=== PATIENT | male | born 1965 | race Caucasian/White ===

== ENCOUNTER → 2016-09-04 | Outpatient (REF) | payer OTHER, BC | LOC: M LAB REF 16:31 | PROVIDERS: ATTEND Surgery | DX: L82.1 Other seborrheic keratosis (principal) ==

== ENCOUNTER → 2019-07-03 | Outpatient (CLI) | payer BC, OTHER ==
[~2019-07-03] MED LIST: CARD180C4 PO; ELIQ5TAB PO; LASI40TA9 PO; POTA595T16 PO; PROT1TAB2 PO; [UNRECOGNIZED DRUG - CODE] PO
[2019-07-03 11:26] LABS: BASO % 0.6 % (0.0-1.0); EOS # 0.2 10^3/uL (0.0-0.5); EOS % 2.6 % (0.0-3.0); HEMATOCRIT 42.9 % (42.0-52.0); HEMOGLOBIN 13.9 g/dl (13.5-17.5); LYMPH # 1.4 10^3/uL (1.5-5.0); LYMPH % 21.6 % (24.0-44.0); MEAN CORPUSCULAR HEMOGLOBIN 30.5 pg (27.0-33.0); MEAN CORPUSCULAR HGB CONC 32.4 g/dl (32.0-36.5); MEAN CORPUSCULAR VOLUME 94.3 fl (80.0-96.0); MONO # 0.8 10^3/uL (0.0-0.8); MONO % 11.6 % (0.0-5.0); NEUTROPHILS # 4.1 10^3/uL (1.5-8.5); NEUTROPHILS % 63.3 % (36.0-66.0); PLATELET COUNT, AUTOMATED 170 10^3/uL (150-450); RED BLOOD COUNT 4.55 10^6/uL (4.30-6.10); WHITE BLOOD COUNT 6.5 10^3/uL (4.0-10.0)
[2019-07-03 11:51] LABS: ALT/SGPT 51 U/L (12-78); BILIRUBIN,DIRECT 0.6 MG/DL (0.0-0.2); BILIRUBIN,TOTAL 2.1 MG/DL (0.2-1.0); TOTAL PROTEIN 6.4 GM/DL (6.4-8.2)
[2019-07-04 11:36] LABS: HEPATITIS B SURFACE ANTIBODY NEGATIVE (POSITIVE)
[2019-07-04 11:45] LABS: HEPATITIS B SURFACE ANTIGEN NEGATIVE (NEGATIVE)
[2019-07-04 12:12] LABS: HEPATITIS C VIRUS ABY INDEX < 0.0 INDEX (<0.8)
== END ==
LOC: M LAB 10:40
PROVIDERS: ATTEND Internal Medicine Gastroenterology
DX: K74.60 Unspecified cirrhosis of liver (principal)

== ENCOUNTER 2019-07-10 09:40 | Day surgery (SDC) | payer BC, OTHER ==
[~2019-07-10] VITALS: Ht 167.6 cm; Wt 84.8 kg
[~2019-07-10 09:40] MED LIST changes: +NS 1,000 ML IV ONE
[2019-07-10] MEDS ORDERED: LIDOCAINE 2% INJ 100 MG/5 ML SDV (FOR ANES.) As Ordered ONE (11:15)
[2019-07-10] MEDS ORDERED: propofoL 200 MG/20 ML VIAL As Ordered ONE (11:15)
[2019-07-10] MEDS ORDERED: fentaNYL 100 MCG/2 ML INJECTION (J3010) As Ordered ONE (12:36)
--- NOTE | 2019-07-10 13:16 | ROOR ---
Patient Name: Omero Ghotra Procedure Date: 07/10/2019 12:31 PM Date of : 1965 Age: 54 Room: [facility] Gender: Male Note Status: Finalized Procedure: Upper GI endoscopy Indications: Upper abdominal pain, Cirrhosis rule out esophageal varices, Portal hypertension rule out esophageal varices Providers: Andres Alonso MD Referring MD: ZANDER NEWTON MD Requesting Provider: Medicines: Monitored Anesthesia Care Complications: No immediate complications. Procedure: Pre-Anesthesia Assessment: - Prior to the procedure, a History and Physical was performed, and patient medications and allergies were reviewed. The patient is competent. The risks and benefits of the procedure and the sedation options and risks were discussed with the patient. All questions were answered and informed consent was obtained. Patient identification and proposed procedure were verified by the physician, the nurse and the anesthesiologist in the procedure room. Mental Status Examination: alert and oriented. Airway Examination: normal oropharyngeal airway and neck mobility. Respiratory Examination: clear to auscultation. CV Examination: normal. Prophylactic Antibiotics: The patient does not require prophylactic antibiotics. Prior Anticoagulants: The patient has taken no previous anticoagulant or antiplatelet agents. ASA Grade Assessment: II - A patient with mild systemic disease. After reviewing the risks and benefits, the patient was deemed in satisfactory condition to undergo the procedure. The anesthesia plan was to use monitored anesthesia care (MAC). Immediately prior to administration of medications, the patient was re-assessed for adequacy to receive sedatives. The heart rate, respiratory rate, oxygen saturations, blood pressure, adequacy of pulmonary ventilation, and response to care were monitored throughout the procedure. The physical status of the patient was re-assessed after the procedure. The Endoscope was introduced through the mouth, and advanced to the second part of duodenum. The upper GI endoscopy was accomplished without difficulty. The patient tolerated the procedure well. Findings: LA Grade A (one or more mucosal breaks less than 5 mm, not extending between tops of 2 mucosal folds) esophagitis with no bleeding was found in the distal esophagus. Biopsies were taken with a cold forceps for histology. Verification of patient identification for the specimen was done by the physician and nurse using the patient's name, date and medical record number. Estimated blood loss was minimal. There is no endoscopic evidence of varices in the entire esophagus. Scattered moderate inflammation characterized by erosions, erythema and granularity was found in the gastric body and in the gastric antrum. Biopsies were taken with a cold forceps for Helicobacter pylori testing. Verification of patient identification for the specimen was done by the physician and nurse using the patient's name, date and medical record number. Estimated blood loss was minimal. The duodenal bulb and second portion of the duodenum were normal. Biopsies for histology were taken with a cold forceps for evaluation of celiac disease. Impression: - LA Grade A reflux esophagitis. Rule out Arreaga's esophagus. Biopsied. - Gastritis. Biopsied. - Normal duodenal bulb and second portion of the duodenum. Biopsied. Recommendation: - Patient has a contact number available for emergencies. The signs and symptoms of potential delayed complications were discussed with the patient. Return to normal activities tomorrow. Written discharge instructions were provided to the patient. - High fiber diet. - Continue present medications. - Follow an antireflux regimen. - Await pathology results. - Telephone GI clinic for pathology results in 2 weeks. - Return to primary care physician. Andres Alonso MD Andres Alonso MD 07/10/2019 1:16:21 PM Electronically signed by Andres Alonso MD Number of Addenda: 0 Note Initiated On: 07/10/2019 12:31 PM Estimated Blood Loss: Estimated blood loss was minimal.
--- NOTE | 2019-07-10 13:22 | ROOR ---
Patient Name: Omero Ghotra Procedure Date: 07/10/2019 12:32 PM Date of : 1965 Age: 54 Room: [facility] Gender: Male Note Status: Finalized Procedure: Colonoscopy Indications: Change in bowel habits, Chronic diarrhea Providers: Andres Alonso MD Referring MD: ZANDER NEWTON MD Requesting Provider: Medicines: Monitored Anesthesia Care Complications: No immediate complications. Procedure: Pre-Anesthesia Assessment: - Prior to the procedure, a History and Physical was performed, and patient medications and allergies were reviewed. The patient is competent. The risks and benefits of the procedure and the sedation options and risks were discussed with the patient. All questions were answered and informed consent was obtained. Patient identification and proposed procedure were verified by the physician, the nurse and the anesthesiologist in the procedure room. Mental Status Examination: alert and oriented. Airway Examination: normal oropharyngeal airway and neck mobility. Respiratory Examination: clear to auscultation. CV Examination: normal. Prophylactic Antibiotics: The patient does not require prophylactic antibiotics. Prior Anticoagulants: The patient has taken no previous anticoagulant or antiplatelet agents. ASA Grade Assessment: II - A patient with mild systemic disease. After reviewing the risks and benefits, the patient was deemed in satisfactory condition to undergo the procedure. The anesthesia plan was to use monitored anesthesia care (MAC). Immediately prior to administration of medications, the patient was re-assessed for adequacy to receive sedatives. The heart rate, respiratory rate, oxygen saturations, blood pressure, adequacy of pulmonary ventilation, and response to care were monitored throughout the procedure. The physical status of the patient was re-assessed after the procedure. The Colonoscope was introduced through the anus and advanced to the terminal ileum, with identification of the appendiceal orifice and IC valve. The colonoscopy was performed without difficulty. The patient tolerated the procedure well. The quality of the bowel preparation was good. The terminal ileum, ileocecal valve, appendiceal orifice, and rectum were photographed. Scope insertion time was 3 minutes. Scope withdrawal time was 9 minutes. The total duration of the procedure was 12 minutes. Findings: The perianal and digital rectal examinations were normal. The terminal ileum appeared normal. A 6 mm polyp was found in the transverse colon. The polyp was sessile. The polyp was removed with a cold snare. Resection and retrieval were complete. Verification of patient identification for the specimen was done by the physician and nurse using the patient's name, date and medical record number. Estimated blood loss was minimal. Non-bleeding external and internal hemorrhoids were found during retroflexion. The hemorrhoids were medium-sized. Impression: - The examined portion of the ileum was normal. - One 6 mm polyp in the transverse colon, removed with a cold snare. Resected and retrieved. - Non-bleeding external and internal hemorrhoids. Recommendation: - Patient has a contact number available for emergencies. The signs and symptoms of potential delayed complications were discussed with the patient. Return to normal activities tomorrow. Written discharge instructions were provided to the patient. - High fiber diet. - Continue present medications. - Await pathology results. - Repeat colonoscopy in 5-10 years for surveillance based on pathology results. - Telephone GI clinic for pathology results in 2 weeks. - Return to primary care physician. Andres Alonso MD Andres Alonos MD 07/10/2019 1:21:56 PM Electronically signed by Andres Alonso MD Number of Addenda: 0 Note Initiated On: 07/10/2019 12:32 PM Estimated Blood Loss: Estimated blood loss was minimal.
[2019-07-10 13:30] VITALS: BP 121/77
== END 2019-07-10 13:53 | disposition home or self-care (01) ==
LOC: M OPP 09:40
PROVIDERS: ATTEND Internal Medicine Gastroenterology
DX: R19.4 Change in bowel habit (principal); K52.9 Noninfective gastroenteritis and colitis, unspecified; D12.3 Benign neoplasm of transverse colon; K64.8 Other hemorrhoids; R10.10 Upper abdominal pain, unspecified; D13.0 Benign neoplasm of esophagus; K29.70 Gastritis, unspecified, without bleeding; K21.0 Gastro-esophageal reflux disease with esophagitis; K74.60 Unspecified cirrhosis of liver; K76.6 Portal hypertension; I48.91 Unspecified atrial fibrillation; I11.0 Hypertensive heart disease with heart failure; Z85.72 Personal history of non-Hodgkin lymphomas; Z92.21 Personal history of antineoplastic chemotherapy; Z92.3 Personal history of irradiation; R06.2 Wheezing; Z87.01 Personal history of pneumonia (recurrent); Z79.01 Long term (current) use of anticoagulants; Z79.899 Other long term (current) drug therapy; Z88.1 Allergy status to other antibiotic agents
CPT/HCPCS: 43239; 45385; 88305; J3010

== ENCOUNTER → 2019-12-10 | Outpatient (CLI) | payer BC, OTHER ==
[~2019-12-10] MED LIST changes: +LISI2.5T2; +METO1TAB7; -NS 1,000 ML IV ONE; +SPIR50TA4
[2020-01-18 11:50] LABS: ALBUMIN 4.3 GM/DL (3.2-5.2); ALT/SGPT 42 U/L (12-78); BILIRUBIN,DIRECT 0.9 MG/DL (0.0-0.2); BLOOD UREA NITROGEN 27 MG/DL (7-18); CALCIUM LEVEL 9.3 MG/DL (8.5-10.1); CARBON DIOXIDE LEVEL 30 MEQ/L (21-32); CHLORIDE LEVEL 102 MEQ/L (98-107); CREATININE FOR GFR 1.23 MG/DL (0.70-1.30); GLOMERULAR FILTRATION RATE > 60.0 (>56); GLUCOSE, FASTING 88 MG/DL (70-100); POTASSIUM SERUM 4.2 MEQ/L (3.5-5.1); SODIUM LEVEL 137 MEQ/L (136-145); TOTAL PROTEIN 6.7 GM/DL (6.4-8.2)
== END ==
LOC: M LAB 10:16
PROVIDERS: ATTEND Internal Medicine Gastroenterology
DX: K74.60 Unspecified cirrhosis of liver (principal)

== ENCOUNTER → 2019-12-12 | Outpatient (CLI) | payer BC, OTHER ==
--- NOTE | 2020-01-30 13:09 | REP ---
COMPLETE ABDOMINAL ULTRASOUND WITH DUPLEX DOPPLER EVALUATION OF PORTAL VENOUS SYSTEM: HISTORY: Cirrhosis. TECHNIQUE: Real time ultrasound evaluation of the abdomen is performed. FINDINGS: The gallbladder demonstrates no evidence of intraluminal sludge or calculi, wall thickening or pericholecystic fluid. There is no intrahepatic or extrahepatic biliary dilatation. The common bile duct measures 5 mm. The liver demonstrates diffuse mild increased echotexture with a heterogeneous pattern compatible with diffuse fibrofatty infiltration. The liver is mildly enlarged with a maximum length of 18.2 cm in the mid-clavicular line. No gross liver or pancreatic mass is seen. The pancreas is not optimally seen due to overlying bowel gas. The spleen is upper limits of normal in size to mildly enlarged, measuring 11.7 x 11.8 x 4.8 cm. The splenic index is 663. The kidneys are normal in size and echotexture, the right kidney measuring 10.0 x 5.8 x 3.5 cm and the left kidney measuring 9.8 x 4.7 x 6.0 cm. There is no hydronephrosis or renal mass. The abdominal aorta is normal in caliber with no aneurysm, proximally measuring 2.0 cm and Distally 1.6 cm in maximum AP dimension. There is trace free fluid near the gallbladder. Real time ultrasound evaluation an duplex Doppler interrogation of portal vasculature is performed. There is normal direction of flow in the portal system. The splenic vein has a maximum velocity of 29.3 cm/s. The superior mesenteric vein is 18.5 cm/s with no intraluminal thrombus. Velocity in the main portal vein is 28.5 cm/s. Portal splenic wave forms appear somewhat phasic, suggesting possible portal hypertension. The hepatic veins are patent with no thrombus. Wave forms suggest tricuspid regurgitation. Peak systolic velocity in the pain hepatic artery is 50.2 cm/s with resistive index of 0.72. IMPRESSION: Heterogeneous increased echotexture of the liver suggests fibrofatty infiltration. The spleen is at the upper limits of normal size to mildly enlarged. Trace free fluid in the right upper quadrant. Normal direction of flow in the portal vasculature. Phasic wave forms suggests some degree of portal hypertension. Wave forms in the hepatic veins suggest tricuspid regurgitation. MTDD
== END ==
LOC: M RAD 06:26
PROVIDERS: ATTEND Internal Medicine Gastroenterology
DX: K74.60 Unspecified cirrhosis of liver (principal)

== ENCOUNTER → 2020-02-18 | Outpatient (CLI) | payer BC, OTHER ==
[2020-02-18 09:59] LABS: BASO # 0.1 10^3/uL (0.0-0.2); BASO % 0.5 % (0.0-1.0); EOS # 0.2 10^3/uL (0.0-0.5); EOS % 1.9 % (0.0-3.0); HEMATOCRIT 47.1 % (42.0-52.0); HEMOGLOBIN 15.5 g/dl (13.5-17.5); LYMPH # 2.3 10^3/uL (1.5-5.0); LYMPH % 23.7 % (24.0-44.0); MEAN CORPUSCULAR HEMOGLOBIN 32.5 pg (27.0-33.0); MEAN CORPUSCULAR HGB CONC 32.9 g/dl (32.0-36.5); MEAN CORPUSCULAR VOLUME 98.7 fl (80.0-96.0); MONO % 10.4 % (0.0-5.0); NEUTROPHILS % 63.1 % (36.0-66.0); PLATELET COUNT, AUTOMATED 224 10^3/uL (150-450); RED BLOOD COUNT 4.77 10^6/uL (4.30-6.10); WHITE BLOOD COUNT 9.5 10^3/uL (4.0-10.0)
[2020-02-18 10:48] LABS: BLOOD UREA NITROGEN 33 MG/DL (7-18); CALCIUM LEVEL 9.2 MG/DL (8.5-10.1); CARBON DIOXIDE LEVEL 29 MEQ/L (21-32); CHLORIDE LEVEL 99 MEQ/L (98-107); CREATININE FOR GFR 1.26 MG/DL (0.70-1.30); GLOMERULAR FILTRATION RATE > 60.0 (>56); GLUCOSE, FASTING 86 MG/DL (70-100); MAGNESIUM LEVEL 2.2 MG/DL (1.8-2.4); PHOSPHORUS LEVEL 3.6 MG/DL (2.5-4.9); POTASSIUM SERUM 4.3 MEQ/L (3.5-5.1); SODIUM LEVEL 136 MEQ/L (136-145)
--- NOTE | 2020-02-23 15:10 | REP ---
CHEST X-RAY: TWO-VIEWS HISTORY: Shortness of breath. Chronic amiodarone therapy. Prior chemo for lymphoma. FINDINGS: The lungs are well-inflated and are clear. The pleural angles are sharp. Pulmonary vasculature is not increased. Heart is mildly enlarged. Cardiothoracic ratio 49.8%. There is evidence of left atrial enlargement with a double density over the right heart border. No pleural effusion or pulmonary edema. There are degenerative changes in the thoracic spine. IMPRESSION: Mild cardiomegaly and left atrial enlargement. Otherwise, no acute disease. MTDD
== END ==
LOC: M LAB 07:51
PROVIDERS: ATTEND Internal Medicine Gastroenterology
DX: K76.0 Fatty (change of) liver, not elsewhere classified (principal); K74.60 Unspecified cirrhosis of liver

== ENCOUNTER → 2020-03-25 | Outpatient (CLI) | payer BC, OTHER ==
[~2020-03-25] MED LIST changes: +LIDOCAINE 1% MDV 20ML VIAL As Ordered ONE; +SODIUM BICARBONATE 8.4% INJ 50MEQ 50 ML VIAL As Ordered ONE
[2020-03-25 11:17] LABS: INR 1.22; PROTHROMBIN TIME 15.7 SECONDS (12.5-14.3)
[2020-03-25 13:15] VITALS: BP 98/66
--- NOTE | 2020-03-25 14:09 | REP ---
INDICATION: CIRRHOSIS. COMPARISON: None. TECHNIQUE: The procedure was performed by Marifer Ballard [facility], under the direct supervision of Dr. Argueta. The risks and benefits of the procedure were explained to the patient and an informed consent was obtained both verbally and written. Directly prior to the start of the procedure a formal time-out was completed in the procedure room. FINDINGS: Using ultrasound guidance the left lobe of the liver was localized. The skin was prepped and draped in a sterile fashion. Twenty mL of buffered lidocaine was used as a local anesthetic. Using ultrasound guidance a 17/18 gauge coaxial needle biopsy system was inserted and advanced into the left lobe of the liver. Five core biopsy specimens were obtained. The patient tolerated the procedure well and there were no immediate complications. After the appropriate amount of monitored convalescence the patient was discharged from the department. IMPRESSION: 1. Ultrasound-guided left lobe liver biopsy. <Electronically signed by Marifer Ballard > 03/25/20 [id number] <Electronically signed by Devan Argueta > 03/25/20 [id number]
== END ==
LOC: M IRPRO 09:54
PROVIDERS: ATTEND Internal Medicine Gastroenterology
DX: K76.0 Fatty (change of) liver, not elsewhere classified (principal); Z88.1 Allergy status to other antibiotic agents

== ENCOUNTER 2020-04-05 22:17 | Inpatient (IN) | payer BC, OTHER ==
[~2020-04-05] VITALS: Ht 167.6 cm; Wt 75.6 kg
[~2020-04-05 22:17] MED LIST changes: -LIDOCAINE 1% MDV 20ML VIAL As Ordered ONE; -LISI2.5T2; +LISI2.5T2 PO; -METO1TAB7; +METO1TAB7 PO; -SODIUM BICARBONATE 8.4% INJ 50MEQ 50 ML VIAL As Ordered ONE; -SPIR50TA4; +SPIR50TA4 PO
[2020-04-05] MEDS ORDERED: HumuLIN R (REGULAR) INSULIN (NovoLIN R) **100U/ML** PER UNIT IV STA (23:25)
[2020-04-05] MEDS ORDERED: DEXTROSE 50% 50 ML SYRINGE IV STA (23:25)
[2020-04-05 23:30] LABS: BASO % 0.4 % (0.0-1.0); EOS # 0.1 10^3/uL (0.0-0.5); EOS % 0.6 % (0.0-3.0); HEMOGLOBIN 16.3 g/dl (13.5-17.5); LYMPH # 1.6 10^3/uL (1.5-5.0); LYMPH % 14.9 % (24.0-44.0); MEAN CORPUSCULAR HEMOGLOBIN 31.6 pg (27.0-33.0); MEAN CORPUSCULAR HGB CONC 32.6 g/dl (32.0-36.5); MEAN CORPUSCULAR VOLUME 96.9 fl (80.0-96.0); MONO # 1.1 10^3/uL (0.0-0.8); MONO % 10.2 % (0.0-5.0); NEUTROPHILS # 7.6 10^3/uL (1.5-8.5); NEUTROPHILS % 73.2 % (36.0-66.0); PLATELET COUNT, AUTOMATED 212 10^3/uL (150-450); RED BLOOD COUNT 5.16 10^6/uL (4.30-6.10); WHITE BLOOD COUNT 10.4 10^3/uL (4.0-10.0)
[2020-04-05] MEDS ORDERED: CALCIUM GLUCONATE IV ONE (23:30)
[2020-04-05] MEDS ORDERED: ALBUTEROL SULFATE 2.5 MG/0.5 ML INH NEB SOLN NEB SCH (23:30)
[2020-04-05] MEDS ORDERED: D5W MINI IV ONE (23:30)
[2020-04-06] VITALS (11 sets, daily range): BP systolic 89–120; BP diastolic 51–74
[2020-04-06] MEDS ORDERED: PATIROMER SORBITEX CALCIUM 8.4 GM POWDER PACKET (VELTASSA) PO ONE
[2020-04-06] MEDS ORDERED: UNRESOLVED CLARIFICATION ENTRY XX SCH (00:01)
--- NOTE | 2020-04-06 00:01 | REPVR ---
PROCEDURE INFORMATION: Exam: XR Chest, 1 View Exam date and time: 04/05/2020 11:35 PM Age: 54 years old Clinical indication: Cough and dyspnea; Additional info: Dyspnea/cough TECHNIQUE: Imaging protocol: XR of the chest Views: 1 view. COMPARISON: TN Chest, 2 view PA, Lat 02/18/2020 8:21 AM FINDINGS: Lungs: There are no interval infiltrates. Pleural space: Unremarkable. No pleural effusion. No pneumothorax. Heart/Mediastinum: The heart is within normal limits considering AP and somewhat lordotic projection. Bones/joints: Unremarkable. IMPRESSION: Stable essentially negative chest since 02/18/2020. Electronically signed by: Henri Fleming On 04/06/2020 00:01:47 AM
[2020-04-06 00:10] LABS: ALBUMIN 4.5 GM/DL (3.2-5.2); BILIRUBIN,DIRECT 0.8 MG/DL (0.0-0.2); CALCIUM LEVEL 9.8 MG/DL (8.5-10.1); CK-MB VALUE MASS 6.7 NG/ML (<3.6); CREATININE FOR GFR 1.87 MG/DL (0.70-1.30); MB/CK RELATIVE INDEX 5.45 (< OR =4); TOTAL PROTEIN 7.5 GM/DL (6.4-8.2); TROPONIN I 0.28 NG/ML (< 0.10)
[2020-04-06] MEDS: CALCIUM GLUCONATE 1,000 MG in D5W MINI-BAG PLUS 100 ML IV SCH ×2 (00:23→00:53)
[2020-04-06] MEDS ORDERED: CALCIUM GLUCONATE 1,000MG/10ML VIAL (100MG/ML) (J0610) IV ONE (01:00)
[2020-04-06] MEDS: NS 1,000 ML IV SCH ×2 (03:01→14:57)
[2020-04-06 03:09] LABS: CALCIUM LEVEL 10.1 MG/DL (8.5-10.1); CK-MB VALUE MASS 5.8 NG/ML (<3.6); CREATININE FOR GFR 1.99 MG/DL (0.70-1.30); GLOMERULAR FILTRATION RATE 37.2 (>56); MB/CK RELATIVE INDEX 6.11 (< OR =4); PHOSPHORUS LEVEL 4.9 MG/DL (2.5-4.9); POTASSIUM SERUM 6.7 MEQ/L (3.5-5.1)
[2020-04-06] MEDS ORDERED: CALCIUM GLUCONATE 1,000 MG in D5W MINI-BAG PLUS 100 ML IV ONE ×2 (03:15→06:30)
[2020-04-06 05:04] LABS: BASO % 0.3 % (0.0-1.0); EOS % 0.1 % (0.0-3.0); HEMATOCRIT 46.1 % (42.0-52.0); HEMOGLOBIN 14.9 g/dl (13.5-17.5); LYMPH # 0.8 10^3/uL (1.5-5.0); MEAN CORPUSCULAR HEMOGLOBIN 31.7 pg (27.0-33.0); MEAN CORPUSCULAR HGB CONC 32.3 g/dl (32.0-36.5); MEAN CORPUSCULAR VOLUME 98.1 fl (80.0-96.0); MONO # 1.1 10^3/uL (0.0-0.8); MONO % 10.6 % (0.0-5.0); NEUTROPHILS # 8.1 10^3/uL (1.5-8.5); NEUTROPHILS % 80.3 % (36.0-66.0); PLATELET COUNT, AUTOMATED 176 10^3/uL (150-450); WHITE BLOOD COUNT 10.1 10^3/uL (4.0-10.0)
[2020-04-06] MEDS ORDERED: FLUBLOK(EGG FREE)(QUAD)INFLUENZA VACC 0.5ML SYRINGE 18YRS & OLDER IM SCH (05:15)
[2020-04-06 05:43] LABS: ALBUMIN 3.9 GM/DL (3.2-5.2); BILIRUBIN,TOTAL 2.3 MG/DL (0.2-1.0); CALCIUM LEVEL 10.3 MG/DL (8.5-10.1); CREATININE FOR GFR 1.91 MG/DL (0.70-1.30); PHOSPHORUS LEVEL 4.9 MG/DL (2.5-4.9); POTASSIUM SERUM 7.2 MEQ/L (3.5-5.1); TOTAL PROTEIN 7.2 GM/DL (6.4-8.2)
[2020-04-06] MEDS ORDERED: DEXTROSE 50% 50 ML SYRINGE IV ONE (06:30)
[2020-04-06] MEDS ORDERED: HumuLIN R (REGULAR) INSULIN (NovoLIN R) **100U/ML** PER UNIT IV ONE (06:30)
--- NOTE | 2020-04-06 07:41 | ECGEPIP ---
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
--- NOTE | 2020-04-06 07:47 | ECGEPIP ---
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
[2020-04-06] MEDS ORDERED: DEXTROSE 50% 50 ML SYRINGE IV STA (08:27)
[2020-04-06] MEDS: PANTOPRAZOLE 40MG TAB (PROTONIX) PO SCH (08:33)
[2020-04-06] MEDS: APIXABAN 5 MG TAB (ELIQUIS) PO SCH ×2 (08:33→20:13)
[2020-04-06] MEDS ORDERED: APIXABAN 5 MG TAB (ELIQUIS) PO SCH (09:00)
--- NOTE | 2020-04-06 09:29 | HPE ---
CRITICAL CARE HISTORY AND PHYSICAL NOTE DATE: 04/06/2020 TIME: 2:00 a.m. SUBJECTIVE: I was called to the emergency department to evaluate this 54-year-old male who presented with dyspnea and bradycardia and was found to have profound hyperkalemia. Ill for approximately three days with progressive dyspnea, episodes of dizziness. He reported to the emergency department and his heart rate was found to be in the 30s. Electrolytes were performed. His potassium was 8. On reviewing his past history, he reports non-Hodgkin's lymphoma diagnosed in 2000 for which he received chemotherapy and radiation. In 2018 he was found to have a cardiomyopathy developed atrial fibrillation and required anticoagulation therapy. Some edema prompted the addition of Lasix at that time. 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 Recurrence of ankle edema prompted the addition of Spironolactone to his medication regime about two months ago. He also has a history of hypertension, on Lisinopril. HOME MEDICATION LIST INCLUDES: - Lasix - Spironolactone - Eliquis - Lisinopril Metoprolol - Protonix SOCIAL HISTORY: He is a nonsmoker and has not taken alcohol regularly since college days. OBJECTIVE: At bedside he is ill-appearing but alert and responsive. His temperature is 97.2, pulse rate 72 up from 36, blood pressure 109/58, respiratory rate 18. HEENT: His pupils are round and react to light. Extraocular motion is intact. Neck is supple. There is no meningismus. Jugular veins are not distended. The carotid upstroke is brisk. There is no bruit. Heart sounds are regular without appreciable murmur. Breath sounds are coarse and diminished. No accessory muscle use at rest. Abdomen is soft. Bowel sounds in the right lower quadrant. Liver is firm but does not feel enlarged. There is no bruit over the large vessels of the abdomen. Extremities are cool. Pulses are palpable. Nails show no clubbing. DIAGNOSTIC STUDIES: EKGs showed sinus bradycardia with a bundle branch block in the 30s. His sodium is 130, potassium 8.0, chloride 104, CO2 20, BUN 46, creatinine 1.87, glucose 101. His white cell count is 10.4, hemoglobin 16.3, hematocrit 50.0, platelet count 212,000. Chest x-ray is essentially clear. ASSESSMENT AND PLAN: 1. The primary problem requiring critical attention is hyperkalemia likely secondary to medication. He has been given supplemental calcium which is currently infusing and insulin and D5. We will recheck his potassium and facilitate admission to the Intensive Care Unit. 2. Acute kidney injury. We will begin gentle hydration and recheck his creatinine. 3. Bradycardia. I suspect this is secondary to his hyperkalemia. His EKG is improved on repeat and we will continue to follow him and keep him on a cardiac specialist. 4. Intermittent atrial fibrillation. We will continue his Eliquis. 5. DVT will be addressed with TEDs and sequentials. 6. I have discussed the case with the emergency department physicians and the ICU team. We will closely monitor his labs and facilitate his admission out of the Intensive Care Unit. One hour and 26 minutes were spent in the provision of bedside critical care and coordination. PETER
[2020-04-06 09:37] LABS: ALBUMIN 3.8 GM/DL (3.2-5.2); CALCIUM LEVEL 10.4 MG/DL (8.5-10.1); CREATININE FOR GFR 1.67 MG/DL (0.70-1.30); GLOMERULAR FILTRATION RATE 45.5 (>56); PHOSPHORUS LEVEL 4.5 MG/DL (2.5-4.9); POTASSIUM SERUM 5.6 MEQ/L (3.5-5.1)
[2020-04-06 13:58] LABS: ALBUMIN 4.2 GM/DL (3.2-5.2); CALCIUM LEVEL 10.5 MG/DL (8.5-10.1); CREATININE FOR GFR 1.44 MG/DL (0.70-1.30); PHOSPHORUS LEVEL 4.9 MG/DL (2.5-4.9); POTASSIUM SERUM 5.7 MEQ/L (3.5-5.1)
[2020-04-06] MEDS ORDERED: SOD POLYSTYRENE SULFONATE SUSP 15 GM/60 ML UD PO ONE (14:15)
--- NOTE | 2020-04-06 15:48 | ECGEPIP ---
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
[2020-04-06 18:49] LABS: ALBUMIN 3.5 GM/DL (3.2-5.2); CALCIUM LEVEL 9.9 MG/DL (8.5-10.1); CREATININE FOR GFR 1.38 MG/DL (0.70-1.30); GLOMERULAR FILTRATION RATE 56.7 (>56); POTASSIUM SERUM 6.5 MEQ/L (3.5-5.1)
[2020-04-06] MEDS ORDERED: FUROSEMIDE 40MG/4ML VIAL (J1940) IV ONE (20:00)
[2020-04-06] MEDS: SODIUM BICARBONATE 75 MEQ in NS 0.45% 1,000 ML IV SCH (20:52)
[2020-04-07 00:14] VITALS: BP 91/56
[2020-04-07 04:00] VITALS: BP 90/56
[2020-04-07] MEDS: SODIUM BICARBONATE 75 MEQ in NS 0.45% 1,000 ML IV SCH ×2 (04:47→14:57)
[2020-04-07 04:59] LABS: BASO % 0.5 % (0.0-1.0); EOS # 0.2 10^3/uL (0.0-0.5); EOS % 2.3 % (0.0-3.0); HEMATOCRIT 41.7 % (42.0-52.0); HEMOGLOBIN 14.4 g/dl (13.5-17.5); LYMPH # 1.4 10^3/uL (1.5-5.0); LYMPH % 17.3 % (24.0-44.0); MEAN CORPUSCULAR HEMOGLOBIN 32.8 pg (27.0-33.0); MEAN CORPUSCULAR HGB CONC 34.5 g/dl (32.0-36.5); MONO # 0.8 10^3/uL (0.0-0.8); MONO % 9.8 % (0.0-5.0); NEUTROPHILS # 5.8 10^3/uL (1.5-8.5); NEUTROPHILS % 69.5 % (36.0-66.0); PLATELET COUNT, AUTOMATED 155 10^3/uL (150-450); RED BLOOD COUNT 4.39 10^6/uL (4.30-6.10); WHITE BLOOD COUNT 8.3 10^3/uL (4.0-10.0)
[2020-04-07 05:22] LABS: ALBUMIN 3.4 GM/DL (3.2-5.2); BILIRUBIN,TOTAL 1.8 MG/DL (0.2-1.0); CALCIUM LEVEL 9.4 MG/DL (8.5-10.1); CREATININE FOR GFR 1.37 MG/DL (0.70-1.30); GLOMERULAR FILTRATION RATE 57.2 (>56); PHOSPHORUS LEVEL 3.2 MG/DL (2.5-4.9); POTASSIUM SERUM 5.3 MEQ/L (3.5-5.1); TOTAL PROTEIN 6.5 GM/DL (6.4-8.2)
--- NOTE | 2020-04-07 07:09 | IPN ---
DATE: 04/06/2020 ATTENDING: Dr. John Augustin, Critical Care Medicine SUBJECTIVE: Mr. Ghotra was seen and examined this morning. He was admitted yesterday for a complaint of weakness. He was found to have severe hyperkalemia with a potassium of 8 and electrocardiogram demonstrating junctional rhythm with a rate of 36. The patient was given insulin and glucose as well as calcium gluconate and patiromer overnight. This morning the patient clinically appears well. He has no complaints. His potassium is still elevated. He denies any current symptoms. On further questioning, the patient states that he has a history of cardiomyopathy, which was diagnosed with cardiac catheterization. He states that this cardiomyopathy was thought to be viral. Additionally, the patient states that he had recently started a workup for liver cirrhosis, in which he had a liver biopsy. OBJECTIVE: VITAL SIGNS: Temperature 96.9, pulse 80, respiratory rate 16, blood pressure 104/63, pulse ox 98% on room air. GENERAL: Patient is awake, alert, oriented. He does not appear in acute distress. He is lying comfortably in bed. HEENT: Atraumatic, normocephalic. Eyes are anicteric. Trachea is midline. Mucous membranes are pink and moist. CARDIOVASCULAR: There is a normal S1, S2, regular rate and rhythm. No clicks, rubs, or murmurs. RESPIRATORY: There are clear, vesicular breath sounds bilaterally. Good respiratory effort. No wheezes, rhonchi, or rales. ABDOMEN: Soft, nondistended, nontender. No rebound tenderness or guarding. Normoactive bowel sounds. EXTREMITIES: No edema. Full and equal pulses, bilateral upper and lower extremities. NEUROLOGIC: No focal neurological deficits. PSYCHIATRIC: Mood and affect appear appropriate. LABORATORY DATA: Hematology: White blood cells 10.1, hemoglobin 14.9, hematocrit 46.1, platelet count 176. Chemistries: Sodium 128, potassium 5.6, chloride 103, carbon dioxide 15, BUN 44, creatinine 1.67, fasting glucose 248, calcium 10.4, phosphorus 4.5. IMAGING: Chest x-ray demonstrated no infiltrates. Otherwise unremarkable. ASSESSMENT AND PLAN: Mr. 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 Emergency department with a complaint of progressive weakness over the past 2-3 days and found to have severe hyperkalemia with a potassium of 8 and EKG changes consistent with bradycardia with a junctional rhythm. The patient was given calcium gluconate, potassium-binding resin, and insulin and transferred to the intensive care unit (ICU) for further monitoring. 1. Severe hyperkalemia. 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 His EKG was consistent with this, demonstrating bradycardia with a junctional escape rhythm. He had received calcium gluconate, approximately 3 grams in total from admission to now as well as insulin, D50, and patiromer. The patient's potassium has currently come down to 5.6, although I anticipate that it will likely rise again. Will trend a second potassium level at 1300. I have consulted nephrology and case was discussed. The cause of his hyperkalemia is likely secondary to diet and medication use, as the patient has stated that he started drinking more orange juice as well as eating lettuce, which are both high in potassium. Additionally, the patient was recently started on potassium-sparing diuretics, including spironolactone. He was started on 50 mg twice a day as well as lisinopril. This likely contributes to his hyperkalemia. Lastly, the patient had also been following a fluid-restricted diet with fluid restriction of 1500 mL. Likely that a combination of acute on chronic kidney injury in the setting of potassium-sparing diuretics has led to his hyperkalemia. In any event, Nephrology is currently following. Their recommendations are appreciated. We will continue to monitor serum potassium and treat accordingly. 2. Acute kidney injury on chronic kidney disease. Patient appears to have chronic kidney disease at baseline. He appeared dry on presentation. He is currently getting normal saline run at 100 mL per hour. Will continue with fluid, as creatinine is improving. On admission it was 1.87, currently down to 1.67. Will avoid nephrotoxic agents, currently holding diuresis and holding all his potassium-sparing diuretics. Likely his creatinine will improve with hydration. He does have a history of cardiomyopathy and therefore will avoid monitor for fluid overload. Will consider sodium bicarbonate if potassium does not improve 3. Atrial fibrillation. Patient is currently in normal sinus rhythm. He has a history of intermittent atrial fibrillation. He is continued on Eliquis. Currently holding metoprolol. 4. History of liver cirrhosis. Patient has a history of liver cirrhosis. He states he has a history of ascites, as why he was started on spironolactone. Currently patient does not appear to be volume overloaded. In fact, he appears to be volume depleted. We will continue to monitor. 5. History of cardiomyopathy. Patient apparently has a history of cardiomyopathy. He had an echocardiogram and a cardiac catheterization completed, where he apparently had a low left ventricular ejection fraction. He states that he was told that his cardiomyopathy was likely secondary to viral etiology. At this time, we will continue to give fluids. Will monitor for volume overload; however, in the meantime the patient does not appear to be decompensated. 6. History of Non-Hodgkin's/Burkitt's lymphoma. The patient states he has a history of Non-Hodgkin's/Burkitt's lymphoma. He had received radiation and chemotherapy for this back in 2000. After discussions with nephrology, this could be etiology of the patient's hyperkalemia if he was to have a remission of lymphoma. Once patient's kidney function improves, may consider a CT of the abdomen and pelvis with IV contrast to assess for possible lymphoma. 7. Deep venous thrombosis (DVT) prophylaxis. Patient has thromboembolic deterrents (TEDs) and sequentials. Additionally, he is chronically on Eliquis. Will continue. DISPOSITION: Patient clinically is improving. Potassium currently 5.6, down from 8. Repeat lab at 1300. If he continues to improve, patient can likely be transitioned to hospitalist service for further management. Dr. Augustin: I participated in the evaluation & management as outlined above and agree with the documentation above. The patient remains critically ill but is responding to therapy. I appreciate the assistance of Nephrology and Cardiology. Forty eight minutes has been spent in the provision of critical care and coordination exclusive of procedure time. [facility]
[2020-04-07 08:00] VITALS: BP 100/65
[2020-04-07] MEDS: APIXABAN 5 MG TAB (ELIQUIS) PO SCH ×2 (08:08→20:25)
[2020-04-07] MEDS: PANTOPRAZOLE 40MG TAB (PROTONIX) PO SCH (08:08)
--- NOTE | 2020-04-07 09:34 | CR ---
DATE OF CONSULTATION: 04/06/2020 REFERRING PHYSICIAN: John Augustin D.O. REASON FOR CONSULTATION: Severe hyperkalemia and acute kidney injury. HISTORY OF PRESENT ILLNESS: Mr. Ghotra is a 54-year-old gentleman with known history of hypertension, viral cardiomyopathy and history of atrial fibrillation. He has a history of non-Hodgkins lymphoma diagnosed in 2000 for which he was treated with radiation and chemo and has been in remission. Recently, he developed lower extremity edema and then also there was a question about ascites and cirrhosis of liver. He has been a couple of months ago started on spironolactone in addition to Lasix and he was also on lisinopril due to his cardiomyopathy. The patient reports that last week or so, he has not been feeling well. He started feeling dizzy and he felt that his blood sugar was low so he started drinking some orange juice. His symptoms worsened and he presented to the emergency room last night and was noted to have a serum potassium level of 8.0. He also has acute kidney injury and was admitted to intensive care unit. The patient was bradycardic on arrival with a heart rate in the 30s which has now improved. He has received IV normal saline and multiple doses of intravenous calcium gluconate. He was also given Veltassa due to hyperkalemia. His potassium level has improved since admission. A nephrology consultation was requested and the patient is seen in the intensive care unit around noontime today. PAST MEDICAL AND SURGICAL HISTORY: 1. Non-Hodgkins lymphoma diagnosed in 2000, status post chemo and radiation. 2. History of viral cardiomyopathy. 3. History of atrial fibrillation. 4. History of possible cirrhosis or fatty liver. Status post a liver biopsy recently. Results are pending. HOME MEDICATIONS: * Spironolactone 50 mg b.i.d. * Lasix 40 mg daily. * Lisinopril 2.5 mg daily. * Metoprolol 25 mg daily. * Protonix 40 mg daily. * Eliquis 5 mg b.i.d. PERSONAL AND SOCIAL HISTORY: The patient does not smoke or use any drugs. He denies any alcohol use. FAMILY HISTORY: Negative for any kidney problems,. REVIEW OF SYSTEMS: The patient denies any fevers or chills. He was just feeling weak and tired for a few days and worsened on the day of admission. He denies any falls. Ears, nose and throat are unremarkable. Cardiovascular system: Significant for cardiomyopathy. Respiratory system is negative for hemoptysis or pleuritic type of chest pain. GI system is negative for vomiting or diarrhea. system is negative for any kidney stones, hematuria or flank pain. Musculoskeletal system is significant for leg edema which did improve with diuretics. He denies any use of NSAIDs. Psychosocial system: Negative for depression or anxiety. Neurological system is negative for seizures or stroke. Hematological system is significant for chronic anticoagulation for atrial fibrillation. PHYSICAL EXAMINATION: The patient is awake and alert at the time of my visit. He is lying in his bed without any acute distress. Temperature is 97.5 degrees Fahrenheit, heart is 72 per minute and respiratory rate 16 per minute, blood pressure 94/56 mmHg and oxygen saturation 98% on room air. His head is atraumatic. Neck: Supple and without JVD or thyroid enlargement. Ears, nose and throat are unremarkable. Heart exam reveals a regular S1 and S2 at present. There is no pericardial friction rub. Lungs are clear to auscultation bilaterally. Abdomen: Soft and nontender and there is no palpable organomegaly. Bowel sounds are normal. Extremities: Without any cyanosis or clubbing. Neurologically he is awake, alert and oriented x3. LABORATORY DATA: On admission his serum potassium level was 8.0 and sodium 130/ BUN 46 and creatinine 1.87. A repeat creatinine a few hours later was 1.99. His BNP on admission 12,185. Most recent chemistry shows sodium 128, potassium 5.6, CO2 15, BUN 44 and creatinine 1.67. Glucose 248 and calcium 10.4. PROBLEMS: 1. Hyperkalemia most likely related to medications and intake of high potassium foods. He was on lisinopril and spironolactone and when felt dizzy, he drank some orange juice. He also has developed acute kidney injury most likely related to over-diuresis which may have contributed to hyperkalemia. He is also noticed to have some metabolic acidosis for which etiology is uncertain. The patient will need to be monitored closely. Should his hyperkalemia rebound, we will treat him with Kayexalate and continue with IV fluid for now. 2. Metabolic acidosis. He does have mild metabolic acidosis which is likely to improve with IV fluids and improvement of kidney function. If his metabolic acidosis does not improve in a few hours, then we will consider giving him bicarbonate drip. 3. Acute kidney injury superimposed on chronic kidney disease. I have reviewed his prior abdominal ultrasound and he does seem to have mild baseline chronic kidney disease at least. Acute kidney injury seems to be prerenal and is improving with IV fluid hydration. His diuretics are on hold. We will have to use caution due to history of cardiomyopathy and risk for congestive heart failure. 4. Hypernatremia. This is related to diuretics use and likely to improve as he is receiving normal saline. Electrolytes will be checked again in a few hours. 5. History of non-Hodgkins lymphoma with remission. The patient has been in complete remission. I will consider to repeat imaging with IV contrast once his kidney function improves to rule out any possibility of recurrence of lymphoma. Thank you for involving me in the care of Mr. Ghotra. I will follow him along with you. PETER
[2020-04-07 11:19] LABS: ALBUMIN 3.5 GM/DL (3.2-5.2); BLOOD UREA NITROGEN 34 MG/DL (7-18); CALCIUM LEVEL 9.5 MG/DL (8.5-10.1); CARBON DIOXIDE LEVEL 24 MEQ/L (21-32); CHLORIDE LEVEL 100 MEQ/L (98-107); CREATININE FOR GFR 1.24 MG/DL (0.70-1.30); GLOMERULAR FILTRATION RATE > 60.0 (>56); GLUCOSE, FASTING 107 MG/DL (70-100); PHOSPHORUS LEVEL 3.3 MG/DL (2.5-4.9); POTASSIUM SERUM 4.9 MEQ/L (3.5-5.1); SODIUM LEVEL 133 MEQ/L (136-145)
[2020-04-07 12:15] VITALS: BP 114/73
[2020-04-07] MEDS: GASTROGRAFIN SOLUTION 30ML PO SCH ×2 (12:36→13:08)
--- NOTE | 2020-04-07 12:40 | CCN ---
DATE: 04/06/2020 Dictated by Rodriguez Morales DO, Internal Medicine Resident PGY-3 in conjunction with attending John Augustin M.D. of Pulmonary Critical Care Medicine. SUBJECTIVE: Mr. Ghotra was seen and examined this morning. He currently has no complaints. There have been no adverse events reported overnight. His hyperkalemia has continued to resolve. He was started on a sodium bicarb drip by nephrology yesterday. The patient himself currently has no complaints. OBJECTIVE: VITAL SIGNS: Temperature 97.8, pulse 87, respiratory rate 16, blood pressure 100/65, pulse oximetry 98% on room air. GENERAL: The patient is awake, alert, and oriented. He does not appear in any acute distress. He is sitting up comfortably in his chair. HEENT: Atraumatic, normocephalic. Eyes are nonicteric. Trachea is midline. There is no palpable cervical, axillary, or supraclavicular lymphadenopathy. CARDIAC: Normal S1, S2. Regular rate and rhythm. No clicks, rubs, or murmurs. PULMONARY: Clear vesicular breath sounds bilaterally. Good respiratory effort. No wheezes, rhonchi, or rales. ABDOMEN: Soft, nondistended, and nontender. No rebound tenderness or guarding. Normoactive bowel sounds throughout. EXTREMITIES: No edema. Full and equal pulse bilateral upper and lower extremities. NEUROLOGIC: No focal neurological deficits. PSYCHIATRIC: Mood and affect appear appropriate. LABORATORY STUDIES: Hematology: White blood cell 8.3, hemoglobin 14.4, hematocrit 41.7, platelet count 155,000. Chemistries: Sodium 133, potassium 5.3, carbon dioxide 101, BUN 36, creatinine 1.37, fasting glucose 98, calcium 9.4, phosphorus 3.2, total bilirubin 1.8, AST 24, ALT 36, alkaline phosphatase 169, LDH 206. ASSESSMENT/PLAN: Mr. Ghotra is a 54-year-old male with a past medical history significant for nonalcoholic liver cirrhosis, cardiomyopathy felt to be viral in etiology, and a history of non-Hodgkin lymphoma, who presented to [facility] Emergency Department originally with the complaint of weakness over the past two to three days and found to have severe hyperkalemia with a potassium of 8 and EKG changes consistent with bradycardia with a junctional rhythm. The patient was given calcium gluconate, potassium-binding resin, insulin and transferred to intensive care for further monitoring. He has been seen by nephrology and started on sodium bicarbonate drip. 1. Severe hyperkalemia. The patient originally presented with severe hyperkalemia. He had EKG findings consistent with this with bradycardia junctional escape rhythm. He is status post 3 grams of calcium gluconate in total, as well as insulin, D50, and patiromer. The patient has also received Kayexalate. The patients potassium level has continued to come down. He has been started on a sodium bicarbonate drip by nephrology, which does appear to be improving his potassium levels. We will continue to trend his potassium levels, anticipate giving additional Kayexalate if his potassium levels continue to be elevated. The cause of his hyperkalemia is likely secondary to his potassium- sparing diuretics including both Spironolactone and lisinopril. Additionally, the patient has been fluid restricted and had been drinking orange juice, as he thought his symptoms were from hyperglycemia. The combination of this on top of acute kidney injury likely led to his hyperkalemia. We will currently hold his diuretics and continue to monitor his serum potassium and treat accordingly. 2. Acute kidney injury on chronic kidney disease. The patient appears to have a baseline chronic kidney disease. He was hypovolemic on presentation. He has been given normal saline. This has been discontinued by nephrology and he has been started on sodium bicarbonate as his potassium was not improving at the rate anticipated. His creatinine continues to improve. GFR improved as well. We will continue to avoid nephrotoxic agents at this time currently holding diuresis. He does have a history of cardiomyopathy and we will monitor for volume overload. He did receive a dose of 40 mg IV Lasix yesterday given his cardiomyopathy. Nephrology is currently consulting and their recommendations are appreciated. 3. History of atrial fibrillation. The patient is currently in sinus rhythm. History of intermittent atrial fibrillation. He is continued on Eliquis. Currently holding metoprolol. 4. History of cardiomyopathy. The patient has a history of cardiomyopathy. The etiology is unknown, although the patient said that he believes it is due to a virus. He had a workup performed at [facility] where he received a heart catheterization. The records are currently pending. Cardiology has been consulted and is following the patient. He has received an echo today and that reading is currently pending. 5. History of liver cirrhosis. He has a history of liver cirrhosis. The patient states he has a history of ascites, although I cannot find any documentation of this. He was started on Spironolactone and this likely contributed to his hyperkalemia. At this time, he does not appear to be volume overloaded, he appeared hypovolemic, and we will continue to monitor. 6. History of non-Hodgkin lymphoma. The patient has a history of non-Hodgkin lymphoma. He is status post chemotherapy and radiation in 2000. After discussion with nephrology, they believe it is warranted to consider obtaining a CT of the abdomen and pelvis with IV contrast to assess for possible lymphoma readmission. 7. Deep venous thrombosis prophylaxis. The patient is currently on TEDs and sequentials. Additionally, he is on Eliquis and will continue. DISPOSITION: The patient is clinically improving. Hyperkalemia is resolving. At this time, the patient does not warrant intensive care unit (ICU). We will transition to hospitalist service at this time for further management. Dr. Augustin: I participated in the gunn components of the above evaluation and management. I concur with the above comments and appreciate the willingness of the hospitalists service to assume his care. PETER
[2020-04-07] MEDS ORDERED: ISOVUE-370 76% 100ML VIAL As Ordered ONE (13:19)
[2020-04-07 16:18] LABS: ALBUMIN 3.4 GM/DL (3.2-5.2); BLOOD UREA NITROGEN 30 MG/DL (7-18); CALCIUM LEVEL 8.7 MG/DL (8.5-10.1); CARBON DIOXIDE LEVEL 25 MEQ/L (21-32); CHLORIDE LEVEL 100 MEQ/L (98-107); CREATININE FOR GFR 1.23 MG/DL (0.70-1.30); GLOMERULAR FILTRATION RATE > 60.0 (>56); GLUCOSE, FASTING 106 MG/DL (70-100); PHOSPHORUS LEVEL 3.8 MG/DL (2.5-4.9); POTASSIUM SERUM 4.5 MEQ/L (3.5-5.1); SODIUM LEVEL 132 MEQ/L (136-145)
--- NOTE | 2020-04-07 16:21 | CR ---
CONSULTATION INDICATION: Hyperkalemia. HISTORY OF PRESENT ILLNESS: Mr. Ghotra is previously unknown to me. 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 He reported that he originally presented with abdominal bloating and shortness of breath. He was evaluated by Dr. Reddy in [place] and was found to be in atrial fibrillation. Apparently, several anti-arrhythmics were initially used, but then in early 2019 he presented with pneumonia and was hospitalized in [facility]. Since that time, his cardiac issues were managed by Dr. Gong from [facility]. Apparently, after initial course of anti-arrhythmics, there has not been any evidence for recurrent atrial fibrillation, but further cardiac workup revealed that he had cardiomyopathy. Apparently he initially had very low ejection fraction, but patient reported that his last echocardiogram revealed improvement of left ventricular ejection fraction (LVEF) to 45%. He cannot quite recall when the echocardiogram was performed. The second issue was that he had heart catheterization in July 2019 that revealed no evidence for coronary artery disease. There was also suspicion raised for liver cirrhosis. Apparently it was based on development of ascites. He was seen by Dr. Alonso and started on spironolactone 50 mg twice a day approximately 3 or 4 weeks ago, according to the patient. A liver biopsy was performed on the , and the results revealed that there is no evidence for liver cirrhosis, even though there is some mild periportal fibrosis. Patient presented to emergency room (ER) with sensation of dizziness. It started approximately 1 day prior to the admission. On presentation to emergency room, he was found to have hyperkalemia with potassium 8. An EKG revealed idioventricular rhythm with wide QRS complex typical of severe hyperkalemia. The blood work revealed potassium 8. He was treated with standard measures, and the potassium gradually improved. Currently it is down to 5.3 as of this morning. Patient tells me that he is feels much better. He denies any dyspnea, palpitations, or shortness of breath while at rest. MEDICAL HISTORY: 1. Cardiomyopathy, nonischemic, as noted above. 2. History of paroxysmal atrial fibrillation. 3. History of non-Hodgkin's lymphoma in 2010. At the time, he apparently had a regimen of M-CHOP and was followed at cancer center in [facility] but was discharged after 5 years without detected relapse. Patient denies history of diabetes, hypertension, or dyslipidemia, even though he was on several medications that potentially can be used for treatment of hypertension. SURGICAL HISTORY: Negative. SOCIAL HISTORY: Patient is . 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 He never smoked. He used social alcohol until the presentation last year. 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 FAMILY HISTORY: Mother of congestive heart failure, but it was in very advanced age. He is not familiar with his father. He has a brother who is healthy. REVIEW OF SYSTEMS: Denies any recent fever, chills, nausea, vomiting. No chest pain. He has chronic exertional dyspnea, about [place] [employer] (NYHA) Class 2-3. He occasionally developed mild peripheral edema but not significant. Denies any history of encephalopathy. OUTPATIENT MEDICATIONS: - Cardizem CD 180 mg daily - Eliquis 5 mg twice a day - furosemide 40 mg twice a day - lisinopril 2.5 mg at bedtime - Toprol-XL 50 mg daily - Protonix 40 mg daily - spironolactone 50 mg twice a day PHYSICAL EXAMINATION: Mr. Ghotra is a pleasant 54-year-old man who does not appear in any distress. His morning blood pressure was 90/56. Heart rate is in 80s and 90s, sinus rhythm with occasional ectopy. He is afebrile. Saturation 96% on room air. His weight has not been recorded this morning yet but was 75.6 kg yesterday. His jugular venous pressure (JVP) is not high. I do not appreciate carotid bruit, goiter. Lungs are clear with good air movement. Heart exam reveals regular rhythm. There is a widely splitting second heart sound. I do not appreciate any murmur as such. Abdomen is soft. Very muscular wall, so I cannot easily appreciate size of the liver or spleen. No shifting dullness. Extremities are free of edema. Peripheral pulses are of good quality. Basic metabolic panel this morning: Sodium 133, potassium 5.3, BUN 36, creatinine 1.4, glucose 98. CBC revealed normal CBC. Chest x-ray is unremarkable. ECG initially revealed basically the ventricular rhythm with very wide, bizarre QRS complex, consistent with severe hyperkalemia. He has not had any repeated one since. ASSESSMENT AND PLAN: Mr. Ghotra is a 54-year-old man who presented with life-threatening hyperkalemia. It was likely a combination of spironolactone and lisinopril, even though what is bizarre is that he has been on these medications probably at least a month, and the hyperkalemia was only very recent. Even though the last basic metabolic panel in the computer prior to this admission was from February 17. The second issue is that of management of congestive heart failure. He has cardiomyopathy, and I am going to request records from [facility]. His blood pressure is too soft in my opinion to reintroduce any of his medications, and also he still is mildly hyperkalemic, but nevertheless I would like him to go home on at least small-dose beta clau before he leaves the hospital. I do not believe he is quite ready, and I would recommend to monitor him for at least one more day. In the long run, I will bring him to our clinic. He already was referred on outpatient basis but missed his appointment because he had other medical appointment on that day and could not make it. I do believe that in future we will have to be extremely careful with administration of potassium-raising medications after this experience.
--- NOTE | 2020-04-07 16:45 | REP ---
INDICATION: Lymphoma. COMPARISON: None TECHNIQUE: Axial contrast-enhanced images from the lung bases to the pubic symphysis using 100 cc Isovue 370 intravenous contrast material. Oral contrast administered prior to imaging. Delayed images of the abdomen as well as coronal and sagittal obtained. This CT examination was performed using the following dose reduction techniques: Automated exposure control, adjustment of mA and/or kv according to the patient's size, and the use of iterative reconstruction technique. FINDINGS: Lung bases are clear. Visualized heart and pericardium within normal limits. Liver, spleen, pancreas, gallbladder, bilateral adrenal glands and kidneys are normal. The enteric system demonstrates fecal stasis without obstruction or acute inflammatory process. Normal terminal ileum and appendix are identified in the right lower quadrant. Sigmoid diverticula noted without acute diverticulitis. Pelvis demonstrates normal bladder and age-appropriate prostate/seminal vesicles. No ascites. No free air. No significant intraperitoneal or retroperitoneal adenopathy appreciated. No obvious pelvic or inguinal adenopathy noted. Atherosclerotic changes to the aorta and branch vessels without aneurysm or dissection. Musculoskeletal structures demonstrate age-related degenerative changes without acute osseous abnormality. IMPRESSION: 1. No acute abdominopelvic pathology appreciated. 2. No mass lesion, adenopathy, inflammatory stranding or ascites. 3. Diverticulosis without acute diverticulitis. 4. Further nonacute findings as described above. <Electronically signed by Erik Sheets > 04/07/20 1470
[2020-04-07] MEDS: METOPROLOL SUCC (TopROL XL) 50MG **XL** TAB PO SCH (18:16)
[2020-04-07 19:10] VITALS: BP 106/60
--- NOTE | 2020-04-07 19:30 | ECGEPIP ---
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
[2020-04-07 22:00] VITALS: BP 114/72
[2020-04-07 22:56] LABS: ALBUMIN 3.4 GM/DL (3.2-5.2); BLOOD UREA NITROGEN 30 MG/DL (7-18); CALCIUM LEVEL 8.8 MG/DL (8.5-10.1); CARBON DIOXIDE LEVEL 24 MEQ/L (21-32); CHLORIDE LEVEL 102 MEQ/L (98-107); CREATININE FOR GFR 1.06 MG/DL (0.70-1.30); GLOMERULAR FILTRATION RATE > 60.0 (>56); GLUCOSE, FASTING 98 MG/DL (70-100); PHOSPHORUS LEVEL 3.6 MG/DL (2.5-4.9); POTASSIUM SERUM 5.1 MEQ/L (3.5-5.1); SODIUM LEVEL 134 MEQ/L (136-145)
[2020-04-08 05:54] LABS: BASO % 0.6 % (0.0-1.0); EOS # 0.1 10^3/uL (0.0-0.5); HEMATOCRIT 47.1 % (42.0-52.0); HEMOGLOBIN 16.2 g/dl (13.5-17.5); LYMPH # 1.6 10^3/uL (1.5-5.0); LYMPH % 22.4 % (24.0-44.0); MEAN CORPUSCULAR HEMOGLOBIN 32.9 pg (27.0-33.0); MEAN CORPUSCULAR HGB CONC 34.4 g/dl (32.0-36.5); MEAN CORPUSCULAR VOLUME 95.5 fl (80.0-96.0); MONO # 0.8 10^3/uL (0.0-0.8); MONO % 11.5 % (0.0-5.0); NEUTROPHILS # 4.5 10^3/uL (1.5-8.5); NEUTROPHILS % 63.1 % (36.0-66.0); PLATELET COUNT, AUTOMATED 174 10^3/uL (150-450); RED BLOOD COUNT 4.93 10^6/uL (4.30-6.10); WHITE BLOOD COUNT 7.1 10^3/uL (4.0-10.0)
[2020-04-08 06:00] VITALS: BP 98/58
[2020-04-08 06:14] LABS: ALBUMIN 3.8 GM/DL (3.2-5.2); ALT/SGPT 36 U/L (12-78); BILIRUBIN,TOTAL 1.8 MG/DL (0.2-1.0); BLOOD UREA NITROGEN 34 MG/DL (7-18); CALCIUM LEVEL 9.4 MG/DL (8.5-10.1); CARBON DIOXIDE LEVEL 25 MEQ/L (21-32); CHLORIDE LEVEL 101 MEQ/L (98-107); CHOLESTEROL LEVEL 151 MG/DL (< 200); CPK CREATINE PHOSPHOKINASE 49 U/L (39-308); CREATININE FOR GFR 1.22 MG/DL (0.70-1.30); GLOMERULAR FILTRATION RATE > 60.0 (>56); GLUCOSE, FASTING 105 MG/DL (70-100); LDH LACTATE DEHYDROGENASE 221 U/L (87-241); PHOSPHORUS LEVEL 3.9 MG/DL (2.5-4.9); POTASSIUM SERUM 5.4 MEQ/L (3.5-5.1); SODIUM LEVEL 133 MEQ/L (136-145); TOTAL PROTEIN 6.5 GM/DL (6.4-8.2); TRIGLYCERIDES LEVEL 66 MG/DL (<150)
[2020-04-08] MEDS: METOPROLOL SUCC (TopROL XL) 50MG **XL** TAB PO SCH (09:00)
[2020-04-08] MEDS: APIXABAN 5 MG TAB (ELIQUIS) PO SCH ×2 (09:37→20:15)
[2020-04-08] MEDS: FUROSEMIDE 40 MG TAB PO SCH (09:37)
[2020-04-08] MEDS: PANTOPRAZOLE 40MG TAB (PROTONIX) PO SCH (09:37)
[2020-04-08] MEDS ORDERED: SOD POLYSTYRENE SULFONATE SUSP 15 GM/60 ML UD PO ONE (10:00)
[2020-04-08 10:26] VITALS: BP 96/58
[2020-04-08 11:59] LABS: BLOOD UREA NITROGEN 31 MG/DL (7-18); CALCIUM LEVEL 9.6 MG/DL (8.5-10.1); CARBON DIOXIDE LEVEL 28 MEQ/L (21-32); CHLORIDE LEVEL 99 MEQ/L (98-107); CREATININE FOR GFR 1.19 MG/DL (0.70-1.30); GLOMERULAR FILTRATION RATE > 60.0 (>56); GLUCOSE, FASTING 105 MG/DL (70-100); POTASSIUM SERUM 4.8 MEQ/L (3.5-5.1); SODIUM LEVEL 134 MEQ/L (136-145)
--- NOTE | 2020-04-08 13:23 | IPNPDOC ---
Text Note Date of Service The patient was seen on 04/08/20. NOTE Subjective: No any acute events overnight. Patient denied fever, chills, nausea, vomiting, diarrhea or dysuria Objective: GENERAL APPEARANCE: NAD HEENT: no scleral icterus, no JVD, EOMI CARDIOVASCULAR: Irregularly irregular LUNGS: CTA ABDOMEN: soft & not tender w palpitation MUSCULOSKELETAL: no cyanosis, no swelling INTEGUMENT: no generalized palor NEUROLOGICAL: cranial nerve function from 2-12 intact intact, follows commands, speech not dysarthric Patient is 54 years old male with past medical history of cardiomyopathy, atrial fibrillation, history of non-Hodgkin lymphoma presented to the hospital with hyperkalemia. Hyperkalemia Resolved Patient received treatment with sodium bicarbonate, calcium gluconate, insulin, D50 Most likely secondary to lisinopril and spironolactone Continue to monitor AUDREY Resolved Atrial fibrillation Heart rate under control Continue metoprolol and Eliquis Cardiomyopathy Diastolic CHF Follow-up with farm management teacher in the outpatient settings Dr. Mcgee recommended to continue to monitor for 1 more day. Patient reported that his last echocardiogram revealed improvement of left ventricular ejection fraction (LVEF) to 45% History of Non-Hodgkin's/Burkitt's lymphoma. The patient states he has a history of Non-Hodgkin's/Burkitt's lymphoma. He had received radiation and chemotherapy for this back in 2000. Follow-up with oncologist in the outpatient settings VS,Aminah, I+O VSAminah, I+O Laboratory Tests 04/07/20 15:44 04/07/20 22:19 04/08/20 05:30 04/08/20 11:19 Vital Signs Date Time Temp Pulse Resp B/P (MAP) Pulse Ox O2 Delivery O2 Flow Rate FiO2 04/08/20 10:26 96/58 (71) 04/08/20 06:00 97.0 72 18 94 Room Air I&O- Last 24 Hours up to 6 AM 04/08/20 06:00 Intake Total 1510 ml Output Total 2600 ml Balance -1090 ml YOBNAY VAZQUEZ DO Apr 08, 2020 13:23
[2020-04-08 14:00] VITALS: BP 94/58
[2020-04-08 14:14] LABS: MAGNESIUM LEVEL 1.7 MG/DL (1.8-2.4)
[2020-04-08 17:38] LABS: BLOOD UREA NITROGEN 34 MG/DL (7-18); CALCIUM LEVEL 9.2 MG/DL (8.5-10.1); CARBON DIOXIDE LEVEL 30 MEQ/L (21-32); CHLORIDE LEVEL 95 MEQ/L (98-107); CREATININE FOR GFR 1.17 MG/DL (0.70-1.30); GLOMERULAR FILTRATION RATE > 60.0 (>56); GLUCOSE, FASTING 78 MG/DL (70-100); POTASSIUM SERUM 4.7 MEQ/L (3.5-5.1); SODIUM LEVEL 130 MEQ/L (136-145)
[2020-04-08 22:00] VITALS: BP 104/79
[2020-04-09 06:00] VITALS: BP 98/68
[2020-04-09 06:59] LABS: BASO % 0.5 % (0.0-1.0); EOS # 0.2 10^3/uL (0.0-0.5); EOS % 2.6 % (0.0-3.0); HEMATOCRIT 42.5 % (42.0-52.0); LYMPH # 1.4 10^3/uL (1.5-5.0); LYMPH % 21.6 % (24.0-44.0); MEAN CORPUSCULAR HEMOGLOBIN 31.5 pg (27.0-33.0); MEAN CORPUSCULAR HGB CONC 33.4 g/dl (32.0-36.5); MEAN CORPUSCULAR VOLUME 94.2 fl (80.0-96.0); MONO # 0.7 10^3/uL (0.0-0.8); MONO % 10.7 % (0.0-5.0); NEUTROPHILS # 4.3 10^3/uL (1.5-8.5); NEUTROPHILS % 64.1 % (36.0-66.0); PLATELET COUNT, AUTOMATED 151 10^3/uL (150-450); RED BLOOD COUNT 4.51 10^6/uL (4.30-6.10); WHITE BLOOD COUNT 6.7 10^3/uL (4.0-10.0)
[2020-04-09 07:09] LABS: HEMOGLOBIN 14.2 g/dl (13.5-17.5)
[2020-04-09 07:23] LABS: ALBUMIN 3.5 GM/DL (3.2-5.2); ALT/SGPT 33 U/L (12-78); BILIRUBIN,TOTAL 1.8 MG/DL (0.2-1.0); BLOOD UREA NITROGEN 29 MG/DL (7-18); CALCIUM LEVEL 8.7 MG/DL (8.5-10.1); CARBON DIOXIDE LEVEL 28 MEQ/L (21-32); CHLORIDE LEVEL 101 MEQ/L (98-107); CHOLESTEROL LEVEL 150 MG/DL (< 200); CPK CREATINE PHOSPHOKINASE 43 U/L (39-308); CREATININE FOR GFR 1.04 MG/DL (0.70-1.30); GLOMERULAR FILTRATION RATE > 60.0 (>56); GLUCOSE, FASTING 97 MG/DL (70-100); LDH LACTATE DEHYDROGENASE 199 U/L (87-241); PHOSPHORUS LEVEL 3.8 MG/DL (2.5-4.9); POTASSIUM SERUM 4.8 MEQ/L (3.5-5.1); SODIUM LEVEL 135 MEQ/L (136-145); TRIGLYCERIDES LEVEL 53 MG/DL (<150)
[2020-04-09] MEDS: APIXABAN 5 MG TAB (ELIQUIS) PO SCH (08:35)
[2020-04-09] MEDS: PANTOPRAZOLE 40MG TAB (PROTONIX) PO SCH (08:35)
[2020-04-09 08:36] VITALS: BP 105/67
[2020-04-09] MEDS: FUROSEMIDE 40 MG TAB PO SCH (08:36)
[2020-04-09] MEDS: METOPROLOL SUCC (TopROL XL) 50MG **XL** TAB PO SCH (08:36)
--- NOTE | 2020-04-09 10:49 | IPN ---
NEPHROLOGY PROGRESS NOTE DATE: 04/08/2020 SUBJECTIVE: Mr. Ghotra is seen this morning on his bedside. He is feeling well and denies any complaints. He is currently sitting in the chair. He has no nausea, vomiting, dyspnea or chest pain. He reports eating well. We were hoping that he can be discharged today; however, he has developed frequent hyperkalemia today despite stopping all potential medications which were considered to be the underlying of his hyperkalemia. PHYSICAL EXAMINATION: Temperature 97 degrees Fahrenheit, heart rate 72 per minute and respiratory rate 18 per minute. Blood pressure 96/58 mmHg and oxygen saturation 96% on room air. Head: Atraumatic. Neck: Supple and without JVD or thyroid enlargement. Heart: Sounds are irregular in rhythm. Lungs: Clear to auscultation. Abdomen: Soft and nontender and bowel sounds are normal. Extremities: Without any cyanosis or clubbing. Neurologically: He is awake, alert and oriented times 3. LABORATORY DATA: Today's labs show sodium 133, potassium 5.4, CO2 25, BUN 34, creatinine 1.22. WBC count 7.1, hemoglobin 16.2, hematocrit 47. PROBLEMS/PLAN: 1. Recurrent hyperkalemia: Etiology remains uncertain. He was on MADELEINE inhibitor and spironolactone at home which has been stopped since admission. This is totally unexpected. I am going to treat him with 1 dose of Kayexalate and also give him 1 dose of Lasix 40 mg by mouth. His electrolytes will be repeated in a few hours. 2. Acute kidney injury superimposed on chronic kidney disease: Patient seems to have mild chronic kidney disease at baseline. His acute kidney injury has improved since admission with I.V. fluid hydration. 3. Metabolic acidosis: Acidosis has completely corrected and I.V. bicarbonate drip was stopped yesterday. No intervention is needed at present. 4. Disposition: I feel that if his hyperkalemia improves he can probably be discharged home later today or tomorrow. He should continue with Lasix 40 mg daily at home in order to prevent recurrent hyperkalemia. I have advised him to stay off MADELEINE inhibitor and spironolactone. 5. Atrial fibrillation: Ventricular rate is well controlled with beta-clau and he remains on anticoagulation with Eliquis.
--- NOTE | 2020-04-09 12:11 | IPN ---
PROGRESS NOTE DATE: 04/09/2020 09:00:00 am Mr. Ghotra is seen this morning on his bedside. He is feeling well and denies any complaints. He is concerned about his atrial fibrillation. He has had this since May and has been on anticoagulation and beta clau therapy. His angiotensin-converting enzyme (MADELEINE) inhibitor and spironolactone have been stopped due to severe hyperkalemia. CT scan of abdomen and pelvis was done, which did not show any cirrhosis, and he is waiting for results of his liver biopsy. He had recurrent hyperkalemia during this hospitalization, which has now improved. PHYSICAL EXAMINATION: Temperature 97.7 degree Fahrenheit, heart rate 92 per minute, respiratory rate 18 per minute, blood pressure 105/67 mm of mercury, and oxygen saturation 96% on room air. Head is atraumatic. Neck supple and without jugular venous distention (JVD) or thyroid enlargement. Heart sounds are irregular in rhythm and lungs clear to auscultation. Abdomen soft and nontender, and bowel sounds are normal. Extremities without any cyanosis or clubbing. Neurologically, he is awake, alert, and oriented times three. Today's chemistry showed sodium 135, potassium 4.8, CO2 of 28, BUN 29, and creatinine 1.04. PROBLEMS: 1. Acute kidney injury. Kidney function is improved, and this is probably the best function he has so far. He probably has only minimal underlying chronic kidney disease. Acute renal failure was mostly prerenal related to diuretics. 2. Hyperkalemia. Potassium level has also improved and remains stable now. He should continue with a daily dose of furosemide. 3. Hyponatremia. Sodium level has also improved to almost normal, and no other intervention is indicated at present. 4. Disposition. From a renal standpoint, patient can be discharged to home and followup with his primary physician. I would be pleased to see him again in case of any further problems. 5. Atrial fibrillation. I have advised the patient to followup with cardiology and his primary physician.
--- NOTE | 2020-04-09 13:39 | ECHO ---
DATE OF PROCEDURE: 04/07/2020 Age: 53 Gender: Male Height: 168 cm Weight: 76 kg REFERRING PHYSICIAN: Ric Mcgee MD INDICATION: Cardiomyopathy and history of atrial fibrillation. MEASUREMENTS: IVS 1.2 cm LV 5.0 cm LVPW 1.2 cm LA 4.2 cm Aorta 2.6 cm RV 4.2 cm IVC 1.9 cm Mitral E wave velocity 108 E prime septal 5.0 E prime lateral 4.1 FINDINGS: This study is of acceptable technical quality. The patient is in sinus rhythm with wide QRS complex. Left ventricle has normal size and overall likely mildly reduced left ventricular systolic function, I estimate LVEF approximately 45%. No segmental wall motion abnormalities are appreciated. Right ventricle appears mildly dilated, but normally contractile. Both atria are enlarged. The aortic, mitral, tricuspid, and pulmonic valves all appear normal with the exception of mild aortic sclerosis. No pericardial effusion is noted. Inferior vena cava is upper limits of normal size and collapses with inspiration indicative of likely normal central venous pressure. Aortic root is normal. Aortic arch and abdominal aorta were not well seen. Doppler interrogation reveals competent aortic valve. There is mild mitral and mild tricuspid insufficiency. Calculated pulmonary artery pressure is at minimum in the high 30s, but the quality of TR jet was not good and it is possible that even a higher pulmonary artery pressure is present. Pulmonic valve is functionally competent. Evaluation of the diastolic function is inconclusive due to absence of mitral A wave, I suspect due to fusion with E wave, but there are very low tissue Doppler velocities of the mitral annulus and left atrial pressure is very likely elevated. CONCLUSIONS: 1. Study is of acceptable technical quality, underlying sinus rhythm with wide QRS complex. 2. Normal left ventricular (LV) size with mild left ventricular hypertrophy (LVH), mildly reduced left ventricular (LV) systolic function (estimated left ventricular ejection fraction (LVEF) of 45%), and likely advanced diastolic dysfunction. 3. No hemodynamically significant valvular disease. 4. Likely normal central venous pressure, but at least mild pulmonary hypertension. MTDD
--- NOTE | 2020-04-09 14:03 | DS.PDOC ---
Discharge Summary General Date of Admission Apr 06, 2020 at 02:02 Date of Discharge 04/09/20 Discharge Summary PROCEDURES PERFORMED DURING STAY: [None]. ADMITTING DIAGNOSES: Hyperkalemia AUDREY Atrial fibrillation Diastolic CHF History of Non-Hodgkin's/Burkitt's lymphoma DISCHARGE DIAGNOSES: Hyperkalemia AUDREY Atrial fibrillation Diastolic CHF History of Non-Hodgkin's/Burkitt's lymphoma COMPLICATIONS/CHIEF COMPLAINT: Hyperkalemia. HISTORY OF PRESENT ILLNESS:Patient is 54 years old male with past medical history of cardiomyopathy, atrial fibrillation, history of non-Hodgkin lymphoma presented to the hospital with hyperkalemia. HOSPITAL COURSE: During hospital stay following issue addressed Hyperkalemia Resolved Patient received treatment with sodium bicarbonate, calcium gluconate, insulin, D50 Most likely secondary to lisinopril and spironolactone AUDREY Resolved Atrial fibrillation Heart rate under control Continue metoprolol and Eliquis Cardiomyopathy Diastolic CHF Follow-up with ignition specialist in the outpatient settings Patient reported that his last echocardiogram revealed improvement of left ventricular ejection fraction (LVEF) to 45% History of Non-Hodgkin's/Burkitt's lymphoma. The patient states he has a history of Non-Hodgkin's/Burkitt's lymphoma. He had received radiation and chemotherapy for this back in 2000. Follow-up with oncologist in the outpatient settings DISCHARGE MEDICATIONS: Please see below. ALLERGIES: Please see below. PHYSICAL EXAMINATION ON DISCHARGE: VITAL SIGNS: Please see below. GENERAL APPEARANCE: NAD HEENT: no scleral icterus, no JVD, EOMI CARDIOVASCULAR: Irregularly irregular LUNGS: CTA ABDOMEN: soft & not tender w palpitation MUSCULOSKELETAL: no cyanosis, no swelling INTEGUMENT: no generalized palor LABORATORY DATA: Please see below. IMAGING: [facility] NAME: DOMINIQUE BORGES DATE OF : 1965 AGE: 54 SEX: M REPORT #: [id number] ROOM: [facility] TECHNOLOGIST: WIL DOCTOR: YOBANY VAZQUEZ DO Ordered for Date&Time: 04/07/20 7549 cc: [~ rep ct ivnm] Service Date&Time: 04/07/20 3570 This report is in Signed status. If this report is in a DRAFT status it has not yet been reviewed by the radiologist for accuracy. Thank you for having your radiology procedures performed at [facility] RADIOLOGY REPORT Date&Time printed: [~ rep prt dt last] [~ rep prt tm last] Page 2 of [address] [address] RADIOLOGY REPORT This report is in Signed status. If this report is in a DRAFT status it has not yet been reviewed by the radiologist for accuracy. Thank you for having your radiology procedures performed at [facility] RADIOLOGY REPORT Date&Time printed: [~ rep prt dt last] [~ rep prt tm last] Page 1 of 1 TECHNIQUE: Axial contrast-enhanced images from the lung bases to the pubic symphysis using 100 cc Isovue 370 intravenous contrast material. Oral contrast administered prior to imaging. Delayed images of the abdomen as well as coronal and sagittal obtained. This CT examination was performed using the following dose reduction techniques: Automated exposure control, adjustment of mA and/or kv according to the patient's size, and the use of iterative reconstruction technique. FINDINGS: Lung bases are clear. Visualized heart and pericardium within normal limits. Liver, spleen, pancreas, gallbladder, bilateral adrenal glands and kidneys are normal. The enteric system demonstrates fecal stasis without obstruction or acute inflammatory process. Normal terminal ileum and appendix are identified in the right lower quadrant. Sigmoid diverticula noted without acute diverticulitis. Pelvis demonstrates normal bladder and age-appropriate prostate/seminal vesicles. No ascites. No free air. No significant intraperitoneal or retroperitoneal adenopathy appreciated. No obvious pelvic or inguinal adenopathy noted. Atherosclerotic changes to the aorta and branch vessels without aneurysm or dissection. Musculoskeletal structures demonstrate age-related degenerative changes without acute osseous abnormality. IMPRESSION: 1. No acute abdominopelvic pathology appreciated. 2. No mass lesion, adenopathy, inflammatory stranding or ascites. 3. Diverticulosis without acute diverticulitis. 4. Further nonacute findings as described above. <Electronically signed by Erik Sheets > 04/07/20 1641 DD: Erik Sheets MD 04/07/20 1638 DT: KARLIE 04/07/20 164 DS: SALOMON 04/07/20 1638 04/07/20 1638 [~ rep ct labl] PROGNOSIS: Fair ACTIVITY: [As tolerated]. DIET: Cardiac DISPOSITION: Home DISCHARGE INSTRUCTIONS: Stop taking lisinopril and spironolactone ITEMS TO FOLLOWUP ON ON OUTPATIENT: Follow-up with ignition specialist and PCP in next week DISCHARGE CONDITION: [Stable]. TIME SPENT ON DISCHARGE: Greater than30 minutes. Vital Signs/I&Os Vital Signs Date Time Temp Pulse Resp B/P (MAP) Pulse Ox O2 Delivery O2 Flow Rate FiO2 04/09/20 08:36 92 105/67 04/09/20 06:00 97.7 18 96 Room Air I&O- Last 24 Hours up to 6 AM 04/09/20 06:00 Intake Total 2450 ml Output Total 4150 ml Balance -1700 ml Laboratory Data Labs 24H Laboratory Tests 2 04/08/20 17:09: Anion Gap 5L, Glomerular Filtration Rate > 60.0, Calcium Level 9.2 04/09/20 06:37: Anion Gap 6L, Glomerular Filtration Rate > 60.0, Calcium Level 8.7, Immature Granulocyte % (Auto) 0.5, Neutrophils (%) (Auto) 64.1, Lymphocytes (%) (Auto) 21.6L, Monocytes (%) (Auto) 10.7H, Eosinophils (%) (Auto) 2.6, Basophils (%) (Auto) 0.5, Neutrophils # (Auto) 4.3, Lymphocytes # (Auto) 1.4L, Monocytes # (Auto) 0.7, Eosinophils # (Auto) 0.2, Basophils # (Auto) 0.0, Nucleated Red Blood Cells % (auto) 0.0, Phosphorus Level 3.8, Total Bilirubin 1.8H, Aspartate Amino Transf (AST/SGOT) 24, Alanine Aminotransferase (ALT/SGPT) 33, Alkaline Phosphatase 147H, Lactate Dehydrogenase 199, Total Creatine Kinase 43, Total Protein 6.0L, Albumin 3.5, Albumin/Globulin Ratio 1.4, Triglycerides Level 53, Cholesterol Level 150 CBC/BMP Laboratory Tests 04/08/20 17:09 04/09/20 06:37 Discharge Medications Scheduled Apixaban (Eliquis) 5 Mg Tablet, 5 MG PO BID, (Reported) Furosemide (Lasix) 40 Mg Tablet, 40 MG PO BID, (Reported) Metoprolol Succinate (Metoprolol Succinate) 50 Mg Tab.er.24h, 50 MG PO DAILY, (Reported) Pantoprazole Sodium (Protonix) 40 Mg Tablet.dr, 40 MG PO DAILY, (Reported) Allergies Coded Allergies: vancomycin (Verified Adverse Reaction, Severe, rigors, 04/05/20) YOBANY VAZQUEZ DO Apr 09, 2020 14:03
--- NOTE | 2020-04-12 07:08 | ECGEPIP ---
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
== END 2020-04-09 14:53 | disposition home or self-care (01) | DRG 425 ==
LOC: M ED 22:17 → M ED INP 04-06 02:02 → ENRESERV 04-06 02:49 → M ICU 04-06 03:45 → M MSPAV 04-07 12:30
PROVIDERS: ADMIT Internal Medicine Pulmonary Disease; ATTEND Internal Medicine
DX: E87.5 Hyperkalemia (principal); N17.9 Acute kidney failure, unspecified; C83.70 Burkitt lymphoma, unspecified site; I13.0 Hypertensive heart and chronic kidney disease with heart failure and stage 1 through stage 4 chronic kidney disease, or unspecified chronic kidney disease; I50.32 Chronic diastolic (congestive) heart failure; E87.2 Acidosis; I48.91 Unspecified atrial fibrillation; K74.60 Unspecified cirrhosis of liver; Z88.1 Allergy status to other antibiotic agents; Z79.899 Other long term (current) drug therapy; Z79.01 Long term (current) use of anticoagulants; N18.9 Chronic kidney disease, unspecified; E87.1 Hypo-osmolality and hyponatremia

== ENCOUNTER → 2020-04-14 | Outpatient (CLI) | payer BC, OTHER ==
[2020-04-14 10:33] LABS: CALCIUM LEVEL 8.8 MG/DL (8.5-10.1); CREATININE FOR GFR 1.47 MG/DL (0.70-1.30); GLOMERULAR FILTRATION RATE 52.8 (>56)
== END ==
LOC: M LAB 09:28
PROVIDERS: ATTEND Internal Medicine Cardiovascular Disease
DX: E83.119 Hemochromatosis, unspecified (principal)

== ENCOUNTER → 2020-05-06 | Outpatient (CLI) | payer BC, OTHER ==
[~2020-05-06] MED LIST changes: +ALDA25TA2 PO; +TORS20TA2 PO; +ZALE5CA PO
[2020-05-06 10:09] LABS: THYROID STIMULATING HORMONE 7.28 uIU/ML (0.358-3.740)
== END ==
LOC: M LAB 09:08
PROVIDERS: ATTEND Psychiatry & Neurology Neurology
DX: R53.1 Weakness (principal); R06.00 Dyspnea, unspecified

== ENCOUNTER 2020-05-15 01:03 | Emergency (ER) | payer BC, OTHER ==
[~2020-05-15] VITALS: Ht 167.6 cm; Wt 81.0 kg
--- NOTE | 2020-05-15 01:43 | REPVR ---
PROCEDURE INFORMATION: Exam: CT Head Without Contrast Exam date and time: 05/15/2020 1:17 AM Age: 55 years old Clinical indication: Injury or trauma; Fall; Concussion/head injury; Consciousness not specified TECHNIQUE: Imaging protocol: Computed tomography of the head without contrast. Radiation optimization: All CT scans at this facility use at least one of these dose optimization techniques: automated exposure control; mA and/or kV adjustment per patient size (includes targeted exams where dose is matched to clinical indication); or iterative reconstruction. COMPARISON: No relevant prior studies available. FINDINGS: Brain: There is no acute intracranial abnormality. Small low-attenuation area in the right frontal lobe from prior sanford hole. Mild small vessel ischemic changes are seen. There is no mass, midline shift, or mass effect. Crowley-white matter differentiation is preserved. There is no evidence of hemorrhage. There is no extra-axial fluid collection. Basal cisterns are patent. Cerebral ventricles: Mild prominence of ventricles and sulci representing volume loss. Bones/joints: No acute fracture. Right frontal asnford hole. Paranasal sinuses: Visualized sinuses are clear. Mastoid air cells: Fluid in right mastoid air cells may represent mastoiditis. Left mastoid air cells are clear. Soft tissues: Minimal right frontal soft tissue prominence. IMPRESSION: 1. Mild volume loss and small vessel ischemic changes. . 2. No acute intracranial abnormality. Electronically signed by: Syeda Peck On 05/15/2020 01:43:52 AM
--- NOTE | 2020-05-15 01:47 | REPVR ---
PROCEDURE INFORMATION: Exam: CT Cervical Spine Without Contrast Exam date and time: 05/15/2020 1:17 AM Age: 55 years old Clinical indication: Neck pain; Additional info: Fall TECHNIQUE: Imaging protocol: Computed tomography images of the cervical spine without contrast. Radiation optimization: All CT scans at this facility use at least one of these dose optimization techniques: automated exposure control; mA and/or kV adjustment per patient size (includes targeted exams where dose is matched to clinical indication); or iterative reconstruction. COMPARISON: No relevant prior studies available. FINDINGS: Bones/joints: No acute fracture. Mild retrolisthesis of C3 on C4 and C4 on C5. Multilevel degenerative changes with anterior osteophyte formation, facet joint arthropathy, and mild loss of disc spaces. Discs/Spinal canal/Neural foramina: Posterior disc osteophyte formation at C3/C4 and C4/C5 causing mild central spinal canal stenosis. Nonunion of posterior arch of C1; congenital. Lungs: Lung apices are normal. Soft tissues: Unremarkable. IMPRESSION: No acute findings. Electronically signed by: Syeda Peck On 05/15/2020 01:48:06 AM
--- NOTE | 2020-05-15 01:49 | REPVR ---
PROCEDURE INFORMATION: Exam: CT Maxillofacial Without Contrast Exam date and time: 05/15/2020 1:22 AM Age: 55 years old Clinical indication: Face pain and maxilla pain; Additional info: Fall TECHNIQUE: Imaging protocol: Computed tomography images of the face without contrast. Radiation optimization: All CT scans at this facility use at least one of these dose optimization techniques: automated exposure control; mA and/or kV adjustment per patient size (includes targeted exams where dose is matched to clinical indication); or iterative reconstruction. COMPARISON: No relevant prior studies available. FINDINGS: Orbital cavity: Orbits are normal. Globes are unremarkable. Bones/joints: No acute fracture. Paranasal sinuses: Normal. No air-fluid levels. Mastoid air cells: Fluid in right mastoid air cells likely mild mastoiditis. Left mastoid air cells are clear. Soft tissues: Mild frontal soft tissue swelling. IMPRESSION: No acute fracture or dislocation. Mild right frontal soft tissue swelling. Fluid in right mastoid air cells may represent mastoiditis. Electronically signed by: Syeda Peck On 05/15/2020 01:49:26 AM
[2020-05-15 02:58] LABS: BASO # 0.1 10^3/uL (0.0-0.2); BASO % 0.6 % (0.0-1.0); EOS # 0.1 10^3/uL (0.0-0.5); EOS % 1.3 % (0.0-3.0); HEMATOCRIT 41.1 % (42.0-52.0); HEMOGLOBIN 13.3 g/dl (13.5-17.5); LYMPH # 1.3 10^3/uL (1.5-5.0); LYMPH % 12.9 % (24.0-44.0); MEAN CORPUSCULAR HGB CONC 32.4 g/dl (32.0-36.5); MONO # 0.8 10^3/uL (0.0-0.8); MONO % 8.6 % (0.0-5.0); NEUTROPHILS # 7.5 10^3/uL (1.5-8.5); NEUTROPHILS % 76.2 % (36.0-66.0); PLATELET COUNT, AUTOMATED 203 10^3/uL (150-450); RED BLOOD COUNT 4.03 10^6/uL (4.30-6.10); WHITE BLOOD COUNT 9.8 10^3/uL (4.0-10.0)
[2020-05-15] MEDS ORDERED: NS 1,000 ML IV ONE (03:15)
[2020-05-15 03:32] LABS: ALBUMIN 3.7 GM/DL (3.2-5.2); ALT/SGPT 27 U/L (12-78); BILIRUBIN,DIRECT 0.8 MG/DL (0.0-0.2); BILIRUBIN,TOTAL 2.7 MG/DL (0.2-1.0); BLOOD UREA NITROGEN 22 MG/DL (7-18); CALCIUM LEVEL 8.6 MG/DL (8.5-10.1); CARBON DIOXIDE LEVEL 31 MEQ/L (21-32); CHLORIDE LEVEL 96 MEQ/L (98-107); CK-MB VALUE MASS 2.9 NG/ML (<3.6); CPK CREATINE PHOSPHOKINASE 153 U/L (39-308); CREATININE FOR GFR 1.21 MG/DL (0.70-1.30); FREE T4 1.25 NG/DL (0.76-1.46); GLOMERULAR FILTRATION RATE > 60.0 (>56); GLUCOSE, FASTING 115 MG/DL (70-100); MAGNESIUM LEVEL 2.2 MG/DL (1.8-2.4); NT-PRO BNP 6851 PG/ML (<125); POTASSIUM SERUM 4.7 MEQ/L (3.5-5.1); SODIUM LEVEL 134 MEQ/L (136-145); TOTAL PROTEIN 6.6 GM/DL (6.4-8.2); TROPONIN I 0.48 NG/ML (< 0.10)
[2020-05-15 03:35] LABS: INR 1.59; PROTHROMBIN TIME 19.3 SECONDS (12.5-14.3)
[2020-05-15 03:36] LABS: PARTIAL THROMBOPLASTIN TIME 34.4 SECONDS (24.2-38.5)
[2020-05-15 03:38] LABS: D-DIMER QUANT 3164.75 ng/ml (<500)
--- NOTE | 2020-05-15 03:39 | REPVR ---
PROCEDURE INFORMATION: Exam: XR Right Forearm Exam date and time: 05/15/2020 3:20 AM Age: 55 years old Clinical indication: Injury or trauma; Fall; Swelling (edema); Arm, lower; Right; Additional info: Fell TECHNIQUE: Imaging protocol: XR Right forearm. Views: 2 views. COMPARISON: No relevant prior studies available. FINDINGS: Bones/joints: Normal. Soft tissues: Mild soft tissue prominence in the distal forearm may represent mild edema/cellulitis. IMPRESSION: No acute fracture or dislocation. Electronically signed by: Syeda Peck On 05/15/2020 03:39:12 AM
[2020-05-15] MEDS ORDERED: ISOVUE-370 76% 100ML VIAL As Ordered ONE (04:03)
--- NOTE | 2020-05-15 04:28 | REPVR ---
PROCEDURE INFORMATION: Exam: CT Angiography Chest With Contrast Exam date and time: 05/15/2020 3:55 AM Age: 55 years old Clinical indication: Other: Elevated dimer; Additional info: Syncope, pos ddimer TECHNIQUE: Imaging protocol: Computed tomographic angiography of the chest with intravenous contrast. 3D rendering (Not supervised by radiologist): MIP and/or 3D reconstructed images were created by the technologist. Radiation optimization: All CT scans at this facility use at least one of these dose optimization techniques: automated exposure control; mA and/or kV adjustment per patient size (includes targeted exams where dose is matched to clinical indication); or iterative reconstruction. Contrast material: ISO; Contrast volume: 75 ml; Contrast route: INTRAVENOUS (IV); COMPARISON: CT ANGIO CHEST 04/23/2020 6:31 PM FINDINGS: Pulmonary arteries: Normal. No pulmonary emboli. Aorta: Unremarkable. No aortic aneurysm. No aortic dissection. Veins: Reflux of contrast in the hepatic IVC and its branches may represent right-sided heart failure. Lungs: Small areas of scattered atelectasis/scarring in lingula, right middle lobe and bilateral lower lobes. Pleural space: Unremarkable. No pneumothorax. No pleural effusion. Heart: Cardiomegaly. Lymph nodes: Unremarkable. No enlarged lymph nodes. Bones/joints: Diffuse demineralization of the bones with degenerative changes. Soft tissues: Unremarkable. IMPRESSION: No evidence of pulmonary embolism. Small areas of scattered atelectasis/scarring in lingula, right middle lobe and bilateral lower lobes. Cardiomegaly. Reflux of contrast in the hepatic IVC and its branches may represent right-sided heart failure. Electronically signed by: Syeda Peck On 05/15/2020 04:28:52 AM
[2020-05-15 05:14] LABS: RSV AMPLIFICATION NEGATIVE (NEGATIVE)
[2020-05-15 06:08] LABS: CK-MB VALUE MASS 2.9 NG/ML (<3.6); MB/CK RELATIVE INDEX 2.54 (< OR =4); TROPONIN I 0.45 NG/ML (< 0.10)
[2020-05-15] MEDS ORDERED: LEVO25TA5 PO (06:47)
[2020-05-15] MEDS ORDERED: METO1TAB32 PO (06:47)
[2020-05-15] MEDS ORDERED: SPIR-10 PO (06:47)
[2020-05-15] MEDS ORDERED: ALPR0.25 PO (06:47)
[2020-05-15] MEDS ORDERED: ZALE5CA PO (06:54)
[2020-05-15] MEDS ORDERED: TORS20TA2 PO (06:59)
[2020-05-15] MEDS ORDERED: ACETAMINOPHEN TAB 650MG DOSE (2X325MG) PO PRN (08:00)
--- NOTE | 2020-05-15 08:16 | HPEPDOC ---
General Date of Admission May 15, 2020 at 01:04 Date of Service: May 15, 2020 Chief Complaint The patient is a 55-year-old male admitted with a reason for visit of Syncope, Hypotension. Source: Patient History of Present Illness Mr. Ghotra is a 55 year old male history of nonischemic cardiomyopathy here with syncopal event. Recently he has been having difficulty sleeping. PCP prescribed him Xanax to help his sleep two days ago. He had one the day prior and last night. Last night, he went to bed at 9:30PM. Then he got up at 11:30PM. On he was walking, and the next minute he woke up on the ground in pain. He does not remember how he ended up on the floor. His says he was unresponsive for 2 minutes. He has facial contusions and abrasions. He was taken to the ED. While in the ED, troponin remained stable. His troponin are chronically elevated between 0.2 to 0.5. His SBP generally in the low 100s. Orthostatic vitals were negative. While in the ED, the night attending discussed the case with Dr. Hudson who recommended decreasing spironolactone from 25mg qD to 12.5mg qD. Patient to be admitted overnight for observation for syncopal event Home Medications Scheduled Apixaban (Eliquis) 5 Mg Tablet, 5 MG PO BID, (Reported) Levothyroxine Sodium (Levothyroxine Sodium) 25 Mcg Tablet, 25 MCG PO DAILY, (Reported) Metoprolol Succinate (Metoprolol Succinate) 25 Mg Tab.er.24h, 25 MG PO DAILY, (Reported) Pantoprazole Sodium (Protonix) 40 Mg Tablet.dr, 40 MG PO DAILY, (Reported) Spironolactone (Spironolactone) 25 Mg Tablet, 25 MG PO DAILY, (Reported) Torsemide (Torsemide) 20 Mg Tablet, 100 MG PO DAILY, (Reported) Scheduled PRN Alprazolam (Alprazolam) 0.25 Mg Tablet, 0.25 MG PO QHS PRN for ANXIETY, (Reported) Allergies Coded Allergies: vancomycin (Verified Adverse Reaction, Severe, rigors, 04/05/20) Past Medical History Medical History 1. Nonischemic cardiomyopathy s/p negative LHC (presumed to be viral cause) 2. Paroxysmal atrial fibrillation. 3. History of non-Hodgkin's lymphoma in 2010 s/p M-CHOP 4. GERD 5. Hepatic congestion Surgical History 1. Tonsillectomy 2. Inguinal hernia surgery Family History Father: Patient not familiar with father Mother: COPD Social History * Smoker: Denies Alcohol: Denies Drugs: denies A-FIB/CHADSVASC A-FIB History Current/History of A-Fib/PAF?: Yes Current PO Anticoag Therapy: Yes Review of Systems Constitutional: Denies: Chills, Fever Eyes: Denies: Vision change ENT: Denies: Sore Throat Skin: Reports: Rash (face injury from fall) Pulmonary: Reports: Dyspnea (on exertion), Cough (dry ) Cardiovascular: Denies: Chest Pain Gastrointestinal: Denies: Abdominal Pain Genitourinary: Denies: Dysuria Hematologic: Reports: Bruising (on blood thinner) Musculoskeletal: Reports: Shoulder Pain (paresthesias) Physical Examination General Exam: Positive: Alert, Cooperative, No Acute Distress Eye Exam: Positive: EOMI, Sclera icteric (mild) ENT Exam: Negative: Atraumatic (facial contusions and abrasions on nose and forhead) Neck Exam: Negative: thyromegaly Chest Exam: Positive: Clear to auscultation; Negative: Rales, Rhonchi, Wheezing Heart Exam: Positive: Rate Normal, Regular Rhythm Abdomen Exam: Positive: Normal bowel sounds, Soft; Negative: Tenderness Extremity Exam: Positive: Edema (bilateral pitting) Neuro Exam: Positive: Cranial Nerves 3-12 NL Psych Exam: Positive: Mental status NL, Mood NL Vital Signs Vital Signs Date Time Temp Pulse Resp B/P (MAP) Pulse Ox O2 Delivery O2 Flow Rate FiO2 05/15/20 08:00 98.1 81 20 102/58 (73) 99 Room Air Laboratory Data Labs 24H Laboratory Tests 2 05/15/20 02:48: Immature Granulocyte % (Auto) 0.4, Neutrophils (%) (Auto) 76.2H, Lymphocytes (%) (Auto) 12.9L, Monocytes (%) (Auto) 8.6H, Eosinophils (%) (Auto) 1.3, Basophils (%) (Auto) 0.6, Neutrophils # (Auto) 7.5, Lymphocytes # (Auto) 1.3L, Monocytes # (Auto) 0.8, Eosinophils # (Auto) 0.1, Basophils # (Auto) 0.1, Nucleated Red Blood Cells % (auto) 0.0, Prothrombin Time 19.3H, Prothromb Time International Ratio 1.59, Activated Partial Thromboplast Time 34.4, D-Dimer, Quantitative 3164.75H, Anion Gap 7L, Glomerular Filtration Rate > 60.0, Calcium Level 8.6, Magnesium Level 2.2, Total Bilirubin 2.7H, Direct Bilirubin 0.8H, Aspartate Amino Transf (AST/SGOT) 60H, Alanine Aminotransferase (ALT/SGPT) 27, Alkaline Phosphatase 189H, Ammonia 44H, Total Creatine Kinase 153, Creatine Kinase MB 2.9, Creatine Kinase MB Relative Index 1.90, Troponin I 0.48H, OP-Ahy-U-Type Natriuretic Peptide 6851H, Total Protein 6.6, Albumin 3.7, Albumin/Globulin Ratio 1.3, Thyroid Stimulating Hormone (TSH) 5.830H, Free Thyroxine 1.25 05/15/20 04:23: Coronavirus (COVID-19)(PCR) NEGATIVE, Influenza Type A (RT-PCR) NEGATIVE, Influenza Type B (RT-PCR) NEGATIVE, Respiratory Syncytial Virus (PCR) NEGATIVE 05/15/20 05:06: Total Creatine Kinase 114, Creatine Kinase MB 2.9, Creatine Kinase MB Relative I ndex 2.54, Troponin I 0.45H CBC/BMP Laboratory Tests 05/15/20 02:48 Assessment/Plan Mr. Ghotra is a 55 year old male history of nonischemic cardiomyopathy here wit h syncopal event. Possibly secondary to Xanax vs arrhythmia vs diuretics/BB. Will hold Xanax while here and monitor on tele for arrhythmias. Dr. Hudson, compress engineer conveyor feeder, recommended going down on spironolactone from 25mg qD to 12.5mg qD. Plan / VTE VTE Prophylaxis Ordered?: Yes Plan Plan 1. Syncope -May be secondary to hypotension, arrhythmia, or new medication (Xanax) -Hold Xanax -Monitor on tele for arrhythmia 2. Non-ischemic cardiomyopathy -Last echo 04/07/2020 -LVEF of 45% with advanced diastolic dysfunction -Night team contacted Dr. Hudson, decrease spironolactone from 25mg qD to 12.5mg qD. -Continue metoprolol succinate and Torsemide 3. Paroxysmal atrial fibrillation -Continue metoprolol succinate -Continue Eliquis 4. GERD -Continue Pantoprazole 5. DVT ppx -On NESHA Guzmán DO May 15, 2020 08:16
[2020-05-15 08:51] VITALS: BP 116/73
[2020-05-15] MEDS: PANTOPRAZOLE 40MG TAB (PROTONIX) PO SCH (09:20)
[2020-05-15] MEDS: SPIRONOLACTONE 12.5MG PER 1/2 TABLET PEG SCH (09:20)
[2020-05-15] MEDS: LEVOTHYROXINE 25MCG TABLET (0.025MG) PO SCH (09:20)
[2020-05-15] MEDS: APIXABAN 5 MG TAB (ELIQUIS) PO SCH ×2 (09:20→20:13)
[2020-05-15] MEDS: METOPROLOL SUCC *XL* 25MG TAB (TopROL *XL*) PO SCH (09:25)
--- NOTE | 2020-05-15 09:28 | ECGEPIP ---
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
--- NOTE | 2020-05-15 09:28 | ECGEPIP ---
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
[2020-05-15] MEDS: TORSEMIDE 100 MG TAB PO SCH (11:22)
[2020-05-15 13:27] VITALS: BP 113/74
[2020-05-15] MEDS ORDERED: LIDOCAINE 5% (LIDODERM) PATCH As Ordered ONE (18:07)
[2020-05-15] MEDS: LIDOCAINE 5% (LIDODERM) PATCH TD SCH (18:15)
[2020-05-15] MEDS: oxyCODONE 5MG TAB PO PRN (20:14)
[2020-05-15 22:00] VITALS: BP 114/75
[2020-05-16] MEDS: LEVOTHYROXINE 25MCG TABLET (0.025MG) PO SCH (05:36)
[2020-05-16] MEDS: **NOTE PATIENT COMMENT** MISC XX SCH (05:37)
[2020-05-16] MEDS: oxyCODONE 5MG TAB PO PRN ×2 (05:40→15:33)
[2020-05-16 06:00] VITALS: BP 113/75
[2020-05-16 06:54] LABS: HEMATOCRIT 41.6 % (42.0-52.0); HEMOGLOBIN 13.4 g/dl (13.5-17.5); MEAN CORPUSCULAR HGB CONC 32.2 g/dl (32.0-36.5); MEAN CORPUSCULAR VOLUME 102.5 fl (80.0-96.0); PLATELET COUNT, AUTOMATED 204 10^3/uL (150-450); RED BLOOD COUNT 4.06 10^6/uL (4.30-6.10); WHITE BLOOD COUNT 8.4 10^3/uL (4.0-10.0)
[2020-05-16 07:24] LABS: CREATININE FOR GFR 1.31 MG/DL (0.70-1.30); POTASSIUM SERUM 3.7 MEQ/L (3.5-5.1)
[2020-05-16] MEDS: PANTOPRAZOLE 40MG TAB (PROTONIX) PO SCH (10:41)
[2020-05-16] MEDS: TORSEMIDE 100 MG TAB PO SCH (10:41)
[2020-05-16] MEDS: APIXABAN 5 MG TAB (ELIQUIS) PO SCH ×2 (10:41→20:06)
[2020-05-16] MEDS: SPIRONOLACTONE 12.5MG PER 1/2 TABLET PEG SCH (10:41)
[2020-05-16] MEDS: METOPROLOL SUCC *XL* 25MG TAB (TopROL *XL*) PO SCH (10:42)
--- NOTE | 2020-05-16 13:23 | REPVR ---
PROCEDURE INFORMATION: Exam: MR Cervical Spine Without Contrast Exam date and time: 05/16/2020 12:46 PM Age: 55 years old Clinical indication: Cervicalgia and neck pain; Additional info: Cervicalgia down left arm TECHNIQUE: Imaging protocol: Multiplanar magnetic resonance images of the cervical spine without intravenous contrast. COMPARISON: CT Spine,cervical w/o contrast 05/15/2020 1:19 AM FINDINGS: There is mild reversal of the normal cervical lordosis. Approximately 4 mm retrolisthesis of C3 on C4 and 2 mm retrolisthesis of C4 on C5. No compression fractures. Moderate degenerative disc disease with mixed reactive endplate signal changes from C3 through C5. There is an approximately 0.8 cm T2 hyperintense lesion within the left aspect of the cervical spinal cord at C3-C4 (axial image number 22, sagittal image number 7). At C2-C3, there is no significant spinal canal narrowing. Moderate left neural foraminal narrowing. At C3-C4, there is moderate spinal canal narrowing. Severe right and moderate left neural foraminal narrowing from uncovertebral and facet hypertrophy. At C4-C5, there is mild spinal canal narrowing. Severe left and [id number] right neural foraminal narrowing from facet and uncovertebral hypertrophy. At C5-C6, there is no significant spinal canal narrowing. Moderate left and mild right neural foraminal narrowing from uncovertebral and facet hypertrophy. At C6-C7, there is no significant spinal canal narrowing. Mild left neural foraminal narrowing. IMPRESSION: 1. Small T2 hyperintense spinal cord lesion on the left at C3-C4, nonspecific and can be seen with demyelinating disease and other infectious/inflammatory myelopathies. Correlate with medical history. 2. Moderate multilevel degenerative change, most pronounced at C3-C4 with moderate spinal canal narrowing. Multiple levels of moderate and severe neural foraminal narrowing. Electronically signed by: Molina Preciado On 05/16/2020 13:23:20 PM
[2020-05-16 13:33] VITALS: BP 107/77
[2020-05-16] MEDS: LIDOCAINE 5% (LIDODERM) PATCH TD SCH (18:50)
[2020-05-16 22:00] VITALS: BP 108/76
--- NOTE | 2020-05-16 22:31 | IPNPDOC ---
Subjective Date Seen The patient was seen on 05/16/20. Subjective Chief Complaint/HPI Mr. Ghotra is a 55 year old male history of nonischemic cardiomyopathy here with syncopal event. Overnight he had NSVT of 3 beats. Late morning, he had NSVT of 6 beats. Otherwise, he still has sharp pain down left arm. Tells me that the numbness has resolved. He went down for MRI, when he returned, he felt the pain was more severe and he had more weakness in arm. Otherwise, spoke with neurology about the hyperintense spinal cord lesion on left C3-C4. Recommended MRI study of neck with contrast and MRI study of head with contrast Objective Physical Examination General Exam: Positive: Alert, Cooperative, No Acute Distress Eye Exam: Positive: EOMI, Sclera icteric (mild) ENT Exam: Negative: Atraumatic (facial contusions and abrasions on nose and for head) Neck Exam: Negative: thyromegaly Chest Exam: Positive: Clear to auscultation; Negative: Rales, Rhonchi, Wheezing Heart Exam: Positive: Rate Normal, Regular Rhythm Abdomen Exam: Positive: Normal bowel sounds, Soft; Negative: Tenderness Extremity Exam: Positive: Edema (bilateral pitting) Neuro Exam: Positive: Cranial Nerves 3-12 NL Psych Exam: Positive: Mental status NL, Mood NL Assessment /Plan Assessment Mr. Ghotra is a 55 year old male history of nonischemic cardiomyopathy here with syncopal event. Possibly secondary to Xanax vs arrhythmia vs diuretics/BB. Will hold Xanax while here and monitor on tele for arrhythmias. Dr. 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 Otherwise, for the left arm pain and number, MRI of neck was ordered. D emonstrated left spinal cord lesion and moderate spinal canal narrowing. Spoke with Neurology, Dr. Flores. Recommended MRI with contrast of neck and brain. Plan/VTE VTE Prophylaxis Ordered?: Yes Plan 1. Syncope -May be secondary to hypotension, arrhythmia, or new medication (Xanax) -Hold Xanax -Monitor on tele for arrhythmia. Tele does demonstrate NSVT 2. Left arm pain and numbness -Describes as a sharp pain from the shoulder down to hand -Initial has some numbness, but now resolved -MRI demonstrates left spinal lesion and spinal canal stenosis -Spoke with Neurology, recommending MRI with contrast of neck and spine 3. Non-ischemic cardiomyopathy -Last echo 04/07/2020 -LVEF of 45% with advanced diastolic dysfunction -Night team contacted Dr. Hudson, decrease spironolactone from 25mg qD to 12.5mg qD. -Continue metoprolol succinate and Torsemide 4. Paroxysmal atrial fibrillation -Continue metoprolol succinate -Continue Eliquis 5. GERD -Continue Pantoprazole 6. DVT ppx -On Eliquis VS, I&O, 24H, Fishbone Vital Signs/I&O Vital Signs Date Time Temp Pulse Resp B/P (MAP) Pulse Ox O2 Delivery O2 Flow Rate FiO2 05/16/20 16:10 18 05/16/20 13:33 97.5 90 107/77 (87) 100 Room Air I&O- Last 24 Hours up to 6 AM 05/16/20 06:00 Intake Total 910 ml Output Total 1050 ml Balance -140 ml Laboratory Data 24H LABS Laboratory Tests 2 05/16/20 06:20: Nucleated Red Blood Cells % (auto) 0.0 05/16/20 06:21: Anion Gap 6L, Glomerular Filtration Rate 60.0, Calcium Level 9.0 CBC/BMP Laboratory Tests 05/16/20 06:20 05/16/20 06:21 NESHA RAHMAN DO May 16, 2020 22:31
[2020-05-17] MEDS: oxyCODONE 5MG TAB PO PRN ×3 (00:42→18:06)
[2020-05-17] MEDS: LEVOTHYROXINE 25MCG TABLET (0.025MG) PO SCH (05:51)
[2020-05-17] MEDS: **NOTE PATIENT COMMENT** MISC XX SCH (05:52)
[2020-05-17 06:00] VITALS: BP 109/78
[2020-05-17 07:03] LABS: HEMATOCRIT 42.6 % (42.0-52.0); HEMOGLOBIN 13.5 g/dl (13.5-17.5); MEAN CORPUSCULAR HEMOGLOBIN 32.3 pg (27.0-33.0); MEAN CORPUSCULAR HGB CONC 31.7 g/dl (32.0-36.5); MEAN CORPUSCULAR VOLUME 101.9 fl (80.0-96.0); PLATELET COUNT, AUTOMATED 212 10^3/uL (150-450); RED BLOOD COUNT 4.18 10^6/uL (4.30-6.10); WHITE BLOOD COUNT 8.3 10^3/uL (4.0-10.0)
[2020-05-17 07:34] LABS: CALCIUM LEVEL 8.7 MG/DL (8.5-10.1); CREATININE FOR GFR 1.33 MG/DL (0.70-1.30); POTASSIUM SERUM 3.7 MEQ/L (3.5-5.1)
[2020-05-17 08:29] VITALS: BP 117/81
[2020-05-17] MEDS: PANTOPRAZOLE 40MG TAB (PROTONIX) PO SCH (08:37)
[2020-05-17 08:38] VITALS: BP 117/81
[2020-05-17] MEDS: TORSEMIDE 100 MG TAB PO SCH (08:38)
[2020-05-17] MEDS: APIXABAN 5 MG TAB (ELIQUIS) PO SCH (08:38)
[2020-05-17] MEDS: SPIRONOLACTONE 12.5MG PER 1/2 TABLET PEG SCH (08:38)
[2020-05-17] MEDS: METOPROLOL SUCC *XL* 25MG TAB (TopROL *XL*) PO SCH (08:38)
[2020-05-17] MEDS ORDERED: PROHANCE 279.3MG/ML 15ML VIAL As Ordered ONE (13:44)
--- NOTE | 2020-05-17 15:04 | REP ---
INDICATION: possible demyelinating disease on MRI cervical spine, MS?. COMPARISON: Comparison brain CT study is from May 15, 2020. Comparison MRI cervical spine study May 16, 2019.. TECHNIQUE: Axial and sagittal imaging planes are utilized for T1 and T2-weighted scans. Sequences include spin-echo, fast spin echo, FLAIR, and diffusion weighted sequences. Gadolinium enhancement dose is 15 mL of intravenous ProHance. Postcontrast T1 weighted scans are acquired in all 3 planes. FINDINGS: There is a old sanford hole in the right frontal bone unchanged from the CT study. No other bony calvarial defect is seen. No intraorbital abnormality is seen. There is fluid signal intensity within the mastoid air cells on the right. There is no other MR evidence of significant paranasal sinus disease. No intraorbital abnormality is seen. There is a zone of periventricular T2 hyperintensity in the right frontal lobe underlying the sanford hole. There is mild associated T1 hypointensity. There is a linear tract like structure in the periventricular white matter of the right frontal lobe in this region consistent with previous ventriculostomy tract. Mild small vessel atherosclerotic changes are noted in the periventricular white matter elsewhere. Diffusion-weighted scans show no evidence to suggest acute ischemia. There is no abnormal contrast enhancement on postcontrast images. No mass, extra-axial fluid collection, or midline shift is seen. On FLAIR thin section sagittal images there are multiple foci of subcortical and periventricular white matter hyperintensity. These are nonspecific. They are compatible with small vessel changes. IMPRESSION: Status post right frontal sanford hole and apparently prior ventriculostomy. Non-specific scattered 4 small foci of subcortical and periventricular T2 hyperintensity. No abnormal gadolinium enhancement or evidence of restricted diffusion. No mass or extra-axial fluid collection. Fluid signal intensity in the right mastoid sinus. <Electronically signed by Devan Argueta > 05/17/20 [id number]
--- NOTE | 2020-05-17 15:17 | REP ---
INDICATION: With contratrast for lesion on left C3-C4. COMPARISON: Comparison is made with precontrast MRI study of the cervical spine from May 16, 2020.. TECHNIQUE: Postcontrast axial and sagittal T1 fat sat images are acquired. The gadolinium enhancement dose is 15 mL of intravenous ProHance. FINDINGS: There is an area of contrast enhancement within the anterior margin of the C 3 4 disc space and in an adjacent Schmorl's node at the superior endplate of the C4 vertebral body. There is no abnormal intraspinal or intramedullary gadolinium enhancement. There is thecal sac compression and indentation of the ventral margin of the cervical cord from the C3-4 disc protrusion. This small central disc protrusion is displayed to better advantage postcontrast. Uncovertebral spurring is present bilaterally at C3-4. There is a retrolisthesis of C3 with respect to C4, 3 mm. No other area of abnormal gadolinium enhancement is seen. Diffuse bulging of the C4-5 disc is again seen. IMPRESSION: Advanced degenerative disc disease at C3-4 with associated uncovertebral spurring neural foraminal narrowing and a small central disc protrusion at C3-4. No abnormal intramedullary contrast enhancement is seen. <Electronically signed by Devan Argueta > 05/17/20 [id number]
[2020-05-17] MEDS ORDERED: OXYC-517 PO (16:41)
[2020-05-17] MEDS ORDERED: ACET1TAB55 PO (16:41)
[2020-05-17] MEDS ORDERED: METH4PACK PO (16:41)
[2020-05-17] MEDS ORDERED: ALDA25TA2 PEG (16:41)
[2020-05-17] MEDS ORDERED: methylPREDNISolone 125MG 2ML VIAL IV ONE (17:00)
[2020-05-17] MEDS ORDERED: ALDA25TA2 PO (17:51)
[2020-05-17] MEDS ORDERED: methylPREDNISolone 1,000 MG, VIAL MATE ADAPTER 1 EACH in D5W 250 ML IV ONE (18:00)
[2020-05-17] MEDS: LIDOCAINE 5% (LIDODERM) PATCH TD SCH (18:05)
--- NOTE | 2020-05-17 23:58 | DS.PDOC ---
Discharge Summary General Date of Admission May 15, 2020 at 01:04 Date of Discharge May 17, 2020 Attending Physician: NESHA RAHMAN DO Discharge Summary PROCEDURES PERFORMED DURING STAY: None ADMITTING DIAGNOSES: 1. Syncope 2. Non-ischemic cardiomyopathy 3. Paroxysmal atrial fibrillation 4. GERD DISCHARGE DIAGNOSES: 1. Syncope 2. Non-ischemic cardiomyopathy 3. Paroxysmal atrial fibrillation 4. GERD 5. Herniated disc C3-C4 COMPLICATIONS/CHIEF COMPLAINT: Syncope, Hypotension. HISTORY OF PRESENT ILLNESS: Mr. Ghotra is a 55 year old male history of nonischemic cardiomyopathy here with syncopal event. Recently he has been having difficulty sleeping. PCP prescribed him Xanax to help his sleep two days ago. He had one the day prior and last night. Last night, he went to bed at 9:30PM. Then he got up at 11:30PM. On he was walking, and the next minute he woke up on the ground in pain. He does not remember how he ended up on the floor. His says he was unresponsive for 2 minutes. He has facial contusions and abrasions. He was taken to the ED. While in the ED, troponin remained stable. His troponin are chronically elevated between 0.2 to 0.5. His SBP generally in the low 100s. Orthostatic vitals were negative. While in the ED, the night attending discussed the case with Dr. Hudson who recommended decreasing spironolactone from 25mg qD to 12.5mg qD. Patient to be admitted overnight for observation for syncopal event. HOSPITAL COURSE: During his hospital course, he continued to have persistent sharp pain radiating down his left arm with numbness. Pulses were present in left arm. Ordered MRI as it seemed to be cervicalgia. MRI without contrast of cervical spine demonstrated left demyelinating disease vs inflammation. Spoke with neurology. Recommended MRI of cervical spine with contrast and MRI of brain with contrast. MRI brain findings were consistent with his brain surgery. MRI of cervical spine with contrast demonstrated herniated disc at C3-C4. Neurology recommended steroids and spinal surgery consultation. Spoke with Dr. Pagan who recommended steroids and outpatient follow up. Otherwise, on tele, he had a few episodes of NSVT. Suspecting syncope to be secondary to Xanax. Told patient to avoid Xanax for now and to decrease spironolactone from 25mg qD to 12.5mg qD. DISCHARGE MEDICATIONS: Please see below. ALLERGIES: Please see below. PHYSICAL EXAMINATION ON DISCHARGE: VITAL SIGNS: Please see below. GENERAL: Comfortable, no apparent distress HEENT: EOMI, sclera clear NECK: Supple CARDIOVASCULAR EXAMINATION: Regular rate and rhythm RESPIRATORY EXAMINATION: Lungs clear to auscultation bilaterally ABDOMINAL EXAMINATION: Soft, non-tender, normal bowel sounds EXTREMITIES: Left arm guarding. He does not want to move left arm due to pain, but has same range of motion as right. SKIN: Hands cold NEUROLOGICAL EXAMINATION: CN 3-12 grossly intact PSYCHIATRIC EXAMINATION: Normal mood and affect LABORATORY DATA: Please see below. IMAGING: MRI cervical spine without contrast 1. Small T2 hyperintense spinal cord lesion on the left at C3-C4, nonspecific and can be seen with demyelinating disease and other infectious/inflammatory myelopathies. Correlate with medical history. 2. Moderate multilevel degenerative change, most pronounced at C3-C4 with moderate spinal canal narrowing. Multiple levels of moderate and severe neural foraminal narrowing. MRI cervical spine with contrast Advanced degenerative disc disease at C3-4 with associated uncovertebral spurring neural foraminal narrowing and a small central disc protrusion at C3-4. No abnormal intramedullary contrast enhancement is seen. 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 Non-specific scattered 4 small foci of subcortical and periventricular T2 hyperintensity. No abnormal gadolinium enhancement or evidence of restricted diffusion. No mass or extra-axial fluid collection. Fluid signal intensity in the right mastoid sinus. PROGNOSIS: Good ACTIVITY: As tolerated. DIET: 2gm sodium diet DISCHARGE PLAN: Home DISPOSITION: 01 Home, Self-Care. DISCHARGE INSTRUCTIONS: 1. Follow up with PCP within 1 week 2. Follow up with neurology in 1 week 3. Follow up with orthopedic surgery (Dr. Pagan) in 1 week 4. Follow up with cardiology in 1 week DISCHARGE CONDITION: Stable Total time spent on discharge planning, discharge summary, and medication r econciliation: 60 minutes Vital Signs/I&Os Vital Signs Date Time Temp Pulse Resp B/P (MAP) Pulse Ox O2 Delivery O2 Flow Rate FiO2 05/17/20 19:09 18 Room Air 05/17/20 08:38 103 117/81 05/17/20 07:14 98 05/17/20 06:00 97.4 l I&O- Last 24 Hours up to 6 AM 05/17/20 06:00 Intake Total 850 ml Output Total 2600 ml Balance -1750 ml Laboratory Data Labs 24H Laboratory Tests 2 05/17/20 06:41: Nucleated Red Blood Cells % (auto) 0.0, Anion Gap 10, Glomerular Filtration Rate 59.0, Calcium Level 8.7 CBC/BMP Laboratory Tests 05/17/20 06:41 Discharge Medications Scheduled Apixaban (Eliquis) 5 Mg Tablet, 5 MG PO BID, (Reported) Levothyroxine Sodium (Levothyroxine Sodium) 25 Mcg Tablet, 25 MCG PO DAILY, (Reported) Methylprednisolone (Methylprednisolone) 4 Mg Tab.ds.pk, 1 PACKET PO ASDIRECTED take 6 Pills Day 1, 5 Pills Day 2, 4 Pills Day 3, 3 Pills Day 4, 2 Pills Day 5 and 1 pill Day 6 Metoprolol Succinate (Metoprolol Succinate) 25 Mg Tab.er.24h, 25 MG PO DAILY, (Reported) Pantoprazole Sodium (Protonix) 40 Mg Tablet.dr, 40 MG PO DAILY, (Reported) Spironolactone (Aldactone) 25 Mg Tablet, 12.5 MG PO DAILY Torsemide (Torsemide) 20 Mg Tablet, 100 MG PO DAILY, (Reported) Scheduled PRN Acetaminophen (Acetaminophen) 325 Mg Tablet, 650 MG PO Q6HP PRN for pain Oxycodone HCl (Oxycodone HCl) 5 Mg Tablet, 5 MG PO Q6HP PRN for MODERATE/SEVERE PAIN (PS 5-10) Allergies Coded Allergies: vancomycin (Verified Adverse Reaction, Severe, rigors, 04/05/20) NESHA RAHMAN DO May 17, 2020 23:58
== END 2020-05-17 19:17 | disposition home or self-care (01) ==
LOC: M ED 01:03 → M ED INP 01:04 → M MSPAV 08:52
PROVIDERS: ADMIT Internal Medicine; ATTEND Internal Medicine
DX: R79.89 Other specified abnormal findings of blood chemistry (principal); R55 Syncope and collapse; I95.9 Hypotension, unspecified; I45.10 Unspecified right bundle-branch block; M50.322 Other cervical disc degeneration at C5-C6 level; M50.21 Other cervical disc displacement, high cervical region; M48.02 Spinal stenosis, cervical region; I50.9 Heart failure, unspecified; I10 Essential (primary) hypertension; K21.9 Gastro-esophageal reflux disease without esophagitis; E03.9 Hypothyroidism, unspecified; K74.00 Hepatic fibrosis, unspecified; C85.80 Other specified types of non-Hodgkin lymphoma, unspecified site; Z79.01 Long term (current) use of anticoagulants; Z79.899 Other long term (current) drug therapy; Z88.1 Allergy status to other antibiotic agents
CPT/HCPCS: 36415; 70450; 70486; 70553; 71275; 72125; 72141; 72142; 73090; 80048; 80076; 82140; 82550; 82553; 83735; 83880; 84439; 84443; 84484; 85025; 85027; 85379; 85610; 85730; 87631; 93005; 93041; 96374; 97161; 99285; A9576; J2930; Q9967

== ENCOUNTER 2020-05-30 08:05 | Inpatient (IN) | payer BC, OTHER ==
[~2020-05-30] VITALS: Ht 167.6 cm; Wt 77.4 kg
[~2020-05-30 08:05] MED LIST changes: +ACET1TAB55 PO; +ALDA25TA2 PEG; +ALPR0.25 PO; +LEVO25TA5 PO; +METH4PACK PO; +METO1TAB32 PO; +OXYC-517 PO; +SPIR-10 PO
--- OUTSIDE RECORDS SUMMARY | 2020-05-30 08:15 | CCD | Continuity of Care Document ---
Author Author Nurse - Omero Haro Organization Unknown Address [address] [place] [address] Phone [phone] Care Team Providers Care Computing Tutor Name Role Phone Anderson Kee M.D. AUTM [phone] [facility] AUTM [facility] Dermatology AUTM [phone] [facility] Urology Clinic AUTM [phone] Ra Gage MD AUTM [phone] [facility] Sleep Center AUTM [phone] [facility] Gastroenterology AUTM [phone] [facility] AUTM [phone] Kaden Adame AUTM Unavailable [facility] Nurse Practitioners AUTM [facility] AUTM Problems Active Problems Provider Date Essential hypertension Anderson Kee MD Onset: 01/12/2016 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 Microscopic hematuria Anderson Kee MD Onset: 01/12/2016 Allergic rhinitis Anderson Kee MD Onset: 01/12/2016 Repeat prescription monitoring Anderson Kee MD Onset: Social History Type Date Description Comments Sex Unknown Tobacco Use Start: Unknown Never Smoked Cigarettes Tobacco Use Start: Unknown Never Smoked Cigars Tobacco Use Start: Unknown Never Smoked A Pipe Tobacco Use Start: Unknown Never Used Smokeless Tobacco ETOH Use Occasionally consumes alcohol BE ER AND WINE Drinks on weekends Tobacco Use Start: Unknown Patient has never smoked Recreational Drug Use Denies Drug Use Seat Belt/Car Seat Always uses seat belt Guns in Home Yes, Locked Up Smoke Alarms Yes Smoke Alarms Carbon Monoxide Detector: No Allergies, Adverse Reactions, Alerts Active Allergies Reaction Severity Comments Date NKFA 01/12/2016 NKEA 01/12/2016 Vancomycin TROUBLE WITH THE TOLERATATING 01/12/2016 Medications Active Medications SIG Qnty Indications Ordering Provide r Date Alprazolam 0.25mg Tablets 1 tab by mouth at night as needed 14tabs G47.00 Anderson Kee MD 0 Levothyroxine Sodium 25mcg Tablets 1 tab by mouth every day 90tabs Anderson Kee MD 0 Triamcinolone Acetonide 0.1% Cream apply thin layer to hands and arms two times daily as needed to back 45gm Anderson Kee MD 12/02/2019 Eliquis 5mg Tablets Take 1 Tablet By Mouth Twice Daily Unknown Pantoprazole Sodium 40mg Tablets D R Take 1 Tablet By Mouth Once Daily Unknown Metoprolol Succinate ER 50mg Tablets ER 24HR Take 1/2 Tablet By Mouth Once Daily Unkn own Torsemide 20mg Tablets Take 5 Tablets By Mouth daily Unknown History Medications Zaleplon 5mg Capsules 1 tab by mouth every night at bedtime as needed 30caps G47.9 Anderson Kee MD 1 06/14/2019 - 05/12/2020 Hydroxyzine HCL 10mg Tablets take 1 or 2 tabs by mouth every 6 hours as needed for panic/anxiety or 1-2 tabs at bedtime for sleep 90tabs G47.00 Anderson Kee MD 01/08/2020 - 04/13/2020 Nystatin-Triamcinolone 415253-3.1Unit/GM-% Cream apply thin layer twice daily to affected area between for 2-4 weeks then as needed 90gm Anderson Kee MD 12/02/2019 - 12/02/2019 Immunizations CPT Code Status Date Vaccine Lot # [id number] Given 04/13/2020 Influenza (>= 6 Months) P.F. Vaccine [id number] Given 05/05/2019 Influenza (>= 6 Months) P.F. Vaccine [id number] Vital Signs Date Vital Result Comment 05/12/2020 8:53am BP Systolic 98 mmHg BP Diastolic 58 mmHg Heart Rate 68 /min Body Temperature 97.3 F Respiratory Rate 18 /min O2 % BldC Oximetry 92 % Weight 179.00 lb Weight 81.194 kg Height 66 inches 5'6" BMI (Body Mass Index) 28.9 kg/m2 BSA (Body Surface Area) 1.91 m2 04/13/2020 7:09am BP Systolic 99 mmHg BP Diastolic 77 mmHg Heart Rate 77 /min Body Temperature 97.8 F Respiratory Rate 18 /min O2 % BldC Oximetry 98 % Weight 171.00 lb Weight 77.566 kg Results Test Acquired Date Facility Test Result H/L Range Note Cardiac Marker Panel 05/15/2020 [facility] CPK Creatine Phosphokinase 114 U/L Normal 39-308 CK-MB Value Mass 2.9 NG/ML Normal <3.6 MB/CK Relative Index 2.54 Normal < Or =4 1 Troponin I 0.45 NG/ML High < 0.10 2 CBC With Differential 05/15/2020 [facility] White Blood Count 9.8 10 Normal 4.0-10.0 Red Blood Count 4.03 10 Low 4.30-6.10 Hemoglobin 13.3 g/dL Low 13.5-17.5 Hematocrit 41.1 % Low 42.0-52.0 Mean Corpuscular Volume 102.0 fl High 80.0-96.0 Mean Corpuscular Hemoglobin 33.0 pg Normal 27.0-33.0 Mean Corpuscular HGB Conc 32.4 g/dL Normal 32.0-36.5 Red Cell Distribution Width 17.3 % High 11.5-14.5 Platelet Count, Automated 203 10 Normal 150-450 Neutrophils % 76.2 % High 36.0-66.0 Lymph % 12.9 % Low 24.0-44.0 [place] % 8.6 % High 0.0-5.0 Eos % 1.3 % Normal 0.0-3.0 Baso % 0.6 % Normal 0.0-1.0 Immature Granulocyte % 0.4 % Normal 0-3.0 Nucleated Red Blood Cell % 0.0 % Normal 0-0 Neutrophils # 7.5 10 Normal 1.5-8.5 Lymph # 1.3 10 Low 1.5-5.0 [place] # 0.8 10 Normal 0.0-0.8 Eos # 0.1 10 Normal 0.0-0.5 Baso # 0.1 10 Normal 0.0-0.2 Laboratory test finding 05/15/2020 [facility] Ammonia 44 uMOL/L High <32 Cardiac Marker Panel 05/15/2020 [facility] CPK Creatine Phosphokinase 153 U/L Normal 39-308 CK-MB Value Mass 2.9 NG/ML Normal <3.6 MB/CK Relative Index 1.90 Normal < Or =4 3 Troponin I 0.48 NG/ML High < 0.10 4 Liver Profile 05/15/2020 [facility] Ast/Sgot 60 U/L High 7-37 Alt/SGPT 27 U/L Normal 12-78 Alkaline Phosphatase 189 U/L High 45-117 Bilirubin,Total 2.7 mg/dL High 0.2-1.0 Bilirubin,Direct 0.8 mg/dL High 0.0-0.2 Total Protein 6.6 GM/DL Normal 6.4-8.2 Albumin 3.7 GM/DL Normal 3.2-5.2 Albumin/Globulin Ratio 1.3 Normal Basic Metabolic Profile 05/15/2020 [facility] Glucose, Fasting 115 mg/dL High 70-100 Blood Urea Nitrogen 22 mg/dL High 7-18 Creatinine For GFR 1.21 mg/dL Normal 0.70-1.30 Glomerular Filtration Rate > 60.0 Normal >56 5 Sodium Level 134 mEq/L Low 136-145 Potassium Serum 4.7 mEq/L Normal 3.5-5.1 6 Chloride Level 96 mEq/L Low 98-107 Carbon Dioxide Level 31 mEq/L Normal 21-32 Anion Gap 7 mEq/L Low 8-16 Calcium Level 8.6 mg/dL Normal 8.5-10.1 Laboratory test finding 05/15/2020 [facility] Magnesium Level 2.2 mg/dL Normal 1.8-2.4 NT-Pro BNP 6851 pg/mL High <125 Thyroid Stimulating Hormone 5.830 uIU/ML High 0.358-3.740 Free T4 1.25 ng/dL Normal 0.76-1.46 Prothrombin Time/Inr 05/15/2020 [facility] Prothrombin Time 19.3 seconds High 12.5-14.3 Inr 1.59 Normal 7 Laboratory test finding 05/15/2020 [facility] Partial Thromboplastin Time 34.4 seconds Normal 24.2-38.5 D-Dimer Quant 3164.75 ng/ml High <500 Sedimentation Rate 05/12/2020 [facility] Sed Rate 9 mm/hr 0 - 20 8 Sed Rate Reenter 9 Laboratory test finding 05/12/2020 [facility] Basia Ifa Negative 9 Ceruloplasmin 43.2 mg/dL High 16.0-31.0 Copper Plasma 189 g/dL High 72-166 10 SLE Profile C 05/12/2020 [facility] SLE Profile C (SEE NOTE) 11 Sjogren's Anti-SS-A <0.2 AI 0.0-0.9 Sjogren's Anti-SS-B <0.2 AI 0.0-0.9 DATA SPECIALIST Antibodies <0.2 AI 0.0-0.9 Lala Antibodies <0.2 AI 0.0-0.9 Anti-Dna (DS) Ab Qn <1 IU/mL 0-9 12 Laboratory test finding 05/12/2020 [facility] Iron 138 g/dL High 42 - 135 Comprehensive Metabolic Panel 05/12/2020 [facility] ospital Comprehensive Metabo (SEE NOTE) 13 Sodium 131 mEq/L Low 134 - 153 Potassium 4.0 mEq/L 3.6 - 5.0 Chloride 88 mEq/L Low 98 - 107 Co2 32 mEq/L High 22 - 30 Glucose 99 mg/dL 65 - 110 BUN 27 mg/dL High 7 - 21 Creatinine 1.3 mg/dL 0.7 - 1.5 BUN/Creat 21 8 - 27 Total Protein 6.5 g/dL 6.3 - 8.2 Albumin 4.5 g/dL 3.9 - 5.0 Globulin 2.0 GM/DL Low 2.4 - 3.2 A/G Ratio 2.3 High 0.8 - 2.0 Calcium 9.8 mg/dL 8.4 - 10.2 Total Bili 4.4 mg/dL High 0.2 - 1.3 Alkaline Phos 176 U/L High 38 - 126 Sgot/Ast 29 U/L 5 - 40 SGPT/Alt 21 U/L 7 - 56 Anion Gap 11.0 mmol/L 8.0 - 16.0 Age 55 yrs Non-Aa GFR 60 mL/min Afr Amer GFR >60 mL/min 14 Laboratory test finding 05/12/2020 [facility] TSH Highly Sensitive 8.48 uIU/mL High 0.47 - 5.01 T4 - Free 1.42 ng/dL 0.93 - 1.70 Alpha 1 Anti-Trypsin 220 mg/dL High 101-187 Thyroid Antibodies 05/12/2020 [facility] Thyroid Peroxidase (Tpo)Ab <9 IU/mL 0-34 Thyroglobulin Antibody <1.0 IU/mL 0.0-0.9 15 Laboratory test finding 05/06/2020 [facility] CPK Creatine Phosphokinase 85 U/L Normal 39-308 Thyroid Stimulating Hormone 7.280 uIU/ML High 0.358-3.740 Acetylcholine Rcptor Binding A < 0.03 nmol/L Normal 0.00-0.24 16 Striational Antibodies Negative Normal Neg:<1:40 17 MuSK Antibody <1.0 U/mL Normal . 18 Voltage-Gated Calcium Channel Negative Normal Negative 19 Cardiac Marker Panel 04/23/2020 [facility] CPK Creatine Phosphokinase 115 U/L Normal 39-308 CK-MB Value Mass 4.2 NG/ML High <3.6 MB/CK Relative Index 3.65 Normal < Or =4 20 Troponin I 0.53 NG/ML High < 0.10 21 Basic Metabolic Panel 04/19/2020 [facility] Basic Metabolic Pane (SEE NOTE) 22 Sodium 138 mEq/L 134 - 153 Potassium 3.4 mEq/L Low 3.6 - 5.0 Chloride 96 mEq/L Low 98 - 107 Co2 31 mEq/L High 22 - 30 Glucose 104 mg/dL 65 - 110 BUN 20 mg/dL 7 - 21 Creatinine 0.9 mg/dL 0.7 - 1.5 BUN/Creat 22 8 - 27 Calcium 9.1 mg/dL 8.4 - 10.2 Anion Gap 11.0 mmol/L 8.0 - 16.0 Age 54 yrs Afr Amer GFR >60 mL/min Non-Aa GFR >60 mL/min 23 Laboratory test finding 04/14/2020 [facility] Hereditary Hemochromatosis (SEE NOTE) Normal . 2 4 Basic Metabolic Profile 04/14/2020 [facility] Glucose, Fasting 94 mg/dL Normal 70-100 Blood Urea Nitrogen 48 mg/dL High 7-18 Creatinine For GFR 1.47 mg/dL High 0.70-1.30 Glomerular Filtration Rate 52.8 Low >56 2 5 Sodium Level 132 mEq/L Low 136-145 Potassium Serum 4.0 mEq/L Normal 3.5-5.1 Chloride Level 98 mEq/L Normal 98-107 Carbon Dioxide Level 27 mEq/L Normal 21-32 Anion Gap 7 mEq/L Low 8-16 Calcium Level 8.8 mg/dL Normal 8.5-10.1 Laboratory test finding 04/13/2020 [facility] l CRP (High Sensitivity) 65.15 mg/L High 1.00 - 3.00 26, 2 7 Comprehensive Metabolic Panel 04/13/2020 [facility] ospital Comprehensive Metabo (SEE NOTE) 28 Sodium 129 mEq/L Low 134 - 153 Potassium 5.0 mEq/L 3.6 - 5.0 Chloride 90 mEq/L Low 98 - 107 Co2 24 mEq/L 22 - 30 Glucose 84 mg/dL 65 - 110 BUN 50 mg/dL High 7 - 21 Creatinine 1.4 mg/dL 0.7 - 1.5 BUN/Creat 36 High 8 - 27 Total Protein 6.3 g/dL 6.3 - 8.2 Albumin 4.7 g/dL 3.9 - 5.0 Globulin 1.6 GM/DL Low 2.4 - 3.2 A/G Ratio 2.9 High 0.8 - 2.0 Calcium 10.0 mg/dL 8.4 - 10.2 Total Bili 4.1 mg/dL High 0.2 - 1.3 Alkaline Phos 152 U/L High 38 - 126 Sgot/Ast 60 U/L High 5 - 40 SGPT/Alt 62 U/L High 7 - 56 Anion Gap 15.0 mmol/L 8.0 - 16.0 Age 54 yrs Non-Aa GFR 56 mL/min Afr Amer GFR >60 mL/min 29 Laboratory test finding 04/13/2020 [facility] l TSH Highly Sensitive 6.78 uIU/mL High 0.47 - 5.01 Vitamin B12 Serum 767 pg/mL 232 - 1245 Basia Ifa Negative 30 Hgba1c 6.4 % High 4.4 - 6.1 31 Hep C Antibody With Reflex Quant PCR <0.1 s/coratio 0. 0-0.9 Iron 126 g/dL 42 - 135 Pro-BNP 9711 pg/mL High 0 - 125 Methylmalonic Acid 04/13/2020 [facility] Methylmalonic Acid, Serum 397 nmol/L High 0-378 Disclaimer: COMMENT 32 Lyme Disease Antibodies 04/13/2020 [facility] Lyme IgG/IgM Ab <0.91 ISR 0.00-0.90 33 Lyme Disease Ab, Quant,IgM <0.80 index 0.00-0.79 3 4 SLE Profile C 04/13/2020 [facility] Sjogren's Anti-SS-A <0.2 AI 0.0-0.9 Sjogren's Anti-SS-B <0.2 AI 0.0-0.9 DATA SPECIALIST Antibodies <0.2 AI 0.0-0.9 Lala Antibodies <0.2 AI 0.0-0.9 Anti-Dna (DS) Ab Qn <1 IU/mL 0-9 35 Sedimentation Rate 04/13/2020 [facility] Sed Rate 5 mm/hr 0 - 20 Sed Rate Reenter 5 Prothrombin Time/Inr 03/25/2020 [facility] Prothrombin Time 15.7 seconds High 12.5-14.3 Inr 1.22 Normal 36 Laboratory test finding 02/18/2020 [facility] Creatinine,Random Urine 75.0 mg/dL Normal Sodium,Random Urine 82 mEq/L Normal CBC With Differential 02/18/2020 [facility] White Blood Count 9.5 10 Normal 4.0-10.0 Red Blood Count 4.77 10 Normal 4.30-6.10 Hemoglobin 15.5 g/dL Normal 13.5-17.5 Hematocrit 47.1 % Normal 42.0-52.0 Mean Corpuscular Volume 98.7 fl High 80.0-96.0 Mean Corpuscular Hemoglobin 32.5 pg Normal 27.0-33.0 Mean Corpuscular HGB Conc 32.9 g/dL Normal 32.0-36.5 Red Cell Distribution Width 15.4 % High 11.5-14.5 Platelet Count, Automated 224 10 Normal 150-450 Neutrophils % 63.1 % Normal 36.0-66.0 Lymph % 23.7 % Low 24.0-44.0 [place] % 10.4 % High 0.0-5.0 Eos % 1.9 % Normal 0.0-3.0 Baso % 0.5 % Normal 0.0-1.0 Immature Granulocyte % 0.4 % Normal 0-3.0 Nucleated Red Blood Cell % 0.0 % Normal 0-0 Neutrophils # 6.0 10 Normal 1.5-8.5 Lymph # 2.3 10 Normal 1.5-5.0 [place] # 1.0 10 High 0.0-0.8 Eos # 0.2 10 Normal 0.0-0.5 Baso # 0.1 10 Normal 0.0-0.2 Basic Metabolic Profile 02/18/2020 [facility] Glucose, Fasting 86 mg/dL Normal 70-100 Blood Urea Nitrogen 33 mg/dL High 7-18 Creatinine For GFR 1.26 mg/dL Normal 0.70-1.30 Glomerular Filtration Rate > 60.0 Normal >56 3 7 Sodium Level 136 mEq/L Normal 136-145 Potassium Serum 4.3 mEq/L Normal 3.5-5.1 Chloride Level 99 mEq/L Normal 98-107 Carbon Dioxide Level 29 mEq/L Normal 21-32 Anion Gap 8 mEq/L Normal 8-16 Calcium Level 9.2 mg/dL Normal 8.5-10.1 Laboratory test finding 02/18/2020 [facility] Phosphorus Level 3.6 mg/dL Normal 2.5-4.9 Magnesium Level 2.2 mg/dL Normal 1.8-2.4 Laboratory test finding 12/10/2019 [facility] Alpha Fetoprotein Tumor Quant < 1.3 NG/ML Normal <8.1 38 Basic Metabolic Profile 12/10/2019 [facility] Glucose, Fasting 88 mg/dL Normal 70-100 Blood Urea Nitrogen 27 mg/dL High 7-18 Creatinine For GFR 1.23 mg/dL Normal 0.70-1.30 Glomerular Filtration Rate > 60.0 Normal >56 3 9 Sodium Level 137 mEq/L Normal 136-145 Potassium Serum 4.2 mEq/L Normal 3.5-5.1 Chloride Level 102 mEq/L Normal 98-107 Carbon Dioxide Level 30 mEq/L Normal 21-32 Anion Gap 5 mEq/L Low 8-16 Calcium Level 9.3 mg/dL Normal 8.5-10.1 Liver Profile 12/10/2019 [facility] Ast/Sgot 38 U/L High 7-37 Alt/SGPT 42 U/L Normal 12-78 Alkaline Phosphatase 204 U/L High 45-117 Bilirubin,Total 3.0 mg/dL High 0.2-1.0 Bilirubin,Direct 0.9 mg/dL High 0.0-0.2 Total Protein 6.7 GM/DL Normal 6.4-8.2 Albumin 4.3 GM/DL Normal 3.2-5.2 Albumin/Globulin Ratio 1.8 Normal Coxsackie B Virus AB 12/03/2019 [facility] Coxsackie B-1 Ab Negative Neg:<1:8 40 Coxsackie B-2 Ab Negative Neg:<1:8 Coxsackie B-3 Ab Negative Neg:<1:8 Coxsackie B-4 Ab Negative Neg:<1:8 Coxsackie B-5 Ab Negative Neg:<1:8 Coxsackie B-6 Ab Negative Neg:<1:8 Coxsackle A Virus AB 12/03/2019 [facility] Coxsackie A7 IgG 1:800 titer High Neg:<1:100 Coxsackie A9 IgG 1:800 titer High Neg:<1:100 [place]ie A16 IgG 1:800 titer High Neg:<1:100 [place]ackie A24 IgG 1:800 titer High Neg:<1:100 [place] A7 IgM Negative titer Neg:<1:10 Coxsackie A9 IgM Negative titer Neg:<1:10 [place] A16 IgM Negative titer Neg:<1:10 [place] A24 IgM Negative titer Neg:<1:10 Laboratory test finding 12/03/2019 [facility] Cea 2.1 ng/mL 0.0-4.7 41 PSA Free & Total 12/03/2019 [facility] Prostate Specific Ag,Serum 0.4 ng/mL 0.0-4.0 4 2 Reflex Criteria COMMENT 43 Laboratory test finding 12/03/2019 [facility] Cancer Antigen 125 35.8 U/mL Not Estab. 44 Lyme Disease Antibodies 12/03/2019 [facility] Lyme IgG/IgM Ab <0.91 ISR 0.00-0.90 45 Lyme Disease Ab, Quant,IgM <0.80 index 0.00-0.79 4 6 Laboratory test finding 12/03/2019 [facility] Ammonia 36.0 g/dL 27.2 - 102 Comprehensive Metabolic Panel 12/03/2019 [facility] ospital Comprehensive Metabo (SEE NOTE) 47 Sodium 140 mEq/L 134 - 153 Potassium 4.5 mEq/L 3.6 - 5.0 Chloride 100 mEq/L 98 - 107 Co2 30 mEq/L 22 - 30 Glucose 115 mg/dL High 65 - 110 BUN 23 mg/dL High 7 - 21 Creatinine 1.0 mg/dL 0.7 - 1.5 BUN/Creat 23 8 - 27 Total Protein 6.4 g/dL 6.3 - 8.2 Albumin 4.7 g/dL 3.9 - 5.0 Globulin 1.7 GM/DL Low 2.4 - 3.2 A/G Ratio 2.8 High 0.8 - 2.0 Calcium 9.6 mg/dL 8.4 - 10.2 Total Bili 2.3 mg/dL High 0.2 - 1.3 Alkaline Phos 174 U/L High 38 - 126 Sgot/Ast 27 U/L 5 - 40 SGPT/Alt 25 U/L 7 - 56 Anion Gap 10.0 mmol/L 8.0 - 16.0 Age 54 yrs Non-Aa GFR >60 mL/min Afr Amer GFR >60 mL/min 48 Laboratory test finding 12/03/2019 [facility] TSH Highly Sensitive 4.25 uIU/mL 0.47 - 5.01 T4 - Free 1.32 ng/dL 0.93 - 1.70 CBC W/Automated Diff 12/03/2019 [facility] CBC W/Automated Diff (SEE NOTE) 49 WBC 6.9 10^3/uL 4.2 - 11.0 RBC 4.75 10^6/uL 4.50 - 6.30 Hemoglobin 15.1 g/dL 14.0 - 16.0 Hematocrit 45.6 % 41.0 - 51.0 MCV 96.0 fL High 80.0 - 94.0 MCH 31.8 pg 27.0 - 34.0 MCHC 33.1 g/dL 31.0 - 36.0 RDW 15.9 % High 11.5 - 14.8 Platelets 193 10^3/uL 150 - 450 MPV 11.4 fL High 7.4 - 10.4 Neut 68.9 % 37.0 - 80.0 Lymph 19.8 % Low 25.0 - 40.0 [place] 8.1 % High 3.0 - 8.0 Eos 2.3 % 0.0 - 7.0 Baso 0.6 % 0.0 - 2.0 %Ig 0.3 % High 0.0 - 0.0 %NRBC 0.0 % 0.0 - 0.0 #Neut 4.78 10^3/uL 2.00 - 6.90 #Lymph 1.37 10^3/uL 0.60 - 3.40 #[place] 0.56 10^3/uL 0.00 - 0.90 #Eos 0.16 10^3/uL 0.00 - 0.70 #Baso 0.04 10^3/uL 0.00 - 0.20 #Ig 0.02 10^3/uL 0.00 - 0.10 #NRBC 0.00 10^3/uL 0.00 - 0.00 Manual Diff NOT INDICATED RBC Morph NOT INDICATED 1 DIAGNOSIS CRITERIA MMB ng/ml Relative Index (RI) NON-AMI < or = 5 N/A ORTIZ ZONE > 5 < or = 4 AMI > 5 > 4 2 Troponin I Reference Interva l for [employer] LOCI: 99th Percentile= 0.00-0.045 ng/ml Risk Stratification: <= 0.10 ng/ml Decreased Risk for Adverse Clinical Events. 0.10-1.50 ng/ml Increased Risk for Adv erse Clinical Events. Evaluation of additional criterion and/or repeat testing in 2-6 hours is suggested to rule out myocardial damage. >= 1.50 ng/ml Indicative of Myocardial Injury. 3 DIAGNOSIS CRITERIA MMB ng/ml Relative Index (RI) NON-AMI < or = 5 N/A ORTIZ ZONE > 5 < or = 4 AMI > 5 > 4 4 Troponin I Reference Interva l for [employer] LOCI: 99th Percentile= 0.00-0.045 ng/ml Risk Stratification: <= 0.10 ng/ml Decreased Risk for Adverse Clinical Events. 0.10-1.50 ng/ml Increased Risk for Adv erse Clinical Events. Evaluation of additional criterion and/or repeat testing in 2-6 hours is suggested to rule out myocardial damage. >= 1.50 ng/ml Indicative of Myocardial Injury. 5 Units are mL/min/1.73 m2 Chronic Kidney Disease Staging per NKF: Stage I & II GFR >=60 Normal to Mildly Decreased Stage III GFR 30-59 Moderately Decreased Stage IV GFR 15-29 Severely Decreased Stage V GFR <15 Very Little GFR Left ESRD GFR <15 on [employer]CH[employer]ER LEAD 6 Testing was performed on a h emolysed specimen. Suggest recollection of specimen for more accurate test results. 7 THERAPUTIC HUMAN INR VALUES INDICATIONS NORMAL RANGES PROPHYLAXIS/TREATMENT OF: VENOUS THROMBOSIS 2.0-3.0 PULMONARY EMBOLISM 2.0-3.0 PREVENTION OF SYSTEMIC EMBOLISM FROM: TISSUE HEART VALVES 2.0-3.0 ACUTE MYOCARDIAL INFARCTION 2.0-3.0 VALVULAR HEART DISEASE 2.0-3.0 ATRIAL FIBRILLATION 2.0-3.0 MECHANICAL VALVES(HIGH RISK) 2.5-3.5 RECURRENT MYOCARDIAL INFARCTION 2.5-3.5 8 Is patient fasting? N 9 Negative <1:80 Borderline 1:80 Positive >1:80 10 Detection Limit = 5 Effective May 17, 2020 the reference interval for [id number] Copper, Serum will be changing to: Age Male 0 - 4 months 38 - 122 5 months - 6 months 55 - 131 7 months - 10 months 64 - 142 11 months - 5 years 81 - 152 6 years - 10 years 80 - 141 11 years - 15 years 67 - 128 16 years - 30 years 63 - 121 > 30 years 69 - 132 Age Female 0 - 4 months 38 - 122 5 months - 6 months 55 - 131 7 months - 10 months 64 - 142 11 months - 5 years 81 - 152 6 years - 10 years 80 - 141 11 years - 15 years 67 - 128 16 years - 18 years 71 - 146 > 18 years 80 - 158 11 Test(s) 236583-[id number], Serum was developed and its performance characteristics determined by [email or web address]. It has not been cleared or approved by the Food and Drug Administration. 12 Negative <5 Equivocal 5 - 9 Positive >9 13 COMPREHENSIVE METABOLIC PANE L 14 Male GFR Interprentation 20-49 yrs >60 mL/min Normal 50-59 yrs >56 mL/min Normal 60-69 yrs >49 mL/min Normal 70-79yrs >42 mL/min Normal 80 and above >35 mL/min Normal Female GFR Interpretation 20-39 yrs >60 mL/min Normal 40-49 yrs >58 mL/min Normal 50-59 yrs >51 mL/min Normal 60-69 yrs >45 mL/min Normal 70-79 yrs >39 mL/min Normal 80 and above >32 mL/min Normal 15 Thyroglobulin Antibody measu red by [facility] Methodology 16 Negative: 0.00 - 0.24 Borderline: 0.25 - 0.40 Positive: >0.40 17 Performed at: [facility] [address] [place] [id number] Broiler Chef Or Cook: Reed Guadarrama MD, Phone: [phone] Performed at: [facility] [address] [id number] Broiler Chef Or Cook: Mary Oliveira MD, Phone: [phone] Performed at: [facility] [address] [id number] Broiler Chef Or Cook: June Mo MD, Phone: [phone] Reference Range: Negative: <1.0 Positive: 1.0 or higher A positive result, in the context of congruent clinical findings, confirms the diagnosis of autoimmune MuSK myasthenia gravis. COMMENTS: - Myasthenia gravis (MG) is caused by au to-antibodies against proteins of the neuromuscular junction. Most cases (about 90%) of generalized MG are anti- acetylcholine receptor (AChR) antibody-positive.(1) - Of generalized MG patients who lack an ti-AChR antibodies (AChR-seronegative), about 40% are posit eric for Muscle- Specific Kinase (MuSK) antibody.(1,2) - Though a positive MuSK result is speci fic for the diagnosis of MuSK MG, a negative MuSK result does not rule out a MG diagnosis. - MuSK antibody levels have been shown t o correlate with disease severity.(3) Serial measurements may be useful to follow treatment. References: 1. Anton-Darnell S et al. J Autoimmunity 2014;52:90-100. 2. Tee SEBASTIAN et al. PNAS 2013;110(51); 43308-16973. 3. Gini E et al. Neurology 2006;6 7:505-507. This test was developed and its performance characteristics determined by [employer]. It has not been cleared or approved by the Food and Drug Administration. 19 Results for this test are fo r research purposes only by the assay's counter manager. The performance characteristics of this product have not been established. Results should not be used as a diagnostic procedure without confirmation of the diagnosis by another medically established diagnostic product or procedure. 20 DIAGNOSIS CRITERIA MMB ng/ml Relative Index (RI) NON-AMI < or = 5 N/A ORTIZ ZONE > 5 < or = 4 AMI > 5 > 4 21 Troponin I Reference Interva l for [employer] [place] LOCI: 99th Percentile= 0.00-0.045 ng/ml Risk Stratification: <= 0.10 ng/ml Decreased Risk for Adverse Clinical Events. 0.10-1.50 ng/ml Increased Risk for Adv erse Clinical Events. Evaluation of additional criterion and/or repeat testing in 2-6 hours is suggested to rule out myocardial damage. >= 1.50 ng/ml Indicative of Myocardial Injury. 22 BASIC METABOLIC PANEL 23 Male GFR Interprentation 20-49 yrs >60 mL/min Normal 50-59 yrs >56 mL/min Normal 60-69 yrs >49 mL/min Normal 70-79yrs >42 mL/min Normal 80 and above >35 mL/min Normal Female GFR Interpretation 20-39 yrs >60 mL/min Normal 40-49 yrs >58 mL/min Normal 50-59 yrs >51 mL/min Normal 60-69 yrs >45 mL/min Normal 70-79 yrs >39 mL/min Normal 80 and above >32 mL/min Normal 24 Result: CARRIER Single mutation (S65C) identified . Interpretation: This patient's sample was analyzed for the hereditary hemochromatosis (HH) mutations C282y, H63D, and S65C. A single copy of S65C was identified. Results for C282Y and H63D were negative. 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 Approximately 1 in 9 Caucasians are a carrier of HH. The mutations analyzed by [employer] are most common in the population. Because this panel does not identify rare HH mutations or HH mutations found in other ethnic groups, there are a small number of people who may have a single copy of S65C who are actually affected. The diagnosis of HH should include clinical findings and other test results, such as transferrin-iron saturation and/or serum ferritin studies and/or liver biopsy. HH is inherited in a recessive manner. Should this individual have children with a partner who is also a carrier for HH, there is a 25% chance per offspring that he/she is affected. Genetic counseling and HH molec-ular testing are recommended for at-risk family members. Methodology: DNA Analysis of the HFE gene was performed by PCR amplification followed by restriction enzyme digestion analyses. . Reference: Poli VERDE and Walker AP. (2000). Luciana Test 4:97-101. Jami MILTON et al. (1999). AM J Prev Med 16:134-140. Coy Powell (2002). Lancet 360(2480):1674-12. Jyoti Ordoñez et al. (2002). Blood Cells, Molecules. and Diseases. 29(3):418-432. Ralph Guido et al. (2003). Luciana Med. 5(1):1-8. Jami ME et al. (2003). Luciana Med. 5(4):304-10. . This test was developed and its performance characteristics determined by [employer]. It has not been cleared or approved by the Food and Drug Administration. . Genetic counselors are available for health care providers to discuss results at [phone]. . Kelsey Gutiérrez, PhD, FACMG Rena Huang, PhD, FACMG Tawanda Sanchez, PhD, FACMG Rubi Montilla, PhD, FACMG Marci Johnson, PhD, FACMG Isauro Goodrich, PhD, FACMG Performed at: [facility] [address] [place], [place] [address] 150 Broiler Chef Or Cook: Rios Robin [facility], Phone: [phone] Units are mL/min/1.73 m2 Chronic Kidney Disease Staging per NKF: Stage I & II GFR >=60 Normal to Mildly Decreased Stage III GFR 30-59 Moderately Decreased Stage IV GFR 15-29 Severely Decreased Stage V GFR <15 Very Little GFR Left ESRD GFR <15 on RETAIL COVERAGE MERCHANDISER LEAD 26 Is patient fasting? N FAX R ESULTS TO [facility] [phone] FAX RESULTS TO [facility] [phone] FAX RESULTS TO [facility] [phone] FAX RESULTS TO [facility] [phone] FAX RESULTS TO [facility] [phone] FAX RESULTS TO [facility] [phone] Is patient fasting? N~FAX RESULTS TO [facility] [phone] FAX RESULTS TO [facility] [phone] FAX RESULTS TO [facility] [phone] FAX RESULTS TO [facility] [phone] FAX RESULTS TO [facility] [phone] FAX RESULTS TO [facility] [phone] 27 CDC/AHS HS-CRP CUT-OFF: RELATIVE RISK: <1.0 mg/L Low 1.0 - 3.0 mg/L A verage >3.0 mg/L High Optimally, the average of HS-CRP results repeated two weeks apart should be used for risk assessment. 28 COMPREHENSIVE METABOLIC PANE L 29 Male GFR Interprentation 20-49 yrs >60 mL/min Normal 50-59 yrs >56 mL/min Normal 60-69 yrs >49 mL/min Normal 70-79yrs >42 mL/min Normal 80 and above >35 mL/min Normal Female GFR Interpretation 20-39 yrs >60 mL/min Normal 40-49 yrs >58 mL/min Normal 50-59 yrs >51 mL/min Normal 60-69 yrs >45 mL/min Normal 70-79 yrs >39 mL/min Normal 80 and above >32 mL/min Normal 30 Negative <1:80 Borderline 1:80 Positive >1:80 31 {A1] {HB] 32 This test was developed and its performance characteristics determined by [employer]. It has not been cleared or approved by the Food and Drug Administration. 33 Negative <0.91 Equivocal 0.91 - 1.09 Positive >1.09 34 Negative <0.80 Equivocal 0.80 - 1.19 Positive >1.19 IgM levels may peak at 3-6 weeks post infection, then gradually decline. 35 Negative <5 Equivocal 5 - 9 Positive >9 36 THERAPUTIC HUMAN INR VALUES INDICATIONS NORMAL RANGES PROPHYLAXIS/TREATMENT OF: VENOUS THROMBOSIS 2.0-3.0 PULMONARY EMBOLISM 2.0-3.0 PREVENTION OF SYSTEMIC EMBOLISM FROM: TISSUE HEART VALVES 2.0-3.0 ACUTE MYOCARDIAL INFARCTION 2.0-3.0 VALVULAR HEART DISEASE 2.0-3.0 ATRIAL FIBRILLATION 2.0-3.0 MECHANICAL VALVES(HIGH RISK) 2.5-3.5 RECURRENT MYOCARDIAL INFARCTION 2.5-3.5 37 Units are mL/min/1.73 m2 Chronic Kidney Disease Staging per NKF: Stage I & II GFR >=60 Normal to Mildly Decreased Stage III GFR 30-59 Moderately Decreased Stage IV GFR 15-29 Severely Decreased Stage V GFR <15 Very Little GFR Left ESRD GFR <15 on RETAIL COVERAGE MERCHANDISER LEAD 38 THE AFP ASSAY IS PERFORMED O N THE [facility] BY CHEMILUMINESCENCE AND SHOULD NOT BE COMPARED INTERCHANGEABLY WITH OTHER METHODS. IT SHOULD NOT BE USED ALONE A SCREENING TEST OR DIAGNOSIS FOR THE PRESENCE OR ABSENCE OF MALIGNANT DISEASE. THESE RESULTS ARE NOT INTERPRETABLE IN FEMALES. PREDICTIONS OF DISEASE RECURRENCE SHOULD NOT BE BASED SOLELY ON VALUES OBTAINED FROM SERIAL PATIENT SERUM VALUES. 39 Units are mL/min/1.73 m2 Chronic Kidney Disease Staging per NKF: Stage I & II GFR >=60 Normal to Mildly Decreased Stage III GFR 30-59 Moderately Decreased Stage IV GFR 15-29 Severely Decreased Stage V GFR <15 Very Little GFR Left ESRD GFR <15 on RETAIL COVERAGE MERCHANDISER LEAD 40 .~.~<DG1.3.1>I50.9</DG1.3.1><DG1.3.1>I50.9</DG1.3.1><DG1.3.1>R63.4</DG1.3.1><DG1 .3.1 Is patient fasting? N~.~.~<DG1.3.1>I50.9</DG1.3.1><DG1.3.1> I50.9</DG1.3.1><DG1.3.1>R63.4</DG1.3. .~.~<DG1.3.1>I50.9</DG1.3.1><DG1.3.1>I50.9</DG1.3.1><DG1.3.1>R63.4</DG1.3.1><DG1 .3.1 .~.~<DG1.3.1>I50.9& lt;/DG1.3.1><DG1.3.1>I50.9</DG1.3.1><DG1.3.1>R63.4</DG1.3.1><DG1.3.1 41 Nonsmokers <3.9 Smokers <5.6 [employer] Electrochemiluminescence Immunoassay (ECLIA) Values obtained with different assay methods or kits cannot be used interchangeably. Results cannot be interpreted as absolute evidence of the presence or absence of malignant disease. 42 Lisa ECLIA methodology. According to the [place] [employer], Serum PSA should decrease and remain at undetectable levels after radical prostatectomy. The AUA defines biochemical recurrence as an initial PSA value 0.2 ng/mL or greater followed by a subsequent confirmatory PSA value 0.2 ng/mL or greater. Values obtained with different assay methods or kits cannot be used interchangeably. Results cannot be interpreted as absolute evidence of the presence or absence of malignant disease. 43 The percent free PSA is perf ormed on a reflex basis only when the total PSA is between 4.0 and 10.0 ng/mL. 44 [employer] Electroche miluminescence Immunoassay (ECLIA) Values obtained with different assay methods or kits cannot be used interchangeably. Results cannot be interpreted as absolute evidence of the presence or absence of malignant disease. 45 Negative <0.91 Equivocal 0.91 - 1.09 Positive >1.09 46 Negative <0.80 Equivocal 0.80 - 1.19 Positive >1.19 IgM levels may peak at 3-6 weeks post infection, then gradually decline. 47 COMPREHENSIVE METABOLIC PANE L 48 Male GFR Interprentation 20-49 yrs >60 mL/min Normal 50-59 yrs >56 mL/min Normal 60-69 yrs >49 mL/min Normal 70-79yrs >42 mL/min Normal 80 and above >35 mL/min Normal Female GFR Interpretation 20-39 yrs >60 mL/min Normal 40-49 yrs >58 mL/min Normal 50-59 yrs >51 mL/min Normal 60-69 yrs >45 mL/min Normal 70-79 yrs >39 mL/min Normal 80 and above >32 mL/min Normal 49 COMPLETE BLOOD COUNT Procedures Description No Information Available Medical Devices Description No Information Available Encounters Description No Information Available Assessments Date Code Description Provider 05/12/2020 G47.00 Insomnia, unspecified Anderson Kee MD 05/12/2020 G47.9 Sleep disorder, unspecified Daniel Kee MD 05/12/2020 I10 Essential (primary) hypertension Anderson Kee MD 05/12/2020 R94.6 Abnormal results of thyroid func tion studies Anderson Kee MD 05/12/2020 R94.5 Abnormal results of liver functi on studies Anderson Kee MD 04/19/2020 E87.1 Hypo-osmolality and hyponatremia Anderson Kee MD 04/13/2020 I10 Essential (primary) hypertension Anderson Kee MD 04/13/2020 I50.9 Heart failure, unspecified Raciel Kee MD 04/13/2020 G47.00 Insomnia, unspecified Anderson Kee MD 04/13/2020 G62.9 Polyneuropathy, unspecified Daniel Kee MD 04/13/2020 G47.9 Sleep disorder, unspecified Daniel Kee MD 04/13/2020 I48.0 Paroxysmal atrial fibrillation H ed Kee MD 01/08/2020 I10 Essential (primary) hypertension Anderson Kee MD 01/08/2020 I50.9 Heart failure, unspecified Raciel Kee MD 01/08/2020 K74.60 Unspecified cirrhosis of liver Sherrie Kee MD 01/08/2020 G47.00 Insomnia, unspecified Anderson Kee MD 12/09/2019 R63.4 Abnormal weight loss Anderson yo MD 12/09/2019 K74.60 Unspecified cirrhosis of liver Sherrie Kee MD 12/09/2019 I50.9 Heart failure, unspecified Raciel Kee MD 12/09/2019 E78.5 Hyperlipidemia, unspecified Daniel Kee MD 12/09/2019 I10 Essential (primary) hypertension Anderson Kee MD 12/02/2019 I50.9 Heart failure, unspecified Danieli dora Kee MD 12/02/2019 R63.4 Abnormal weight loss Anderson yo MD 12/02/2019 K74.60 Unspecified cirrhosis of liver Sherrie Kee MD 12/02/2019 L30.9 Dermatitis, unspecified Anderson Kee MD Plan of Treatment Future Appointment(s):* 07/12/2020 7:00 am - Anderson Kee MD at [facility] 05/12/2020 - Anderson Kee MD* G47.00 Insomnia, unspecified* New Medication: * Alprazolam 0.25 mg - 1 tab by mouth at night as needed * Comments:* He is having problems with sleep due to aches and pains and still worry about lot of things at night. We will treat him with Alprazolam to see if it helps. If it does not help, he will discontinue it. Discontinued Zaleplon. He was advised to talk to Dr Adame about sleep issues. He will have sleep study done. * G47.9 Sleep disorder, unspecified* Comments:* Treatment plan as above. * I10 Essential (primary) hypertension* Comments:* Blood pressure today is 98/58 mmHg. He is currently asymptomatic. He has an appointment with filling winder in 2 weeks. He was advised to check his blood pressure at home. If it is still running low, talk to filling winder and if his systolic BP runs below 90, then will need to stop metoprolol. He is probably on blood pressure medication to keep his systolic little lower due to HF with hx of reduced EF. * R94.6 Abnormal results of thyroid function studies* Comments:* His TSH is elevated. We will recheck it today. If still elevated, we will treat him with small dose of thyroid medication. * R94.5 Abnormal results of liver function studies* Comments:* He followed up with Dr. Alonso and nothing was found contributing to abnormal liver function. He would like to have referral to sales representative raw fibers for second opinion. We will refer him to an sales representative raw fibers in [place] for second opinion. * Referral:* Dimas Kennedy, * All * Comments:* He was strongly advised to go to ED, if he does not feel well due to his chronic condition. Functional Status Description No Information Available Mental Status Description No Information Available Referrals Refer to Reason for Referral Status Appt Date Dimas Kennedy 55 y/o M with elevated liver function and ? hx of cirrhosis vs grade 3 fibrosis. Eval and treat. Sent [address] [place], [place] [id number] [phone] [facility] Nurse Practitioners 54 y/o male with multiple actinic keratosis in the scalp, possible basal cell, pls eval and treat. Sent [id number] [place] [address] [phone] Kaden Adame 54 y/o M with hx of sleep di sorder and lower extremity weakness. He is having difficulty with climbing stairs and states his legs feels heavy. He is also gets SOB easily which can not be explained by his cardiac or Lung health. His filling winder does not think, his SOB likely due to his cardiac hx. He has hx of difficulty swallowing at times. He does not feels having restful sleep as well. He is being referred for sleep study as well as nerve conduction study of bilateral upper and lower extremities. Eval and treat. Closed 05/06/2020 [address] [place] [address] [phone] [facility] Respiratory 54 y/o M with hx of breathin g difficulty, referred for PFT with and without albuterol. Closed 04/23/2020 [address] [place], [place] [id number] [phone] [facility] 54 y/o M with hx of heart failure, pls eval and treat. Closed 03/30/[address] [place], [place] [id number] [phone]
--- OUTSIDE RECORDS SUMMARY | 2020-05-30 08:15 | CCD | Continuity of Care Document ---
Author Author Omero MOSQUEDA MD Organization Unknown Address [address] [place] [address] Phone [phone] Care Team Providers Care Beauty Culturist Apprentice Name Role Phone Anderson Kee MD AUTM [phone] Christian Hurley MD AUTM Unavailable Problems Description No Information Available Social History Type Date Description Comments Sex Unknown Tobacco Use Start: Unknown Patient has never smoked Allergies, Adverse Reactions, Alerts Description No Known Drug Allergies Medications Active Medications SIG Qnty Indications Ordering Provide r Date Anexsia 5-325mg Tablets 1-2 tabs every 4-6 hours prn/pain 40tabs Aidee Carney MD 015 Anexsia 5-325mg Tablets 1-2 tabs every 4-6 hours prn/pain 40tabs Aidee Carney MD 014 Anexsia 5-325mg Tablets 1-2 tabs every 4-6 hours prn/pain 40tabs Aidee Carney MD 014 Immunizations Description No Information Available Vital Signs Date Vital Result Comment 05/27/2020 8:32am Body Temperature 97.1 F Height 66 inches 5'6" Weight 164.00 lb BMI (Body Mass Index) 26.5 kg/m2 Results Description No Information Available Procedures Date Code Description Status 05/27/2020 53292 X-Ray Shoulder Complete Complete d 05/27/2020 23211 Inject/Drain Joint/Bursa Major C ompleted Medical Devices Description No Information Available Encounters Type Date Location Provider Dx Diagnosis Office Visit 05/27/2020 8:15a [place] Jonatan Mosqueda MD M54.2 Cervicalgia M19.012 Primary osteoarthritis, left shoulder M75.42 Impingement syndrome of left shoulder M50.321 Other cervical disc degenera tion at C4-C5 level Assessments Date Code Description Provider 05/27/2020 M54.2 Cervicalgia Jonatan Mosqueda MD 05/27/2020 M19.012 Primary osteoarthritis, left arben li Mosqueda MD 05/27/2020 M75.42 Impingement syndrome of left arben li Jonatan Mosqueda MD 05/27/2020 M50.321 Other cervical disc degeneration at C4-C5 level Jonatan Mosqueda MD Plan of Treatment 05/27/2020 - Jonatan Mosqueda MD* M54.2 Cervicalgia * M19.012 Primary osteoarthritis, left shoulder* Follow up:* with PA for lt shoulder re-check (mri if still in pain) 4-6 weeks * M75.42 Impingement syndrome of left shoulder * M50.321 Other cervical disc degeneration at C4-C5 level Functional Status Description No Information Available Mental Status Description No Information Available Referrals Description No Information Available
--- OUTSIDE RECORDS SUMMARY | 2020-05-30 08:16 | CCD | Continuity of Care Document ---
Author Author Omero ADAME M.D. Organization Unknown Address [address] [place] [address] Phone [phone] Care Team Providers Care Executive Marketing Assistant Name Role Phone Anderson Kee M.D. AUTM [phone] Problems Active Problems Provider Date Central sleep apnea syndrome Kaden Adame M.D. Onset: 04/14 Malaise and fatigue Kaden Adame M.D. Onset: 05/06/2020 Hypersomnia Kaden Adame M.D. Onset: 05/06/2020 Malaise and fatigue Kaden Adame M.D. Onset: 05/06/2020 Difficulty breathing Kaden Adame M.D. Onset: 05/06/2020 Abnormal gait Kaden Adame M.D. Onset: 05/06/2020 Idiopathic progressive polyneuropathy Kaden Adame M.D. On set: 05/19/2020 Social History Type Date Description Comments Sex Unknown Tobacco Use Start: Unknown Patient has never smoked Allergies, Adverse Reactions, Alerts Active Allergies Reaction Severity Comments Date Vancomycin 05/06/2020 Medications Description No Information Available Immunizations Description No Information Available Vital Signs Date Vital Result Comment 05/06/2020 8:37am BP Systolic 105 mmHg BP Diastolic 70 mmHg Heart Rate 78 /min Respiratory Rate 14 /min Height 66 inches 5'6" Weight 170.00 lb BMI (Body Mass Index) 27.4 kg/m2 [place] Body Weight 142 lb Results Test Acquired Date Facility Test Result H/L Range Note Laboratory test finding 05/06/2020 [facility] CPK Creatine Phosphokinase 85 U/L Normal 39-308 Thyroid Stimulating Hormone 7.280 uIU/ML High 0.358-3.740 Laboratory test finding 04/13/2020 [facility] Hep C Antibody With Reflex Quant PCR <0.1 s/coratio 0. 0-0.9 1 Basia Ifa Negative 2 1 FAX RESULTS TO [facility] [id number] 2 Negative <1:80 Borderline 1:80 Positive >1:80 Procedures Date Code Description Status 05/10/2020 69147 Nerve Conduction 11-12 Studies C ompleted 05/10/2020 18985 Needle Electromyography Complete , Five Or More Muscles Studied Completed 05/10/2020 79983 Needle Electromyography Complete , Five Or More Muscles Studied Completed Medical Devices Description No Information Available Encounters Type Date Location Provider Dx Diagnosis Office Visit 05/19/2020 12:45p Main office - [place] Pramod Paiz G47.31 Primary central sleep apnea R53.83 Other fatigue G47.14 Hypersomnia due to medical c ondition R53.1 Weakness R06.09 Other forms of dyspnea R26.81 Unsteadiness on feet G05.4 Myelitis in diseases classif ied elsewhere G60.3 Idiopathic progressive neuro jose maria Office Visit 05/06/2020 8:00a [place] G47.31 Primary central sleep apnea R53.83 Other fatigue G47.14 Hypersomnia due to medical c ondition R53.1 Weakness R06.09 Other forms of dyspnea R26.81 Unsteadiness on feet Assessments Date Code Description Provider 05/19/2020 G47.31 Primary central sleep apnea Lashon Adame M.D. 05/19/2020 R53.83 Other fatigue Kaden Adame M.D. 05/19/2020 G47.14 Hypersomnia due to medical condi tion Kaden Adame M.D. 05/19/2020 R53.1 Weakness Kaden Adame M.D. 05/19/2020 R06.09 Other forms of dyspnea Kaden Randhawa i, M.D. 05/19/2020 R26.81 Unsteadiness on feet Kaden Adame M.D. 05/19/2020 G05.4 Myelitis in diseases classified elsewhere Kaden Adame M.D. 05/19/2020 G60.3 Idiopathic progressive neuropath y Kaden Adame M.D. 05/10/2020 G60.9 Hereditary and idiopathic neurop athy, unspecified Kaden Adame M.D. 05/10/2020 M62.9 Disorder of muscle, unspecified Kaden Adame M.D. 05/06/2020 G47.31 Primary central sleep apnea Lashon Adame M.D. 05/06/2020 R53.83 Other fatigue Kaden Adame M.D. 05/06/2020 G47.14 Hypersomnia due to medical condi tion Kaden Adame M.D. 05/06/2020 R53.1 Weakness Kaden Adame M.D. 05/06/2020 R06.09 Other forms of dyspnea Kaden Randhawa i, M.D. 05/06/2020 R26.81 Unsteadiness on feet Kaden Adame M.D. Plan of Treatment No Information Available Functional Status Description No Information Available Mental Status Description No Information Available Referrals Description No Information Available
--- OUTSIDE RECORDS SUMMARY | 2020-05-30 08:16 | CCD | Continuity of Care Document ---
Author Author Omero KEE M.D. Organization Unknown Address [address] [place] [id number] Phone [phone] Care Team Providers Care Snuff Grinder And Screener Name Role Phone Anderson Kee M.D. AUTM [phone] [facility] AUTM [phone] [facility] Dermatology AUTM [phone] [facility] Urology Clinic AUTM [phone] Ra Gage MD AUTM [phone] [facility] Sleep Center AUTM [phone] [facility] Gastroenterology AUTM [phone] [facility] AUTM [phone] [facility] AUTM [phone] Problems Active Problems Provider Date Essential hypertension Anderson Kee MD Onset: 01/12/2016 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 Vaccine [id number] Given 05/05/2019 Influenza (>= 6 Months) P.F. [...] H/L Range Note Cardiac Marker Panel 05/15/2020 [facility] CPK Creatine Phosphokinase 114 U/L Normal 39-308 CK-MB Value Mass 2.9 NG/ML Normal <3.6 MB/CK Relative Index 2.54 Normal < Or =4 1 Troponin I 0.45 NG/ML High < 0.10 2 CBC With Differential 05/15/2020 [facility] White Blood Count 9.8 10 Normal 4.0-10.0 [...] 36.0-66.0 Lymph % 12.9 % Low 24.0-44.0 Greer % 8.6 % High 0.0-5.0 Eos % 1.3 % Normal 0.0-3.0 Baso % 0.6 % Normal 0.0-1.0 Immature Granulocyte % 0.4 % Normal 0-3.0 Nucleated Red Blood Cell % 0.0 % Normal 0-0 Neutrophils # 7.5 10 Normal 1.5-8.5 Lymph # 1.3 10 Low 1.5-5.0 Greer # 0.8 10 Normal 0.0-0.8 Eos # 0.1 10 Normal 0.0-0.5 Baso # 0.1 10 Normal 0.0-0.2 Laboratory test finding 05/15/2020 [facility] Ammonia 44 uMOL/L High <32 Cardiac Marker Panel 05/15/2020 [facility] CPK Creatine Phosphokinase 153 U/L Normal 39-308 CK-MB Value Mass 2.9 NG/ML Normal <3.6 MB/CK Relative Index 1.90 Normal < Or =4 3 Troponin I 0.48 NG/ML High < 0.10 4 Liver Profile 05/15/2020 [facility] Ast/Sgot 60 U/L High 7-37 Alt/SGPT 27 U/L Normal 12-78 Alkaline Phosphatase 189 U/L High 45-117 Bilirubin,Total 2.7 mg/dL High 0.2-1.0 Bilirubin,Direct 0.8 mg/dL High 0.0-0.2 Total Protein 6.6 GM/DL Normal 6.4-8.2 Albumin 3.7 GM/DL Normal 3.2-5.2 Albumin/Globulin Ratio 1.3 Normal Basic Metabolic Profile 05/15/2020 [facility] Glucose, Fasting 115 mg/dL High 70-100 Blood [...] mg/dL Normal 8.5-10.1 Laboratory test finding 05/15/2020 [facility] Magnesium Level 2.2 mg/dL Normal 1.8-2.4 NT-Pro BNP 6851 pg/mL High <125 Thyroid Stimulating Hormone 5.830 uIU/ML High 0.358-3.740 Free T4 1.25 ng/dL Normal 0.76-1.46 Prothrombin Time/Inr 05/15/2020 [facility] Prothrombin Time 19.3 seconds High 12.5-14.3 Inr 1.59 Normal 7 Laboratory test finding 05/15/2020 [facility] Partial Thromboplastin Time 34.4 seconds Normal 24.2-38.5 D-Dimer Quant 3164.75 ng/ml High <500 Sedimentation Rate 05/12/2020 [facility] Sed Rate 9 mm/hr 0 - 20 8 Sed Rate Reenter 9 Laboratory test finding 05/12/2020 [facility] Basia Ifa Negative 9 Ceruloplasmin 43.2 mg/dL High 16.0-31.0 Copper Plasma 189 g/dL High 72-166 10 SLE Profile C 05/12/2020 [facility] SLE Profile C (SEE NOTE) 11 Sjogren's Anti-SS-A <0.2 AI 0.0-0.9 Sjogren's Anti-SS-B <0.2 AI 0.0-0.9 VESSEL SLAG WORKER Antibodies <0.2 AI 0.0-0.9 Lala Antibodies <0.2 AI 0.0-0.9 Anti-Dna (DS) Ab Qn <1 IU/mL 0-9 12 Laboratory test finding 05/12/2020 [facility] Iron 138 g/dL High 42 - 135 Comprehensive Metabolic Panel 05/12/2020 [facility]spital Comprehensive Metabo (SEE NOTE) 13 Sodium [...] >60 mL/min 14 Laboratory test finding 05/12/2020 [facility] TSH Highly Sensitive 8.48 uIU/mL High 0.47 - 5.01 T4 - Free 1.42 ng/dL 0.93 - 1.70 Alpha 1 Anti-Trypsin 220 mg/dL High 101-187 Thyroid Antibodies 05/12/2020 [facility] Thyroid Peroxidase (Tpo)Ab <9 IU/mL 0-34 Thyroglobulin Antibody <1.0 IU/mL 0.0-0.9 15 Laboratory test finding 05/06/2020 [facility] CPK Creatine Phosphokinase 85 U/L Normal 39-308 Thyroid Stimulating Hormone 7.280 uIU/ML High 0.358-3.740 Cardiac Marker Panel 04/23/2020 [facility] CPK Creatine Phosphokinase 115 U/L Normal 39-308 CK-MB Value Mass 4.2 NG/ML High <3.6 MB/CK Relative Index 3.65 Normal < Or =4 16 Troponin I 0.53 NG/ML High < 0.10 17 Basic Metabolic Panel 04/19/2020 [facility] Basic Metabolic Pane (SEE NOTE) 18 Sodium 138 mEq/L 134 - 153 Potassium [...] GFR >60 mL/min Non-Aa GFR >60 mL/min 19 Laboratory test finding 04/14/2020 [facility] Hereditary Hemochromatosis (SEE NOTE) Normal . 2 0 Basic Metabolic Profile 04/14/2020 [facility] Glucose, Fasting 94 mg/dL Normal 70-100 Blood Urea Nitrogen 48 mg/dL High 7-18 Creatinine For GFR 1.47 mg/dL High 0.70-1.30 Glomerular Filtration Rate 52.8 Low >56 2 1 Sodium Level 132 mEq/L Low 136-145 Potassium Serum 4.0 mEq/L Normal 3.5-5.1 Chloride Level 98 mEq/L Normal 98-107 Carbon Dioxide Level 27 mEq/L Normal 21-32 Anion Gap 7 mEq/L Low 8-16 Calcium Level 8.8 mg/dL Normal 8.5-10.1 Laboratory test finding 04/13/2020 [facility] CRP (High Sensitivity) 65.15 mg/L High 1.00 - 3.00 22, 2 3 Comprehensive Metabolic Panel 04/13/2020 [facility] Comprehensive Metabo (SEE NOTE) 24 Sodium 129 mEq/L Low 134 - 153 [...] 56 mL/min Afr Amer GFR >60 mL/min 25 Laboratory test finding 04/13/2020 [facility] TSH Highly Sensitive 6.78 uIU/mL High 0.47 - 5.01 Vitamin B12 Serum 767 pg/mL 232 - 1245 Basia Ifa Negative 26 Hgba1c 6.4 % High 4.4 - 6.1 27 Hep C Antibody With Reflex Quant PCR <0.1 s/coratio 0. 0-0.9 Iron 126 g/dL 42 - 135 Pro-BNP 9711 pg/mL High 0 - 125 Methylmalonic Acid 04/13/2020 [facility] Methylmalonic Acid, Serum 397 nmol/L High 0-378 Disclaimer: COMMENT 28 Lyme Disease Antibodies 04/13/2020 [facility] L[facility] IgG/IgM Ab <0.91 ISR 0.00-0.90 29 Lyme Disease Ab, Quant,IgM <0.80 index 0.00-0.79 3 0 SLE Profile C 04/13/2020 [facility] Sjogren's Anti-SS-A <0.2 AI 0.0-0.9 Sjogren's Anti-SS-B <0.2 AI 0.0-0.9 VESSEL SLAG WORKER Antibodies <0.2 AI 0.0-0.9 Lala Antibodies <0.2 AI 0.0-0.9 Anti-Dna (DS) Ab Qn <1 IU/mL 0-9 31 Sedimentation Rate 04/13/2020 [facility] Sed Rate 5 mm/hr 0 - 20 Sed Rate Reenter 5 Prothrombin Time/Inr 03/25/2020 [facility] Prothrombin Time 15.7 seconds High 12.5-14.3 Inr 1.22 Normal 32 Laboratory test finding 02/18/2020 [facility] Creatinine,Random Urine 75.0 mg/dL Normal Sodium,Random Urine 82 mEq/L Normal CBC With Differential 02/18/2020 [facility] White Blood Count 9.5 10 Normal 4.0-10.0 [...] 36.0-66.0 Lymph % 23.7 % Low 24.0-44.0 Greer % 10.4 % High 0.0-5.0 Eos % 1.9 % Normal 0.0-3.0 Baso % 0.5 % Normal 0.0-1.0 Immature Granulocyte % 0.4 % Normal 0-3.0 Nucleated Red Blood Cell % 0.0 % Normal 0-0 Neutrophils # 6.0 10 Normal 1.5-8.5 Lymph # 2.3 10 Normal 1.5-5.0 Greer # 1.0 10 High 0.0-0.8 Eos # 0.2 10 Normal 0.0-0.5 Baso # 0.1 10 Normal 0.0-0.2 Basic Metabolic Profile 02/18/2020 [facility] Glucose, Fasting 86 mg/dL Normal 70-100 Blood Urea Nitrogen 33 mg/dL High 7-18 Creatinine For GFR 1.26 mg/dL Normal 0.70-1.30 Glomerular Filtration Rate > 60.0 Normal >56 3 3 Sodium Level 136 mEq/L Normal 136-145 Potassium Serum 4.3 mEq/L Normal 3.5-5.1 Chloride Level 99 mEq/L Normal 98-107 Carbon Dioxide Level 29 mEq/L Normal 21-32 Anion Gap 8 mEq/L Normal 8-16 Calcium Level 9.2 mg/dL Normal 8.5-10.1 Laboratory test finding 02/18/2020 [facility] Phosphorus Level 3.6 mg/dL Normal 2.5-4.9 Magnesium Level 2.2 mg/dL Normal 1.8-2.4 Laboratory test finding 12/10/2019 [facility] Alpha Fetoprotein Tumor Quant < 1.3 NG/ML Normal <8.1 34 Basic Metabolic Profile 12/10/2019 [facility] Glucose, Fasting 88 mg/dL Normal 70-100 Blood Urea Nitrogen 27 mg/dL High 7-18 Creatinine For GFR 1.23 mg/dL Normal 0.70-1.30 Glomerular Filtration Rate > 60.0 Normal >56 3 5 Sodium Level 137 mEq/L Normal 136-145 Potassium Serum 4.2 mEq/L Normal 3.5-5.1 Chloride Level 102 mEq/L Normal 98-107 Carbon Dioxide Level 30 mEq/L Normal 21-32 Anion Gap 5 mEq/L Low 8-16 Calcium Level 9.3 mg/dL Normal 8.5-10.1 Liver Profile 12/10/2019 [facility] Ast/Sgot 38 U/L High 7-37 Alt/SGPT 42 U/L Normal 12-78 Alkaline Phosphatase 204 U/L High 45-117 Bilirubin,Total 3.0 mg/dL High 0.2-1.0 Bilirubin,Direct 0.9 mg/dL High 0.0-0.2 Total Protein 6.7 GM/DL Normal 6.4-8.2 Albumin 4.3 GM/DL Normal 3.2-5.2 Albumin/Globulin Ratio 1.8 Normal Coxsackie B Virus AB 12/03/2019 [facility] Coxsackie B-1 Ab Negative Neg:<1:8 36 Coxsackie B-2 Ab Negative Neg:<1:8 Coxsackie B-3 Ab Negative Neg:<1:8 Coxsackie B-4 Ab Negative Neg:<1:8 Coxsackie B-5 Ab Negative Neg:<1:8 Coxsackie B-6 Ab Negative Neg:<1:8 Coxsackle A Virus AB 12/03/2019 [facility] Coxsackie A7 IgG 1:800 titer High Neg:<1:100 Coxsackie A9 IgG 1:800 titer High Neg:<1:100 Coxsackie A16 IgG 1:800 titer High Neg:<1:100 Coxsackie A24 IgG 1:800 titer High Neg:<1:100 Coxsackie A7 IgM Negative titer Neg:<1:10 Coxsackie A9 IgM Negative titer Neg:<1:10 Coxsackie A16 IgM Negative titer Neg:<1:10 Coxsackie A24 IgM Negative titer Neg:<1:10 Laboratory test finding 12/03/2019 [facility] Cea 2.1 ng/mL 0.0-4.7 37 PSA Free & Total 12/03/2019 [facility] Prostate Specific Ag,Serum 0.4 ng/mL 0.0-4.0 3 8 Reflex Criteria COMMENT 39 Laboratory test finding 12/03/2019 [facility] Cancer Antigen 125 35.8 U/mL Not Estab. 40 Lyme Disease Antibodies 12/03/2019 [facility] Lyme IgG/IgM Ab <0.91 ISR 0.00-0.90 41 Lyme Disease Ab, Quant,IgM <0.80 index 0.00-0.79 4 2 Laboratory test finding 12/03/2019 [facility] Ammonia 36.0 g/dL 27.2 - 102 Comprehensive Metabolic Panel 12/03/2019 [facility]ital Comprehensive Metabo (SEE NOTE) 43 Sodium 140 mEq/L 134 - 153 Potassium [...] >60 mL/min Afr Amer GFR >60 mL/min 44 Laboratory test finding 12/03/2019 [facility] TSH Highly Sensitive 4.25 uIU/mL 0.47 - 5.01 T4 - Free 1.32 ng/dL 0.93 - 1.70 CBC W/Automated Diff 12/03/2019 [facility] CBC W/Automated Diff (SEE NOTE) 45 WBC 6.9 10^3/uL 4.2 - 11.0 RBC [...] Lymph 19.8 % Low 25.0 - 40.0 Greer 8.1 % High 3.0 - 8.0 Eos 2.3 % 0.0 - 7.0 Baso 0.6 % 0.0 - 2.0 %Ig 0.3 % High 0.0 - 0.0 %NRBC 0.0 % 0.0 - 0.0 #Neut 4.78 10^3/uL 2.00 - 6.90 #Lymph 1.37 10^3/uL 0.60 - 3.40 #Greer 0.56 10^3/uL 0.00 - 0.90 #Eos 0.16 [...] 2 Troponin I Reference Interva l for Siemens Wadley LOCI: 99th Percentile= 0.00-0.045 ng/ml Risk Stratification: [...] 4 Troponin I Reference Interva l for Siemens Wadley LOCI: 99th Percentile= 0.00-0.045 ng/ml Risk Stratification: [...] Little GFR Left ESRD GFR <15 on RESEARCH ELECTRICIAN 6 Testing was performed on a h [...] May 17, 2020 the reference interval for [id number] Copper, Serum will be changing to: Age [...] 18 years 80 - 158 11 Test(s) [id number], Serum was developed and its performance characteristics determined by [facility]. It has not been cleared or approved [...] 15 Thyroglobulin Antibody measu red by [facility] 16 DIAGNOSIS CRITERIA MMB ng/ml Relative Index (RI) NON-AMI < or = 5 N/A ORTIZ ZONE > 5 < or = 4 AMI > 5 > 4 17 Troponin I Reference Interva l for Siemens Wadley LOCI: 99th Percentile= 0.00-0.045 ng/ml Risk Stratification: <= 0.10 ng/ml Decreased Risk for Adverse Clinical Events. 0.10-1.50 ng/ml Increased Risk for Adv erse Clinical Events. Evaluation of additional criterion and/or repeat testing in 2-6 hours is suggested to rule out myocardial damage. >= 1.50 ng/ml Indicative of Myocardial Injury. 18 BASIC METABOLIC PANEL 19 Male GFR Interprentation 20-49 yrs >60 mL/min Normal 50-59 yrs >56 mL/min Normal 60-69 yrs >49 mL/min Normal 70-79yrs >42 mL/min Normal 80 and above >35 mL/min Normal Female GFR Interpretation 20-39 yrs >60 mL/min Normal 40-49 yrs >58 mL/min Normal 50-59 yrs >51 mL/min Normal 60-69 yrs >45 mL/min Normal 70-79 yrs >39 mL/min Normal 80 and above >32 mL/min Normal 20 Result: CARRIER Single mutation (S65C) identified . Interpretation: This patient's sample was analyzed for the hereditary hemochromatosis (HH) mutations C282y, H63D, and S65C. A single copy of S65C was identified. Results for C282Y and H63D were negative. 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 Approximately 1 in 9 Caucasians are a carrier of HH. The mutations analyzed by [facility] are most common in the population. Because [...] restriction enzyme digestion analyses. . Reference: Poli JS and Boni AP. (2000). Luciana Test 4:97-101. [place] ME et al. (1999). AM J Prev Med 16:134-140. Coy Powell (2002). Lancet 360(2212):7421-66. Jyoti Ordoñez et al. (2002). Blood Cells, Molecules. and Diseases. 29(3):418-432. Ralph G et al. (2003). Luciana Med. 5(1):1-8. Jami ME et al. (2003). Luciana Med. 5(4):304-10. . This test was developed and its performance characteristics determined by [facility]. It has not been cleared or approved by the Food and Drug Administration. . Genetic counselors are available for health care providers to discuss results at [phone]. . Kelsey Gutiérrez, PhD, FACMG Rena Huang, PhD, FACMG Tawanda Sanchez, PhD, FACMG Rubi Montilla, PhD, FACMG Marci Johnson, PhD, FACMG Isauro Goodrich, PhD, FACMG Performed at: [facility] [address] [facility], [place], [place] [address] 150 Commercial Credit Reviewer: Rios Robin [facility], Phone: [phone] 21 Units are mL/min/1.73 m2 Chronic Kidney Disease Staging per NKF: Stage I & II GFR >=60 Normal to Mildly Decreased Stage III GFR 30-59 Moderately Decreased Stage IV GFR 15-29 Severely Decreased Stage V GFR <15 Very Little GFR Left ESRD GFR <15 on RESEARCH ELECTRICIAN 22 Is patient fasting? N FAX R ESULTS TO [facility] [phone] FAX RESULTS TO [facility] [phone] FAX RESULTS TO [facility] [phone] FAX RESULTS TO [facility] [phone] FAX RESULTS TO [facility] [phone] FAX RESULTS TO [facility] [phone] Is patient fasting? N~FAX RESULTS TO [facility] [phone] FAX RESULTS TO [facility] [phone] FAX RESULTS TO [facility] [phone] FAX RESULTS TO [facility] [phone] FAX RESULTS TO [facility] [phone] FAX RESULTS TO [facility] [phone] 23 CDC/S HS-CRP CUT-OFF: RELATIVE RISK: <1.0 mg/L Low 1.0 - 3.0 mg/L A verage >3.0 mg/L High Optimally, the average of HS-CRP results repeated two weeks apart should be used for risk assessment. 24 COMPREHENSIVE METABOLIC PANE L 25 Male GFR Interprentation 20-49 yrs >60 mL/min Normal 50-59 yrs >56 mL/min Normal 60-69 yrs >49 mL/min Normal 70-79yrs >42 mL/min Normal 80 and above >35 mL/min Normal Female GFR Interpretation 20-39 yrs >60 mL/min Normal 40-49 yrs >58 mL/min Normal 50-59 yrs >51 mL/min Normal 60-69 yrs >45 mL/min Normal 70-79 yrs >39 mL/min Normal 80 and above >32 mL/min Normal 26 Negative <1:80 Borderline 1:80 Positive >1:80 27 {A1] {HB] 28 This test was developed and its performance characteristics determined by [facility]. It has not been cleared or approved by the Food and Drug Administration. 29 Negative <0.91 Equivocal 0.91 - 1.09 Positive >1.09 30 Negative <0.80 Equivocal 0.80 - 1.19 Positive >1.19 IgM levels may peak at 3-6 weeks post infection, then gradually decline. 31 Negative <5 Equivocal 5 - 9 Positive >9 32 THERAPUTIC HUMAN INR VALUES INDICATIONS NORMAL RANGES PROPHYLAXIS/TREATMENT OF: VENOUS THROMBOSIS 2.0-3.0 PULMONARY EMBOLISM 2.0-3.0 PREVENTION OF SYSTEMIC EMBOLISM FROM: TISSUE HEART VALVES 2.0-3.0 ACUTE MYOCARDIAL INFARCTION 2.0-3.0 VALVULAR HEART DISEASE 2.0-3.0 ATRIAL FIBRILLATION 2.0-3.0 MECHANICAL VALVES(HIGH RISK) 2.5-3.5 RECURRENT MYOCARDIAL INFARCTION 2.5-3.5 33 Units are mL/min/1.73 m2 Chronic Kidney Disease Staging per NKF: Stage I & II GFR >=60 Normal to Mildly Decreased Stage III GFR 30-59 Moderately Decreased Stage IV GFR 15-29 Severely Decreased Stage V GFR <15 Very Little GFR Left ESRD GFR <15 on RESEARCH ELECTRICIAN 34 THE AFP ASSAY IS PERFORMED O N THE HeadstrongAUR BY CHEMILUMINESCENCE AND SHOULD NOT BE COMPARED INTERCHANGEABLY WITH OTHER METHODS. IT SHOULD NOT BE USED ALONE A SCREENING TEST OR DIAGNOSIS FOR THE PRESENCE OR ABSENCE OF MALIGNANT DISEASE. THESE RESULTS ARE NOT INTERPRETABLE IN FEMALES. PREDICTIONS OF DISEASE RECURRENCE SHOULD NOT BE BASED SOLELY ON VALUES OBTAINED FROM SERIAL PATIENT SERUM VALUES. 35 Units are mL/min/1.73 m2 Chronic Kidney Disease Staging per NKF: Stage I & II GFR >=60 Normal to Mildly Decreased Stage III GFR 30-59 Moderately Decreased Stage IV GFR 15-29 Severely Decreased Stage V GFR <15 Very Little GFR Left ESRD GFR <15 on RESEARCH ELECTRICIAN 36 .~.~<DG1.3.1>I50.9</DG1.3.1><DG1.3.1>I50.9</DG1.3.1><DG1.3.1>R63.4</DG1.3.1><DG1 .3.1 Is patient fasting? N~.~.~<DG1.3.1>I50.9</DG1.3.1><DG1.3.1> I50.9</DG1.3.1><DG1.3.1>R63.4</DG1.3. .~.~<DG1.3.1>I50.9</DG1.3.1><DG1.3.1>I50.9</DG1.3.1><DG1.3.1>R63.4</DG1.3.1><DG1 .3.1 .~.~<DG1.3.1>I50.9& lt;/DG1.3.1><DG1.3.1>I50.9</DG1.3.1><DG1.3.1>R63.4</DG1.3.1><DG1.3.1 37 Nonsmokers <3.9 Smokers <5.6 [facility] Electrochemiluminescence Immunoassay (ECLIA) Values obtained with different assay methods or kits cannot be used interchangeably. Results cannot be interpreted as absolute evidence of the presence or absence of malignant disease. 38 Lisa ECLIA methodology. According to the [employer], Serum PSA should decrease and [...] the presence or absence of malignant disease. 39 The percent free PSA is perf ormed on a reflex basis only when the total PSA is between 4.0 and 10.0 ng/mL. 40 [facility] Electroche miluminescence Immunoassay (ECLIA) Values obtained with different assay methods or kits cannot be used interchangeably. Results cannot be interpreted as absolute evidence of the presence or absence of malignant disease. 41 Negative <0.91 Equivocal 0.91 - 1.09 Positive >1.09 42 Negative <0.80 Equivocal 0.80 - 1.19 Positive >1.19 IgM levels may peak at 3-6 weeks post infection, then gradually decline. 43 COMPREHENSIVE METABOLIC PANE L 44 Male GFR Interprentation 20-49 yrs >60 mL/min Normal 50-59 yrs >56 mL/min Normal 60-69 yrs >49 mL/min Normal 70-79yrs >42 mL/min Normal 80 and above >35 mL/min Normal Female GFR Interpretation 20-39 yrs >60 mL/min Normal 40-49 yrs >58 mL/min Normal 50-59 yrs >51 mL/min Normal 60-69 yrs >45 mL/min Normal 70-79 yrs >39 mL/min Normal 80 and above >32 mL/min Normal 45 COMPLETE BLOOD COUNT Procedures Description No Information [...] liver Sherrie Kee MD 01/08/2020 G47.00 Insomnia, carmelified Anderson Kee MD 12/09/2019 R63.4 Abnormal weight loss Anderson yo MD 12/09/2019 K74.60 Unspecified cirrhosis of liver Sherrie Kee MD 12/09/2019 I50.9 Heart failure, unspecified Raciel Kee MD 12/09/2019 E78.5 Hyperlipidemia, unspecified Daniel Kee MD 12/09/2019 I10 Essential (primary) hypertension Anderson Kee MD 12/02/2019 I50.9 Heart failure, unspecified Raciel Kee MD 12/02/2019 R63.4 Abnormal weight loss Anderson yo MD 12/02/2019 K74.60 Unspecified cirrhosis of liver Sherrie Kee MD 12/02/2019 L30.9 Dermatitis, jesu Kee MD Plan of Treatment Future Appointment(s):* 07/12/2020 7:00 am - Anderson Kee MD at [facility] 05/12/2020 - Anderson Kee MD* G47.00 [...] currently asymptomatic. He has an appointment with resident services director in 2 weeks. He was advised to check his blood pressure at home. If it is still running low, talk to resident services director and if his systolic BP runs below [...] He would like to have referral to system sales consultant for second opinion. We will refer him to an system sales consultant in [place] for second opinion. * Referral:* Dimas Kennedy, [...] 3 fibrosis. Eval and treat. Sent [address] [facility] [address] [place] [address] [phone] [facility] Nurse Practitioners 54 y/o male with multiple actinic keratosis in the scalp, possible basal cell, pls eval and treat. Sent [address] [facility] [address] [place] [address] [phone] Kaden Adame 54 y/o M with hx of sleep di sorder and lower extremity weakness. He is having difficulty with climbing stairs and states his legs feels heavy. He is also gets SOB easily which can not be explained by his cardiac or Lung health. His resident services director does not think, his SOB likely due to his cardiac hx. He has hx of difficulty swallowing at times. He does not feels having restful sleep as well. He is being referred for sleep study as well as nerve conduction study of bilateral upper and lower extremities. Eval and treat. Closed 05/06/2020 [address] [place] [address] [phone] [facility] 54 y/o M with hx of breathin g difficulty, referred for PFT with and without albuterol. Closed 04/23/2020 [address] [place], [place] [id number] [phone] [facility] 54 y/o M with hx of heart failure, pls eval and treat. Closed 03/30/[address] [place] [address] [phone]
--- OUTSIDE RECORDS SUMMARY | 2020-05-30 08:16 | CCD | Continuity of Care Document ---
Author Omero Sherman M.D. Organization Unknown Address [address] [place] [address] Phone [phone] Care Team Providers Care Answering Service Agent Name Role Phone Anderson Kee M.D. AUTM [phone] Problems Active Problems Provider Date Central sleep [...] lb BMI (Body Mass Index) 27.4 kg/m2 [place] Body Weight 142 lb Results Test Acquired Date Facility Test Result H/L Range Note Laboratory test finding 05/06/2020 [facility] CPK Creatine Phosphokinase 85 U/L Normal 39-308 Thyroid Stimulating Hormone 7.280 uIU/ML High 0.358-3.740 Acetylcholine Rcptor Binding A < 0.03 nmol/L Normal 0.00-0.24 1 Striational Antibodies Negative Normal Neg:<1:40 2 Voltage-Gated Calcium Channel <pending> MuSK Antibody <1.0 U/mL Normal . 3 Voltage-Gated Calcium Channel Negative Normal Negative 4 Laboratory test finding 04/13/2020 [facility] Hep C Antibody With Reflex Quant PCR <0.1 s/coratio 0. 0-0.9 5 Basia Ifa Negative 6 1 Negative: 0.00 - 0.24 Borderline: 0.25 - 0.40 Positive: >0.40 2 Performed at: [facility] [address] [place] [id number] Assistant Service Manager: Reed Guadarrama MD, Phone: [phone] Performed at: [facility] [address] [id number] Assistant Service Manager: Mary Oliveira MD, Phone: [phone] Performed at: [facility] [address] [id number] Assistant Service Manager: June Mo MD, Phone: [phone] Reference Range: Negative: <1.0 Positive: 1.0 or [...] 2014;52:90-100. 2. Tee SEBASTIAN et al. PNAS 2013;110(96); 59388-86981. 3. Gini E et al. Neurology 2006;6 7:505-507. This test was developed and its performance characteristics determined by [facility]. It has not been cleared or approved by the Food and Drug Administration. 4 Results for this test are fo r research purposes only by the assay's pug mill operator. The performance characteristics of this product have not been established. Results should not be used as a diagnostic procedure without confirmation of the diagnosis by another medically established diagnostic product or procedure. 5 FAX RESULTS TO [facility] [phone] Negative <1:80 Borderline 1:80 Positive >1:80 Procedures Date Code Description Status 05/10/2020 23566 Nerve Conduction 11-12 Studies C ompleted 05/10/2020 85582 Needle Electromyography Complete , Five Or More Muscles Studied Completed 05/10/2020 22317 Needle Electromyography Complete , Five Or More Muscles Studied Completed Medical Devices Description No Information Available Encounters Type Date Location Provider Dx Diagnosis Office Visit 05/19/2020 12:45p Main [facility] [place] G47.31 Primary central sleep apnea R53.83 Other fatigue G47.14 Hypersomnia due to medical c ondition R53.1 Weakness R06.09 Other forms of dyspnea R26.81 Unsteadiness on feet G05.4 Myelitis in diseases classif ied elsewhere 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
--- OUTSIDE RECORDS SUMMARY | 2020-05-30 08:16 | CCD | Continuity of Care Document ---
Author Author Omero KEE M.D. Organization Unknown Address [address] [place] [address] Phone [phone] Care Team Providers Care Plate Cutter Name Role Phone Anderson Kee M.D. AUTM [phone] [facility] AUTM [facility] Dermatology AUTM [phone] [facility] Urology Clinic AUTM [phone] Ra Gage MD AUTM [phone] [facility] Sleep Center AUTM [phone] [facility] Gastroenterology AUTM [phone] [facility] AUTM [phone] [facility] AUTM [phone] [facility] AUTM [phone] Problems Active Problems Provider Date Essential [...] Anderson Kee MD 01/08/2020 - 04/13/2020 Nystatin-Triamcinolone 122329-4.1Unit/GM-% Cream apply thin layer twice daily to affected area between for 2-4 weeks then as needed 90gm Anderson Kee MD 12/02/2019 - 12/02/2019 Immunizations CPT Code Status Date Vaccine Lot # [id number] Given 04/13/2020 Influenza (>= 6 Months) P.F. Vaccine [id number] Given 05/05/2019 Influenza (>= 6 Months) P.F. [...] H/L Range Note Cardiac Marker Panel 05/15/2020 [facility] CPK Creatine Phosphokinase 114 U/L Normal 39-308 CK-MB Value Mass 2.9 NG/ML Normal <3.6 MB/CK Relative Index 2.54 Normal < Or =4 1 Troponin I 0.45 NG/ML High < 0.10 2 CBC With Differential 05/15/2020 [facility] White Blood Count 9.8 10 Normal 4.0-10.0 [...] 36.0-66.0 Lymph % 12.9 % Low 24.0-44.0 Bryan % 8.6 % High 0.0-5.0 Eos % 1.3 % Normal 0.0-3.0 Baso % 0.6 % Normal 0.0-1.0 Immature Granulocyte % 0.4 % Normal 0-3.0 Nucleated Red Blood Cell % 0.0 % Normal 0-0 Neutrophils # 7.5 10 Normal 1.5-8.5 Lymph # 1.3 10 Low 1.5-5.0 Bryan # 0.8 10 Normal 0.0-0.8 Eos # 0.1 10 Normal 0.0-0.5 Baso # 0.1 10 Normal 0.0-0.2 Laboratory test finding 05/15/2020 [facility] Ammonia 44 uMOL/L High <32 Cardiac Marker Panel 05/15/2020 [facility] CPK Creatine Phosphokinase 153 U/L Normal 39-308 CK-MB Value Mass 2.9 NG/ML Normal <3.6 MB/CK Relative Index 1.90 Normal < Or =4 3 Troponin I 0.48 NG/ML High < 0.10 4 Liver Profile 05/15/2020 [facility] Ast/Sgot 60 U/L High 7-37 Alt/SGPT 27 U/L Normal 12-78 Alkaline Phosphatase 189 U/L High 45-117 Bilirubin,Total 2.7 mg/dL High 0.2-1.0 Bilirubin,Direct 0.8 mg/dL High 0.0-0.2 Total Protein 6.6 GM/DL Normal 6.4-8.2 Albumin 3.7 GM/DL Normal 3.2-5.2 Albumin/Globulin Ratio 1.3 Normal Basic Metabolic Profile 05/15/2020 [facility] Glucose, Fasting 115 mg/dL High 70-100 Blood [...] mg/dL Normal 8.5-10.1 Laboratory test finding 05/15/2020 [facility] Magnesium Level 2.2 mg/dL Normal 1.8-2.4 NT-Pro BNP 6851 pg/mL High <125 Thyroid Stimulating Hormone 5.830 uIU/ML High 0.358-3.740 Free T4 1.25 ng/dL Normal 0.76-1.46 Prothrombin Time/Inr 05/15/2020 [facility] Prothrombin Time 19.3 seconds High 12.5-14.3 Inr 1.59 Normal 7 Laboratory test finding 05/15/2020 [facility] Partial Thromboplastin Time 34.4 seconds Normal 24.2-38.5 D-Dimer Quant 3164.75 ng/ml High <500 Sedimentation Rate 05/12/2020 [facility] Sed Rate 9 mm/hr 0 - 20 8 Sed Rate Reenter 9 Laboratory test finding 05/12/2020 [facility] Basia Ifa Negative 9 Ceruloplasmin 43.2 mg/dL High 16.0-31.0 Copper Plasma 189 g/dL High 72-166 10 SLE Profile C 05/12/2020 [facility] SLE Profile C (SEE NOTE) 11 Sjogren's Anti-SS-A <0.2 AI 0.0-0.9 Sjogren's Anti-SS-B <0.2 AI 0.0-0.9 [employer] WOMEN Antibodies <0.2 AI 0.0-0.9 Lala Antibodies <0.2 AI 0.0-0.9 Anti-Dna (DS) Ab Qn <1 IU/mL 0-9 12 Laboratory test finding 05/12/2020 [facility] Iron 138 g/dL High 42 - 135 Comprehensive Metabolic Panel 05/12/2020 [facility] ospital Comprehensive Metabo (SEE NOTE) 13 [...] >60 mL/min 14 Laboratory test finding 05/12/2020 [facility] TSH Highly Sensitive 8.48 uIU/mL High 0.47 - 5.01 T4 - Free 1.42 ng/dL 0.93 - 1.70 Alpha 1 Anti-Trypsin 220 mg/dL High 101-187 Thyroid Antibodies 05/12/2020 [facility] Thyroid Peroxidase (Tpo)Ab <9 IU/mL 0-34 Thyroglobulin Antibody <1.0 IU/mL 0.0-0.9 15 Laboratory test finding 05/06/2020 [facility] CPK Creatine Phosphokinase 85 U/L Normal 39-308 Thyroid Stimulating Hormone 7.280 uIU/ML High 0.358-3.740 Cardiac Marker Panel 04/23/2020 [facility] CPK Creatine Phosphokinase 115 U/L Normal 39-308 CK-MB Value Mass 4.2 NG/ML High <3.6 MB/CK Relative Index 3.65 Normal < Or =4 16 Troponin I 0.53 NG/ML High < 0.10 17 Basic Metabolic Panel 04/19/2020 [facility] Basic Metabolic Pane (SEE NOTE) 18 Sodium [...] >60 mL/min 19 Laboratory test finding 04/14/2020 [facility] Hereditary Hemochromatosis (SEE NOTE) Normal . 2 0 Basic Metabolic Profile 04/14/2020 [facility] Glucose, Fasting 94 mg/dL Normal 70-100 Blood [...] mg/dL Normal 8.5-10.1 Laboratory test finding 04/13/2020 [facility] CRP (High Sensitivity) 65.15 mg/L High 1.00 - 3.00 22, 2 3 Comprehensive Metabolic Panel 04/13/2020 [facility] ospital Comprehensive Metabo (SEE NOTE) 24 Sodium [...] >60 mL/min 25 Laboratory test finding 04/13/2020 [facility] TSH Highly Sensitive 6.78 uIU/mL High 0.47 - 5.01 Vitamin B12 Serum 767 pg/mL 232 - 1245 Basia Ifa Negative 26 Hgba1c 6.4 % High 4.4 - 6.1 27 Hep C Antibody With Reflex Quant PCR <0.1 s/coratio 0. 0-0.9 Iron 126 g/dL 42 - 135 Pro-BNP 9711 pg/mL High 0 - 125 Methylmalonic Acid 04/13/2020 [facility] Methylmalonic Acid, Serum 397 nmol/L High 0-378 Disclaimer: COMMENT 28 Lyme Disease Antibodies 04/13/2020 [facility] Lyme IgG/IgM Ab <0.91 ISR 0.00-0.90 29 Lyme Disease Ab, Quant,IgM <0.80 index 0.00-0.79 3 0 SLE Profile C 04/13/2020 [facility] Sjogren's Anti-SS-A <0.2 AI 0.0-0.9 Sjogren's Anti-SS-B <0.2 AI 0.0-0.9 [employer] Antibodies <0.2 AI 0.0-0.9 Lala Antibodies <0.2 AI 0.0-0.9 Anti-Dna (DS) Ab Qn <1 IU/mL 0-9 31 Sedimentation Rate 04/13/2020 [facility] Sed Rate 5 mm/hr 0 - 20 Sed Rate Reenter 5 Prothrombin Time/Inr 03/25/2020 [facility] Prothrombin Time 15.7 seconds High 12.5-14.3 Inr 1.22 Normal 32 Laboratory test finding 02/18/2020 [facility] Creatinine,Random Urine 75.0 mg/dL Normal Sodium,Random Urine 82 mEq/L Normal CBC With Differential 02/18/2020 [facility] White Blood Count 9.5 10 Normal 4.0-10.0 [...] 36.0-66.0 Lymph % 23.7 % Low 24.0-44.0 Bryan % 10.4 % High 0.0-5.0 Eos % 1.9 % Normal 0.0-3.0 Baso % 0.5 % Normal 0.0-1.0 Immature Granulocyte % 0.4 % Normal 0-3.0 Nucleated Red Blood Cell % 0.0 % Normal 0-0 Neutrophils # 6.0 10 Normal 1.5-8.5 Lymph # 2.3 10 Normal 1.5-5.0 Bryan # 1.0 10 High 0.0-0.8 Eos # 0.2 10 Normal 0.0-0.5 Baso # 0.1 10 Normal 0.0-0.2 Basic Metabolic Profile 02/18/2020 [facility] Glucose, Fasting 86 mg/dL Normal 70-100 Blood [...] mg/dL Normal 8.5-10.1 Laboratory test finding 02/18/2020 [facility] Phosphorus Level 3.6 mg/dL Normal 2.5-4.9 Magnesium Level 2.2 mg/dL Normal 1.8-2.4 Laboratory test finding 12/10/2019 [facility] Alpha Fetoprotein Tumor Quant < 1.3 NG/ML Normal <8.1 34 Basic Metabolic Profile 12/10/2019 [facility] Glucose, Fasting 88 mg/dL Normal 70-100 Blood [...] 9.3 mg/dL Normal 8.5-10.1 Liver Profile 12/10/2019 [facility] Ast/Sgot 38 U/L High 7-37 Alt/SGPT 42 U/L Normal 12-78 Alkaline Phosphatase 204 U/L High 45-117 Bilirubin,Total 3.0 mg/dL High 0.2-1.0 Bilirubin,Direct 0.9 mg/dL High 0.0-0.2 Total Protein 6.7 GM/DL Normal 6.4-8.2 Albumin 4.3 GM/DL Normal 3.2-5.2 Albumin/Globulin Ratio 1.8 Normal Coxsackie B Virus AB 12/03/2019 [facility] Coxsackie B-1 Ab Negative Neg:<1:8 36 Coxsackie B-2 Ab Negative Neg:<1:8 Coxsackie B-3 Ab Negative Neg:<1:8 Coxsackie B-4 Ab Negative Neg:<1:8 Coxsackie B-5 Ab Negative Neg:<1:8 Coxsackie B-6 Ab Negative Neg:<1:8 Coxsackle A Virus AB 12/03/2019 [facility] Coxsackie A7 IgG 1:800 titer High Neg:<1:100 Coxsackie A9 IgG 1:800 titer High Neg:<1:100 Coxsackie A16 IgG 1:800 titer High Neg:<1:100 Coxsackie A24 IgG 1:800 titer High Neg:<1:100 Coxsackie A7 IgM Negative titer Neg:<1:10 Coxsackie A9 IgM Negative titer Neg:<1:10 Coxsackie A16 IgM Negative titer Neg:<1:10 Coxsackie A24 IgM Negative titer Neg:<1:10 Laboratory test finding 12/03/2019 [facility] Cea 2.1 ng/mL 0.0-4.7 37 PSA Free & Total 12/03/2019 [facility] Prostate Specific Ag,Serum 0.4 ng/mL 0.0-4.0 3 8 Reflex Criteria COMMENT 39 Laboratory test finding 12/03/2019 [facility] Cancer Antigen 125 35.8 U/mL Not Estab. 40 Lyme Disease Antibodies 12/03/2019 [facility] Lyme IgG/IgM Ab <0.91 ISR 0.00-0.90 41 Lyme Disease Ab, Quant,IgM <0.80 index 0.00-0.79 4 2 Laboratory test finding 12/03/2019 [facility] Ammonia 36.0 g/dL 27.2 - 102 Comprehensive Metabolic Panel 12/03/2019 [facility] ospital Comprehensive Metabo (SEE NOTE) 43 Sodium [...] >60 mL/min 44 Laboratory test finding 12/03/2019 [facility] TSH Highly Sensitive 4.25 uIU/mL 0.47 - 5.01 T4 - Free 1.32 ng/dL 0.93 - 1.70 CBC W/Automated Diff 12/03/2019 [facility] CBC W/Automated Diff (SEE NOTE) 45 WBC [...] Lymph 19.8 % Low 25.0 - 40.0 Bryan 8.1 % High 3.0 - 8.0 Eos 2.3 % 0.0 - 7.0 Baso 0.6 % 0.0 - 2.0 %Ig 0.3 % High 0.0 - 0.0 %NRBC 0.0 % 0.0 - 0.0 #Neut 4.78 10^3/uL 2.00 - 6.90 #Lymph 1.37 10^3/uL 0.60 - 3.40 #Bryan 0.56 10^3/uL 0.00 - 0.90 #Eos 0.16 [...] Troponin I Reference Interva l for Siemens [place] LOCI: 99th Percentile= 0.00-0.045 ng/ml Risk Stratification: [...] Troponin I Reference Interva l for Siemens [place] LOCI: 99th Percentile= 0.00-0.045 ng/ml Risk Stratification: [...] Little GFR Left ESRD GFR <15 on UROGYNECOLOGY PHYSICIAN 6 Testing was performed on a h [...] May 17, 2020 the reference interval for 066343 Copper, Serum will be changing to: Age [...] 18 years 80 - 158 11 Test(s) 628933-[id number], Serum was developed and its performance characteristics determined by [employer]. It has not been cleared or approved [...] 15 Thyroglobulin Antibody measu red by [facility] [place] [facility] 16 DIAGNOSIS CRITERIA MMB ng/ml Relative Index (RI) NON-AMI < or = 5 N/A ORTIZ ZONE > 5 < or = 4 AMI > 5 > 4 17 Troponin I Reference Interva l for Siemens [place] LOCI: 99th Percentile= 0.00-0.045 ng/ml Risk Stratification: [...] carrier of HH. The mutations analyzed by [facility] are most common in the population. Because [...] and Boni AP. (2000). Luciana Test 4:97-101. Musselshell ME et al. (1999). AM J Prev Med 16:134-140. Coy Powell (2002). Lancet 360(0553):7911-20. Jyoti Odroñez et al. (2002). Blood Cells, Molecules. and Diseases. 29(3):418-432. Ralph G et al. (2003). Luciana Med. 5(1):1-8. Jami ME et al. (2003). Luciana Med. 5(4):304-10. . This test was developed and its performance characteristics determined by [employer]. It has not been cleared or approved by the Food and Drug Administration. . Genetic counselors are available for health care providers to discuss results at [phone]. . Kelsey Gutiérrez, PhD, FACMG Rena Huang, PhD, FACMG Tawanda Sanchez, PhD, FACMG Rubi Montilla, PhD, FACMG Marci Johnson, PhD, FACMG Isauro Goodrich, PhD, FACMG Performed at: [facility] RT[facility] [address] [facility], [place], [place] [address] 150 Engineering Document Control Clerk: Rios Robin [facility], Phone: [phone] 21 Units are mL/min/1.73 m2 Chronic Kidney Disease Staging per NKF: Stage I & II GFR >=60 Normal to Mildly Decreased Stage III GFR 30-59 Moderately Decreased Stage IV GFR 15-29 Severely Decreased Stage V GFR <15 Very Little GFR Left ESRD GFR <15 on UROGYNECOLOGY PHYSICIAN 22 Is patient fasting? N FAX R ESULTS TO [facility] [phone] FAX RESULTS TO [facility] [phone] FAX RESULTS TO [facility] [phone] FAX RESULTS TO [facility] [phone] FAX RESULTS TO [facility] [phone] FAX RESULTS TO [facility] [phone] Is patient fasting? N~FAX RESULTS TO [facility] [phone] FAX RESULTS TO [facility] [phone] FAX RESULTS TO [facility] [phone] FAX RESULTS TO [facility] [phone] FAX RESULTS TO [facility] [phone] FAX RESULTS TO [facility] [id number] 23 CDC/S HS-CRP CUT-OFF: RELATIVE RISK: <1.0 [...] developed and its performance characteristics determined by [employer]. It has not been cleared or approved [...] Little GFR Left ESRD GFR <15 on UROGYNECOLOGY PHYSICIAN 34 THE AFP ASSAY IS PERFORMED O N THE [facility] BY CHEMILUMINESCENCE AND SHOULD NOT BE COMPARED [...] Little GFR Left ESRD GFR <15 on UROGYNECOLOGY PHYSICIAN 36 .~.~<DG1.3.1>I50.9</DG1.3.1><DG1.3.1>I50.9</DG1.3.1><DG1.3.1>R63.4</DG1.3.1><DG1 .3.1 Is patient fasting? N~.~.~<DG1.3.1>I50.9</DG1.3.1><DG1.3.1> I50.9</DG1.3.1><DG1.3.1>R63.4</DG1.3. .~.~<DG1.3.1>I50.9</DG1.3.1><DG1.3.1>I50.9</DG1.3.1><DG1.3.1>R63.4</DG1.3.1><DG1 .3.1 .~.~<DG1.3.1>I50.9& lt;/DG1.3.1><DG1.3.1>I50.9</DG1.3.1><DG1.3.1>R63.4</DG1.3.1><DG1.3.1 37 Nonsmokers <3.9 Smokers <5.6 [facility] [employer] Electrochemiluminescence Immunoassay (ECLIA) Values obtained with different assay methods or kits cannot be used interchangeably. Results cannot be interpreted as absolute evidence of the presence or absence of malignant disease. 38 Lisa ECLIA methodology. According to the [place] [employer], Serum PSA should decrease and [...] 7:00 am - Anderson Kee MD at [facility] 05/12/2020 - Anderson Kee MD* G47.00 [...] currently asymptomatic. He has an appointment with entry driver operator in 2 weeks. He was advised to check his blood pressure at home. If it is still running low, talk to entry driver operator and if his systolic BP runs below [...] He would like to have referral to territory supervisor for second opinion. We will refer him to an territory supervisor in [place] for second opinion. * Referral:* Dimas Kennedy, [...] 3 fibrosis. Eval and treat. Sent [address] [facility] [address] [place] [address] [phone] [facility] Nurse Practitioners 54 y/o male with multiple actinic keratosis in the scalp, possible basal cell, pls eval and treat. Sent [address] [facility] [address] [place] [address] [phone] Kaden Adame 54 y/o M with hx of sleep di sorder and lower extremity weakness. He is having difficulty with climbing stairs and states his legs feels heavy. He is also gets SOB easily which can not be explained by his cardiac or Lung health. His entry driver operator does not think, his SOB likely due to his cardiac hx. He has hx of difficulty swallowing at times. He does not feels having restful sleep as well. He is being referred for sleep study as well as nerve conduction study of bilateral upper and lower extremities. Eval and treat. Closed 05/06/2020 [address] [place] [address] [phone] [facility] 54 y/o M with hx of breathin g difficulty, referred for PFT with and without albuterol. Closed 04/23/2020 [address] [place], [place] [id number] [phone] [facility] 54 y/o M with hx of heart failure, pls eval and treat. Closed 03/30/[address] [place] [address] [phone]
--- OUTSIDE RECORDS SUMMARY | 2020-05-30 08:16 | CCD | Continuity of Care Document ---
Author Author Omero KEE M.D. Organization Unknown Address [address] [place] [id number] Phone [phone] Care Team Providers Care Director Insurance Name Role Phone Anderson Kee M.D. AUTM [phone] [facility] AUTM [phone] [facility] Dermatology AUTM [phone] [facility] AUTM [phone] Ra Gage MD AUTM [phone] [facility] AUTM [phone] [facility] Gastroenterology AUTM [phone] [facility] AUTM [phone] [facility] [place] [facility] AUTM [phone] Problems Active Problems Provider Date Essential [...] Anderson Kee MD 01/08/2020 - 04/13/2020 Nystatin-Triamcinolone 986095-8.1Unit/GM-% Cream apply thin layer twice daily to affected area between for 2-4 weeks then as needed 90gm Anderson Kee MD 12/02/2019 - 12/02/2019 Immunizations CPT Code Status Date Vaccine Lot # [id number] Given 04/13/2020 Influenza (>= 6 Months) P.F. Vaccine [id number] Given 05/05/2019 Influenza (>= 6 Months) P.F. [...] H/L Range Note Cardiac Marker Panel 05/15/2020 [facility] CPK Creatine Phosphokinase 114 U/L Normal 39-308 CK-MB Value Mass 2.9 NG/ML Normal <3.6 MB/CK Relative Index 2.54 Normal < Or =4 1 Troponin I 0.45 NG/ML High < 0.10 2 CBC With Differential 05/15/2020 [facility] White Blood Count 9.8 10 Normal 4.0-10.0 [...] 36.0-66.0 Lymph % 12.9 % Low 24.0-44.0 [place] % 8.6 % High 0.0-5.0 Eos % 1.3 % Normal 0.0-3.0 Baso % 0.6 % Normal 0.0-1.0 Immature Granulocyte % 0.4 % Normal 0-3.0 Nucleated Red Blood Cell % 0.0 % Normal 0-0 Neutrophils # 7.5 10 Normal 1.5-8.5 Lymph # 1.3 10 Low 1.5-5.0 [place] # 0.8 10 Normal 0.0-0.8 Eos # 0.1 10 Normal 0.0-0.5 Baso # 0.1 10 Normal 0.0-0.2 Laboratory test finding 05/15/2020 [facility] Ammonia 44 uMOL/L High <32 Cardiac Marker Panel 05/15/2020 [facility] CPK Creatine Phosphokinase 153 U/L Normal 39-308 CK-MB Value Mass 2.9 NG/ML Normal <3.6 MB/CK Relative Index 1.90 Normal < Or =4 3 Troponin I 0.48 NG/ML High < 0.10 4 Liver Profile 05/15/2020 [facility] Ast/Sgot 60 U/L High 7-37 Alt/SGPT 27 U/L Normal 12-78 Alkaline Phosphatase 189 U/L High 45-117 Bilirubin,Total 2.7 mg/dL High 0.2-1.0 Bilirubin,Direct 0.8 mg/dL High 0.0-0.2 Total Protein 6.6 GM/DL Normal 6.4-8.2 Albumin 3.7 GM/DL Normal 3.2-5.2 Albumin/Globulin Ratio 1.3 Normal Basic Metabolic Profile 05/15/2020 [facility] Glucose, Fasting 115 mg/dL High 70-100 Blood [...] mg/dL Normal 8.5-10.1 Laboratory test finding 05/15/2020 [facility] Magnesium Level 2.2 mg/dL Normal 1.8-2.4 NT-Pro BNP 6851 pg/mL High <125 Thyroid Stimulating Hormone 5.830 uIU/ML High 0.358-3.740 Free T4 1.25 ng/dL Normal 0.76-1.46 Prothrombin Time/Inr 05/15/2020 [facility] Prothrombin Time 19.3 seconds High 12.5-14.3 Inr 1.59 Normal 7 Laboratory test finding 05/15/2020 [facility] Partial Thromboplastin Time 34.4 seconds Normal 24.2-38.5 D-Dimer Quant 3164.75 ng/ml High <500 Sedimentation Rate 05/12/2020 [facility] Sed Rate 9 mm/hr 0 - 20 8 Sed Rate Reenter 9 Laboratory test finding 05/12/2020 [facility] Basia Ifa Negative 9 Ceruloplasmin 43.2 mg/dL High 16.0-31.0 Copper Plasma 189 g/dL High 72-166 10 SLE Profile C 05/12/2020 [facility] SLE Profile C (SEE NOTE) 11 Sjogren's Anti-SS-A <0.2 AI 0.0-0.9 Sjogren's Anti-SS-B <0.2 AI 0.0-0.9 BOILER FIREMAN Antibodies <0.2 AI 0.0-0.9 Lala Antibodies <0.2 AI 0.0-0.9 Anti-Dna (DS) Ab Qn <1 IU/mL 0-9 12 Laboratory test finding 05/12/2020 [facility] Iron 138 g/dL High 42 - 135 Comprehensive Metabolic Panel 05/12/2020 [facility] Comprehensive Metabo (SEE NOTE) 13 [...] >60 mL/min 14 Laboratory test finding 05/12/2020 [facility] TSH Highly Sensitive 8.48 uIU/mL High 0.47 - 5.01 T4 - Free 1.42 ng/dL 0.93 - 1.70 Alpha 1 Anti-Trypsin 220 mg/dL High 101-187 Thyroid Antibodies 05/12/2020 [facility] Thyroid Peroxidase (Tpo)Ab <9 IU/mL 0-34 Thyroglobulin Antibody <1.0 IU/mL 0.0-0.9 15 Laboratory test finding 05/06/2020 [facility] CPK Creatine Phosphokinase 85 U/L Normal 39-308 Thyroid Stimulating Hormone 7.280 uIU/ML High 0.358-3.740 Cardiac Marker Panel 04/23/2020 [facility] CPK Creatine Phosphokinase 115 U/L Normal 39-308 CK-MB Value Mass 4.2 NG/ML High <3.6 MB/CK Relative Index 3.65 Normal < Or =4 16 Troponin I 0.53 NG/ML High < 0.10 17 Basic Metabolic Panel 04/19/2020 [facility] Basic Metabolic Pane (SEE NOTE) 18 [...] >60 mL/min 19 Laboratory test finding 04/14/2020 [facility] Hereditary Hemochromatosis (SEE NOTE) Normal . 2 0 Basic Metabolic Profile 04/14/2020 [facility] Glucose, Fasting 94 mg/dL Normal 70-100 Blood [...] mg/dL Normal 8.5-10.1 Laboratory test finding 04/13/2020 [facility] CRP (High Sensitivity) 65.15 mg/L High 1.00 - 3.00 22, 2 3 Comprehensive Metabolic Panel 04/13/2020 [facility] Comprehensive Metabo (SEE NOTE) 24 [...] >60 mL/min 25 Laboratory test finding 04/13/2020 [facility] TSH Highly Sensitive 6.78 uIU/mL High 0.47 - 5.01 Vitamin B12 Serum 767 pg/mL 232 - 1245 Basia Ifa Negative 26 Hgba1c 6.4 % High 4.4 - 6.1 27 Hep C Antibody With Reflex Quant PCR <0.1 s/coratio 0. 0-0.9 Iron 126 g/dL 42 - 135 Pro-BNP 9711 pg/mL High 0 - 125 Methylmalonic Acid 04/13/2020 [facility] Methylmalonic Acid, Serum 397 nmol/L High 0-378 Disclaimer: COMMENT 28 Lyme Disease Antibodies 04/13/2020 [facility] Lyme IgG/IgM Ab <0.91 ISR 0.00-0.90 29 Lyme Disease Ab, Quant,IgM <0.80 index 0.00-0.79 3 0 SLE Profile C 04/13/2020 [facility] Sjogren's Anti-SS-A <0.2 AI 0.0-0.9 Sjogren's Anti-SS-B <0.2 AI 0.0-0.9 BOILER FIREMAN Antibodies <0.2 AI 0.0-0.9 Lala Antibodies <0.2 AI 0.0-0.9 Anti-Dna (DS) Ab Qn <1 IU/mL 0-9 31 Sedimentation Rate 04/13/2020 [facility] Sed Rate 5 mm/hr 0 - 20 Sed Rate Reenter 5 Prothrombin Time/Inr 03/25/2020 [facility] Prothrombin Time 15.7 seconds High 12.5-14.3 Inr 1.22 Normal 32 Laboratory test finding 02/18/2020 [facility] Creatinine,Random Urine 75.0 mg/dL Normal Sodium,Random Urine 82 mEq/L Normal CBC With Differential 02/18/2020 [facility] White Blood Count 9.5 10 Normal 4.0-10.0 [...] 36.0-66.0 Lymph % 23.7 % Low 24.0-44.0 [place] % 10.4 % High 0.0-5.0 Eos % 1.9 % Normal 0.0-3.0 Baso % 0.5 % Normal 0.0-1.0 Immature Granulocyte % 0.4 % Normal 0-3.0 Nucleated Red Blood Cell % 0.0 % Normal 0-0 Neutrophils # 6.0 10 Normal 1.5-8.5 Lymph # 2.3 10 Normal 1.5-5.0 [place] # 1.0 10 High 0.0-0.8 Eos # 0.2 10 Normal 0.0-0.5 Baso # 0.1 10 Normal 0.0-0.2 Basic Metabolic Profile 02/18/2020 [facility] Glucose, Fasting 86 mg/dL Normal 70-100 Blood [...] mg/dL Normal 8.5-10.1 Laboratory test finding 02/18/2020 [facility] Phosphorus Level 3.6 mg/dL Normal 2.5-4.9 Magnesium Level 2.2 mg/dL Normal 1.8-2.4 Laboratory test finding 12/10/2019 [facility] Alpha Fetoprotein Tumor Quant < 1.3 NG/ML Normal <8.1 34 Basic Metabolic Profile 12/10/2019 [facility] Glucose, Fasting 88 mg/dL Normal 70-100 Blood [...] 9.3 mg/dL Normal 8.5-10.1 Liver Profile 12/10/2019 [facility] Ast/Sgot 38 U/L High 7-37 Alt/SGPT 42 U/L Normal 12-78 Alkaline Phosphatase 204 U/L High 45-117 Bilirubin,Total 3.0 mg/dL High 0.2-1.0 Bilirubin,Direct 0.9 mg/dL High 0.0-0.2 Total Protein 6.7 GM/DL Normal 6.4-8.2 Albumin 4.3 GM/DL Normal 3.2-5.2 Albumin/Globulin Ratio 1.8 Normal Coxsackie B Virus AB 12/03/2019 [facility] Coxsackie B-1 Ab Negative Neg:<1:8 36 Coxsackie B-2 Ab Negative Neg:<1:8 [place]ie B-3 Ab Negative Neg:<1:8 [place] B-4 Ab Negative Neg:<1:8 [place]ie B-5 Ab Negative Neg:<1:8 [place]ie B-6 Ab Negative Neg:<1:8 Coxsack[place] A Virus AB 12/03/2019 [facility] Coxsackie A7 IgG 1:800 titer High Neg:<1:100 [place]ie A9 IgG 1:800 titer High Neg:<1:100 [place] A16 IgG 1:800 titer High Neg:<1:100 [place]ie A24 IgG 1:800 titer High Neg:<1:100 [place] A7 IgM Negative titer Neg:<1:10 [place] A9 IgM Negative titer Neg:<1:10 [place] A16 IgM Negative titer Neg:<1:10 [place] A24 IgM Negative titer Neg:<1:10 Laboratory test finding 12/03/2019 [facility] Cea 2.1 ng/mL 0.0-4.7 37 PSA Free & Total 12/03/2019 [facility] Prostate Specific Ag,Serum 0.4 ng/mL 0.0-4.0 3 8 Reflex Criteria COMMENT 39 Laboratory test finding 12/03/2019 [facility] Cancer Antigen 125 35.8 U/mL Not Estab. 40 Lyme Disease Antibodies 12/03/2019 [facility] Lyme IgG/IgM Ab <0.91 ISR 0.00-0.90 41 Lyme Disease Ab, Quant,IgM <0.80 index 0.00-0.79 4 2 Laboratory test finding 12/03/2019 [facility] Ammonia 36.0 g/dL 27.2 - 102 Comprehensive Metabolic Panel 12/03/2019 [facility] Comprehensive Metabo (SEE NOTE) 43 [...] >60 mL/min 44 Laboratory test finding 12/03/2019 [facility] TSH Highly Sensitive 4.25 uIU/mL 0.47 - 5.01 T4 - Free 1.32 ng/dL 0.93 - 1.70 CBC W/Automated Diff 12/03/2019 [facility] CBC W/Automated Diff (SEE NOTE) 45 [...] Lymph 19.8 % Low 25.0 - 40.0 [place] 8.1 % High 3.0 - 8.0 Eos 2.3 % 0.0 - 7.0 Baso 0.6 % 0.0 - 2.0 %Ig 0.3 % High 0.0 - 0.0 %NRBC 0.0 % 0.0 - 0.0 #Neut 4.78 10^3/uL 2.00 - 6.90 #Lymph 1.37 10^3/uL 0.60 - 3.40 #[place] 0.56 10^3/uL 0.00 - 0.90 #Eos 0.16 [...] Troponin I Reference Interva l for Siemens Munger LOCI: 99th Percentile= 0.00-0.045 ng/ml Risk Stratification: [...] Troponin I Reference Interva l for Siemens Munger LOCI: 99th Percentile= 0.00-0.045 ng/ml Risk Stratification: [...] Little GFR Left ESRD GFR <15 on RELAY RECORD CLERK 6 Testing was performed on a h [...] May 17, 2020 the reference interval for [id number] Copper, Serum will be changing to: Age [...] 18 years 80 - 158 11 Test(s) [id number], Serum was developed and its performance characteristics determined by [employer]. It has not been cleared or approved [...] 15 Thyroglobulin Antibody measu red by [facility] 16 DIAGNOSIS CRITERIA MMB ng/ml Relative Index (RI) NON-AMI < or = 5 N/A ORTIZ ZONE > 5 < or = 4 AMI > 5 > 4 17 Troponin I Reference Interva l for Siemens Munger LOCI: 99th Percentile= 0.00-0.045 ng/ml Risk Stratification: [...] carrier of HH. The mutations analyzed by [employer] are most common in the population. Because [...] and Boni AP. (2000). Luciana Test 4:97-101. Fairbank ME et al. (1999). AM J Prev Med 16:134-140. Coy Powell (2002). Lancet 360(2412):9398-05. Jyoti Ordoñez et al. (2002). Blood Cells, Molecules. and Diseases. 29(3):418-432. Ralph G et al. (2003). Luciana Med. 5(1):1-8. Jami ME et al. (2003). Luciana Med. 5(4):304-10. . This test was developed and its performance characteristics determined by [employer]. It has not been cleared or approved by the Food and Drug Administration. . Genetic counselors are available for health care providers to discuss results at [phone]. . Kelsey Gutiérrez, PhD, FACMG Rena Huang, PhD, FACMG Tawanda Sanchez, PhD, FACMG Rubi Montilla, PhD, FACMG Marci Johnson, PhD, FACMG Isauro Goodrich, PhD, FACMG Performed at: [facility] [address] [facility], [place], [place] [address] 150 Workday Manager: Rios Robin [facility], Phone: [phone] Units are mL/min/1.73 m2 Chronic Kidney Disease Staging per NKF: Stage I & II GFR >=60 Normal to Mildly Decreased Stage III GFR 30-59 Moderately Decreased Stage IV GFR 15-29 Severely Decreased Stage V GFR <15 Very Little GFR Left ESRD GFR <15 on RELAY RECORD CLERK 22 Is patient fasting? N FAX R ESULTS TO [facility] GASTROENTEROLOGY [phone] FAX RESULTS TO [facility] GASTROENTEROLOGY [phone] FAX RESULTS TO [facility] GASTROENTEROLOGY [phone] FAX RESULTS TO [facility] GASTROENTEROLOGY [phone] FAX RESULTS TO [facility] GASTROENTEROLOGY [phone] FAX RESULTS TO [facility] GASTROENTEROLOGY [phone] Is patient fasting? N~FAX RESULTS TO [facility] GASTROENTEROLOGY [phone] FAX RESULTS TO [facility] GASTROENTEROLOGY [phone] FAX RESULTS TO [facility] GASTROENTEROLOGY [phone] FAX RESULTS TO [facility] GASTROENTEROLOGY [phone] FAX RESULTS TO [facility] GASTROENTEROLOGY [phone] FAX RESULTS TO [facility] GASTROENTEROLOGY [phone] 23 CDC/S HS-CRP CUT-OFF: RELATIVE RISK: <1.0 [...] developed and its performance characteristics determined by [employer]. It has not been cleared or approved [...] Little GFR Left ESRD GFR <15 on RELAY RECORD CLERK 34 THE AFP ASSAY IS PERFORMED O N THE [employer]AUR BY CHEMILUMINESCENCE AND SHOULD NOT BE COMPARED [...] Little GFR Left ESRD GFR <15 on RELAY RECORD CLERK 36 .~.~<DG1.3.1>I50.9</DG1.3.1><DG1.3.1>I50.9</DG1.3.1><DG1.3.1>R63.4</DG1.3.1><DG1 .3.1 Is patient fasting? N~.~.~<DG1.3.1>I50.9</DG1.3.1><DG1.3.1> [...] Abnormal results of thyroid func tion studies Andesron Kee MD 05/12/2020 R94.5 Abnormal results of [...] 7:00 am - Anderson Kee MD at [facility] 05/12/2020 - Anderson Kee MD* G47.00 Insomnia, [...] currently asymptomatic. He has an appointment with ordnance mechanic in 2 weeks. He was advised to check his blood pressure at home. If it is still running low, talk to ordnance mechanic and if his systolic BP runs below [...] He would like to have referral to dimension stone quarry supervisor for second opinion. We will refer him to an dimension stone quarry supervisor in [place] for second opinion. * Referral:* Dimas Kennedy, [...] 3 fibrosis. Eval and treat. Sent [address] [facility] [address] [place] [address] [phone] [facility] Nurse Practitioners 54 y/o male with multiple actinic keratosis in the scalp, possible basal cell, pls eval and treat. Sent [address] [facility] [address] [place] [address] [phone] Kaden Adame 54 y/o M with hx of sleep di sorder and lower extremity weakness. He is having difficulty with climbing stairs and states his legs feels heavy. He is also gets SOB easily which can not be explained by his cardiac or Lung health. His ordnance mechanic does not think, his SOB likely due to his cardiac hx. He has hx of difficulty swallowing at times. He does not feels having restful sleep as well. He is being referred for sleep study as well as nerve conduction study of bilateral upper and lower extremities. Eval and treat. Closed 05/06/2020 [address] [place] [address] [phone] [facility] 54 y/o M with hx of breathin g difficulty, referred for PFT with and without albuterol. Closed 04/23/2020 [address] [place], [place] [id number] [phone] [facility] 54 y/o M with hx of heart failure, pls eval and treat. Closed 03/30/[address] [place] [address] [phone]
[2020-05-30 08:35] LABS: BASO % 0.2 % (0.0-1.0); EOS % 0.1 % (0.0-3.0); HEMATOCRIT 49.3 % (42.0-52.0); HEMOGLOBIN 16.1 g/dl (13.5-17.5); LYMPH # 2.2 10^3/uL (1.5-5.0); LYMPH % 12.4 % (24.0-44.0); MEAN CORPUSCULAR HEMOGLOBIN 32.6 pg (27.0-33.0); MEAN CORPUSCULAR HGB CONC 32.7 g/dl (32.0-36.5); MEAN CORPUSCULAR VOLUME 99.8 fl (80.0-96.0); MONO # 1.7 10^3/uL (0.0-0.8); MONO % 9.6 % (0.0-5.0); NEUTROPHILS # 13.6 10^3/uL (1.5-8.5); PLATELET COUNT, AUTOMATED 198 10^3/uL (150-450); RED BLOOD COUNT 4.94 10^6/uL (4.30-6.10); WHITE BLOOD COUNT 17.9 10^3/uL (4.0-10.0)
--- NOTE | 2020-05-30 08:41 | REP ---
INDICATION: CHEST PAIN. COMPARISON: 04/23/2020. TECHNIQUE: SINGLE PORTABLE AP VIEW OF THE CHEST WAS PERFORMED. FINDINGS: THERE IS NO ACUTE INFILTRATE OR PULMONARY EDEMA. LUNGS ARE CLEAR. HEART IS NOT SIGNIFICANTLY ENLARGED. MEDIASTINAL SILHOUETTE IS UNREMARKABLE. THE VISUALIZED OSSEOUS STRUCTURES ARE INTACT. IMPRESSION: NO ACUTE PULMONARY DISEASE. <Electronically signed by Christopher Crowley > 05/30/20 0837
[2020-05-30] MEDS ORDERED: METOPROLOL SUCC *XL* 25MG TAB (TopROL *XL*) PO SCH (09:00)
[2020-05-30] MEDS ORDERED: FUROSEMIDE 100MG/10ML VIAL (J1940) IV SCH (09:00)
[2020-05-30] MEDS ORDERED: SPIRONOLACTONE 12.5MG PER 1/2 TABLET PO SCH (09:00)
[2020-05-30] MEDS ORDERED: FUROSEMIDE 100MG/10ML VIAL (J1940) IV ONE (09:00)
[2020-05-30 09:28] LABS: CALCIUM LEVEL 9.5 MG/DL (8.5-10.1); CREATININE FOR GFR 1.64 MG/DL (0.70-1.30); GLOMERULAR FILTRATION RATE 46.3 (>56); POTASSIUM SERUM 3.9 MEQ/L (3.5-5.1)
[2020-05-30] MEDS ORDERED: TORS100T PO (10:53)
[2020-05-30] MEDS ORDERED: ALPR0.25 PO (10:53)
[2020-05-30] MEDS ORDERED: ZALE5CA PO (10:53)
[2020-05-30] MEDS ORDERED: FURO40TA2 PO (10:53)
[2020-05-30] MEDS ORDERED: PANT40TA29 PO (10:53)
[2020-05-30 11:04] LABS: RSV AMPLIFICATION NEGATIVE (NEGATIVE)
[2020-05-30] MEDS ORDERED: SPIR-10 PO (11:06)
--- NOTE | 2020-05-30 12:41 | REP ---
INDICATION: dyspnea. COMPARISON: 05/15/2020. TECHNIQUE: CT chest performed without the use of intravenous contrast. Sagittal and coronal reconstruction images are performed. FINDINGS: Lungs: There is mild linear fibro atelectatic change in both lower lung zones. No acute infiltrate is seen. Mediastinum: No gross adenopathy. Yun: No gross adenopathy. Axilla: No gross adenopathy. Pleura: No effusion. Heart: There is very mild cardiomegaly. Thoracic aorta: No aneurysm. Upper abdominal structures: There is very mild fluid around the liver and spleen. This is similar to the prior exam. Visualized osseous structures: There are degenerative changes of the spine without acute compression deformity. IMPRESSION: No acute findings. <Electronically signed by Christopher Crowley > 05/30/20 0866
--- NOTE | 2020-05-30 13:54 | HPEPDOC ---
General Date of Admission May 30, 2020 at 11:49 Date of Service: May 30, 2020 Chief Complaint The patient is a 55-year-old male admitted with a reason for visit of Chf Nonishcemic Dilated Cardiomyopathy. Source: Patient History of Present Illness Mr. Ghotra is a 55-year-old male with nonischemic cardiac myopathy, paroxysmal atrial fibrillation, hepatic congestion, and history of non-Hodgkin's lymphoma in [address] [facility] who presents with sudden dyspnea. He was recently here from May 15 to May 17 for syncope. Since then, he seen his neurologist who is working him up for myasthenia gravis. He's had a sleep study done, but he only had less than 2 hours of sleep on the sleep study. He seen his clod puller who increased his diuretics up to torsemide 100 mg daily. He seen GI in [place] about his hepatic congestion. They do not think he has cirrhosis, but they want a workup for portal hypertension. His clod puller wants him to have second opinion for cirrhosis up at [place]. Otherwise, the past few weeks he's been having insomnia. Last night, he is able to doze off on the couch, but then suddenly woke up gasping for air. He felt the pain in his chest was dull. [place] like an elbow was rubbing into him. Taking deep breaths except pain worse. The pain lasted for 3-4 hours. He decided to come to ED for evaluation. While in the ED, his blood pressure is soft but otherwise the rest of his vitals are stable. His lab work is significant for a BNP of 11,000 which is increased from early May at 7000. He also has mild acute kidney injury. Otherwise slightly hyponatremic 129. Physical exam was significant for bilateral pitting edema that has been going up to his thighs. He notes that he is gaining weight. Patient will be be admitted for atypical chest pain and diastolic heart failure. Home Medications Scheduled Apixaban (Eliquis) 5 Mg Tablet, 5 MG PO BID, (Reported) Levothyroxine Sodium (Levothyroxine Sodium) 25 Mcg Tablet, 25 MCG PO DAILY, (Rep orted) Metoprolol Succinate (Metoprolol Succinate) 25 Mg Tab.er.24h, 25 MG PO DAILY, (Reported) Spironolactone (Spironolactone) 25 Mg Tablet, 12.5 MG PO DAILY, (Reported) Torsemide (Torsemide) 100 Mg Tablet, 100 MG PO BID, (Reported) Allergies Coded Allergies: vancomycin (Verified Adverse Reaction, Severe, rigors, 04/05/20) Past Medical History Medical History 1. Nonischemic cardiomyopathy s/p negative LHC (presumed to be viral cause) 2. Paroxysmal atrial fibrillation. 3. History of non-Hodgkin's lymphoma in 2010 s/p [facility] 4. GERD 5. Hepatic congestion Surgical History 1. Tonsillectomy 2. Inguinal hernia surgery Family History Father: Patient not familiar with father Mother: COPD Social History * Smoker: Denies Alcohol: Denies Drugs: denies A-FIB/CHADSVASC A-FIB History Current/History of A-Fib/PAF?: Yes Current PO Anticoag Therapy: Yes Review of Systems Constitutional: Reports: Fatigue; Denies: Fever Eyes: Denies: Pain ENT: Reports: Other Symptoms (his mouth and throat feels dry) Skin: Denies: Rash Pulmonary: Reports: Dyspnea, Cough, Pleuritic Chest Pain Cardiovascular: Reports: Chest Pain Gastrointestinal: Denies: Nausea, Abdominal Pain Genitourinary: Denies: Dysuria Musculoskeletal: Reports: Neck Pain (herniated disks), Shoulder Pain (from fall in May) Psych: Reports: Other Psych (insomnia) Physical Examination General Exam: Positive: Alert, Cooperative Eye Exam: Positive: EOMI, Sclera icteric (mildly yellow) Chest Exam: Positive: Clear to auscultation; Negative: Rales, Rhonchi, Wheezing Heart Exam: Positive: Tachycardic, Irregular Rhythm Abdomen Exam: Positive: Normal bowel sounds, Soft; Negative: Tenderness Extremity Exam: Positive: Edema (significant 2+ pitting edema up to his thighs) Skin Exam: Negative: Rash Neuro Exam: Positive: Cranial Nerves 3-12 NL Psych Exam: Positive: Anxiety Vital Signs Vital Signs Date Time Temp Pulse Resp B/P (MAP) Pulse Ox O2 Delivery O2 Flow Rate FiO2 05/30/20 13:15 101/78 (86) 05/30/20 13:05 116 20 98 05/30/20 08:05 96.5 Room Air Laboratory Data Labs 24H Laboratory Tests 2 05/30/20 08:29: Immature Granulocyte % (Auto) 1.7, Neutrophils (%) (Auto) 76.0H, Lymphocytes (%) (Auto) 12.4L, Monocytes (%) (Auto) 9.6H, Eosinophils (%) (Auto) 0.1, Basophils (%) (Auto) 0.2, Neutrophils # (Auto) 13.6H, Lymphocytes # (Auto) 2.2, Monocytes # (Auto) 1.7H, Eosinophils # (Auto) 0.0, Basophils # (Auto) 0.0, Nucleated Red Blood Cells % (auto) 0.0, Anion Gap 10, Glomerular Filtration Rate 46.3L, C alcium Level 9.5, MC-Nky-U-Type Natriuretic Peptide 29984L 05/30/20 10:10: Coronavirus (COVID-19)(PCR) NEGATIVE, Influenza Type A (RT-PCR) NEGATIVE, Influenza Type B (RT-PCR) NEGATIVE, Respiratory Syncytial Virus (PCR) NEGATIVE CBC/BMP Laboratory Tests 05/30/20 08:29 Assessment/Plan Mr. Ghotra is a 55-year-old male with nonischemic cardiac myopathy, paroxysmal atrial fibrillation, hepatic congestion, and history of non-Hodgkin's lymphoma in 2010 status post [facility] who presents with sudden dyspnea. His lab work is suggestive of CHF such as hyponatremia and elevated proBNP. He also has in the his legs that goes up to his thighs. It does not feel like he has fluid in his abdomen. Otherwise imaging is not suggestive of CHF. He may have right sided heart failure as left sided heart failure shows up in the lungs. We will diurese him here and monitor his labs. Otherwise, he reports atypical chest pain. No ischemic changes to EKG. We'll order troponins and monitor on telemetry. Of note, while in the ED he had NSVT. Plan / VTE VTE Prophylaxis Ordered?: Yes Plan Plan 1. Right-sided heart failure (diastolic heart failure) He appears fluid overloaded, Pro BNP is elevated, nearly twice of last admission. Continue spironolactone and change torsemide to frusemide IV Order echocardiogram for other causes of dyspnea such as pulmonary arterial hypertension 2. Atypical chest pain Pleuritic EKG does not demonstrate any ischemic changes We'll order troponins and echocardiogram 3. Nonischemic cardiac myopathy Last echo March 2020 Demonstrates an EF of 45% with advanced diastolic dysfunction 4. Paroxysmal atrial fibrillation Continue beta clau and Eliquis 5. Acute renal failure May be due to renal congestion Continue diuretics and avoid nephrotoxic agents 6. Insomnia We will try trazodone 7. DVT prophylaxis On NESHA Guzmán DO May 30, 2020 13:53
[2020-05-30 14:05] VITALS: BP 108/73
[2020-05-30 14:15] LABS: TROPONIN I 0.84 NG/ML (< 0.10)
[2020-05-30] MEDS: APIXABAN 5 MG TAB (ELIQUIS) PO SCH ×2 (14:33→20:31)
[2020-05-30] MEDS: FUROSEMIDE 100MG/10ML VIAL (J1940) IV SCH ×2 (16:18→23:59)
[2020-05-30] MEDS: traZODone 25MG PER 1/2 TABLET PO SCH (20:31)
[2020-05-30 22:00] VITALS: BP 114/75
[2020-05-31] MEDS: LEVOTHYROXINE 25MCG TABLET (0.025MG) PO SCH (05:37)
[2020-05-31 05:56] LABS: HEMATOCRIT 50.1 % (42.0-52.0); HEMOGLOBIN 16.5 g/dl (13.5-17.5); MEAN CORPUSCULAR HEMOGLOBIN 32.7 pg (27.0-33.0); MEAN CORPUSCULAR HGB CONC 32.9 g/dl (32.0-36.5); MEAN CORPUSCULAR VOLUME 99.4 fl (80.0-96.0); PLATELET COUNT, AUTOMATED 161 10^3/uL (150-450); RED BLOOD COUNT 5.04 10^6/uL (4.30-6.10); WHITE BLOOD COUNT 15.9 10^3/uL (4.0-10.0)
[2020-05-31 06:00] VITALS: BP 109/72
[2020-05-31 06:18] LABS: CALCIUM LEVEL 9.3 MG/DL (8.5-10.1); CREATININE FOR GFR 1.42 MG/DL (0.70-1.30); GLOMERULAR FILTRATION RATE 54.7 (>56); MAGNESIUM LEVEL 2.7 MG/DL (1.8-2.4); POTASSIUM SERUM 3.8 MEQ/L (3.5-5.1)
--- NOTE | 2020-05-31 08:43 | ECGEPIP ---
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
[2020-05-31] MEDS ORDERED: FUROSEMIDE 100MG/10ML VIAL (J1940) IV SCH (09:00)
--- NOTE | 2020-05-31 09:05 | ECGEPIP ---
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
[2020-05-31] MEDS: SPIRONOLACTONE 25 MG TAB PO SCH (09:23)
[2020-05-31] MEDS: APIXABAN 5 MG TAB (ELIQUIS) PO SCH ×2 (09:23→20:17)
[2020-05-31] MEDS: METOPROLOL SUCC (TopROL XL) 50MG **XL** TAB PO SCH (09:26)
[2020-05-31] MEDS: FUROSEMIDE 100MG/10ML VIAL (J1940) IV SCH ×2 (09:27→16:52)
--- NOTE | 2020-05-31 09:28 | CR ---
CONSULTATION DATE: 05/30/2020 REFERRING PHYSICIAN: Dr. Hurley. INDICATION: Congestive heart failure, nonsustained ventricular tachycardia. HISTORY OF PRESENT ILLNESS: The patient is known to me. He presented to hospital last night after he woke up with sensation of sharp discomfort in the back together with dyspnea. On presentation, he was found to be volume overloaded with very prominent peripheral edema and very elevated Beta natriuretic peptide (BNP). Also while being monitored on telemetry in the emergency room, he was noted to have a round of nonsustained ventricular tachycardia that was asymptomatic. Decision was made to admit him for further management. The patient is well-known to me. He used to be followed in [facility] in [place], but for the last month or so, I have been seeing him as well. He was diagnosed in fall 2018 after a fairly sudden illness. He was left with severe left ventricular systolic dysfunction that has since slightly improved but clinically, he continues to struggle with congestive heart failure, which seems to be more right-sided than left-sided. He had several recent admissions in our facility for similar problems. At his baseline, he gets short of breath with minimal activity. He has paroxysmal nocturnal dyspnea (PND) and complains of about inability to sleep. He also has occasional chest discomfort, although the sensation he had last night was new. He does not have coronary artery disease, had heart catheterization in July 2019 in [facility] ([facility] that revealed no evidence for coronary artery disease (CAD). PAST MEDICAL HISTORY: 1. Congestive heart failure, as above. Last echocardiogram was in our facility on April 07, 2020 and revealed ejection fraction (EF) estimated around 40-45%, grade 3 diastolic dysfunction, no significant valvular disease and mild pulmonary hypertension. 2. Normal cardiac catheterization on August 08, 2019 at [facility]. 3. Hypercholesterolemia. 4. Hypertension. 5. Chronically abnormal liver function tests believed to be due to hepatic congestion. He had a liver biopsy that ruled out liver cirrhosis. 6. Paroxysmal atrial fibrillation. 7. Allergic rhinitis. 8. Erectile dysfunction. 9. History of lymphoma status post M-CHOP in 2010. OUTPATIENT MEDICATIONS: - apixaban 5 mg bid - Toprol XL 25 mg daily - torsemide 100 mg bid - spironolactone 12.5 mg daily. ALLERGIES: VANCOMYCIN. SURGICAL HISTORY: Positive for: 1. Tonsillectomy. 2. Inguinal hernia surgery. 3. Liver biopsy. FAMILY HISTORY: Mother has COPD and heart failure. Father not well-known to the patient. SOCIAL HISTORY: Patient is , lives with his . There is no history of smoking. No recent alcohol use. No history of drug abuse. REVIEW OF SYSTEMS: Denies any recent fever, chills, nausea, vomiting or diarrhea. He has chronic paroxysmal nocturnal dyspnea, chronic exertional dyspnea, as per history of present illness (HPI). He had recent syncopal event that led to admission in our facility after he was prescribed benzodiazepines to help him sleep. There is no history of gastrointestinal (GI) bleeding. PHYSICAL EXAMINATION: The patient appears to be chronically ill and does not appear to be in any acute distress. VITAL SIGNS: Last documented blood pressure was 101/78, heart rate 116, currently in atrial fibrillation even though he presented in sinus rhythm, saturation 98% on room air, weight recorded as 77.9 kg, which is not appreciably different compared to his baseline. His jugular venous pressure (JVP) is elevated. LUNGS: Reasonably clear. I do not appreciate any crackles, rhonchi or wheezing. HEART EXAM: Reveals irregular tachycardia with appreciable gallop. I do not appreciate any obvious murmur. ABDOMEN: Soft. I do not appreciate hepatosplenomegaly. No shifting dullness to suggest sizable ascites. EXTREMITIES: He does have edema to his knees, about 2-3+. NEUROLOGICAL: He is intact. There are excoriations on his face from his recent injury. LABORATORY DATA: Basic metabolic panel: Sodium 129, potassium 3.9, BUN 41, creatinine 1.6, GFR 46. Troponin is pending. Internal pro-BNP was 11,000. CBC: WBC 7.9, hemoglobin 16.1, hematocrit 49, platelet count 198. He tested negative for severe acute respiratory syndrome (SARS). Urine was not drawn. IMAGING DATA: Chest x-ray does not reveal any obvious congestive heart failure. CT scan of the chest also did not reveal any pleural effusions or obvious interstitial edema. It was performed without contrast. Electrocardiogram reveals presence of fibrillation with bifascicular block and is unchanged from his prior EKGs. ASSESSMENT AND PLAN: The patient is a 55-year-old man who has clinically rather severe congestive heart failure. He has moderate left ventricular systolic dysfunction, but very advanced diastolic dysfunction and has recurrent presentations with combination of left-sided and right-sided congestive heart failure. He has paroxysmal nocturnal dyspnea. This is in spite of very high doses of diuretics on outpatient basis. He is already on torsemide 100 mg b.i.d. plus small dose of spironolactone. He does admit that lately he has been drinking a little bit more fluid than he is instructed (his fluid restrictions were 1800 mL per 24 hours) because he had really dry mouth at nighttime and he could not tolerate not to drink at least a little bit, but he believes that he does not exceed oral intake more than 2 liters a day. As far as the atrial fibrillation is concerned, I would leave his medications unchanged. We will see if his heart rate does not slow down within several more hours. I think we can give him another 25 mg of Toprol XL and increase the dose to 50 mg daily. Unfortunately, his blood pressure remains soft, which somewhat complicates management. I obviously will continue apixaban. As far as congestive heart failure is concerned, this remains the most difficult problem. He is currently prescribed furosemide 100 mg daily. I suspect that this may not be sufficient and he may need to take higher doses. I would probably advocate something like 80 mg t.i.d. with adjustment, depending on urine output. I believe that the dose of spironolactone can be increased to 25 mg daily, provided his renal function remains stable tomorrow morning. I would advocate to add SGLT2 inhibitor, for example 10 mg of Jardiance. These medications have been shown to be beneficial in people with heart failure, and I am afraid that he probably will not tolerate any vasodilators because his blood pressure has been rather soft. Finally, as far as nonsustained ventricular tachycardia is concerned, he will be monitored in the hospital. We will keep a close eye on his electrolytes, but if we do see a recurrent episode, I will contact electrophysiology in [place] to see whether he would be considered a candidate for implantable cardioverter-defibrillator (ICD) placement. He does have a history of syncope during his prior admission, even though it seems to be precipitated by taking sleeping medications, but we certainly cannot rule out that it was due to ventricular tachycardia. He previously was on amiodarone, but the medication was discontinued because he was fearing side effects and he had markedly abnormal liver function tests (LFTs), so I believe that is not a good long-term option. I made an outpatient referral to [facility] at [facility] in [place] in association with the [facility]. I am afraid that the patient's clinical course is not favorable and unless we can reverse it, he will very likely need advanced therapies in future. I spoke with Dr. Currie, and hopefully he will be seen on outpatient basis in relatively near future. PETER
--- NOTE | 2020-05-31 09:41 | IPN ---
PROGRESS NOTE DATE: 05/31/2020 SUBJECTIVE: Mr. Ghotra tells me that he is feeling better today. He finally was able to get some sleep last night. Unfortunately he remains in atrial fibrillation and is tachycardic at times. When at night presumptively sleeping, his heart rate was in the 90s and 100s but when sitting or moving, it goes to 120s and 130s. He denies any chest discomfort. He said that the pain he had yesterday resolved and believes that his dyspnea is improved. PHYSICAL EXAMINATION: VITAL SIGNS: The morning, blood pressure 109/72, heart rate as above, afebrile, saturation 99% on two liters of oxygen. Recorded output until midnight was about 1600, has not been recorded this morning yet. GENERAL: He is alert and oriented and appropriate. NECK: His JVP is still high. LUNGS: Sound clear, though. HEART: Reveals irregular rate, irregular rhythm, tachycardic. Gallop is apparent. ABDOMEN: Soft, no obvious shifting dullness. EXTREMITIES: Peripheral edema has improved since yesterday. Weight has not been recorded this morning yet. LABORATORY DATA: CBC reveals WBC count 15.9, the rest is normal and basic metabolic panel reveals sodium 131, potassium 3.8, BUN 41, creatinine 1.4, glucose 92 and magnesium 2.7. ASSESSMENT AND PLAN: Mr. Ghotra is a 55-year-old man who has nonischemic cardiomyopathy with approximately moderate left ventricular systolic dysfunction and paroxysmal atrial fibrillation. He came with chest discomfort, the etiology of which is uncertain. He had mildly elevated troponin but cardiac catheterization in July, was normal meaning there was no coronary artery disease so I do not believe that we need to investigate him for ischemia at this point. There are several problems. First of all, atrial fibrillation is not well rate controlled and I am going to increase the dose of Toprol to 50 mg daily. Hopefully it will be sufficient. He was previously on amiodarone but it was later discontinued due to abnormal liver function tests. He has been anticoagulated chronically. The second issue is congestive heart failure. He is still volume overloaded but with current doses of IV furosemide and spironolactone, I believe we are making decent progress. I will talk to the nursing staff to properly document his input and output and also daily weight. Finally, I am very concerned about the fact that he keeps having episodes of nonsustained ventricular tachycardia. He had multiple brief ones overnight. The longest I found was 9 beats. Even though his EF is more than 35%, he has a history of syncope which is concerning to me. I will contact electrophysiology whether he could be considered for ICD placement even though he does not fulfill the typical criteria.
[2020-05-31] MEDS: LIDOCAINE 5% (LIDODERM) PATCH TD SCH (13:03)
[2020-05-31 14:00] VITALS: BP 100/71
[2020-05-31] MEDS: DOCUSATE SODIUM 100MG CAPSULE PO SCH ×2 (15:10→20:17)
[2020-05-31] MEDS ORDERED: MOM 30ML SUSPENSION UDC PO ONE (15:15)
--- NOTE | 2020-05-31 20:07 | IPNPDOC ---
Subjective Date Seen The patient was seen on 05/31/20. Subjective Chief Complaint/HPI Mr. Ghotra is a 55-year-old male with nonischemic cardiac myopathy, paroxysmal atrial fibrillation, hepatic congestion, and history of non-Hodgkin's lymphoma in 2011 status post MCHOP who presents with sudden dyspnea. Last night he was able to have some sleep with the combination of trazodone and oxygen (for comfort). Denies chest pain. Dyspnea improved, but still looks fluid overloaded Objective Physical Examination General Exam: Positive: Alert, Cooperative Eye Exam: Positive: EOMI, Sclera icteric Chest Exam: Positive: Clear to auscultation Heart Exam: Positive: Tachycardic, Irregular Rhythm Abdomen Exam: Positive: Normal bowel sounds, Soft Extremity Exam: Positive: Edema Skin Exam: Negative: Rash Neuro Exam: Positive: Cranial Nerves 3-12 NL Psych Exam: Positive: Anxiety Assessment /Plan Assessment Mr. Ghotra is a 55-year-old male with nonischemic cardiac myopathy, paroxysmal atrial fibrillation, hepatic congestion, and history of non-Hodgkin's lymphoma in 2011 status post MCHOP who presents with sudden dyspnea. His lab work is suggestive of CHF such as hyponatremia and elevated proBNP. He also has in the his legs that goes up to his thighs. It does not feel like he has fluid in his abdomen. Cardiology is following and is managing diuresis. Otherwise, he still has frequent NSVT of which he may need an ICD. Plan/VTE VTE Prophylaxis Ordered?: Yes Plan 1. Right-sided heart failure (diastolic heart failure) He appears fluid overloaded, Pro BNP is elevated, nearly twice of last admission. Continue spironolactone and change torsemide to frusemide IV Order echocardiogram for other causes of dyspnea such as pulmonary arterial hypertension 2. Atypical chest pain Pleuritic EKG does not demonstrate any ischemic changes We'll order troponins and echocardiogram -Troponin were elevated. Peaked at 0.84 and trended downwards 3. Nonischemic cardiac myopathy Last echo March 2020 Demonstrates an EF of 45% with advanced diastolic dysfunction 4. Paroxysmal atrial fibrillation Continue beta clau and Eliquis 5. Acute renal failure May be due to renal congestion Continue diuretics and avoid nephrotoxic agents 6. Insomnia Trazodone and oxygen for comfort helped with sleep 7. DVT prophylaxis On Eliquis Disposition: Cardiology is diuresing patient and deciding on ICD. Pending on Cardiology's recommendations VS, I&O, 24H, Aminah Vital Signs/I&O Vital Signs Date Time Temp Pulse Resp B/P (MAP) Pulse Ox O2 Delivery O2 Flow Rate FiO2 05/31/20 14:00 97.6 90 20 100/71 (81) 100 Nasal Cannula 2.0 I&O- Last 24 Hours up to 6 AM 05/31/20 06:00 Intake Total 1255 ml Output Total 1600 ml Balance -345 ml Laboratory Data 24H LABS Laboratory Tests 2 05/30/20 21:58: Troponin I 0.71H 05/31/20 05:33: Nucleated Red Blood Cells % (auto) 0.0, Anion Gap 7L, Glomerular Filtration Rate 54.7L, Calcium Level 9.3, Magnesium Level 2.7H CBC/BMP Laboratory Tests 05/31/20 05:33 NESHA RAHMAN DO May 31, 2020 20:07
[2020-05-31] MEDS: traZODone 25MG PER 1/2 TABLET PO SCH (20:17)
[2020-05-31] MEDS ORDERED: **NOTE PATIENT COMMENT** MISC XX SCH (21:00)
[2020-05-31 22:00] VITALS: BP 100/67
[2020-06-01] MEDS: FUROSEMIDE 100MG/10ML VIAL (J1940) IV SCH ×3 (00:20→16:00)
[2020-06-01] MEDS: LEVOTHYROXINE 25MCG TABLET (0.025MG) PO SCH (05:35)
[2020-06-01 06:00] VITALS: BP 103/69
[2020-06-01 06:38] LABS: HEMATOCRIT 52.5 % (42.0-52.0); HEMOGLOBIN 17.6 g/dl (13.5-17.5); MEAN CORPUSCULAR HEMOGLOBIN 33.4 pg (27.0-33.0); MEAN CORPUSCULAR HGB CONC 33.5 g/dl (32.0-36.5); MEAN CORPUSCULAR VOLUME 99.6 fl (80.0-96.0); PLATELET COUNT, AUTOMATED 177 10^3/uL (150-450); RED BLOOD COUNT 5.27 10^6/uL (4.30-6.10); WHITE BLOOD COUNT 16.3 10^3/uL (4.0-10.0)
[2020-06-01 07:02] LABS: CALCIUM LEVEL 9.7 MG/DL (8.5-10.1); CREATININE FOR GFR 1.57 MG/DL (0.70-1.30); GLOMERULAR FILTRATION RATE 48.7 (>56); MAGNESIUM LEVEL 2.8 MG/DL (1.8-2.4); POTASSIUM SERUM 4.1 MEQ/L (3.5-5.1)
[2020-06-01] MEDS: DOCUSATE SODIUM 100MG CAPSULE PO SCH (08:37)
[2020-06-01] MEDS: APIXABAN 5 MG TAB (ELIQUIS) PO SCH (08:37)
[2020-06-01] MEDS: SPIRONOLACTONE 25 MG TAB PO SCH (08:37)
[2020-06-01 08:38] VITALS: BP 100/72
[2020-06-01] MEDS: METOPROLOL SUCC (TopROL XL) 50MG **XL** TAB PO SCH (08:38)
[2020-06-01] MEDS: LIDOCAINE 5% (LIDODERM) PATCH TD SCH (08:38)
--- NOTE | 2020-06-01 08:55 | IPN ---
PROGRESS NOTE DATE: 06/01/2020 SUBJECTIVE: Mr. Ghotra is feeling about the same as he did yesterday. He did not have any PND last night and was able to sleep some. Unfortunately, he continues to have considerable peripheral edema. On the positive side, he converted back to sinus rhythm yesterday morning and has stayed in sinus rhythm since. His heart rate is around 70s and 80s. PHYSICAL EXAMINATION: VITAL SIGNS: Blood pressure 103/69, heart rate 80, afebrile, 97% saturation on room air. INPUT AND OUTPUT: Fluid balance was not appropriately recorded yesterday; he reports that he has drank 1800 ml of fluid. This morning the weight is recorded 77.4 kilograms which is actually up since admission even though he actually looks better. NECK: His JVP is about 5 cm above clavicle in the sitting position. LUNGS: Clear. Good air movement. HEART: Regular rhythm. There is a widely splitting second heart sound. I do not appreciate any gallop today. No apparent murmur. ABDOMEN: Soft, nontender. EXTREMITIES: He has about 2+ edema to mid shins. NEUROLOGIC: Intact. LABORATORY DATA: His WBC count is 16.3, hemoglobin 17.6, hematocrit is 52.4, platelet count is 177,000 and basic metabolic panel: Sodium 126, potassium 4.1, BUN 50, creatinine is 1.57. Glucose 79. Magnesium 2.8. ASSESSMENT AND PLAN: Mr. Ghotra is a 55-year-old man who has dilated cardiomyopathy with approximately moderate LV systolic dysfunction, paroxysmal atrial fibrillation and remote history of lymphoma who presents with yet another exacerbation of congestive heart failure within a short period of time. This is in spite of very high doses of diuretics. He was also found to be in atrial fibrillation but only after presentation to our facility, he actually presented in sinus rhythm. Numerous episodes of nonsustained VT were detected. Yesterday, I advanced the dose of metoprolol to 50 mg daily and it looked like he was tolerating it well. I would like to introduce SGLT2 inhibitor but unfortunately they are not on formulary in the hospital. He is desiring to go home which I think I would not have a problem with given he does not show any dramatic deterioration compared to past. I had a discussion with Dr. Gardner, guitar maker hand in [place] yesterday and he concurred with me that unfortunately the patient does not have a definite indication for defibrillator placement but he can be considered for EP study and if inducible sustained ventricular tachycardia then he can reconsider for a defibrillator. Also, he would be a good candidate for atrial fibrillation ablation. We will coordinate this on an outpatient basis. From my perspective, otherwise he can be discharged home on medications that should include torsemide 100 twice a day, spironolactone 25 a day, Toprol XL 50 a day, plus anticoagulation.
[2020-06-01] MEDS ORDERED: METO1TAB7 PO (10:02)
[2020-06-01] MEDS ORDERED: ALDA25TA2 PO (10:02)
[2020-06-01] MEDS ORDERED: SELF1KIT MC (10:04)
[2020-06-01 14:00] VITALS: BP 100/72
[2020-06-01 14:19] VITALS: BP 144/77
--- NOTE | 2020-06-01 17:13 | DS.PDOC ---
Discharge Summary General Date of Admission May 30, 2020 at 11:49 Date of Discharge 06/01/20 Discharge Summary DISCHARGE DIAGNOSES: Acute on chronic Diastolic CHF exacerbation EF 45% NSVT Dilated Cardiomyopathy Paroxysmal Atrial Fibrillationwith rapid ventricular response Abnormal Liver function Tests h/o Non hodgkin's lymphoma 2010 s/p M-CHOP Acute kidney injury Hyponatremia secondary to congestive heart failure Troponin leak secondary to congestive heart failure DISCHARGE MEDICATIONS: see below DISCHARGE INSTRUCTIONS: 1.8L fluid restriction, 2gram sodium diet, strict i/o, daily weights. call Dr. Carlisle with 2lb or greater weight gain. immediate 5day f/u appt w Dr. carlisle and pcp. ITEMS TO FOLLOWUP ON ON OUTPATIENT: To be done by pt's spiritual advisor: 1)Referral to Advanced CHF clinic in [place] 2)EP study to evaluate NSVT to see if pt may qualify for an AICD HOSPITAL COURSE: 55-year-old male with history of non-Hodgkin's lymphoma status post M CHOP in 2010, nonischemic dilated cardiomyopathy, paroxysmal atrial fibrillation on chronic anticoagulation Admitted for worsening shortness of breath, found to have congestive heart failure, diastolic dysfunction, managed by his spiritual advisor Dr. Carlisle. EKG showed atrial fibrillation with bifascicular block, unchanged from prior EKG. . He was already on torsemide 100 twice a day and spinal lactone 12.5 mg daily at home, and was compliant with his fluid restriction of 1.8 L and 2 g sodium diet. Patient was admitted to the telemetry unit and started on Lasix 100 mg daily which was increased to 80 mg 3 times a day and spironola ctone to 25 mg daily. He had 16 beats of nonsustained V. tach , but was asymptomatic without hemody namic compromise and normal blood pressure. Patient had A. fib with RVR rate of 116 bpm, Which improved with increasing the metoprolol to 50 mg every morning with rate control of 63-80 bpm. Patient was Net negative balance with weight at 77.[address] Carlisle patient has been medically optimized and may be discharged home with Outpatient referral to [place] advanced heart failure clinic, and outpatient EP study To further evaluate his nonsustained V. tach in order to see if he qualifies for an AICD. DISCHARGE MEDICATIONS: Please see below. ALLERGIES: Please see below. PHYSICAL EXAMINATION ON DISCHARGE: VITAL SIGNS: Please see below. Gen.: No respiratory distress. No use of respiratory accessory muscles HEENT no carotid bruit, no JVD LUNGS: Clear to auscultation bilaterally. Air in tree is equal HEART: Regular rate and rhythm, S1, S2 ABDOMEN: Soft, positive bowel sounds 4 quadrants nontender. EXTREMITIES: 2+ pitting edema bilaterally LABORATORY DATA: Please see below. IMAGING: see below 05/30/20 CT CHEST: CT chest performed without the use of intravenous contrast. Sagittal and coronal reconstruction images are performed. FINDINGS: Lungs: There is mild linear fibro atelectatic change in both lower lung zones. No acute infiltrate is seen. Mediastinum: No gross adenopathy. Yun: No gross adenopathy. Axilla: No gross adenopathy. Pleura: No effusion. Heart: There is very mild cardiomegaly. Thoracic aorta: No aneurysm. Upper abdominal structures: There is very mild fluid around the liver and spleen. This is similar to the prior exam. Visualized osseous structures: There are degenerative changes of the spine without acute compression deformity. IMPRESSION: No acute findings. <Electronically signed by Christopher Crowley > 05/30/20 1237 DISCHARGE CONDITION: stable TIME SPENT ON DISCHARGE: 30 minutes. Vital Signs/I&Os Vital Signs Date Time Temp Pulse Resp B/P (MAP) Pulse Ox O2 Delivery O2 Flow Rate FiO2 06/01/20 14:00 98.5 77 18 100/72 (81) 96 Room Air 05/31/20 14:00 2.0 I&O- Last 24 Hours up to 6 AM 06/01/20 06:00 Intake Total 890 ml Output Total 675 ml Balance 215 ml Laboratory Data Labs 24H Laboratory Tests 2 06/01/20 06:20: Nucleated Red Blood Cells % (auto) 0.0, Anion Gap 8, Glomerular Filtration Rate 48.7L, Calcium Level 9.7, Magnesium Level 2.8H CBC/BMP Laboratory Tests 06/01/20 06:20 Discharge Medications Scheduled Apixaban (Eliquis) 5 Mg Tablet, 5 MG PO BID, (Reported) Levothyroxine Sodium (Levothyroxine Sodium) 25 Mcg Tablet, 25 MCG PO DAILY, (Reported) Metoprolol Succinate (Metoprolol Succinate) 50 Mg Tab.er.24h, 50 MG PO QAM Spironolactone (Aldactone) 25 Mg Tablet, 25 MG PO QAM Torsemide (Torsemide) 100 Mg Tablet, 100 MG PO BID, (Reported) Allergies Coded Allergies: vancomycin (Verified Adverse Reaction, Severe, rigors, 04/05/20) MARIELLE HERNÁNDEZ MD Jun 01, 2020 17:13
--- NOTE | 2020-06-02 09:06 | ECHO ---
DATE OF PROCEDURE: 06/01/2020 Age: 55 Gender: Male Height: 166 cm Weight: 77 kg REFERRING PHYSICIAN: Rajni Irving MD INDICATION: Dyspnea, congestive heart failure, ventricular tachycardia. MEASUREMENTS: LA 4.5 IVS 1.6 cm LV 4.5 cm LVPW 1.6 cm Aorta 2.7 cm Left atrial volume index 36 mL/m2 Septal E prime velocity 3.3 Lateral E prime velocity 3.4 Global longitudinal strain negative 4.3% IVC 2.5 FINDINGS: This study is of excellent technical quality. Underlying sinus rhythm with wide QRS complex. Left ventricle is of normal size. Moderate left ventricular hypertrophy is noted. There is severe global hypokinesis. Computed calculated ejection fraction was 32%, but by visual inspection I would estimate EF around 20% to 25%. Right ventricle also dilated and hypokinetic. Both atria are enlarged. Aortic valve appeared sclerotic, but it has three cusps and normal mobility. There was thickening of both mitral and tricuspid valves, but structurally the valves appear normal and have normal mobility. Pulmonic valve appears normal. No pericardial effusion is present. Inferior vena cava is dilated and there is no appreciable collapse with inspiration indicative of very high central venous pressure. Aortic root is normal. Aortic arch also appears normal. Abdominal aorta was not well seen. Doppler interrogation reveals no aortic stenosis or insufficiency. There is mild mitral insufficiency and moderate tricuspid insufficiency. Calculated pulmonary artery pressure is at least in the high 20s and possibly higher indicative of normal or mildly elevated pulmonary artery pressure. Evaluation of diastolic function is inconclusive due to poor quality of mitral inflow measurements, but very low tissue Doppler velocities of mitral annulus are indicative of advanced diastolic dysfunction. CONCLUSIONS: 1. Study is of good technical quality, underlying sinus rhythm with wide QRS complex. 2. Normal LV size with moderate LVH, severe left ventricular systolic dysfunction, and advanced diastolic dysfunction. Computer calculated LV of 32%, by visual inspection I would estimate LVEF around 20% to 25%. 3. Thickening of mitral leaflets with no stenosis and mild insufficiency. 4. Thickening of tricuspid leaflets with moderate tricuspid insufficiency. 5. Very high central venous pressure and at least borderline pulmonary hypertension. 6. Global longitudinal strain negative 4.3%. COMMENTS: The systolic function appears to have deteriorated compared to a study from two months ago. The study is of better quality today. Otherwise, there has not been substantial change. [facility]
== END 2020-06-01 17:11 | disposition home or self-care (01) | DRG 194 ==
LOC: M ED 08:05 → M ED INP 11:49 → M MSPAV 13:57
PROVIDERS: ADMIT Internal Medicine; ATTEND General Practice
DX: I11.0 Hypertensive heart disease with heart failure (principal); I47.2 Ventricular tachycardia; N17.9 Acute kidney failure, unspecified; E87.1 Hypo-osmolality and hyponatremia; I48.0 Paroxysmal atrial fibrillation; Z79.899 Other long term (current) drug therapy; Z88.8 Allergy status to other drugs, medicaments and biological substances; K21.9 Gastro-esophageal reflux disease without esophagitis; G47.00 Insomnia, unspecified; E78.00 Pure hypercholesterolemia, unspecified; N52.9 Male erectile dysfunction, unspecified; I50.33 Acute on chronic diastolic (congestive) heart failure

== ENCOUNTER → 2020-06-25 | Outpatient (CLI) | payer BC, OTHER ==
[~2020-06-25] MED LIST changes: +FARX1TAB3 PO; +FURO40TA2 PO; +METO25TA PO; +PANT40TA29 PO; +POTA1TAB14 PO; +PROV108A INH; +SELF1KIT MC; +TORS100T PO
[2020-06-25 12:07] LABS: HEMATOCRIT 45.2 % (42.0-52.0); HEMOGLOBIN 16.4 g/dl (13.5-17.5); MEAN CORPUSCULAR HEMOGLOBIN 33.5 pg (27.0-33.0); MEAN CORPUSCULAR HGB CONC 36.3 g/dl (32.0-36.5); MEAN CORPUSCULAR VOLUME 92.2 fl (80.0-96.0); PLATELET COUNT, AUTOMATED 217 10^3/uL (150-450); WHITE BLOOD COUNT 12.4 10^3/uL (4.0-10.0)
[2020-06-25 13:15] LABS: BLOOD UREA NITROGEN 53 MG/DL (7-18); CALCIUM LEVEL 9.5 MG/DL (8.5-10.1); CARBON DIOXIDE LEVEL 43 MEQ/L (21-32); CHLORIDE LEVEL 62 MEQ/L (98-107); CREATININE FOR GFR 1.27 MG/DL (0.70-1.30); GLOMERULAR FILTRATION RATE > 60.0 (>56); GLUCOSE, FASTING 113 MG/DL (70-100); LDH LACTATE DEHYDROGENASE 342 U/L (87-241); NT-PRO BNP 13357 PG/ML (<125); POTASSIUM SERUM 2.5 MEQ/L (3.5-5.1); SODIUM LEVEL 118 MEQ/L (136-145); TOTAL PROTEIN 6.5 GM/DL (6.4-8.2)
== END ==
LOC: M LAB 10:51
PROVIDERS: ATTEND Internal Medicine Cardiovascular Disease
DX: I42.9 Cardiomyopathy, unspecified (principal); E83.119 Hemochromatosis, unspecified

== ENCOUNTER 2020-06-26 11:27 | Inpatient (IN) | payer BC, OTHER ==
[~2020-06-26] VITALS: Ht 167.6 cm; Wt 72.4 kg
[~2020-06-26 11:27] MED LIST changes: -FARX1TAB3 PO; -METO25TA PO; -POTA1TAB14 PO; -PROV108A INH
--- OUTSIDE RECORDS SUMMARY | 2020-06-26 11:34 | CCD | Continuity of Care Document ---
Author Author Omero KEE M.D. Organization Unknown Address [address] [place] [id number] Phone [phone] Care Team Providers Care Jacquard Card Cutter Name Role Phone Anderson Kee M.D. AUTM [phone] [facility] AUTM [facility] Dermatology AUTM [phone] [facility] Urology Clinic AUTM [phone] Ra Gage MD AUTM [phone] [facility] Sleep Center AUTM [phone] [facility] [phone] [facility] AUTM Problems Active Problems Provider Date [...] SIG Qnty Indications Ordering Provide r Date Bacitracin (External) 500Unit/GM O intment apply thin layer twice a day to open area on scalp and face for 14 days and as needed 56.8gm S01.00xD Anderson Kee MD 06/03/2020 Sulfamethoxazole-Trimethoprim 400-80mg Tablets 1 tab po bid 20tabs L03.811 Anderson Kee MD 06/03/19 21 Levothyroxine Sodium 25mcg Tablets 1 tab by [...] Succinate ER 50mg Tablets ER 24HR Take 1 Tablet By Mouth Once Daily Unkno wn Torsemide 20mg Tablets Take 5 Tablets By Mouth daily Unknown Spironolactone 25mg Tablets d aily po Unknown History Medications Alprazolam 0.25mg Tablets 1 tab by mouth at night as needed 14tabs G47.00 Anderson Kee MD 0 - 06/03/2020 Zaleplon 5mg Capsules 1 tab by mouth every night at bedtime as needed 30caps G47.9 Anderson Kee MD 1 06/14/2019 - 05/12/2020 Hydroxyzine HCL 10mg Tablets take 1 or 2 tabs by mouth every 6 hours as needed for panic/anxiety or 1-2 tabs at bedtime for sleep 90tabs G47.00 Anderson Kee MD 01/08/2020 - 04/13/2020 Immunizations CPT Code Status Date Vaccine Lot # [id number] Given 04/13/2020 Influenza (>= 6 Months) P.F. Vaccine [id number] Given 05/05/2019 Influenza (>= 6 Months) P.F. Vaccine [id number] Vital Signs Date Vital Result Comment 06/03/2020 3:53pm BP Systolic 120 mmHg BP Diastolic 70 mmHg Heart Rate 64 /min Body Temperature 97.2 F Respiratory Rate 18 /min O2 % BldC Oximetry 97 % Weight 178.00 lb Weight 80.741 kg Height 66 inches 5'6" BMI (Body Mass Index) 28.7 kg/m2 BSA (Body Surface Area) 1.90 m2 05/12/2020 8:53am BP Systolic 98 mmHg BP Diastolic 58 mmHg Heart Rate 68 /min Body Temperature 97.3 F Respiratory Rate 18 /min O2 % BldC Oximetry 92 % Weight 179.00 lb Weight 81.194 kg Height 66 inches 5'6" BMI (Body Mass Index) 28.9 kg/m2 BSA (Body Surface Area) 1.91 m2 Results Test Acquired Date Facility Test Result H/L Range Note CBC W/Automated Diff 06/03/2020 [facility] CBC W/Automated Diff (SEE NOTE) 1, 2 WBC 11.8 10^3/uL High 4.2 - 11.0 RBC 4.94 10^6/uL 4.50 - 6.30 Hemoglobin 16.7 g/dL High 14.0 - 16.0 Hematocrit 48.6 % 41.0 - 51.0 MCV 98.4 fL High 80.0 - 94.0 MCH 33.8 pg 27.0 - 34.0 MCHC 34.4 g/dL 31.0 - 36.0 RDW 17.0 % High 11.5 - 14.8 Platelets 185 10^3/uL 150 - 450 MPV 12.0 fL High 7.4 - 10.4 Neut 73.6 % 37.0 - 80.0 Lymph 16.5 % Low 25.0 - 40.0 [place] 8.2 % High 3.0 - 8.0 Eos 0.6 % 0.0 - 7.0 Baso 0.3 % 0.0 - 2.0 %Ig 0.8 % High 0.0 - 0.0 %NRBC 0.0 % 0.0 - 0.0 #Neut 8.72 10^3/uL High 2.00 - 6.90 #Lymph 1.95 10^3/uL 0.60 - 3.40 #[place] 0.97 10^3/uL High 0.00 - 0.90 #Eos 0.07 10^3/uL 0.00 - 0.70 #Baso 0.04 10^3/uL 0.00 - 0.20 #Ig 0.09 10^3/uL 0.00 - 0.10 #NRBC 0.00 10^3/uL 0.00 - 0.00 Manual Diff NOT INDICATED RBC Morph NOT INDICATED Comprehensive Metabolic Panel 06/03/2020 [facility] Comprehensive Metabo (SEE NOTE) 3 Sodium 129 mEq/L Low 134 - 153 Potassium 3.8 mEq/L 3.6 - 5.0 Chloride 86 mEq/L Low 98 - 107 Co2 30 mEq/L 22 - 30 Glucose 98 mg/dL 70 - 99 BUN 45 mg/dL High 7 - 21 Creatinine 1.3 mg/dL 0.7 - 1.5 BUN/Creat 35 High 8 - 27 Total Protein 6.0 g/dL Low 6.3 - 8.2 Albumin 4.5 g/dL 3.9 - 5.0 Globulin 1.5 GM/DL Low 2.4 - 3.2 A/G Ratio 3.0 High 0.8 - 2.0 Calcium 9.0 mg/dL 8.4 - 10.2 Total Bili 4.9 mg/dL High 0.2 - 1.3 Alkaline Phos 199 U/L High 38 - 126 Sgot/Ast 66 U/L High 5 - 40 SGPT/Alt 59 U/L High 7 - 56 Anion Gap 13.0 mmol/L 8.0 - 16.0 Age 55 yrs Non-Aa GFR 60 mL/min Afr Amer GFR >60 mL/min 4 CBC With Differential 05/30/2020 [facility] White Blood Count 17.9 10 High 4.0-10.0 Red Blood Count 4.94 10 Normal 4.30-6.10 Hemoglobin 16.1 g/dL Normal 13.5-17.5 Hematocrit 49.3 % Normal 42.0-52.0 Mean Corpuscular Volume 99.8 fl High 80.0-96.0 Mean Corpuscular Hemoglobin 32.6 pg Normal 27.0-33.0 Mean Corpuscular HGB Conc 32.7 g/dL Normal 32.0-36.5 Red Cell Distribution Width 16.9 % High 11.5-14.5 Platelet Count, Automated 198 10 Normal 150-450 Neutrophils % 76.0 % High 36.0-66.0 Lymph % 12.4 % Low 24.0-44.0 [place] % 9.6 % High 0.0-5.0 Eos % 0.1 % Normal 0.0-3.0 Baso % 0.2 % Normal 0.0-1.0 Immature Granulocyte % 1.7 % Normal 0-3.0 Nucleated Red Blood Cell % 0.0 % Normal 0-0 Neutrophils # 13.6 10 High 1.5-8.5 Lymph # 2.2 10 Normal 1.5-5.0 [place] # 1.7 10 High 0.0-0.8 Eos # 0.0 10 Normal 0.0-0.5 Baso # 0.0 10 Normal 0.0-0.2 Basic Metabolic Profile 05/30/2020 [facility] Glucose, Fasting 95 mg/dL Normal 70-100 Blood Urea Nitrogen 41 mg/dL High 7-18 Creatinine For GFR 1.64 mg/dL High 0.70-1.30 Glomerular Filtration Rate 46.3 Low >56 5 Sodium Level 129 mEq/L Low 136-145 Potassium Serum 3.9 mEq/L Normal 3.5-5.1 Chloride Level 88 mEq/L Low 98-107 Carbon Dioxide Level 31 mEq/L Normal 21-32 Anion Gap 10 mEq/L Normal 8-16 Calcium Level 9.5 mg/dL Normal 8.5-10.1 Laboratory test finding 05/30/2020 [facility] NT-Pro BNP 60944 pg/mL High <125 Laboratory test finding 05/15/2020 [facility] Partial Thromboplastin Time 34.4 seconds Normal 24.2-38.5 D-Dimer Quant 3164.75 ng/ml High <500 Prothrombin Time/Inr 05/15/2020 [facility] Prothrombin Time 19.3 seconds High 12.5-14.3 Inr 1.59 Normal 6 Laboratory test finding 05/15/2020 [facility] Magnesium Level 2.2 mg/dL Normal 1.8-2.4 NT-Pro BNP 6851 pg/mL High <125 Thyroid Stimulating Hormone 5.830 uIU/ML High 0.358-3.740 Free T4 1.25 ng/dL Normal 0.76-1.46 Basic Metabolic Profile 05/15/2020 [facility] Glucose, Fasting 115 mg/dL High 70-100 Blood Urea Nitrogen 22 mg/dL High 7-18 Creatinine For GFR 1.21 mg/dL Normal 0.70-1.30 Glomerular Filtration Rate > 60.0 Normal >56 7 Sodium Level 134 mEq/L Low 136-145 Potassium Serum 4.7 mEq/L Normal 3.5-5.1 8 Chloride Level 96 mEq/L Low 98-107 Carbon Dioxide Level 31 mEq/L Normal 21-32 Anion Gap 7 mEq/L Low 8-16 Calcium Level 8.6 mg/dL Normal 8.5-10.1 Liver Profile 05/15/2020 [facility] Ast/Sgot 60 U/L High 7-37 Alt/SGPT 27 U/L Normal 12-78 Alkaline Phosphatase 189 U/L High 45-117 Bilirubin,Total 2.7 mg/dL High 0.2-1.0 Bilirubin,Direct 0.8 mg/dL High 0.0-0.2 Total Protein 6.6 GM/DL Normal 6.4-8.2 Albumin 3.7 GM/DL Normal 3.2-5.2 Albumin/Globulin Ratio 1.3 Normal Cardiac Marker Panel 05/15/2020 [facility] CPK Creatine Phosphokinase 153 U/L Normal 39-308 CK-MB Value Mass 2.9 NG/ML Normal <3.6 MB/CK Relative Index 1.90 Normal < Or =4 9 Troponin I 0.48 NG/ML High < 0.10 10 Laboratory test finding 05/15/2020 [facility] Ammonia 44 uMOL/L High <32 CBC With Differential 05/15/2020 [facility] White Blood Count 9.8 10 [...] 36.0-66.0 Lymph % 12.9 % Low 24.0-44.0 [place] % 8.6 % High 0.0-5.0 Eos % 1.3 % Normal 0.0-3.0 Baso % 0.6 % Normal 0.0-1.0 Immature Granulocyte % 0.4 % Normal 0-3.0 Nucleated Red Blood Cell % 0.0 % Normal 0-0 Neutrophils # 7.5 10 Normal 1.5-8.5 Lymph # 1.3 10 Low 1.5-5.0 [place] # 0.8 10 Normal 0.0-0.8 Eos # 0.1 10 Normal 0.0-0.5 Baso # 0.1 10 Normal 0.0-0.2 Cardiac Marker Panel 05/15/2020 [facility] CPK Creatine Phosphokinase 114 U/L Normal 39-308 CK-MB Value Mass 2.9 NG/ML Normal <3.6 MB/CK Relative Index 2.54 Normal < Or =4 11 Troponin I 0.45 NG/ML High < 0.10 12 Sedimentation Rate 05/12/2020 [facility] Sed Rate 9 mm/hr 0 - 20 13 Sed Rate Reenter 9 Laboratory test finding 05/12/2020 [facility] Basia Ifa Negative 14 Ceruloplasmin 43.2 mg/dL High 16.0-31.0 Copper Plasma 189 g/dL High 72-166 15 SLE Profile C 05/12/2020 [facility] SLE Profile C (SEE NOTE) 16 Sjogren's Anti-SS-A <0.2 AI 0.0-0.9 Sjogren's Anti-SS-B <0.2 AI 0.0-0.9 BIOLOGY ADJUNCT INSTRUCTOR Antibodies <0.2 AI 0.0-0.9 Lala Antibodies <0.2 AI 0.0-0.9 Anti-Dna (DS) Ab Qn <1 IU/mL 0-9 17 Laboratory test finding 05/12/2020 [facility] Iron 138 g/dL High 42 - 135 Comprehensive Metabolic Panel 05/12/2020 [facility] Comprehensive Metabo (SEE NOTE) 18 Sodium 131 mEq/L Low 134 - 153 [...] 60 mL/min Afr Amer GFR >60 mL/min 19 Laboratory test finding 05/12/2020 [facility] TSH Highly Sensitive 8.48 uIU/mL High 0.47 - 5.01 T4 - Free 1.42 ng/dL 0.93 - 1.70 Alpha 1 Anti-Trypsin 220 mg/dL High 101-187 Thyroid Antibodies 05/12/2020 [facility] Thyroid Peroxidase (Tpo)Ab <9 IU/mL 0-34 Thyroglobulin Antibody <1.0 IU/mL 0.0-0.9 20 Laboratory test finding 05/06/2020 [facility] CPK Creatine Phosphokinase 85 U/L Normal 39-308 Thyroid Stimulating Hormone 7.280 uIU/ML High 0.358-3.740 Acetylcholine Rcptor Binding A < 0.03 nmol/L Normal 0.00-0.24 21 Striational Antibodies Negative Normal Neg:<1:40 22 MuSK Antibody <1.0 U/mL Normal . 23 Voltage-Gated Calcium Channel Negative Normal Negative 24 Cardiac Marker Panel 04/23/2020 [facility] CPK Creatine Phosphokinase 115 U/L Normal 39-308 CK-MB Value Mass 4.2 NG/ML High <3.6 MB/CK Relative Index 3.65 Normal < Or =4 25 Troponin I 0.53 NG/ML High < 0.10 26 Basic Metabolic Panel 04/19/2020 [facility] Basic Metabolic Pane (SEE NOTE) 27 Sodium 138 mEq/L 134 - 153 Potassium [...] GFR >60 mL/min Non-Aa GFR >60 mL/min 28 Laboratory test finding 04/14/2020 [facility] Hereditary Hemochromatosis (SEE NOTE) Normal . 2 9 Basic Metabolic Profile 04/14/2020 [facility] Glucose, Fasting 94 mg/dL Normal 70-100 Blood Urea Nitrogen 48 mg/dL High 7-18 Creatinine For GFR 1.47 mg/dL High 0.70-1.30 Glomerular Filtration Rate 52.8 Low >56 3 0 Sodium Level 132 mEq/L Low 136-145 Potassium Serum 4.0 mEq/L Normal 3.5-5.1 Chloride Level 98 mEq/L Normal 98-107 Carbon Dioxide Level 27 mEq/L Normal 21-32 Anion Gap 7 mEq/L Low 8-16 Calcium Level 8.8 mg/dL Normal 8.5-10.1 Laboratory test finding 04/13/2020 [facility] CRP (High Sensitivity) 65.15 mg/L High 1.00 - 3.00 31, 3 2 Comprehensive Metabolic Panel 04/13/2020 [facility] Comprehensive Metabo (SEE NOTE) 33 Sodium 129 mEq/L Low 134 - 153 [...] 56 mL/min Afr Amer GFR >60 mL/min 34 Laboratory test finding 04/13/2020 [facility] TSH Highly Sensitive 6.78 uIU/mL High 0.47 - 5.01 Vitamin B12 Serum 767 pg/mL 232 - 1245 Basia Ifa Negative 35 Hgba1c 6.4 % High 4.4 - 6.1 36 Hep C Antibody With Reflex Quant PCR <0.1 s/coratio 0. 0-0.9 Iron 126 g/dL 42 - 135 Pro-BNP 9711 pg/mL High 0 - 125 Methylmalonic Acid 04/13/2020 [facility] Methylmalonic Acid, Serum 397 nmol/L High 0-378 Disclaimer: COMMENT 37 Lyme Disease Antibodies 04/13/2020 [facility] Lyme IgG/IgM Ab <0.91 ISR 0.00-0.90 38 Lyme Disease Ab, Quant,IgM <0.80 index 0.00-0.79 3 9 SLE Profile C 04/13/2020 [facility] Sjogren's Anti-SS-A <0.2 AI 0.0-0.9 Sjogren's Anti-SS-B <0.2 AI 0.0-0.9 BIOLOGY ADJUNCT INSTRUCTOR Antibodies <0.2 AI 0.0-0.9 Lala Antibodies <0.2 AI 0.0-0.9 Anti-Dna (DS) Ab Qn <1 IU/mL 0-9 40 Sedimentation Rate 04/13/2020 [facility] Sed Rate 5 mm/hr 0 - 20 Sed Rate Reenter 5 Prothrombin Time/Inr 03/25/2020 [facility] Prothrombin Time 15.7 seconds High 12.5-14.3 Inr 1.22 Normal 41 Laboratory test finding 02/18/2020 [facility] Creatinine,Random Urine 75.0 mg/dL Normal Sodium,Random Urine 82 mEq/L Normal CBC With Differential 02/18/2020 [facility] White Blood Count 9.5 10 [...] 36.0-66.0 Lymph % 23.7 % Low 24.0-44.0 [place] % 10.4 % High 0.0-5.0 Eos % 1.9 % Normal 0.0-3.0 Baso % 0.5 % Normal 0.0-1.0 Immature Granulocyte % 0.4 % Normal 0-3.0 Nucleated Red Blood Cell % 0.0 % Normal 0-0 Neutrophils # 6.0 10 Normal 1.5-8.5 Lymph # 2.3 10 Normal 1.5-5.0 [place] # 1.0 10 High 0.0-0.8 Eos # 0.2 10 Normal 0.0-0.5 Baso # 0.1 10 Normal 0.0-0.2 Basic Metabolic Profile 02/18/2020 [facility] Glucose, Fasting 86 mg/dL Normal 70-100 Blood Urea Nitrogen 33 mg/dL High 7-18 Creatinine For GFR 1.26 mg/dL Normal 0.70-1.30 Glomerular Filtration Rate > 60.0 Normal >56 4 2 Sodium Level 136 mEq/L Normal 136-145 Potassium Serum 4.3 mEq/L Normal 3.5-5.1 Chloride Level 99 mEq/L Normal 98-107 Carbon Dioxide Level 29 mEq/L Normal 21-32 Anion Gap 8 mEq/L Normal 8-16 Calcium Level 9.2 mg/dL Normal 8.5-10.1 Laboratory test finding 02/18/2020 [facility] Phosphorus Level 3.6 mg/dL Normal 2.5-4.9 Magnesium Level 2.2 mg/dL Normal 1.8-2.4 1 .~.~<DG1.3.1>S01.00XD</DG1.3 .1><DG1.3.1>S01.00XD</DG1.3.1> Is patient fasting? N~.~.~<DG1.3.1>S01.00XD</DG1.3.1><DG1.3.1>S01.00XD</DG1.3.1> 2 COMPLETE BLOOD COUNT 3 COMPREHENSIVE METABOLIC PANE L 4 Male GFR Interprentation 20-49 yrs >60 mL/min Normal 50-59 yrs >56 mL/min Normal 60-69 yrs >49 mL/min Normal 70-79yrs >42 mL/min Normal 80 and above >35 mL/min Normal Female GFR Interpretation 20-39 yrs >60 mL/min Normal 40-49 yrs >58 mL/min Normal 50-59 yrs >51 mL/min Normal 60-69 yrs >45 mL/min Normal 70-79 yrs >39 mL/min Normal 80 and above >32 mL/min Normal 5 Units are mL/min/1.73 m2 Chronic Kidney Disease Staging per NKF: Stage I & II GFR >=60 Normal to Mildly Decreased Stage III GFR 30-59 Moderately Decreased Stage IV GFR 15-29 Severely Decreased Stage V GFR <15 Very Little GFR Left ESRD GFR <15 on LLAMA FARMER 6 THERAPUTIC HUMAN INR VALUES INDICATIONS NORMAL RANGES PROPHYLAXIS/TREATMENT OF: VENOUS THROMBOSIS 2.0-3.0 PULMONARY EMBOLISM 2.0-3.0 PREVENTION OF SYSTEMIC EMBOLISM FROM: TISSUE HEART VALVES 2.0-3.0 ACUTE MYOCARDIAL INFARCTION 2.0-3.0 VALVULAR HEART DISEASE 2.0-3.0 ATRIAL FIBRILLATION 2.0-3.0 MECHANICAL VALVES(HIGH RISK) 2.5-3.5 RECURRENT MYOCARDIAL INFARCTION 2.5-3.5 7 Units are mL/min/1.73 m2 Chronic Kidney Disease Staging per NKF: Stage I & II GFR >=60 Normal to Mildly Decreased Stage III GFR 30-59 Moderately Decreased Stage IV GFR 15-29 Severely Decreased Stage V GFR <15 Very Little GFR Left ESRD GFR <15 on LLAMA FARMER 8 Testing was performed on a h emolysed specimen. Suggest recollection of specimen for more accurate test results. 9 DIAGNOSIS CRITERIA MMB ng/ml Relative Index (RI) NON-AMI < or = 5 N/A ORTIZ ZONE > 5 < or = 4 AMI > 5 > 4 10 Troponin I Reference Interva l for [employer]ens [place] LOCI: 99th Percentile= 0.00-0.045 ng/ml Risk Stratification: <= 0.10 ng/ml Decreased Risk for Adverse Clinical Events. 0.10-1.50 ng/ml Increased Risk for Adv erse Clinical Events. Evaluation of additional criterion and/or repeat testing in 2-6 hours is suggested to rule out myocardial damage. >= 1.50 ng/ml Indicative of Myocardial Injury. 11 DIAGNOSIS CRITERIA MMB ng/ml Relative Index (RI) NON-AMI < or = 5 N/A ORTIZ ZONE > 5 < or = 4 AMI > 5 > 4 12 Troponin I Reference Interva l for Siemens [place] LOCI: 99th Percentile= 0.00-0.045 ng/ml Risk Stratification: <= 0.10 ng/ml Decreased Risk for Adverse Clinical Events. 0.10-1.50 ng/ml Increased Risk for Adv erse Clinical Events. Evaluation of additional criterion and/or repeat testing in 2-6 hours is suggested to rule out myocardial damage. >= 1.50 ng/ml Indicative of Myocardial Injury. 13 Is patient fasting? N 14 Negative <1:80 Borderline 1:80 Positive >1:80 15 Detection Limit = 5 Effective May 17, 2020 the reference interval for [id number] Copper, Serum will be changing to: Age [...] 146 > 18 years 80 - 158 16 Test(s) [id number], Serum was developed and its performance characteristics determined by [facility]. It has not been cleared or approved by the Food and Drug Administration. 17 Negative <5 Equivocal 5 - 9 Positive >9 18 COMPREHENSIVE METABOLIC PANE L 19 Male GFR Interprentation 20-49 yrs >60 [...] 80 and above >32 mL/min Normal 20 Thyroglobulin Antibody measu red by [facility] [employer] 21 Negative: 0.00 - 0.24 Borderline: 0.25 - 0.40 Positive: >0.40 22 Performed at: [facility] [address] [place] [id number] [employer]ger [employer] Gluer: Reed Guadarrama MD, Phone: [phone] Performed at: [facility] [address] [id number] [employer] Gluer: Mary Oliviera MD, Phone: [phone] Performed at: [facility] [id number] [employer]ger [employer] Gluer: June Mo MD, Phone: [phone] Reference Range: Negative: <1.0 Positive: 1.0 or [...] be useful to follow treatment. References: 1. Robi S et al. J Autoimmunity 2014;52:90-100. 2. Tee SEBASTIAN et al. PNAS 2013;110(58); 37142-94734. 3. Gini Riggins et al. Neurology 2006;6 7:505-507. This test was developed and its performance characteristics determined by [facility]. It has not been cleared or approved by the Food and Drug Administration. 24 Results for this test are fo r research purposes only by the assay's cancer registry coordinator. The performance characteristics of this product have not been established. Results should not be used as a diagnostic procedure without confirmation of the diagnosis by another medically established diagnostic product or procedure. 25 DIAGNOSIS CRITERIA MMB ng/ml Relative Index (RI) NON-AMI < or = 5 N/A ORTIZ ZONE > 5 < or = 4 AMI > 5 > 4 26 Troponin I Reference Interva l for Siemens [employer] LOCI: 99th Percentile= 0.00-0.045 ng/ml Risk Stratification: <= 0.10 ng/ml Decreased Risk for Adverse Clinical Events. 0.10-1.50 ng/ml Increased Risk for Adv erse Clinical Events. Evaluation of additional criterion and/or repeat testing in 2-6 hours is suggested to rule out myocardial damage. >= 1.50 ng/ml Indicative of Myocardial Injury. 27 BASIC METABOLIC PANEL 28 Male GFR Interprentation 20-49 yrs >60 mL/min Normal 50-59 yrs >56 mL/min Normal 60-69 yrs >49 mL/min Normal 70-79yrs >42 mL/min Normal 80 and above >35 mL/min Normal Female GFR Interpretation 20-39 yrs >60 mL/min Normal 40-49 yrs >58 mL/min Normal 50-59 yrs >51 mL/min Normal 60-69 yrs >45 mL/min Normal 70-79 yrs >39 mL/min Normal 80 and above >32 mL/min Normal 29 Result: CARRIER Single mutation (S65C) identified . Interpretation: This patient's sample was analyzed for the hereditary hemochromatosis (HH) mutations C282y, H63D, and S65C. A single copy of S65C was identified. Results for C282Y and H63D were negative. 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 Approximately 1 in 9 Caucasians are a carrier of HH. The mutations analyzed by [facility] are most common in the population. Because [...] and Boni AP. (2000). Luciana Test 4:97-101. Jami MILTON et al. (1999). AM J Prev Med 16:134-140. Boamy A (2002). Lancet 360(2933):1673-41. Jyoti Ordoñez et al. (2002). Blood Cells, Molecules. and Diseases. 29(3):418-432. Ralph Guido et al. (2003). Luciana Med. 5(1):1-8. Jami MILTON et al. (2003). Luciana Med. 5(4):304-10. . This test was developed and its performance characteristics determined by [facility]. It has not been cleared or approved by the Food and Drug Administration. . Genetic counselors are available for health care providers to discuss results at [phone]. . Kelsey Gutiérrez, PhD, FACMG Rena Huang, PhD, FACMG Tawanda Sanchez, PhD, FACMG Rubi Montilla, PhD, FACMG Marci Johnson, PhD, FACMG Isauro Goodrich, PhD, FACMG Performed at: [facility] [address] [place], [place] [address] 338 [employer]ger [employer] Gluer: Rios Robin [facility], Phone: [phone] Units are mL/min/1.73 m2 Chronic Kidney Disease Staging per NKF: Stage I & II GFR >=60 Normal to Mildly Decreased Stage III GFR 30-59 Moderately Decreased Stage IV GFR 15-29 Severely Decreased Stage V GFR <15 Very Little GFR Left ESRD GFR <15 on LLAMA FARMER 31 Is patient fasting? N FAX R ESULTS TO [facility] [phone] FAX RESULTS TO [facility] [phone] FAX RESULTS TO [facility] [phone] FAX RESULTS TO [facility] [phone] FAX RESULTS TO [facility] [phone] FAX RESULTS TO [facility] [phone] Is patient fasting? N~FAX RESULTS TO [facility] [phone] FAX RESULTS TO [facility] [phone] FAX RESULTS TO [facility] [phone] FAX RESULTS TO [facility] [phone] FAX [facility]ULTS TO [facility] [phone] FAX RESULTS TO [facility] [phone] 32 [facility]/S HS-CRP CUT-OFF: RELATIVE RISK: <1.0 mg/L Low 1.0 - 3.0 mg/L A verage >3.0 mg/L High Optimally, the average of HS-CRP results repeated two weeks apart should be used for risk assessment. 33 COMPREHENSIVE METABOLIC PANE L 34 Male GFR Interprentation 20-49 yrs >60 mL/min Normal 50-59 yrs >56 mL/min Normal 60-69 yrs >49 mL/min Normal 70-79yrs >42 mL/min Normal 80 and above >35 mL/min Normal Female GFR Interpretation 20-39 yrs >60 mL/min Normal 40-49 yrs >58 mL/min Normal 50-59 yrs >51 mL/min Normal 60-69 yrs >45 mL/min Normal 70-79 yrs >39 mL/min Normal 80 and above >32 mL/min Normal 35 Negative <1:80 Borderline 1:80 Positive >1:80 36 {A1] {HB] 37 This test was developed and its performance characteristics determined by [facility]. It has not been cleared or approved by the Food and Drug Administration. 38 Negative <0.91 Equivocal 0.91 - 1.09 Positive >1.09 39 Negative <0.80 Equivocal 0.80 - 1.19 Positive >1.19 IgM levels may peak at 3-6 weeks post infection, then gradually decline. 40 Negative <5 Equivocal 5 - 9 Positive >9 41 THERAPUTIC HUMAN INR VALUES INDICATIONS NORMAL RANGES PROPHYLAXIS/TREATMENT OF: VENOUS THROMBOSIS 2.0-3.0 PULMONARY EMBOLISM 2.0-3.0 PREVENTION OF SYSTEMIC EMBOLISM FROM: TISSUE HEART VALVES 2.0-3.0 ACUTE MYOCARDIAL INFARCTION 2.0-3.0 VALVULAR HEART DISEASE 2.0-3.0 ATRIAL FIBRILLATION 2.0-3.0 MECHANICAL VALVES(HIGH RISK) 2.5-3.5 RECURRENT MYOCARDIAL INFARCTION 2.5-3.5 42 Units are mL/min/1.73 m2 Chronic Kidney Disease Staging per NKF: Stage I & II GFR >=60 Normal to Mildly Decreased Stage III GFR 30-59 Moderately Decreased Stage IV GFR 15-29 Severely Decreased Stage V GFR <15 Very Little GFR Left ESRD GFR <15 on LLAMA FARMER Procedures Description No Information Available Medical Devices Description No Information Available Encounters Description No Information Available Assessments Date Code Description Provider 06/03/2020 S01.00xD Unspecified open wound of scalp, subsequent encounter Anderson Kee MD 06/03/2020 L03.811 Cellulitis of head [any part, ex cept face] Anderson Kee MD 05/12/2020 G47.00 Insomnia, unspecified Anderson Kee MD [...] unspecified Raciel Kee MD 04/13/2020 G47.00 Insomnia, carmelified Anderson Kee MD 04/13/2020 G62.9 Polyneuropathy, unspecified Daniel Kee MD 04/13/2020 G47.9 Sleep disorder, unspecified Daniel Kee MD 04/13/2020 I48.0 Paroxysmal atrial fibrillation Sherrie Kee MD 01/08/2020 I10 Essential (primary) hypertension Anderson Kee MD 01/08/2020 I50.9 Heart failure, unspecified Raciel Kee MD 01/08/2020 K74.60 Unspecified cirrhosis of liver H ed Kee MD 01/08/2020 G47.00 Insomnia, unspecified Anderson Kee MD Plan of Treatment Future Appointment(s):* 07/12/2020 7:00 am - Anderson Kee MD at [facility] 06/03/2020 - Anderson Kee MD* S01.00xD Unspecified open wound of scalp, subsequent encounter* New Medication:* Bacitracin (External) 500 Unit/GM - apply thin layer twice a day to open area on scalp and face for 14 days and as needed * Comments:* Prescribed Bacitracin ointment to apply thin layer twice daily on open area of the scalp and face for 14 days. We will refer him to Dermatology for further evaluation and treatment. * Referral:* [facility] Practition[facility], * L03.811 Cellulitis of head [any part, except face]* New Medication:* Sulfamethoxazole-Trimethoprim 400-80 mg - 1 tab po bid * Comments:* Prescribed Sulfamethoxazole-Trimethoprim 400-80 mg 1 tablet p.o. b.i.d. Functional Status Description No Information Available Mental Status Description No Information Available Referrals Refer to Reason for Referral Status Appt Date [facility] Practition[facility] 55 y/o M with open area o n scalp and face, pls eval and treat. [address] [place] [address] [phone] Kennedy, Monsepablo 55 y/o M with elevated liver function and ? hx of cirrhosis vs grade 3 fibrosis. Eval and treat. Closed [address] [place] [address] [phone] [facility] 54 y/o male with multiple actinic keratosis in the scalp, possible basal cell, pls eval and treat. [address] [place] [address] [phone] Kaden Adame 54 y/o M with hx of sleep di sorder and lower extremity weakness. He is having difficulty with climbing stairs and states his legs feels heavy. He is also gets SOB easily which can not be explained by his cardiac or Lung health. His extension course coordinator does not think, his SOB likely due to his cardiac hx. He has hx of difficulty swallowing at times. He does not feels having restful sleep as well. He is being referred for sleep study as well as nerve conduction study of bilateral upper and lower extremities. Eval and treat. Closed 05/06/2020 [address] [place] [address] [phone] [facility] 54 y/o M with hx of breathin g difficulty, referred for PFT with and without albuterol. Closed 04/23/2020 [address] [place] [address] [phone] [facility] 54 y/o M with hx of heart failure, pls eval and treat. Closed 03/30/[address] [place], [place] [address] [phone]
[2020-06-26] MEDS ORDERED: POTA1TAB14 PO (11:35)
--- OUTSIDE RECORDS SUMMARY | 2020-06-26 11:35 | CCD | Continuity of Care Document ---
Author Author Omero MOSQUEDA MD Organization Unknown Address [address] [place] [id number] Phone [phone] Care Team Providers Care Computer Game Designer Name Role Phone Anderson Kee MD AUTM [phone] Christian Hurley MD AUTM Unavailable Problems Description [...] Available Procedures Date Code Description Status 05/27/2020 77760 X-Ray Shoulder Complete Complete d 05/27/2020 16272 Inject/Drain Joint/Bursa Major C ompleted Medical Devices Description No Information Available Encounters Type Date Location Provider Dx Diagnosis Office Visit 05/27/2020 8:15a [place] Jonatan Mosqueda MD M19.012 Primary osteoarthritis, left shoulder M75.42 Impingement syndrome of left shoulder Assessments Date Code Description Provider 05/27/2020 M19.012 Primary osteoarthritis, left arben li Mosqueda MD 05/27/2020 M75.42 Impingement syndrome of left arben ulder Jonatan Mosqueda MD Plan of Treatment Future Appointment(s):* 07/08/2020 10:00 am - [facility] [place] 05/27/2020 - Jonatan Mosqueda MD* M19.012 Primary osteoarthritis, left shoulder* Follow up:* with PA for lt shoulder re-check (mri if still in pain) 4-6 weeks * M75.42 Impingement syndrome of left shoulder Functional Status Description No Information Available Mental Status Description No Information Available Referrals Refer to Dr Reason for Referral Status Appt Date Jonatan Mosqueda MD NO AUTH REQUIRED FOR PT EVAL [id number]. PT GOING TO [facility]. PASSED TO CHART.HW Created [facility], [address] [place] [address] [phone]
--- OUTSIDE RECORDS SUMMARY | 2020-06-26 11:35 | CCD | Continuity of Care Document ---
Author Author Omero Sy Organization Unknown Address [address] [place] [address] Phone [phone] Care Team Providers Care Solar Project Manager Name Role Phone Anderson Kee M.D. AUTM [phone] Problems Active Problems Provider Date Central sleep [...] lb BMI (Body Mass Index) 27.4 kg/m2 [place] Body Weight 142 lb Results Test Acquired Date Facility Test Result H/L Range Note Laboratory test finding 05/06/2020 [facility] CPK Creatine Phosphokinase 85 U/L Normal 39-308 Thyroid Stimulating Hormone 7.280 uIU/ML High 0.358-3.740 Acetylcholine Rcptor Binding A < 0.03 nmol/L Normal 0.00-0.24 1 Striational Antibodies Negative Normal Neg:<1:40 2 MuSK Antibody <1.0 U/mL Normal . 3 Voltage-Gated Calcium Channel Negative Normal Negative 4 Laboratory test finding 04/13/2020 [facility] Hep C Antibody With Reflex Quant PCR <0.1 s/coratio 0. 0-0.9 5 Basia Ifa Negative 6 1 Negative: 0.00 - 0.24 Borderline: 0.25 - 0.40 Positive: >0.40 2 Performed at: [facility] [address] [place] [id number] Moss Bleacher: Reed Guadarrama MD, Phone: [phone] Performed at: [address] [id number] Moss Bleacher: Mary Oliveira MD, Phone: [phone] Performed at: [address] [id number] Moss Bleacher: June Mo MD, Phone: [phone] Reference Range: Negative: <1.0 Positive: 1.0 [...] 2014;52:90-100. 2. Tee SEBASTIAN et al. PNAS 2013;110(89); [address]2777-77[address]. 3. Gini E et al. Neurology 2006;6 7:505-507. This test was developed and its performance characteristics determined by [facility]. It has not been cleared or approved by the Food and Drug Administration. 4 Results for this test are fo r research purposes only by the assay's stack attendant. The performance characteristics of this product have not been established. Results should not be used as a diagnostic procedure without confirmation of the diagnosis by another medically established diagnostic product or procedure. 5 FAX RESULTS TO [facility] [id number] [phone] Negative <1:80 Borderline 1:80 Positive >1:80 Procedures Date Code Description Status 05/10/2020 35292 Nerve Conduction 11-12 Studies C ompleted 05/10/2020 28319 Needle Electromyography Complete , Five Or More Muscles Studied Completed 05/10/2020 32157 Needle Electromyography Complete , Five Or More Muscles Studied Completed Medical Devices Description No Information Available Encounters Type Date Location Provider Dx Diagnosis Office Visit 05/19/2020 12:45p Main office - BerylPramod [place] G47.31 Primary central sleep apnea R53.83 Other fatigue G47.14 Hypersomnia due to medical c ondition R53.1 Weakness R06.09 Other forms of dyspnea R26.81 Unsteadiness on feet G05.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 Plan of Treatment Future Appointment(s):* 08/24/2020 2:30 pm - Kaden Adame M.D. at [facility] * 07/12/2020 3:45 pm - EEG at [facility] * 06/16/2020 11:15 am - Ans/VS at [facility] Functional Status Description No Information Available Mental Status Description No Information Available Referrals Description No Information Available
--- OUTSIDE RECORDS SUMMARY | 2020-06-26 11:35 | CCD ---
Continuity of Care Document (CCD) Created on: 06/07/2020 Omero Ghotra External Reference #: [id number] : [id number] Sex: Male Author Author Omero KEE M.D. Organization Unknown Address [address] [place] [id number] Phone [phone] Care Team Providers Care Private Branch Exchange Repairer Name Role Phone Anderson Kee M.D. AUTM [phone] [facility] Dermatology AUTM [phone] [facility] Urology Clinic AUTM [phone] Ra Gage MD AUTM [phone] [facility] Sleep Center AUTM [phone] [facility] Gastroenterology AUTM [phone] [facility] [phone] [facility] AUTM [phone] Problems Active Problems Provider Date Essential [...] CPT Code Status Date Vaccine Lot # [id number] Given 04/13/2020 Influenza (>= 6 Months) P.F. Vaccine [id number] Given 05/05/2019 Influenza (>= 6 Months) P.F. [...] H/L Range Note CBC W/Automated Diff 06/03/2020 [facility] CBC W/Automated Diff (SEE NOTE) 1, 2 [...] Lymph 16.5 % Low 25.0 - 40.0 Kimble 8.2 % High 3.0 - 8.0 Eos 0.6 % 0.0 - 7.0 Baso 0.3 % 0.0 - 2.0 %Ig 0.8 % High 0.0 - 0.0 %NRBC 0.0 % 0.0 - 0.0 #Neut 8.72 10^3/uL High 2.00 - 6.90 #Lymph 1.95 10^3/uL 0.60 - 3.40 #Kimble 0.97 10^3/uL High 0.00 - 0.90 #Eos 0.07 10^3/uL 0.00 - 0.70 #Baso 0.04 10^3/uL 0.00 - 0.20 #Ig 0.09 10^3/uL 0.00 - 0.10 #NRBC 0.00 10^3/uL 0.00 - 0.00 Manual Diff NOT INDICATED RBC Morph NOT INDICATED Comprehensive Metabolic Panel 06/03/2020 [facility] Comprehensive Metabo (SEE NOTE) 3 Sodium [...] >60 mL/min 4 CBC With Differential 05/30/2020 [facility] White Blood Count 17.9 10 High [...] 36.0-66.0 Lymph % 12.4 % Low 24.0-44.0 Kimble % 9.6 % High 0.0-5.0 Eos % 0.1 % Normal 0.0-3.0 Baso % 0.2 % Normal 0.0-1.0 Immature Granulocyte % 1.7 % Normal 0-3.0 Nucleated Red Blood Cell % 0.0 % Normal 0-0 Neutrophils # 13.6 10 High 1.5-8.5 Lymph # 2.2 10 Normal 1.5-5.0 Kimble # 1.7 10 High 0.0-0.8 Eos # 0.0 10 Normal 0.0-0.5 Baso # 0.0 10 Normal 0.0-0.2 Basic Metabolic Profile 05/30/2020 [facility] Glucose, Fasting 95 mg/dL Normal 70-100 [...] mg/dL Normal 8.5-10.1 Laboratory test finding 05/30/2020 [facility] NT-Pro BNP 40867 pg/mL High <125 Laboratory test finding 05/15/2020 [facility] Partial Thromboplastin Time 34.4 seconds Normal 24.2-38.5 D-Dimer Quant 3164.75 ng/ml High <500 Prothrombin Time/Inr 05/15/2020 [facility] Prothrombin Time 19.3 seconds High 12.5-14.3 Inr 1.59 Normal 6 Laboratory test finding 05/15/2020 [facility] Magnesium Level 2.2 mg/dL Normal 1.8-2.4 NT-Pro BNP 6851 pg/mL High <125 Thyroid Stimulating Hormone 5.830 uIU/ML High 0.358-3.740 Free T4 1.25 ng/dL Normal 0.76-1.46 Basic Metabolic Profile 05/15/2020 [facility] Glucose, Fasting 115 mg/dL High 70-100 [...] 8.6 mg/dL Normal 8.5-10.1 Liver Profile 05/15/2020 [facility] Ast/Sgot 60 U/L High 7-37 Alt/SGPT 27 U/L Normal 12-78 Alkaline Phosphatase 189 U/L High 45-117 Bilirubin,Total 2.7 mg/dL High 0.2-1.0 Bilirubin,Direct 0.8 mg/dL High 0.0-0.2 Total Protein 6.6 GM/DL Normal 6.4-8.2 Albumin 3.7 GM/DL Normal 3.2-5.2 Albumin/Globulin Ratio 1.3 Normal Cardiac Marker Panel 05/15/2020 [facility] CPK Creatine Phosphokinase 153 U/L Normal 39-308 CK-MB Value Mass 2.9 NG/ML Normal <3.6 MB/CK Relative Index 1.90 Normal < Or =4 9 Troponin I 0.48 NG/ML High < 0.10 10 Laboratory test finding 05/15/2020 [facility] Ammonia 44 uMOL/L High <32 CBC With Differential 05/15/2020 [facility] White Blood Count 9.8 10 Normal [...] 36.0-66.0 Lymph % 12.9 % Low 24.0-44.0 Kimble % 8.6 % High 0.0-5.0 Eos % 1.3 % Normal 0.0-3.0 Baso % 0.6 % Normal 0.0-1.0 Immature Granulocyte % 0.4 % Normal 0-3.0 Nucleated Red Blood Cell % 0.0 % Normal 0-0 Neutrophils # 7.5 10 Normal 1.5-8.5 Lymph # 1.3 10 Low 1.5-5.0 Kimble # 0.8 10 Normal 0.0-0.8 Eos # 0.1 10 Normal 0.0-0.5 Baso # 0.1 10 Normal 0.0-0.2 Cardiac Marker Panel 05/15/2020 [facility] CPK Creatine Phosphokinase 114 U/L Normal 39-308 CK-MB Value Mass 2.9 NG/ML Normal <3.6 MB/CK Relative Index 2.54 Normal < Or =4 11 Troponin I 0.45 NG/ML High < 0.10 12 Sedimentation Rate 05/12/2020 [facility] Sed Rate 9 mm/hr 0 - 20 13 Sed Rate Reenter 9 Laboratory test finding 05/12/2020 [facility] Basia Ifa Negative 14 Ceruloplasmin 43.2 mg/dL High 16.0-31.0 Copper Plasma 189 g/dL High 72-166 15 SLE Profile C 05/12/2020 [facility] SLE Profile C (SEE NOTE) 16 Sjogren's Anti-SS-A <0.2 AI 0.0-0.9 Sjogren's Anti-SS-B <0.2 AI 0.0-0.9 CLASSICS PROFESSOR Antibodies <0.2 AI 0.0-0.9 Lala Antibodies <0.2 AI 0.0-0.9 Anti-Dna (DS) Ab Qn <1 IU/mL 0-9 17 Laboratory test finding 05/12/2020 [facility] Iron 138 g/dL High 42 - 135 Comprehensive Metabolic Panel 05/12/2020 [facility] Comprehensive Metabo (SEE NOTE) 18 Sodium [...] >60 mL/min 19 Laboratory test finding 05/12/2020 [facility] TSH Highly Sensitive 8.48 uIU/mL High 0.47 - 5.01 T4 - Free 1.42 ng/dL 0.93 - 1.70 Alpha 1 Anti-Trypsin 220 mg/dL High 101-187 Thyroid Antibodies 05/12/2020 [facility] Thyroid Peroxidase (Tpo)Ab <9 IU/mL 0-34 Thyroglobulin Antibody <1.0 IU/mL 0.0-0.9 20 Laboratory test finding 05/06/2020 [facility] CPK Creatine Phosphokinase 85 U/L Normal 39-308 Thyroid Stimulating Hormone 7.280 uIU/ML High 0.358-3.740 Acetylcholine Rcptor Binding A < 0.03 nmol/L Normal 0.00-0.24 21 Striational Antibodies Negative Normal Neg:<1:40 22 MuSK Antibody <1.0 U/mL Normal . 23 Voltage-Gated Calcium Channel Negative Normal Negative 24 Cardiac Marker Panel 04/23/2020 [facility] CPK Creatine Phosphokinase 115 U/L Normal 39-308 CK-MB Value Mass 4.2 NG/ML High <3.6 MB/CK Relative Index 3.65 Normal < Or =4 25 Troponin I 0.53 NG/ML High < 0.10 26 Basic Metabolic Panel 04/19/2020 [facility] Basic Metabolic Pane (SEE NOTE) 27 Sodium [...] >60 mL/min 28 Laboratory test finding 04/14/2020 [facility] Hereditary Hemochromatosis (SEE NOTE) Normal . 2 9 Basic Metabolic Profile 04/14/2020 [facility] Glucose, Fasting 94 mg/dL Normal 70-100 [...] mg/dL Normal 8.5-10.1 Laboratory test finding 04/13/2020 [facility] CRP (High Sensitivity) 65.15 mg/L High 1.00 - 3.00 31, 3 2 Comprehensive Metabolic Panel 04/13/2020 [facility] Comprehensive Metabo (SEE NOTE) 33 Sodium [...] >60 mL/min 34 Laboratory test finding 04/13/2020 [facility] TSH Highly Sensitive 6.78 uIU/mL High 0.47 - 5.01 Vitamin B12 Serum 767 pg/mL 232 - 1245 Basia Ifa Negative 35 Hgba1c 6.4 % High 4.4 - 6.1 36 Hep C Antibody With Reflex Quant PCR <0.1 s/coratio 0. 0-0.9 Iron 126 g/dL 42 - 135 Pro-BNP 9711 pg/mL High 0 - 125 Methylmalonic Acid 04/13/2020 [facility] Methylmalonic Acid, Serum 397 nmol/L High 0-378 Disclaimer: COMMENT 37 Lyme Disease Antibodies 04/13/2020 [facility] Lyme IgG/IgM Ab <0.91 ISR 0.00-0.90 38 Lyme Disease Ab, Quant,IgM <0.80 index 0.00-0.79 3 9 SLE Profile C 04/13/2020 [facility] Sjogren's Anti-SS-A <0.2 AI 0.0-0.9 Sjogren's Anti-SS-B <0.2 AI 0.0-0.9 CLASSICS PROFESSOR Antibodies <0.2 AI 0.0-0.9 Lala Antibodies <0.2 AI 0.0-0.9 Anti-Dna (DS) Ab Qn <1 IU/mL 0-9 40 Sedimentation Rate 04/13/2020 [facility] Sed Rate 5 mm/hr 0 - 20 Sed Rate Reenter 5 Prothrombin Time/Inr 03/25/2020 [facility] Prothrombin Time 15.7 seconds High 12.5-14.3 Inr 1.22 Normal 41 Laboratory test finding 02/18/2020 [facility] Creatinine,Random Urine 75.0 mg/dL Normal Sodium,Random Urine 82 mEq/L Normal CBC With Differential 02/18/2020 [facility] White Blood Count 9.5 10 Normal [...] 36.0-66.0 Lymph % 23.7 % Low 24.0-44.0 Kimble % 10.4 % High 0.0-5.0 Eos % 1.9 % Normal 0.0-3.0 Baso % 0.5 % Normal 0.0-1.0 Immature Granulocyte % 0.4 % Normal 0-3.0 Nucleated Red Blood Cell % 0.0 % Normal 0-0 Neutrophils # 6.0 10 Normal 1.5-8.5 Lymph # 2.3 10 Normal 1.5-5.0 Kimble # 1.0 10 High 0.0-0.8 Eos # 0.2 10 Normal 0.0-0.5 Baso # 0.1 10 Normal 0.0-0.2 Basic Metabolic Profile 02/18/2020 [facility] Glucose, Fasting 86 mg/dL Normal 70-100 [...] mg/dL Normal 8.5-10.1 Laboratory test finding 02/18/2020 [facility] Phosphorus Level 3.6 mg/dL Normal 2.5-4.9 Magnesium Level 2.2 mg/dL Normal 1.8-2.4 Liver Profile 12/10/2019 [facility] Ast/Sgot 38 U/L High 7-37 Alt/SGPT 42 U/L Normal 12-78 Alkaline Phosphatase 204 U/L High 45-117 Bilirubin,Total 3.0 mg/dL High 0.2-1.0 Bilirubin,Direct 0.9 mg/dL High 0.0-0.2 Total Protein 6.7 GM/DL Normal 6.4-8.2 Albumin 4.3 GM/DL Normal 3.2-5.2 Albumin/Globulin Ratio 1.8 Normal Basic Metabolic Profile 12/10/2019 [facility] Glucose, Fasting 88 mg/dL Normal 70-100 Blood Urea Nitrogen 27 mg/dL High 7-18 Creatinine For GFR 1.23 mg/dL Normal 0.70-1.30 Glomerular Filtration Rate > 60.0 Normal >56 4 3 Sodium Level 137 mEq/L Normal 136-145 Potassium Serum 4.2 mEq/L Normal 3.5-5.1 Chloride Level 102 mEq/L Normal 98-107 Carbon Dioxide Level 30 mEq/L Normal 21-32 Anion Gap 5 mEq/L Low 8-16 Calcium Level 9.3 mg/dL Normal 8.5-10.1 Laboratory test finding 12/10/2019 [facility] Alpha Fetoprotein Tumor Quant < 1.3 NG/ML Normal <8.1 44 1 .~.~<DG1.3.1>S01.00XD</DG1.3 .1><DG1.3.1>S01.00XD</DG1.3.1> Is patient fasting? N~.~.~<DG1.3.1>S01.00XD</DG1.3.1><DG1.3.1>S01.00XD</DG1.3.1> [...] Little GFR Left ESRD GFR <15 on TELEGRAPH MECHANIC 6 THERAPUTIC HUMAN INR VALUES INDICATIONS NORMAL [...] Little GFR Left ESRD GFR <15 on TELEGRAPH MECHANIC 8 Testing was performed on a h emolysed specimen. Suggest recollection of specimen for more accurate test results. 9 DIAGNOSIS CRITERIA MMB ng/ml Relative Index (RI) NON-AMI < or = 5 N/A ORTIZ ZONE > 5 < or = 4 AMI > 5 > 4 10 Troponin I Reference Interva l for [employer] LOCI: 99th Percentile= 0.00-0.045 ng/ml Risk Stratification: [...] 12 Troponin I Reference Interva l for [employer] LOCI: 99th Percentile= 0.00-0.045 ng/ml Risk Stratification: [...] May 17, 2020 the reference interval for [id number] Copper, Serum will be changing to: Age [...] 18 years 80 - 158 16 Test(s) [id number], Serum was developed and its performance characteristics determined by [facility]. It has not been cleared or approved [...] - 0.40 Positive: >0.40 22 Performed at: [facility] [address] [place] [id number] Pot Press Operator: Reed Guadarrama MD, Phone: [phone] Performed at: [address] [id number] Pot Press Operator: Mary Oliveira MD, Phone: [phone] Performed at: [facility] [id number] Pot Press Operator: June Mo MD, Phone: [phone] Reference Range: Negative: <1.0 Positive: 1.0 [...] be useful to follow treatment. References: 1. Darlingih-Anastacian S et al. J Autoimmunity 2014;52:90-100. 2. Tee SEBASTIAN et al. PNAS 2013;110(14); 01956-[address]507. 3. Gini E et al. Neurology 2006;6 7:505-507. This test was developed and its performance characteristics determined by [facility]. It has not been cleared or approved by the Food and Drug Administration. 24 Results for this test are fo r research purposes only by the assay's molder fitting. The performance characteristics of this product have [...] 26 Troponin I Reference Interva l for [employer] LOCI: 99th Percentile= 0.00-0.045 ng/ml Risk Stratification: [...] carrier of HH. The mutations analyzed by [facility] are most common in the population. Because [...] digestion analyses. . Reference: Poli JS and Walker AP. (2000). Luciana Test 4:97-101. Richmond ME et al. (1999). AM J Prev Med 16:134-140. oCy Powell (2002). Lancet 360(5567):1673-88. Jyoti Ordoñez et al. (2002). Blood Cells, Molecules. and Diseases. 29(3):418-432. Ralph Guido et al. (2003). Luciana Med. 5(1):1-8. Jami ME et al. (2003). Luciana Med. 5(4):304-10. . This test was developed and its performance characteristics determined by [facility]. It has not been cleared or approved by the Food and Drug Administration. . Genetic counselors are available for health care providers to discuss results at [phone]. . Kelsey Gutiérrez, PhD, FACMG Rena Huang, PhD, FACMG Tawanda Sanchez, PhD, FACMG Rubi Montilla, PhD, FACMG Marci Johnson, PhD, FACMG Isauro Goodrich, PhD, FACMG Performed at: [facility] [address] [place], [place] [address] 150 Pot Press Operator: Rios Robin [facility], Phone: [phone] Units are mL/min/1.73 m2 Chronic Kidney Disease Staging per NKF: Stage I & II GFR >=60 Normal to Mildly Decreased Stage III GFR 30-59 Moderately Decreased Stage IV GFR 15-29 Severely Decreased Stage V GFR <15 Very Little GFR Left ESRD GFR <15 on TELEGRAPH MECHANIC 31 Is patient fasting? N FAX R ESULTS TO [facility] [phone] FAX RESULTS TO [facility] [phone] FAX RESULTS TO [facility] [phone] FAX RESULTS TO [facility] [phone] FAX RESULTS TO [facility] [phone] FAX RESULTS TO [facility] [phone] Is patient fasting? N~FAX RESULTS TO [facility] [phone] FAX RESULTS TO [facility] [phone] FAX RESULTS TO [facility] [phone] FAX RESULTS TO [facility] [phone] FAX RESULTS TO [facility] [phone] FAX RESULTS TO [facility] [phone] [id number] CDC/S HS-CRP CUT-OFF: RELATIVE RISK: <1.0 mg/L [...] developed and its performance characteristics determined by [facility]. It has not been cleared or approved [...] Little GFR Left ESRD GFR <15 on TELEGRAPH MECHANIC 43 Units are mL/min/1.73 m2 Chronic Kidney Disease Staging per NKF: Stage I & II GFR >=60 Normal to Mildly Decreased Stage III GFR 30-59 Moderately Decreased Stage IV GFR 15-29 Severely Decreased Stage V GFR <15 Very Little GFR Left ESRD GFR <15 on TELEGRAPH MECHANIC 44 THE AFP ASSAY IS PERFORMED O N THE Reading RoomAUR BY CHEMILUMINESCENCE AND SHOULD NOT BE COMPARED INTERCHANGEABLY WITH OTHER METHODS. IT SHOULD NOT BE USED ALONE A SCREENING TEST OR DIAGNOSIS FOR THE PRESENCE OR ABSENCE OF MALIGNANT DISEASE. THESE RESULTS ARE NOT INTERPRETABLE IN FEMALES. PREDICTIONS OF DISEASE RECURRENCE SHOULD NOT BE BASED SOLELY ON VALUES OBTAINED FROM SERIAL PATIENT SERUM VALUES. Procedures Description No Information Available Medical Devices Description No Information Available Encounters Type Date Location Provider Dx Diagnosis Office Visit 06/03/2020 4:00p [facility] Anderson Kee MD S0 1.00xD Unspecified open wound of scalp, subsequent encounter L03.811 Cellulitis of head [any part , except face] Assessments Date Code Description Provider 06/03/2020 S01.00xD [...] MD 12/09/2019 K74.60 Unspecified cirrhosis of liver H ed Kee MD 12/09/2019 I50.9 Heart failure, unspecified Danieli k Felicia Kee MD 12/09/2019 E78.5 Hyperlipidemia, unspecified Daniel Kee MD 12/09/2019 I10 Essential (primary) hypertension Anderson Kee MD Plan of Treatment Future Appointment(s):* 07/12/2020 7:00 am - Anderson Kee MD at [facility] 06/03/2020 - Anderson Kee MD* S01.00xD Unspecified [...] for further evaluation and treatment. * Referral:* [facility] Nurse Practitioners, * L03.811 Cellulitis of head [any part, except face]* New Medication:* Sulfamethoxazole-Trimethoprim 400-80 mg - 1 tab po bid * Comments:* Prescribed Sulfamethoxazole-Trimethoprim 400-80 mg 1 tablet p.o. b.i.d. Functional Status Description No Information Available Mental Status Description No Information Available Referrals Refer to Reason for Referral Status Appt Date [facility] Nurse Practitioners 55 y/o M with open area o n scalp and face, pls eval and [place]. [place] [id number] [place] [address] [phone] [place], [employer] 55 y/o M with elevated liver function and ? hx of cirrhosis vs grade 3 fibrosis. Eval and treat. Closed [address] [facility] [address] [place] [address] [phone] [facility] Nurse Practitioners 54 y/o male with multiple actinic keratosis in the scalp, possible basal cell, pls eval and treat. [place] [phone] [place] [address] [phone] Kaden Adame 54 y/o M with hx of sleep di sorder and lower extremity weakness. He is having difficulty with climbing stairs and states his legs feels heavy. He is also gets SOB easily which can not be explained by his cardiac or Lung health. His folder inspector does not think, his SOB likely due to his cardiac hx. He has hx of difficulty swallowing at times. He does not feels having restful sleep as well. He is being referred for sleep study as well as nerve conduction study of bilateral upper and lower extremities. Eval and treat. Closed 05/06/2020 [address] [place] [address] [phone] [facility] 54 y/o M with hx of breathin g difficulty, referred for PFT with and without albuterol. Closed 04/23/2020 [address] [place], [place] [id number] [phone] [facility] 54 y/[facility] M with hx of heart failure, pls eval and treat. Closed 03/30/[address] [place] [address] [phone]
[2020-06-26 12:45] LABS: BASO % 0.3 % (0.0-1.0); EOS % 0.2 % (0.0-3.0); HEMATOCRIT 45.8 % (42.0-52.0); HEMOGLOBIN 16.1 g/dl (13.5-17.5); LYMPH # 0.8 10^3/uL (1.5-5.0); LYMPH % 6.4 % (24.0-44.0); MEAN CORPUSCULAR HEMOGLOBIN 32.7 pg (27.0-33.0); MEAN CORPUSCULAR HGB CONC 35.2 g/dl (32.0-36.5); MEAN CORPUSCULAR VOLUME 92.9 fl (80.0-96.0); MONO # 0.8 10^3/uL (0.0-0.8); MONO % 6.8 % (2.0-8.0); NEUTROPHILS # 10.5 10^3/uL (1.5-8.5); NEUTROPHILS % 85.3 % (36.0-66.0); PLATELET COUNT, AUTOMATED 225 10^3/uL (150-450); RED BLOOD COUNT 4.93 10^6/uL (4.30-6.10); WHITE BLOOD COUNT 12.3 10^3/uL (4.0-10.0)
[2020-06-26] MEDS ORDERED: KCL 10MEQ/100ML SWI (KRUN) 10 MEQ in IV 1 EA IV ONE (13:00)
[2020-06-26 13:01] LABS: ALBUMIN 3.8 GM/DL (3.2-5.2); ALT/SGPT 31 U/L (12-78); BILIRUBIN,DIRECT 1.8 MG/DL (0.0-0.2); BILIRUBIN,TOTAL 3.4 MG/DL (0.2-1.0); BLOOD UREA NITROGEN 50 MG/DL (7-18); CALCIUM LEVEL 9.9 MG/DL (8.5-10.1); CARBON DIOXIDE LEVEL 43 MEQ/L (21-32); CHLORIDE LEVEL 64 MEQ/L (98-107); CK-MB VALUE MASS 3.7 NG/ML (<3.6); CPK CREATINE PHOSPHOKINASE 105 U/L (39-308); CREATININE FOR GFR 1.17 MG/DL (0.70-1.30); FREE T4 1.47 NG/DL (0.76-1.46); GLOMERULAR FILTRATION RATE > 60.0 (>56); GLUCOSE, FASTING 115 MG/DL (70-100); MAGNESIUM LEVEL 2.9 MG/DL (1.8-2.4); MB/CK RELATIVE INDEX 3.52 (< OR =4); NT-PRO BNP 16894 PG/ML (<125); POTASSIUM SERUM 2.8 MEQ/L (3.5-5.1); SODIUM LEVEL 116 MEQ/L (136-145); TROPONIN I 0.95 NG/ML (< 0.10)
--- NOTE | 2020-06-26 13:04 | REP ---
INDICATION: AMS. COMPARISON: Comparison portable chest x-ray 30 May 2020.. TECHNIQUE: Sitting AP portable chest radiograph. FINDINGS: A unipolar pacemaker is seen in the right heart view of the left side. This is new when compared with the 30 May 2020 prior study. Monitoring electrodes are noted. Mild cardiomegaly is observed unchanged. The pleural angles are sharp. No infiltrate is seen. Pulmonary vasculature is slightly cephalized. IMPRESSION: Cardiomegaly with pacemaker. Cephalization of the pulmonary vasculature. Otherwise no active disease. <Electronically signed by Devan Argueta > 06/26/20 1300
[2020-06-26 13:07] LABS: OSMOLALITY SERUM 255 MOSM/KG (275-295)
[2020-06-26] MEDS ORDERED: NS 500 ML IV ONE (13:45)
[2020-06-26 13:47] LABS: OSMOLALITY URINE 398 MOSM/KG (500-800)
[2020-06-26] MEDS ORDERED: PROV108A INH (13:52)
[2020-06-26] MEDS ORDERED: SPIR-10 PO (13:52)
[2020-06-26] MEDS ORDERED: FARX1TAB3 PO (13:52)
[2020-06-26] MEDS ORDERED: METO25TA PO (13:52)
[2020-06-26] MEDS ORDERED: METO1TAB7 PO (13:52)
--- NOTE | 2020-06-26 14:13 | HPEPDOC ---
[facility] Medical History & Physical Date of Admission Jun 26, 2020 Date of Service: Jun 26, 2020 Primary Care Physician: A Other Provider PCP: Anderson Newton Attending Physician: KAREN NEWTON MD History and Physical CHIEF COMPLAINT: Altered mental status HISTORY OF PRESENT ILLNESS: Patient is a 55-year-old gentleman with an extensive medical history consisting of nonischemic cardiomyopathy with combined systolic and diastolic heart failure, paroxysmal atrial fibrillation (on Eliquis), history of non-Hodgkin's lymphoma 2011 s/p M-CHOP. He presented to the emergency department on 06/26/20 after his found him altered and "saying things that did not make sense". Given patient's extensive congestive heart failure, he has been on quite a high dose of diuretic outpatient. Patient was discharged from [facility] and 05/02 on torsemide 40 mg BID. Patient reports that his direct care provider, Dr. Mcgee, increased his dose to 100 mg BID in 06/03. Patient continues to report that this dose increase to 400 mg daily on 06/15/20. Since this time, patient reports that he has lost approximately 15 pounds. Also of note, patient did have an AICD placed at [facility] on 06/21/20. Per patient's , patient's direct care provider ordered lab work yesterday, that was revealing of hyponatremia and hypokalemia. Unfortunately, patient refused to present to the emergency department last night for evaluation. Upon presentation this am, patient was found to be afebrile, pulse 91, respiratory rate of 18, 96% on room air and hypotensive with a blood pressure of 94/62. CBC demonstrated a mildly elevated white count of 12.3, neutrophil predominance. Chemistries were significant for hyponatremia, 116 and hypokalemia, 2.8. BUN/Cr of 50/1.17. Serum Osm of 255. Urine Osm of 398, Urine Cr of 72 and Urine Na of <10. Troponin of 0.95. Of note, patient does carry a history of chronic troponin leak averaging about 0.55 throughout recent h ospitalizations. BMP found to be 16,894, baseline of roughly 10,000. Patient was given a single K run in the emergency department to address his hypokalemia. Chest x-ray was ordered and found to show cardiomegaly with cephalization of pulmonary vasculature. [facility] management of the patient's hyponatremia, hypokalemia in the setting of severe CHF. PAST MEDICAL HISTORY: Nonischemic cardiomyopathy, status post [facility] Congestive heart failure, Systolic and Diastolic (EF: 30%) Paroxysmal fibrillation, anticoagulated with eliquis History of non-Hodgkin's lymphoma, 2010 s/p M-CHOP GERD Hepatic congestion Sleep apnea PAST SURGICAL HISTORY: Tonsillectomy Inguinal Hernia repair ICD placement on 06/21/20 Bilateral carpal tunnel EGD / Colonoscopy 02/2020 SOCIAL HISTORY: Marital status: Patient is Resides in: Own home in [place] with his . Tobacco use: Denies any nicotine use ETOH: Denies any alcohol use Illicit drug use: Denies any illicit drug use FAMILY HISTORY: Father: Patient does not make contact with father Mother: COPD ALLERGIES: Please see below. REVIEW OF SYSTEMS: CONSTITUTIONAL: Denies any recent fevers, chills, HEENT: Reports an intermittent history of headaches, no recent vision changes or hearing changes. Difficulty swallowing. CARDIOVASCULAR: Patient reports superficial chest pain associated with his recent AICD placement. Denies any radha chest pain or discomfort, no palpitations, does not report any inappropriate tachycardia, no syncope RESPIRATORY: Denies any shortness of breath, cough, wheeze GASTROINTESTINAL: Denies any bellyaches or belly pains, no constipation or diarrhea GENITOURINARY: Patient states that he has been urinating normally but has not in the last 12 hours. SKIN: Ports bruising associated with his AICD but otherwise denies any skin rashes or lesions MUSCULOSKELETAL: Muscle/joint aches or pains NEUROLOGICAL: Reports "mental fogginess "beginning late last evening and persisting until time of admission. Denies any numbness or tingling, no dizziness. No loss of consciousness. HOME MEDICATIONS: Please see below. PHYSICAL EXAMINATION: VITAL SIGNS: Temperature 96.8F, pulse 88, respiratory rate 16, blood pressure 102/55, pulse oximetry 99% on room air. GENERAL APPEARANCE: Awake, alert, oriented to person, place and time, HEENT: Cephalic, atraumatic, EOMI, CARDIOVASCULAR: Regular rate and rhythm without appreciable murmur. Left chest wall incision status post AICD placement. No wound dehiscence, moderate amount of surrounding ecchymosis, resolving. LUNGS: Fair movement, no discernible wheezes rales or rhonchi ABDOMEN: Soft, nontender, nondistended, no appreciable organomegaly. EXTREMITIES: Trace edema of the mid lower legs. NEUROLOGICAL: Patient is alert and oriented 3, he is able to accurately recall number of details regarding his medical history though he remains unsure that a few specifics. Patient reports that his memory is usually very sharp. He is able to stand and ambulate about his room. No gait abnormalities appreciated, no facial drooping or aphasia. PSYCHIATRIC: Mood and affect are appropriate given patient's current clinical condition. LABORATORY DATA: See below. IMAGING: Chest x-ray (06/26/20): Cardiomegaly with pacemaker. Cephalization of the pulmonary vasculature. Otherwise no active disease. Echocardiogram (06/01/20): Normal left ventricular size, moderate LVH, severe le ft ventricular systolic dysfunction, advanced diastolic dysfunction. Computer calculated EF of 30%, visual inspection estimate of 20-25%. Mild mitral insufficiency, moderate tricuspid insufficiency, very high CVP with borderline pulmonary hypertension. MICROBIOLOGY: Please see below. ASSESSMENT: Patient is a 55-year-old gentleman with extensive medical history consisting of nonischemic cardiomyopathy secondary to combined systolic and diastolic heart failure, paroxysmal atrial fibrillation and a history of non-Hodgkin's lymphoma in 2010 who presented to emergency department the morning of 06/26/20 after his observed altered mental status. Patient was found to be severely hyponatremic and hypokalemic. Patient was hospitalized in 05/02 for CHF exacerbation and discharged on torsemide 40 mg twice daily. Patient reports that his direct care provider increase this to 100 mg twice daily in the month of 06/03. Patient shares that since 06/15/20 he has been taking 400 mg of torsemide once daily. Patient did receive in a ICD on 06/21/20 at [facility]; however no labs were checked at that time. Patient will be admitted to PCU with close telemetry monitoring. His diuretics will be held. Nephrology has been consulted and has ordered hypertonic saline. We will be monitoring patient's electrolytes every 4 hours. In regards to his hypokalemia, we will plan to replete orally. PLAN: #Hyponatremia Likely secondary to patient's extremely high doses of diuretic Serum osmolality of 255, urine osmolality of 398, urine creatinine of 72 and a urine sodium of less than 10. Clinically, patient appears euvolemic. Patient reports that he held his diuretic yesterday, which does correspond with his decreased urine sodium. Nephrology has been consult to and we appreciate their assistance with this patient. Hypertonic saline at 30ml/hr per nephrology orders. We will repeat BMP every 4 hours. Continue to hold patient's home diuretics. #Hypokalemia S/P K run x1 in the emergency department Will continue oral repletion per Q4H BMPs #Combined systolic and diastolic heart failure (EF: 30%) Patient was discharged from the hospital on torsemide 40 mg twice daily, increase in 06/03-100 mg twice daily by patient's direct care provider. Per patient, he has been taking 400 mg once daily since 06/15. Euvolemic on examination. We will be holding patient's diuretics in light of his hyponatremia and hypokalemia. We will hold patient's BB 2/2 to hypotension. Plan to restart tomorrow with parameters. Chronic troponin leak, chronically elevated BNP Echocardiogram in 06/03 estimates LVEF of 20-25%. Status post AICD placement at [facility] on 06/21 #Hypotension Will hold metoprolol for now. Gentle hydration for Na repletion. Anticipate restarting tomorrow with hold parameters. #Troponin Leak Trend troponins #Paroxysmal atrial fibrillation Rate controlled Will resume metoprolol within 24 hours (Re: Hypotension) will continue eliquis for anticoagulation #Hypothyroidism Continue with home levothyroxine DVT PROPHYLAXIS: Patient is currently anticoagulated with Eliquis DISPOSITION: Anticipate discharge greater than 2 night stay Vital Signs Vital Signs Date Time Temp Pulse Resp B/P (MAP) Pulse Ox O2 Delivery O2 Flow Rate FiO2 06/26/20 12:42 93 18 102/55 (71) 99 Room Air 06/26/20 11:27 96.8 Laboratory Data Labs 24H Laboratory Tests 2 06/26/20 12:16: Immature Granulocyte % (Auto) 1.0, Neutrophils (%) (Auto) 85.3H, Lymphocytes (%) (Auto) 6.4L, Monocytes (%) (Auto) 6.8H, Eosinophils (%) (Auto) 0.2, Basophils (%) (Auto) 0.3, Neutrophils # (Auto) 10.5H, Lymphocytes # (Auto) 0.8L, Monocytes # (Auto) 0.8, Eosinophils # (Auto) 0.0, Basophils # (Auto) 0.0, Nucleated Red Blood Cells % (auto) 0.0, Anion Gap 9, Glomerular Filtration Rate > 60.0, Osmolality 255L, Lactic Acid Level 2.4*H, Calcium Level 9.9, Magnesium Level 2.9H, Total Bilirubin 3.4H, Direct Bilirubin 1.8H, Aspartate Amino Transf (AST/SGOT) 49H, Alanine Aminotransferase (ALT/SGPT) 31, Alkaline Phosphatase 243H, Ammonia < 10, Total Creatine Kinase 105, Creatine Kinase MB 3.7H, Creatine Kinase MB Relative Index 3.52, Troponin I 0.95H, RC-Naf-X-Type Natriuretic Peptide 68272M, Total Protein 7.0, Albumin 3.8, Albumin/Globulin Ratio 1.2, Thyroid Stimulating Hormone (TSH) 3.430, Free Thyroxine 1.47H 06/26/20 13:38: CBC/BMP Laboratory Tests 06/26/20 12:16 Home Medications Scheduled Apixaban (Eliquis) 5 Mg Tablet, 5 MG PO BID Dapagliflozin Propanediol (Farxiga) 10 Mg Tablet, 10 MG PO DAILY Levothyroxine Sodium (Levothyroxine Sodium) 25 Mcg Tablet, 25 MCG PO DAILY Metoprolol Succinate (Metoprolol Succinate) 50 Mg Tab.er.24h, 50 MG PO DAILY Potassium Chloride (Potassium Chloride) 20 Meq Tablet.er, 20 MEQ PO BID Spironolactone (Spironolactone) 25 Mg Tablet, 25 MG PO DAILY Torsemide (Torsemide) 100 Mg Tablet, 100 MG PO BID Scheduled PRN Albuterol Sulfate (Proventil Hfa) 6.7 Gm Hfa.aer.ad, 2 PUFF INH QID PRN for SHORTNESS OF BREATH Metolazone (Metolazone) 2.5 Mg Tablet, 2.5 MG PO DAILY PRN for EDEMA Allergies Coded Allergies: vancomycin (Verified Adverse Reaction, Severe, rigors, 04/05/20) A-FIB/CHADSVASC A-FIB History Current/History of A-Fib/PAF?: Yes Current PO Anticoag Therapy: Yes GME ATTESTATION GME ATTESTATION My faculty preceptor for this patient encounter was physically present during the encounter and was fully available. All aspects of the patient interview, examination, medical decision making process, and medical care plan development were reviewed and approved by the faculty preceptor. The faculty preceptor is aware and concurs with the plan as stated in the body of this note and will attest to such by his/her cosignature. ATTENDING NOTE I, Karen Newton, have independently examined this patient and performed my own physical exam, as well as reviewed the documentation and edited where necessary. I have discussed in detail with the resident / student the findings and plan of treatment as documented by the resident / student and edited their note. I agree with their findings and treatment plan and have edited their documentation. I will continue to follow the patient during this hospital stay. Hypotonic Hyponatremia - likely 2/2 diuresis Hypotension - likely 2/2 hypovolemia Hypokalemia Hypermagnesemia Lactic acidosis Elevated troponin - possibly 2/2 demand ischemia (NSTEMI Type II); chronically elevated Chronically elevated bilirubin - possibly 2/2 hepatic congestion Chronic transaminitis - possibly 2/2 hepatic congestion Leukocytosis Chronic combined systolic and diastolic heart failure (EF: 30%) s/p AICD (06/21/20) Non-ischemic cardiomyopathy Paroxysmal atrial fibrillation (on Eliquis) Hypothyroidism [facility] History of Non-Hodgkin's lymphoma (2010) s/p M-CHOP DVT prophylaxis SIDDHARTHA FLOWERS DO Jun 26, 2020 14:13 KAREN NEWTON MD Jun 26, 2020 16:01
[2020-06-26] MEDS ORDERED: MAALOX 30 ML SUSP *UDC PO PRN (14:15)
[2020-06-26] MEDS ORDERED: ACETAMINOPHEN TAB 650MG DOSE (2X325MG) PO PRN (14:15)
[2020-06-26] MEDS ORDERED: MOM 30ML SUSPENSION UDC PO PRN (14:15)
[2020-06-26 14:20] LABS: CREATININE,RANDOM URINE 72.6 MG/DL; SODIUM,RANDOM URINE < 10 MEQ/L
[2020-06-26] MEDS ORDERED: SODIUM CHLORIDE 3% 500 ML IV SCH (15:30)
[2020-06-26 16:00] LABS: RSV AMPLIFICATION NEGATIVE (NEGATIVE)
[2020-06-26] MEDS ORDERED: POTASSIUM CHLORIDE 10 MEQ SR TABLET PO ONE ×2 (16:00→19:00)
[2020-06-26] MEDS ORDERED: ALBUTEROL 90 MCG/ACT 8GM HFA INHALER INH PRN (16:15)
[2020-06-26 17:06] VITALS: BP 101/67
[2020-06-26 17:34] LABS: BLOOD UREA NITROGEN 49 MG/DL (7-18); CALCIUM LEVEL 9.4 MG/DL (8.5-10.1); CARBON DIOXIDE LEVEL 40 MEQ/L (21-32); CHLORIDE LEVEL 68 MEQ/L (98-107); CREATININE FOR GFR 1.13 MG/DL (0.70-1.30); GLOMERULAR FILTRATION RATE > 60.0 (>56); GLUCOSE, FASTING 127 MG/DL (70-100); POTASSIUM SERUM 2.9 MEQ/L (3.5-5.1); SODIUM LEVEL 118 MEQ/L (136-145)
[2020-06-26] MEDS ORDERED: KCL 20MEQ in NS 1000ML 1,000 ML IV SCH (18:00)
[2020-06-26 19:31] LABS: BLOOD UREA NITROGEN 51 MG/DL (7-18); CALCIUM LEVEL 9.2 MG/DL (8.5-10.1); CARBON DIOXIDE LEVEL 38 MEQ/L (21-32); CHLORIDE LEVEL 67 MEQ/L (98-107); CREATININE FOR GFR 1.26 MG/DL (0.70-1.30); GLOMERULAR FILTRATION RATE > 60.0 (>56); GLUCOSE, FASTING 178 MG/DL (70-100); POTASSIUM SERUM 3.1 MEQ/L (3.5-5.1); SODIUM LEVEL 117 MEQ/L (136-145)
[2020-06-26 19:34] LABS: CK-MB VALUE MASS 2.9 NG/ML (<3.6); MB/CK RELATIVE INDEX 3.19 (< OR =4); TROPONIN I 0.75 NG/ML (< 0.10)
[2020-06-26 20:00] VITALS: BP 98/52
[2020-06-26] MEDS ORDERED: POTASSIUM CHLORIDE 10 MEQ SR TABLET PO SCH (21:00)
[2020-06-26] MEDS: APIXABAN 5 MG TAB (ELIQUIS) PO SCH (22:02)
[2020-06-26] MEDS: DOCUSATE SODIUM 100MG CAPSULE PO SCH (22:05)
[2020-06-27] VITALS (7 sets, daily range): BP systolic 88–113; BP diastolic 58–73
[2020-06-27 00:36] LABS: CALCIUM LEVEL 9.9 MG/DL (8.5-10.1); CK-MB VALUE MASS 2.9 NG/ML (<3.6); CREATININE FOR GFR 1.45 MG/DL (0.70-1.30); GLOMERULAR FILTRATION RATE 53.4 (>56); MB/CK RELATIVE INDEX 2.64 (< OR =4); POTASSIUM SERUM 3.8 MEQ/L (3.5-5.1); TROPONIN I 0.96 NG/ML (< 0.10)
[2020-06-27 03:16] LABS: HEMATOCRIT 46.4 % (42.0-52.0); HEMOGLOBIN 15.6 g/dl (13.5-17.5); MEAN CORPUSCULAR HEMOGLOBIN 32.4 pg (27.0-33.0); MEAN CORPUSCULAR HGB CONC 33.6 g/dl (32.0-36.5); MEAN CORPUSCULAR VOLUME 96.5 fl (80.0-96.0); PLATELET COUNT, AUTOMATED 217 10^3/uL (150-450); RED BLOOD COUNT 4.81 10^6/uL (4.30-6.10); WHITE BLOOD COUNT 13.8 10^3/uL (4.0-10.0)
[2020-06-27 03:39] LABS: CALCIUM LEVEL 9.4 MG/DL (8.5-10.1); CREATININE FOR GFR 1.47 MG/DL (0.70-1.30); GLOMERULAR FILTRATION RATE 52.6 (>56); POTASSIUM SERUM 3.8 MEQ/L (3.5-5.1)
[2020-06-27 03:41] LABS: ALBUMIN 3.4 GM/DL (3.2-5.2); BILIRUBIN,TOTAL 3.5 MG/DL (0.2-1.0); CALCIUM LEVEL 9.4 MG/DL (8.5-10.1); CREATININE FOR GFR 1.37 MG/DL (0.70-1.30); MAGNESIUM LEVEL 3.2 MG/DL (1.8-2.4); POTASSIUM SERUM 4.1 MEQ/L (3.5-5.1); TOTAL PROTEIN 6.5 GM/DL (6.4-8.2)
[2020-06-27 04:24] LABS: OSMOLALITY URINE 369 MOSM/KG (500-800)
[2020-06-27] MEDS ORDERED: SODIUM CHLORIDE 3% 500 ML IV SCH ×3 (04:30→15:00)
[2020-06-27 04:34] LABS: SODIUM,RANDOM URINE < 10 MEQ/L
[2020-06-27] MEDS: LEVOTHYROXINE 25MCG TABLET (0.025MG) PO SCH (05:03)
[2020-06-27] MEDS ORDERED: HYDROCORTISONE 100 MG/2 ML VIAL (J1720 PER 1) IV ONE ×2 (08:00→17:00)
[2020-06-27] MEDS: DOCUSATE SODIUM 100MG CAPSULE PO SCH ×2 (08:15→21:15)
[2020-06-27] MEDS: APIXABAN 5 MG TAB (ELIQUIS) PO SCH ×2 (08:15→21:15)
[2020-06-27 08:17] LABS: OSMOLALITY URINE 397 MOSM/KG (500-800)
[2020-06-27 08:34] LABS: BLOOD UREA NITROGEN 55 MG/DL (7-18); CARBON DIOXIDE LEVEL 36 MEQ/L (21-32); CHLORIDE LEVEL 73 MEQ/L (98-107); CREATININE FOR GFR 1.23 MG/DL (0.70-1.30); GLOMERULAR FILTRATION RATE > 60.0 (>56); GLUCOSE, FASTING 106 MG/DL (70-100); POTASSIUM SERUM 4.1 MEQ/L (3.5-5.1); SODIUM LEVEL 119 MEQ/L (136-145)
[2020-06-27] MEDS ORDERED: NS 250 ML IV ONE (08:45)
[2020-06-27 08:56] LABS: SODIUM,RANDOM URINE < 10 MEQ/L
--- NOTE | 2020-06-27 10:30 | IPNPDOC ---
Text Note Date of Service The patient was seen on 06/27/20. NOTE Subjective: Patient is a 55-year-old male who presented to the ER at t he direction of his physician because of abnormal blood work. Patient has recently increased the dose of his diuretics and was found to have severe hyponatremia / hypokalemia and was admitted to the hospitalist service for further evaluation and treatment. Nephrology was called on consultation. Patient was seen and examined at the bedside. Patient was seen sitting up in chair, drowsy. Denies any chest pain, shortness breath, cough, abdominal pain, nausea, vomiting, diarrhea, or discomfort with urination. I spoke with nursing staff and advised patient that he should remain in bed because he is at risk of falling and injuring himself. She still remains on bedrest and fall precautions from the emergency room. Objective: Vitals (See below) General: Lying in bed, no acute distress, comfortable, drowsy but oriented to person, place and time HEENT: NC, AT CVS: +S1S2 Lungs: Fair air entry b/l, no appreciable wheezing, rhonchi or rales Abdomen: Soft, nondistended and nontender Extremities: Lower extremities still reveal 1+ pitting edema, - Calf tenderness Imaging: CXR 06/26: Cardiomegaly with pacemaker. Cephalization of the pulmonary vasculature. Otherwise no active disease. Assessment and plan: Severe Hypotonic Hyponatremia - likely 2/2 diuresis - Presented to the ER with confusion - Sodium noted to be 116 on 06/25 - Has been slowly improving - Will continue with BMP q4h - Currently on hypertonic saline - managed by Nephrology - Nephrology has been called on consultation Acute metabolic encephalopathy - likely 2/2 hyponatremia - No focal neurologic deficits - See above Hypotension - likely 2/2 hypovolemia - Improving - Will continue with bed rest / fall precautions s/p Hypokalemia Hypermagnesemia s/p Lactic acidosis Hypochloremic metabolic alkalosis Elevated troponin - possibly 2/2 demand ischemia (NSTEMI Type II); chronically elevated Chronically elevated bilirubin - possibly 2/2 hepatic congestion Chronic transaminitis - possibly 2/2 hepatic congestion Leukocytosis - possibly 2/2 reactive eitology - Remains afebrile - Review systems is negative for any source of infection - Will hold off on antibiotic therapy at this time Chronic combined systolic and diastolic heart failure (EF: 30%) - Clinically patient does not appear to be in any acute exacerbation - Diuretics on hold Non-ischemic cardiomyopathy - possibly 2/2 amyloidosis, however possibly 2/2 hemochromatosis - s/p AICD (06/21/20) - Patient has had a cardiac MRI completed [facility] revealed left and right ventricular ejection fractions of 30%; also suspicious for amyloidosis - s/p Liver Biopsy that was negative; however clinical picture still suggests po ssible amyloidosis - 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) - Workup pending; Rifton / Lambda / Immunofixation - Will check Iron profile Paroxysmal atrial fibrillation - Metoprolol on hold; will resume once BP improves - c/w full anticoagulation with Eliquis Hypothyroidism - c/w Levothyroxine [facility] - Not on CPAP therapy History of Non-Hodgkin's lymphoma (2010) - s/p M-CHOP DVT prophylaxis - c/w Full anticoagulation with Eliquis VS,Fishbone, I+O VS, Fishbone, I+O Laboratory Tests 06/26/20 12:16 06/26/20 16:35 06/26/20 18:48 06/26/20 23:45 06/27/20 03:02 06/27/20 07:53 Vital Signs Date Time Temp Pulse Resp B/P (MAP) Pulse Ox O2 Delivery O2 Flow Rate FiO2 06/27/20 10:16 99/61 (74) 06/27/20 08:00 97.1 84 18 100 Room Air I&O- Last 24 Hours up to 6 AM 06/27/20 06:00 Intake Total 900 ml Output Total 0 ml Balance 900 ml CRISTINO NEWTON MD Jun 27, 2020 10:30
[2020-06-27 11:35] LABS: HEMOGLOBIN A1c 6.1 %
[2020-06-27 11:40] LABS: BLOOD UREA NITROGEN 53 MG/DL (7-18); CALCIUM LEVEL 8.7 MG/DL (8.5-10.1); CARBON DIOXIDE LEVEL 31 MEQ/L (21-32); CHLORIDE LEVEL 75 MEQ/L (98-107); CREATININE FOR GFR 1.17 MG/DL (0.70-1.30); GLOMERULAR FILTRATION RATE > 60.0 (>56); GLUCOSE, FASTING 118 MG/DL (70-100); POTASSIUM SERUM 4.1 MEQ/L (3.5-5.1); SODIUM LEVEL 117 MEQ/L (136-145)
--- NOTE | 2020-06-27 12:04 | IPN ---
PROGRESS NOTE DATE: 06/27/2020 SUBJECTIVE: Patient seen and examined this morning at the bedside in the progressive care unit. The overnight nurse called me with each of his serum sodiums every 4 hours last night along with his urine studies. He has received a total of 1.5 liters of normal saline with potassium chloride since admission and he has also received hypertonic saline overnight. His urine studies are still indicative of a prerenal state and his sodium levels have only mildly come up from 116 to 119, however, his potassium has normalized and his lactic acidosis has resolved. Patient denies any complaints. He states he is hungry. His blood pressures have mostly been 80s to 90s systolic, but the patient is asymptomatic with that. PHYSICAL EXAMINATION: VITAL SIGNS: Temperature 97.1, pulse 84, respiratory rate 18, blood pressure 88/62, saturating 100% on room air. GENERAL: Patient is seen awake, alert, oriented, and in no apparent distress. HEENT: Extraocular muscles are intact. Tongue is moist. NECK: Supple. Jugular veins are not elevated. HEART: Sounds are regular, S1, S2. There is a newly placed AICD in the left chest wall with some surrounding ecchymosis. LUNGS: Clear to auscultation bilaterally. No crackle or rale. ABDOMEN: Soft and nontender. EXTREMITIES: Negative for edema. NEUROLOGIC: He is oriented x3, interactive and conversational. LABORATORY STUDIES: Sodium 119 from 116 yesterday at 12:00 p.m., bicarbonate 36, BUN 55, creatinine 1.2. Lactic acid 3.6 overnight and 1.9 this morning. Hemoglobin 15.6. Urine sodium; the last three have all been less than 10. Urine osmolality 397. INPATIENT MEDICATIONS: He is ordered for normal saline 250 cc bolus and to continue hypertonic saline 30 cc an hour for 4 hours. Overnight, he received a liter of normal saline with potassium chloride 20 mEq. He continues on Eliquis, Colace, Synthroid. I discontinued his Milk of Magnesia. PROBLEMS: 1. Hypoosmolar hypovolemic hyponatremia: His hyponatremia is mostly due to over diuresis and hypovolemic state. His urine studies are consistent with a prerenal state. It is also complicated by use of Farxiga, which can also potentiate electrolyte abnormalities and has a diuretic affect. Please keep him off of Farxiga. At this point, patient is being continued on hypertonic saline 30 cc an hour for 4 hours and I have given another bolus of normal saline 250 cc times one. He continues on every 4 hours BMP monitoring. He is on a regular diet and I am not putting him on a fluid restriction because he is hypovolemic. His a.m. Cortisol level is pending. His hypochloremic metabolic alkalosis is improving. 2. Lactic acidosis: It is due to hypovolemia and hypotension, and it has resolved with I.V. fluids overnight. 3. Hypokalemia: It is secondary to hyper-aldosterone state due to hypovolemia and it is also due to loop diuretic along with Farxiga along with metabolic alkalosis. It has resolved. Potassium levels have normalized. 4. Hypermagnesemia: Magnesium of 3.2 this morning. Milk of Magnesia is discontinued. Continue with I.V. hydration. 5. History of combined systolic and diastolic congestive heart failure: The patient is over diuresed. He is hyponatremic secondary to over diuresis. Hold diuretic at this time. He is not suitable for Farxiga in the outpatient setting. Continue I.V. fluid. There is no sodium restriction for his diet at present. 6. Hypotension: Patient is asymptomatic. His lactic acidosis has resolved. I am being rather judicious in giving him fluids because of his history of significant combined congestive heart failure and we will keep a close eye on his volume status. 7. History of combined congestive heart failure: Patient is still clinically dry. He is saturating 100% on room air. Continue with I.V. fluids at this time. There is no salt restriction. There is no fluid restriction. He is hypovolemic and we will keep a close eye on his volume status. Plan of care discussed with the ICU nurse at the bedside, who will continue to call me with each every 4 hours BMP along with urine studies.
[2020-06-27 12:14] LABS: OSMOLALITY URINE 429 MOSM/KG (500-800)
[2020-06-27 12:36] LABS: CHLORIDE,RANDOM URINE < 10 MEQ/L; SODIUM,RANDOM URINE < 10 MEQ/L
--- NOTE | 2020-06-27 12:48 | CR ---
CONSULTATION DATE: 06/26/2020 REQUESTING PHYSICIAN: Kip Padgett DO CONSULTING PHYSICIAN: Eva Avitia DO REASON FOR CONSULTATION: Management of hyponatremia in this patient with congestive heart failure. HISTORY OF PRESENT ILLNESS: Mr. Ghotra is previously unknown to me. He is a 55-year-old male with a past medical history of significant cardiac issues including combined systolic and diastolic congestive heart failure (with most recent echocardiogram June 02, 2020 showing left ventricular ejection fraction of 20% with concomitant advanced diastolic dysfunction. The patient follows with Dr. Mcgee. He also has paroxysmal atrial fibrillation on Eliquis anticoagulation, history of non-Hodgkin's lymphoma back in 2010. The patient states that he was previously experiencing fluid overload with peripheral edema and that he has been following up closely with Dr. Mcgee who has been up-titrating his Torsemide. He was previously taking 100 mg twice a day but this was up-titrated up to 400 mg once daily on his visit on June 15, 2020. The patient states since his diuretic has been up-titrated, his edema has virtually vanished and this is the skinniest he has been and his daily weights have downtrended significantly and even his pedal and ankle edema have resolved. The patient reports he had an AICD placed last week at [facility] as well. Apparently on his last visit with cardiology, he was told to hold spironolactone and lab work was ordered which showed electrolyte abnormalities including hyponatremia and hypokalemia. The patient presented to the emergency room this morning because of complaint of "mental slowing." The patient felt that he was foggy. In the emergency room, the patient was found to be mildly hypotensive with blood pressure mostly 80s/60s and blood work showed a serum sodium of 116 with significant hypochloremic metabolic alkalosis (bicarbonate 43) and potassium of 2.8. The patient was also found to have serum osmolality of 255 and a BNP of 17,000 and nephrology evaluation was requested for help in the management of his hyponatremia. The patient is seen and examined this evening at the bedside in the progressive care unit and he complains of thirst. PAST MEDICAL HISTORY: 1. Nonischemic cardiomyopathy. 2. Congestive heart failure, systolic and diastolic (left ventricular ejection fraction 20-25% based on last echocardiogram, May,). 3. Paroxysmal atrial fibrillation, anticoagulated with Eliquis. 4. History of non-Hodgkin's lymphoma in 2010. 5. GERD. 6. Sleep apnea. 7. Hypothyroidism. 8. CKD stage 2 with baseline creatinine of about 1.2. PAST SURGICAL HISTORY: 1. Tonsillectomy. 2. Inguinal hernia repair. 3. ICD placement, June 21, 2020. 4. Bilateral carpal tunnel. 5. EGD. 6. Colonoscopy. 7. History of cardiac catheterization. SOCIAL HISTORY: He is , lives with his , denies alcohol, drug or tobacco. FAMILY HISTORY: The patient denies a family history of renal failure. ALLERGIES: VANCOMYCIN. REVIEW OF SYSTEMS: Constitutional: He reports significant with significant weight loss (water weight loss). He denies fevers or chills. Eyes: He denies changes in vision or tearing. ENT: He denies epistaxis or rhinorrhea. Cardiac: He reports AICD placement, history of congestive heart failure. He reports his chronic leg edema has virtually resolved. He denies chest pain. Respiratory: He denies shortness of breath or cough. Gastrointestinal: He denies nausea or vomiting. He reports constipation. Genitourinary: He denies dysuria or hematoma. Skin: He reports bruising at the site of AICD placement, otherwise denies any rashes or sores. Musculoskeletal: He reports no gout or acute myalgias or arthralgias. Neurologic: He reports "some mental slowing" but otherwise denies any history of seizure or syncope. Endocrine: He reports taking a thyroid supplement but he denies any prior history of hyponatremia. The remainder of review of systems is negative or as per HPI. HOME MEDICATIONS: Reviewed and include: 1. Albuterol p.r.n. 2. Eliquis 5 mg p.o. b.i.d. 3. Farxiga 10 mg p.o. daily. 4. Levothyroxine 25 mcg p.o. daily. 5. Metolazone 2.5 mg p.o. p.r.n. once daily. 6. Metoprolol 50 mg p.o. daily. 7. Potassium 20 mEq p.o. b.i.d. 8. Spironolactone 25 mg p.o. daily. 9. Torsemide 400 mg p.o. once a day. PHYSICAL EXAMINATION: Vital signs: Temperature 98.6, pulse 81, respiratory rate 18, blood pressure 85/58, saturating 98% on room air. General: Patient is seen awake, alert and oriented x3, interactive, conversational, in no apparent distress. Extraocular muscles are intact. The tongue and the mucous membranes are very dry. The patient continues to lick his lips. Jugular veins are not elevated. Heart sounds are regular, S1, S2. There is a freshly placed AICD in the left chest wall with surrounding ecchymosis. Breath sounds are clear to auscultation, no crackle or rale. Abdomen: Soft and nontender. There are bowel sounds. Extremities show no significant edema. Neurologic: He appears awake, alert and oriented x3. He is seen feeding himself. He is a good historian and there are no focal deficits. LABORATORY DATA: Sodium 116, potassium 2.8, bicarbonate 43, chloride 64, serum osmolality 255, urine osmolality 400, urine sodium less than 10, magnesium 2.9, ammonia less than 10. BNP 17,000, T4 1.4, TSH 3.4. Urine glucose 3+, serum glucose 115. IMAGING: Chest x-ray done today shows cephalization of pulmonary vasculature. INPATIENT MEDICATIONS: 1. The patient received a 500 mL normal saline bolus in the emergency room. 2. He received KCl 10 mEq x1. 3. Apixaban 5 mg p.o. b.i.d. 4. Colace 100 mg p.o. b.i.d. 5. Synthroid 25 mcg p.o. daily. 6. Potassium mEq p.o. x1. PROBLEMS: 1. Hypovolemic hypo-osmolar hyponatremia. It is secondary to over-diuresis. The patient's urine studies including urine sodium less than 10 persistently is indicative of over-diuresis and prerenal state. He is in significant hypochloremic metabolic alkalosis secondary to high dose loop diuretic. He received 500 mL normal saline bolus by the emergency room and at this time, I would continue him on normal saline plus 20 mEq of potassium chloride to run at 125 mL an hour for correction of his volume status. We will continue with urine osmolality and urine sodium q.4 hourly along with BMP q.4 hourly. Goal correction in the first 24 hours will be by 6-8 mEq. Nursing staff will call me with each sodium check and if his serum sodium does not improve after normal saline plus potassium chloride hydration, then we will give hypertonic saline. Thyroid studies are normal and a.m. cortisol is pending. 2. Hypokalemia. It is secondary to hyperaldosterone state which itself is secondary to hypovolemia. The patient also reports that he was told to hold his spironolactone recently. His hypokalemia is also due to aggressive loop diuretic. I am giving him potassium chloride with normal saline to run at 125 mL an hour. He has also received several doses of oral potassium. As his alkalemia improves, I would also expect his potassium to normalize. 3. Lactic acidosis. The patient has a mild lactic acidosis which I feel is due to hypovolemia. Continue normal saline with potassium chloride at this time. We will get repeat lactic acid level with his overnight labs as well. The patient is also borderline hypotensive with most blood pressures 80s/60s. Continue IV fluid. 4. Hypochloremic metabolic alkalosis. Again, it is secondary to aggressive diuresis with loop diuretic. Continue normal saline with potassium chloride at this time. Continue BMP monitoring q.4 hourly. 5. Long-term use of hypoglycemic medication. Apparently, the patient is also on Farxiga. I see his urinalysis has 3+ glucose. Despite his serum glucose being generally within normal range, this is consistent with use of Farxiga and Farxiga can also potentiate electrolyte abnormality. In this patient with history of severe congestive heart failure, I advised against continuing Farxiga in the outpatient setting. We will get an A1c while he is here. 6. Hypermagnesemia. His most recent magnesium level is 3.2. It is due to hemoconcentration and over-diuresis. Continue IV fluid and I am discontinuing the Milk of Magnesia p.r.n. that he is ordered for. 7. History of combined systolic and diastolic congestive heart failure. The patient is clinically very dry on exam. Hold all diuretic. Continue IV fluid. I am placing him on a regular diet. He can have salt at this time and he is not on a fluid restriction at this time, either. 8. Hypothyroidism. His thyroid studies returned back within normal limits. Continue current dose of levothyroxine. Thank you for involving me in the care of Mr. Ghotra. I will be happy to follow along with you. Critical care time spent in the management of this patient was 40 minutes.
[2020-06-27 13:04] LABS: FERRITIN 869 NG/ML (26-388); IRON (FE) 114 UG/DL (65-175); PERCENT SATURATION 26.4 % (19.7-50.0); TOTAL IRON BINDING CAPACITY 432 UG/DL (250-450)
[2020-06-27 14:46] LABS: CALCIUM LEVEL 9.1 MG/DL (8.5-10.1); CREATININE FOR GFR 1.41 MG/DL (0.70-1.30); GLOMERULAR FILTRATION RATE 55.2 (>56); POTASSIUM SERUM 4.8 MEQ/L (3.5-5.1)
[2020-06-27] MEDS ORDERED: NS 1,000 ML IV SCH (16:00)
[2020-06-27] MEDS ORDERED: PILL CUTTER 1 EACH XX PRN (16:15)
[2020-06-27] MEDS ORDERED: TOLVAPTAN 15 MG TAB (SAMSCA) PO ONE ×2 (18:00→23:15)
[2020-06-27 18:58] LABS: BLOOD UREA NITROGEN 53 MG/DL (7-18); CARBON DIOXIDE LEVEL 31 MEQ/L (21-32); CHLORIDE LEVEL 78 MEQ/L (98-107); CREATININE FOR GFR 1.26 MG/DL (0.70-1.30); GLOMERULAR FILTRATION RATE > 60.0 (>56); GLUCOSE, FASTING 108 MG/DL (70-100); SODIUM LEVEL 120 MEQ/L (136-145)
[2020-06-27 18:59] LABS: OSMOLALITY URINE 455 MOSM/KG (500-800)
[2020-06-27 19:10] LABS: CHLORIDE,RANDOM URINE < 10 MEQ/L; SODIUM,RANDOM URINE < 10 MEQ/L
--- NOTE | 2020-06-27 20:38 | ECGEPIP ---
[facility] - ED Test Date: 2020-06-26 Pat Name: DOMINIQUE BORGES Department: Room: - Gender: Male Hearing Health Technician: RIZWANBHARAT : 1965 Requested By: Christian Olivo Order Number: [id number] Reading MD: Cathy Sapp Measurements Intervals [place] Rate: 90 P: 78 NE: 172 QRS: 138 QRSD: 200 T: -12 QT: 466 QTc: 570 Interpretive Statements Sinus rhythm with frequent and consecutive premature ventricular complexes Possible Left atrial enlargement Right bundle branch block Septal infarct , age undetermined Lateral infarct , age undetermined INCREASED ECTOPY 05/31/20 Electronically Signed on 06-27-2020 20:37:58 EST by Cathy Sapp
[2020-06-27 22:28] LABS: OSMOLALITY URINE 386 MOSM/KG (500-800)
[2020-06-27 22:44] LABS: SODIUM,RANDOM URINE < 10 MEQ/L
[2020-06-27 23:00] LABS: BLOOD UREA NITROGEN 53 MG/DL (7-18); CALCIUM LEVEL 8.3 MG/DL (8.5-10.1); CARBON DIOXIDE LEVEL 31 MEQ/L (21-32); CHLORIDE LEVEL 79 MEQ/L (98-107); CREATININE FOR GFR 1.23 MG/DL (0.70-1.30); GLOMERULAR FILTRATION RATE > 60.0 (>56); GLUCOSE, FASTING 101 MG/DL (70-100); POTASSIUM SERUM 3.8 MEQ/L (3.5-5.1); SODIUM LEVEL 121 MEQ/L (136-145)
[2020-06-28] VITALS: BP 105/61
[2020-06-28 02:47] LABS: OSMOLALITY URINE 358 MOSM/KG (500-800)
[2020-06-28 02:53] LABS: HEMOGLOBIN 15.4 g/dl (13.5-17.5); MEAN CORPUSCULAR HGB CONC 33.5 g/dl (32.0-36.5); MEAN CORPUSCULAR VOLUME 98.5 fl (80.0-96.0); PLATELET COUNT, AUTOMATED 179 10^3/uL (150-450); RED BLOOD COUNT 4.67 10^6/uL (4.30-6.10); WHITE BLOOD COUNT 13.4 10^3/uL (4.0-10.0)
[2020-06-28 02:54] LABS: SODIUM,RANDOM URINE < 10 MEQ/L
[2020-06-28 03:31] LABS: BLOOD UREA NITROGEN 52 MG/DL (7-18); CALCIUM LEVEL 8.8 MG/DL (8.5-10.1); CARBON DIOXIDE LEVEL 22 MEQ/L (21-32); CHLORIDE LEVEL 82 MEQ/L (98-107); CREATININE FOR GFR 1.28 MG/DL (0.70-1.30); GLOMERULAR FILTRATION RATE > 60.0 (>56); GLUCOSE, FASTING 86 MG/DL (70-100); POTASSIUM SERUM 4.6 MEQ/L (3.5-5.1); SODIUM LEVEL 116 MEQ/L (136-145)
[2020-06-28] MEDS ORDERED: SODIUM CHLORIDE 3% 500 ML IV SCH ×2 (03:45→04:00)
[2020-06-28 04:00] VITALS: BP 101/61
[2020-06-28] MEDS: LEVOTHYROXINE 25MCG TABLET (0.025MG) PO SCH (06:18)
[2020-06-28 07:37] LABS: ALBUMIN 3.4 GM/DL (3.2-5.2); ALT/SGPT 38 U/L (12-78); BILIRUBIN,TOTAL 5.7 MG/DL (0.2-1.0); BLOOD UREA NITROGEN 49 MG/DL (7-18); CALCIUM LEVEL 8.6 MG/DL (8.5-10.1); CARBON DIOXIDE LEVEL 27 MEQ/L (21-32); CHLORIDE LEVEL 80 MEQ/L (98-107); CREATININE FOR GFR 1.24 MG/DL (0.70-1.30); GLOMERULAR FILTRATION RATE > 60.0 (>56); GLUCOSE, FASTING 84 MG/DL (70-100); MAGNESIUM LEVEL 2.7 MG/DL (1.8-2.4); POTASSIUM SERUM 4.6 MEQ/L (3.5-5.1); SODIUM LEVEL 120 MEQ/L (136-145); TOTAL PROTEIN 6.4 GM/DL (6.4-8.2)
[2020-06-28 07:49] VITALS: BP 106/74
[2020-06-28] MEDS ORDERED: HYDROCORTISONE 100 MG/2 ML VIAL (J1720 PER 1) IV ONE (08:00)
[2020-06-28] MEDS: DOCUSATE SODIUM 100MG CAPSULE PO SCH ×2 (08:28→20:23)
[2020-06-28] MEDS: APIXABAN 5 MG TAB (ELIQUIS) PO SCH ×2 (08:28→20:23)
[2020-06-28 10:15] LABS: CORTISOL AM 30.1 UG/DL (4.3-22.4)
--- NOTE | 2020-06-28 11:15 | IPNPDOC ---
Text Note Date of Service The patient was seen on 06/28/20. NOTE Subjective: Patient is a 55-year-old male who presented to the ER at the direction of his physician because of abnormal blood work. Patient mistakenly increased the dose of his diuretics to 400mg Torsemide daily and was found to have severe hyponatremia / hypokalemia and was admitted to the hospitalist service for further evaluation and treatment. Nephrology was called on consultation. Hypokalemia has resolved at this time. No acute events overnight. Patient was seen and examined at the bedside. Patient was sitting in chair at bedside in slight discomfort reporting that it is difficult for him to get comfortable. Admits to some leg swelling. Denies any chest pain, shortness breath, cough, abdominal pain, nausea, vomiting, diarrhea, or discomfort with urination. Patient states that his blood draws have been more difficult. PICC line placeme nt was discussed with patient and he agreed. Patient was informed that he was placed on fall precautions due to his hypotension. He reports that his blood pressure usually runs around 110/75. She still remains on bedrest and fall precautions from the emergency room. Objective: Vitals (See below) General: Lying in bed, no acute distress, comfortable, drowsy but oriented to person, place and time HEENT: NC, AT CVS: +S1S2, gallop present Lungs: Fair air entry b/l, no appreciable wheezing, rhonchi or rales Abdomen: Soft, nondistended and nontender Extremities: Lower extremities still reveal 1+ pitting edema to b/l calves, - Calf tenderness Imaging: CXR 06/26: Cardiomegaly with pacemaker. Cephalization of the pulmonary vasculature. Otherwise no active disease. Assessment and plan: Severe Hypotonic Hyponatremia - likely 2/2 diuresis - Presented to the ER with confusion - Sodium noted to be 116 on 06/25 - Has been slowly improving - Will continue with BMP q4h - Currently on hypertonic saline, continue at this time- managed by Nephrology - Nephrology has been called on consultation Acute metabolic encephalopathy - likely 2/2 hyponatremia - No focal neurologic deficits - See above Hypotension - likely 2/2 hypovolemia - Improving - Will continue with bed rest / fall precautions - Will get PT involved s/p Hypokalemia: resolved at this time. Hypermagnesemia: lesser than yesterday. At 2.7 today, was 3.2 yesterday. s/p Lactic acidosis: resolved. Hypochloremic metabolic alkalosis: Continue hyponatremia management first. 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) - Iron profile noted - Workup pending; Mcgill / Lambda / Immunofixation Paroxysmal atrial fibrillation - Metoprolol on hold; will resume once BP improves - c/w full anticoagulation with Eliquis Hypothyroidism - c/w Levothyroxine PETERSON - Not on CPAP therapy History of Non-Hodgkin's lymphoma (2010) - s/p M-CHOP DVT prophylaxis - c/w Full anticoagulation with Eliquis VS,Fishbone, I+O VS, Fishbone, I+O Laboratory Tests 06/27/20 10:56 06/27/20 13:59 06/27/20 18:27 06/27/20 22:28 06/28/20 02:28 06/28/20 06:58 Vital Signs Date Time Temp Pulse Resp B/P (MAP) Pulse Ox O2 Delivery O2 Flow Rate FiO2 06/28/20 07:49 97.2 99 18 106/74 (85) 98 Room Air I&O- Last 24 Hours up to 6 AM 06/28/20 06:00 Intake Total 2470 ml Output Total 1125 ml Balance 1345 ml GME ATTESTATION GME ATTESTATION My faculty preceptor for this patient encounter was physically present during the encounter and was fully available. All aspects of the patient interview, examination, medical decision making process, and medical care plan development were reviewed and approved by the faculty preceptor. The faculty preceptor is aware and concurs with the plan as stated in the body of this note and will attest to such by his/her cosignature. ATTENDING NOTE I, Karen Newton, have independently examined this patient and performed my own physical exam, as well as reviewed the documentation and edited where necessary. I have discussed in detail with the resident / student the findings and plan of treatment as documented by the resident / student and edited their note. I agree with their findings and treatment plan and have edited their documentation. I will continue to follow the patient during this hospital stay. Mitra GARCIA OMS-3 Jun 28, 2020 10:06 Ramsey Obando DO Jun 28, 2020 11:15 KAREN NEWTON MD Jun 28, 2020 12:26
[2020-06-28 12:00] VITALS: BP 93/66
[2020-06-28 12:04] LABS: BLOOD UREA NITROGEN 49 MG/DL (7-18); CALCIUM LEVEL 8.8 MG/DL (8.5-10.1); CARBON DIOXIDE LEVEL 31 MEQ/L (21-32); CHLORIDE LEVEL 82 MEQ/L (98-107); CREATININE FOR GFR 1.04 MG/DL (0.70-1.30); GLOMERULAR FILTRATION RATE > 60.0 (>56); GLUCOSE, FASTING 112 MG/DL (70-100); SODIUM LEVEL 123 MEQ/L (136-145)
[2020-06-28] MEDS ORDERED: MIRALAX *UNIT DOSE* 17GM PACKET PO PRN (12:30)
[2020-06-28] MEDS ORDERED: MOM 30ML SUSPENSION UDC PO PRN (12:30)
--- NOTE | 2020-06-28 13:24 | IPN ---
PROGRESS NOTE DATE: 06/28/2020 SUBJECTIVE: Mr. Ghotra is seen this morning on his bedside. He is sitting in the chair at the time of my visit. He was admitted with severe hyponatremia and various remedies have been tried without much success. He is now on hypertonic saline 30 mL/hour. His sodium level was up to 120 last evening, 121 at 10:30 p.m., and then down to 116 again at 2:28 a.m. today. Most recent sodium is 120 at 7 a.m. today. The patient denies any nausea, vomiting, or diarrhea. He has no dyspnea or chest pain, but does have some edema on his feet. OBJECTIVE: VITAL SIGNS: Temperature 97.2 degrees Fahrenheit, heart rate about 100 per minute, and respiratory rate 18 per minute. Blood pressure 106/74 mmHg and oxygen saturation is 98% on room air. HEAD: Atraumatic. NECK: Supple and without JVD or thyroid enlargement. HEART: Sounds are tachycardic and irregular rhythm. On the left anterior chest, he has a new defibrillator with a lot of ecchymosis around the site. LUNGS: Sound clear to auscultation. ABDOMEN: Soft and nontender. Bowel sounds are normal. EXTREMITIES: Without any cyanosis or clubbing. Lower extremity edema is at least 1 to 2+ on his feet and lower legs. NEUROLOGIC: He is awake, alert, and without focal deficit. LABORATORY DATA: Today's labs show sodium 120 this morning and potassium 4.6. Most recent sodium is now 123 at 11 a.m. Potassium is 4.0, BUN 49, creatinine 1.04, and glucose 112. This morning, his WBC count was 13.4, hemoglobin 15.4, and hematocrit 46. PROBLEMS: 1. Severe hyponatremia. Sodium level is now gradually improving. At 11 a.m., his sodium level is up to 123. I have ordered to stop his hypertonic saline at 12:45 p.m. We will give him one dose of tolvaptan p.o. 7.5 mg at 5 p.m. today. He has peripheral edema on both legs and I am concerned about the possibility of decompensated volume status. We will try to cause some uresis with tolvaptan. 2. History of cardiomyopathy. The patient is currently off diuretics due to severe hyponatremia. He remains on Eliquis 5 mg b.i.d. for atrial fibrillation.
[2020-06-28] MEDS ORDERED: TOLVAPTAN 7.5 MG HALF-TAB PO ONE (17:00)
[2020-06-28 19:57] LABS: BLOOD UREA NITROGEN 49 MG/DL (7-18); CALCIUM LEVEL 9.2 MG/DL (8.5-10.1); CARBON DIOXIDE LEVEL 31 MEQ/L (21-32); CHLORIDE LEVEL 82 MEQ/L (98-107); CREATININE FOR GFR 1.11 MG/DL (0.70-1.30); GLOMERULAR FILTRATION RATE > 60.0 (>56); GLUCOSE, FASTING 115 MG/DL (70-100); SODIUM LEVEL 126 MEQ/L (136-145)
[2020-06-28 20:00] VITALS: BP 107/70
[2020-06-29] VITALS: BP 115/64
[2020-06-29 02:51] LABS: HEMATOCRIT 47.5 % (42.0-52.0); HEMOGLOBIN 16.3 g/dl (13.5-17.5); MEAN CORPUSCULAR HEMOGLOBIN 33.5 pg (27.0-33.0); MEAN CORPUSCULAR HGB CONC 34.3 g/dl (32.0-36.5); MEAN CORPUSCULAR VOLUME 97.7 fl (80.0-96.0); PLATELET COUNT, AUTOMATED 211 10^3/uL (150-450); RED BLOOD COUNT 4.86 10^6/uL (4.30-6.10); WHITE BLOOD COUNT 13.5 10^3/uL (4.0-10.0)
[2020-06-29 03:23] LABS: BLOOD UREA NITROGEN 46 MG/DL (7-18); CALCIUM LEVEL 9.6 MG/DL (8.5-10.1); CARBON DIOXIDE LEVEL 28 MEQ/L (21-32); CHLORIDE LEVEL 82 MEQ/L (98-107); CREATININE FOR GFR 1.14 MG/DL (0.70-1.30); GLOMERULAR FILTRATION RATE > 60.0 (>56); GLUCOSE, FASTING 82 MG/DL (70-100); MAGNESIUM LEVEL 2.7 MG/DL (1.8-2.4); SODIUM LEVEL 124 MEQ/L (136-145)
[2020-06-29 04:00] VITALS: BP 98/64
[2020-06-29] MEDS: LEVOTHYROXINE 25MCG TABLET (0.025MG) PO SCH (06:27)
[2020-06-29] MEDS ORDERED: TOLVAPTAN 15 MG TAB (SAMSCA) PO ONE (06:30)
[2020-06-29 07:27] LABS: BLOOD UREA NITROGEN 44 MG/DL (7-18); CALCIUM LEVEL 9.8 MG/DL (8.5-10.1); CARBON DIOXIDE LEVEL 34 MEQ/L (21-32); CHLORIDE LEVEL 82 MEQ/L (98-107); CREATININE FOR GFR 1.08 MG/DL (0.70-1.30); GLOMERULAR FILTRATION RATE > 60.0 (>56); GLUCOSE, FASTING 85 MG/DL (70-100); POTASSIUM SERUM 4.4 MEQ/L (3.5-5.1); SODIUM LEVEL 123 MEQ/L (136-145)
[2020-06-29 08:00] VITALS: BP 98/68
[2020-06-29] MEDS ORDERED: SODIUM CHLORIDE 1 GM TAB PO ONE (08:15)
[2020-06-29] MEDS: DOCUSATE SODIUM 100MG CAPSULE PO SCH ×2 (08:46→20:05)
[2020-06-29] MEDS: APIXABAN 5 MG TAB (ELIQUIS) PO SCH ×2 (08:47→20:05)
[2020-06-29] MEDS: SODIUM CHLORIDE 1 GM TAB PO SCH ×3 (08:48→20:05)
[2020-06-29 10:46] LABS: CREATININE,RANDOM URINE 42.8 MG/DL; SODIUM,RANDOM URINE < 10 MEQ/L
[2020-06-29 11:14] LABS: BLOOD UREA NITROGEN 46 MG/DL (7-18); CALCIUM LEVEL 9.8 MG/DL (8.5-10.1); CARBON DIOXIDE LEVEL 24 MEQ/L (21-32); CHLORIDE LEVEL 85 MEQ/L (98-107); CREATININE FOR GFR 1.17 MG/DL (0.70-1.30); GLOMERULAR FILTRATION RATE > 60.0 (>56); GLUCOSE, FASTING 70 MG/DL (70-100); POTASSIUM SERUM 4.9 MEQ/L (3.5-5.1); SODIUM LEVEL 123 MEQ/L (136-145)
--- NOTE | 2020-06-29 11:17 | IPNPDOC ---
Text Note Date of Service The patient was seen on 06/29/20. NOTE Subjective: Patient is a 55-year-old male who presented to the ER at the direction of his physician because of abnormal blood work. Patient mistakenly increased the dose of his diuretics to 400mg Torsemide daily and was found to have severe hyponatremia / hypokalemia and was admitted to the hospitalist service for further evaluation and treatment. Nephrology was called on consultation. Hypokalemia has resolved at this time. No acute events overnight. Patient was sitting in chair at bedside. Patient states that he has been having difficulty eating due to dry mouth while on fluid restriction. Admits to some leg swelling but feels that it is better than yesterday. Patient states that he has not had a BM since yesterday but attributes it to his decreased intake of food. Denies any chest pain, shortness breath, cough, abdominal pain, nausea, vomiting, diarrhea, or discomfort with urination. Objective: Vitals (See below) General: Lying in bed, no acute distress, comfortable, drowsy but oriented to person, place and time HEENT: NC, AT CVS: +S1S2, gallop present Lungs: Fair air entry b/l, no appreciable wheezing, rhonchi or rales Abdomen: Soft, nondistended and nontender Extremities: Lower extremities still reveal 2+ pitting edema to b/l calves, - Calf tenderness, pedal pulses not palpable in left lower extremity, doppler ultrasound does not show flow in left lower foot Imaging: CXR 06/26: Cardiomegaly with pacemaker. Cephalization of the pulmonary vasculature. Other smith no active disease. Assessment and plan: Severe Hypotonic Hyponatremia - likely 2/2 diuresis - Presented to the ER with confusion - Sodium noted to be 116 on 06/25 - Has been slowly improving - Will continue with BMP q4h - Hypertonic saline has been stopped and patient was given tolvaptan. PO sodium chloride has been ordered - managed by Nephrology - Nephrology has been called on consultation Possible lower extremity venous occlusion - Doppler showed no pulse to L lower extremity - Will order CTA to rule out occlusion Acute metabolic encephalopathy - likely 2/2 hyponatremia - No focal neurologic deficits - See above Hypotension - likely 2/2 hypovolemia - Improving - Will continue with bed rest / fall precautions - Will get PT involved s/p Hypokalemia: resolved at this time. Hypermagnesemia: lesser than yesterday. At 2.7 today, was 2.7 yesterday. s/p Lactic acidosis: resolved. Hypochloremic metabolic alkalosis: Continue hyponatremia management first. 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) - Iron profile noted - Workup pending; [place] / Lambda / Immunofixation Paroxysmal atrial fibrillation - Metoprolol on hold; will resume once BP improves - c/w full anticoagulation with Eliquis Hypothyroidism - c/w Levothyroxine PETERSON - Not on CPAP therapy History of Non-Hodgkin's lymphoma (2010) - s/p M-CHOP DVT prophylaxis - c/w Full anticoagulation with Eliquis VS,Fishbone, I+O VS, Fishbone, I+O Laboratory Tests 06/28/20 11:08 06/28/20 19:14 06/29/20 02:42 06/29/20 06:47 Vital Signs Date Time Temp Pulse Resp B/P (MAP) Pulse Ox O2 Delivery O2 Flow Rate FiO2 06/29/20 08:00 97.0 94 19 98/68 (78) 97 Room Air l I&O- Last 24 Hours up to 6 AM 06/29/20 06:00 Intake Total 1440 ml Output Total 2080 ml Balance -640 ml GME ATTESTATION GME ATTESTATION My faculty preceptor for this patient encounter was physically present during the encounter and was fully available. All aspects of the patient interview, examination, medical decision making process, and medical care plan development were reviewed and approved by the faculty preceptor. The faculty preceptor is aware and concurs with the plan as stated in the body of this note and will at test to such by his/her cosignature. ATTENDING NOTE I, Franko Mckenzie MD, have independently examined this patient and performed my own physical exam, as well as reviewed the documentation and edited where necessary. I have discussed in detail with the resident / student the findings and plan of treatment as documented by the resident / student and edited their note. I agree with their findings and treatment plan and have edited their documentation. I will continue to follow the patient during this hospital stay. Patient was noted to have purple and cold feet to touch this morning. Patient denies pain in the bilateral feet or claudication on ambulation. Distal pulses palpable were not palpable. Bedside doppler noted pulse in the RLE but not the LLE. CTA abdominal aorta with runoff showed no flow of contrast distal to superficial femoral artery, however this may be due to low EF and failure of contrast propulsion. I discussed the findings with vascular surgeon Dr. Bella at [facility] in [place], [place], who recommended not to transfer the patient as he is not having any pain, and that the lack of contrast flow on CTA is likely due to poor EF, in this patient with biventricular heart failure. Will perform serial LE exams and monitor clinically. If pain develops, will contact Dr. Bella immediately for transfer per his recommendation. Reviewed Dr. Avitia's note. Assistance with management of hyponatremia is greatly appreciated. S/p hypertonic saline, Na improved from 116 to 126 but reduced to 123. S/p tolvaptan 7.5 mg. Plan for lasix 100 mg today, as well as tolvaptain 15 mg once. C/w salt tabs 2 g TID. C/w BMP q4h. Rest as per resident note. Mitra GARCIA OMS-3 Jun 29, 2020 10:36 Ramsey Obando DO Jun 29, 2020 11:17 FRANKO MCKENZIE MD Jun 29, 2020 17:32
[2020-06-29] MEDS ORDERED: ISOVUE-370 76% 100ML VIAL As Ordered ONE (11:43)
[2020-06-29 12:18] VITALS: BP 105/73
--- NOTE | 2020-06-29 12:32 | REP ---
INDICATION: Suspect limb ischemia LLE, absent pulses on doppler.. COMPARISON: Comparison CT study abdomen and pelvis with IV contrast April 23, 2020.. TECHNIQUE: 100 mL of intravenous Isovue 370 is administered. Helical scanning is acquired 3 mm axial images are re-formatted. Coronal and sagittal MPR and coronal MIP images are generated. In addition 3D surface rendered images are generated and viewed rotationally. FINDINGS: Nonvascular CT there is four-chamber cardiac enlargement. There is a right-sided pacemaker. Reflux of contrast opacified blood is seen in the hepatic veins and intrahepatic vena cava which may reflect right heart failure. There is minimal ascites in the pelvic reflections. The appendix has a normal appearance. 9 there are degenerative spondylosis changes in the lumbar spine. Vascular CT angiographic findings. The suprarenal and infrarenal abdominal aorta are normal in caliber and widely patent. Celiac and superior mesenteric artery origins are normal. Inferior mesenteric artery is patent and is seen arising from the aorta. Singular nonstenotic renal arteries are observed bilaterally. There is minimal vascular calcification in the right renal artery. Vascular calcification is seen in the common iliac arteries bilaterally but no high-grade stenosis is seen. The internal and external iliac arteries are patent bilaterally. Common femoral arteries are patent. There is calcific plaquing in the proximal superficial femoral artery on the right. No high-grade stenosis is seen. There is some calcification in the right distal superficial femoral artery at the level of the adductor canal. Contrast is not seen in the distal superficial femoral artery below the level of the adductor canal on the right. The right popliteal artery is not enhanced. I cannot confirm patency of the any runoff vessels in the right lower extremity. On the left, there is contrast enhancement in the profundal and superficial femoral artery in the upper thigh. There is some vascular calcification in the distal superficial femoral artery at the level of the adductor canal. Contrast enhancement tapers and is no longer visible at the level of the popliteal artery. I cannot confirm patency of the calf runoff arteries or popliteal artery on the left. On maximum intensity projection images the contrast enhancement seems to taper or fade distally rather than a bra plea terminate in the distal superficial femoral arteries bilaterally. There is diffuse subcutaneous calf swelling. IMPRESSION: Contrast enhancement fades or tapers in the distal superficial femoral artery regions bilaterally in the lower extremities. I cannot confirm patency of the vessels distal to this in either lower extremity. This could be a slow flow phenomenon rather than embolic or atherosclerotic occlusion. There are mild atherosclerotic calcifications in the superficial femoral arteries bilaterally and in the common iliac arteries bilaterally. No large vessel occlusion or stenosis is seen. There is evidence of right heart strain or right heart failure. <Electronically signed by Devan Argueta > 06/29/20 [id number]
[2020-06-29] MEDS ORDERED: FUROSEMIDE 100MG/10ML VIAL (J1940) IV ONE (13:00)
--- NOTE | 2020-06-29 14:10 | IPN ---
PROGRESS NOTE DATE: 06/29/2020 Mr. Ghotra is seen this morning on his bedside. He is sitting in the chair at the time of my visit. 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 His sodium level was 116 on admission and improved up to 126 in the afternoon of June 28. He was receiving 3% hypertonic saline at that time. Due to adequate correction of hyponatremia, hypertonic saline infusion was stopped at about 5 p.m. on June 28. Patient has been on fluid restriction of 2000 mL per day, and he states to be compliant with it. He was given a dose of Tolvaptan 7.5 mg yesterday afternoon because of development of some pedal edema. This morning his sodium is [address] a [address] angiogram done due to nonpalpable pulses in his lower extremities. He also has developed worsening leg edema bilaterally. PHYSICAL EXAMINATION: Temperature 96.6 degrees Fahrenheit, heart rate 109 per minute, respiratory rate 19 per minute, blood pressure 105/73 mmHg, and oxygen saturation 99% on room air. Intake and output records from yesterday show a negative fluid balance of 430 mL with total intake 1500 and output 1930. His weight is also recorded as 72 kg today, which is 0.7 kg less compared to yesterday. His head is atraumatic. Oral mucosa is somewhat dry. Neck is supple and jugular venous distention (JVD) minimally elevated above the clavicle. Lungs have bilateral basilar rales. Heart sounds are irregular in rhythm and without a pericardial rub. There is a systolic murmur, grade 2/6. Abdomen is soft and nontender. On left upper chest he has significant ecchymosis, and a pacemaker is present with surgical incision healing nicely. Abdomen is soft and nontender, and bowel sounds are normal. Extremities have no cyanosis or clubbing. Lower extremity edema is now extending above the knees, and it has increased to about 3+. Neurologically, patient is awake, alert, and at his baseline mentation without a focal deficit. At 2:40 a.m. today sodium was 124 and then 6:47 a.m. sodium 123. Another repeat sodium at 10:34 is still 123. Potassium is 4.9, chloride is up to 85, and CO2 of 24. BUN is 46 and creatinine 1.17. Glucose 70 and calcium 9.8. PROBLEMS: 1. Severe hyponatremia. This is a quite resistant problem. Very difficult situation because of his severe cardiomyopathy and persistent hyponatremia. He was given 3% hypertonic saline with improvement in the sodium level up to 126; however, after stopping hypertonic saline, his sodium has drifted down to 123 again. He has developed significant leg edema and still off his diuretic. I am going to give him one dose of intravenous Lasix 100 mg today in addition to Tolvaptan 15 mg one dose. We will need to get him in negative fluid balance and try to improve his sodium level up to about 130 range in 24 hours. He has been started on oral sodium chloride tablets 2 grams three times a day. His sodium is being checked every 4 hours. 2. Combined systolic and diastolic congestive heart failure with possible right-sided heart failure. Patient has severe cardiomyopathy with ejection fraction of 20% and also diastolic dysfunction in addition to right-sided heart failure. His blood pressure is also soft, which makes it quite difficult to manage all his problems. Now he has developed significant leg edema while he is off diuretic. I am going to give him one dose of intravenous Lasix 100 mg today and see how he responds. He will remain on fluid restriction of about 2000 mL per day. 3. Chronic kidney disease (CKD). Patient has mild chronic kidney disease, which his stable so far with serum creatinine of about 1.1 mg/dL and BUN in 40s.
[2020-06-29 15:26] LABS: BLOOD UREA NITROGEN 45 MG/DL (7-18); CARBON DIOXIDE LEVEL 31 MEQ/L (21-32); CHLORIDE LEVEL 85 MEQ/L (98-107); CREATININE FOR GFR 1.11 MG/DL (0.70-1.30); GLOMERULAR FILTRATION RATE > 60.0 (>56); GLUCOSE, FASTING 102 MG/DL (70-100); SODIUM LEVEL 127 MEQ/L (136-145)
[2020-06-29 16:00] VITALS: BP 101/72
[2020-06-29 17:14] LABS: TROPONIN I 0.58 NG/ML (< 0.10)
[2020-06-29 19:39] LABS: BLOOD UREA NITROGEN 45 MG/DL (7-18); CARBON DIOXIDE LEVEL 33 MEQ/L (21-32); CHLORIDE LEVEL 87 MEQ/L (98-107); CREATININE FOR GFR 1.16 MG/DL (0.70-1.30); GLOMERULAR FILTRATION RATE > 60.0 (>56); GLUCOSE, FASTING 93 MG/DL (70-100); POTASSIUM SERUM 4.5 MEQ/L (3.5-5.1); SODIUM LEVEL 128 MEQ/L (136-145)
[2020-06-29 20:00] VITALS: BP 100/64
[2020-06-29 23:27] LABS: BLOOD UREA NITROGEN 44 MG/DL (7-18); CALCIUM LEVEL 9.3 MG/DL (8.5-10.1); CARBON DIOXIDE LEVEL 27 MEQ/L (21-32); CHLORIDE LEVEL 88 MEQ/L (98-107); CREATININE FOR GFR 1.22 MG/DL (0.70-1.30); GLOMERULAR FILTRATION RATE > 60.0 (>56); GLUCOSE, FASTING 100 MG/DL (70-100); POTASSIUM SERUM 3.9 MEQ/L (3.5-5.1); SODIUM LEVEL 127 MEQ/L (136-145)
[2020-06-30] VITALS (13 sets, daily range): BP systolic 82–110; BP diastolic 58–74
[2020-06-30] MEDS ORDERED: FUROSEMIDE 100MG/10ML VIAL (J1940) IV ONE (04:00)
[2020-06-30] MEDS ORDERED: POTASSIUM CHLORIDE 10 MEQ SR TABLET PO ONE (04:00)
[2020-06-30] MEDS: LEVOTHYROXINE 25MCG TABLET (0.025MG) PO SCH (05:28)
[2020-06-30 05:39] LABS: HEMATOCRIT 46.7 % (42.0-52.0); HEMOGLOBIN 15.5 g/dl (13.5-17.5); MEAN CORPUSCULAR HEMOGLOBIN 32.8 pg (27.0-33.0); MEAN CORPUSCULAR HGB CONC 33.2 g/dl (32.0-36.5); MEAN CORPUSCULAR VOLUME 98.7 fl (80.0-96.0); PLATELET COUNT, AUTOMATED 204 10^3/uL (150-450); RED BLOOD COUNT 4.73 10^6/uL (4.30-6.10); WHITE BLOOD COUNT 13.6 10^3/uL (4.0-10.0)
[2020-06-30 06:48] LABS: ALBUMIN 3.5 GM/DL (3.2-5.2); ALT/SGPT 59 U/L (12-78); BILIRUBIN,TOTAL 5.4 MG/DL (0.2-1.0); BLOOD UREA NITROGEN 46 MG/DL (7-18); CALCIUM LEVEL 9.4 MG/DL (8.5-10.1); CARBON DIOXIDE LEVEL 23 MEQ/L (21-32); CHLORIDE LEVEL 86 MEQ/L (98-107); CREATININE FOR GFR 1.26 MG/DL (0.70-1.30); GLOMERULAR FILTRATION RATE > 60.0 (>56); GLUCOSE, FASTING 90 MG/DL (70-100); MAGNESIUM LEVEL 2.4 MG/DL (1.8-2.4); SODIUM LEVEL 125 MEQ/L (136-145); TOTAL PROTEIN 7.2 GM/DL (6.4-8.2)
[2020-06-30] MEDS ORDERED: POTASSIUM CHLORIDE 10 MEQ SR TABLET PO SCH (09:00)
[2020-06-30] MEDS: DOCUSATE SODIUM 100MG CAPSULE PO SCH ×2 (09:40→20:56)
[2020-06-30] MEDS: APIXABAN 5 MG TAB (ELIQUIS) PO SCH ×2 (09:40→20:56)
[2020-06-30] MEDS: TOLVAPTAN 15 MG TAB (SAMSCA) PO SCH (09:41)
[2020-06-30] MEDS: SODIUM CHLORIDE 1 GM TAB PO SCH ×3 (09:41→20:56)
[2020-06-30] MEDS: FUROSEMIDE 100MG/10ML VIAL (J1940) IV SCH ×3 (10:00→22:00)
--- NOTE | 2020-06-30 11:13 | IPNPDOC ---
Text Note Date of Service The patient was seen on 06/30/20. NOTE Subjective: Patient is a 55-year-old male who presented to the ER at the direction of his physician because of abnormal blood work. Patient mistakenly increased the dose of his diuretics to 400mg Torsemide daily and was found to have severe hyponatremia / hypokalemia and was admitted to the hospitalist service for further evaluation and treatment. Nephrology was called on consultation. Hypokalemia has resolved at this time. No acute events overnight. Patient was sitting in chair at bedside. Admits to some leg swelling but feels that it is better than yesterday. Patient states that he has been able to walk without any difficulty. Patient complains of dry mouth due to fluid restriction. Denies any chest pain, shortness breath, cough, abdominal pain, nausea, vomiting, diarrhea, or discomfort with urination. Objective: Vitals (See below) General: Lying in bed, no acute distress, comfortable, drowsy but oriented to p erson, place and time HEENT: NC, AT, oral mucosal membranes moist. CVS: +S1S2, gallop present Lungs: Fair air entry b/l, no appreciable wheezing, rhonchi or rales Abdomen: Soft, nondistended and nontender Extremities: Lower extremities still reveal 2+ pitting edema to b/l calves, - Calf tenderness, pedal pulses not palpable in left lower extremity, doppler ultrasound does not show flow in left lower foot Imaging: CXR 06/26: Cardiomegaly with pacemaker. Cephalization of the pulmonary vasculature. Otherwise no active disease. Assessment and plan: Severe Hypotonic Hyponatremia - likely 2/2 diuresis - Presented to the ER with confusion - Sodium noted to be 116 on 06/25 - Has been slowly improving, 125, 06/30/2020 - Will continue with BMP q4h - Hypertonic saline has been stopped and patient was given tolvaptan as well as IV lasix. PO sodium chloride has been ordered - managed by Nephrology - Nephrology is managing hyponatremia, primary team grateful for their help. Possible lower extremity venous occlusion - Doppler showed no pulse to L lower extremity - CTA shows slow flow phenomenon vs embolic/atherosclerotic occlusion - Pending possible transfer for interventional radiology Acute metabolic encephalopathy - likely 2/2 hyponatremia - No focal neurologic deficits - See above Hypotension - likely 2/2 hypovolemia - Improving - Will continue with bed rest / fall precautions - Will get PT involved s/p Hypokalemia: resolved at this time. Hypermagnesemia: lesser than yesterday. At 2.7 today, was 2.7 yesterday. s/p Lactic acidosis: resolved. Hypochloremic metabolic alkalosis: Continue hyponatremia management first. 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 Non-ischemic cardiomyopathy - possibly 2/2 amyloidosis, however possibly 2/2 hemochromatosis - s/p AICD (06/21/20). 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 - Workup pending; [place] / Lambda / Immunofixation Paroxysmal atrial fibrillation - Metoprolol on hold; will resume once BP improves. - c/w full anticoagulation with Eliquis. Hypothyroidism - c/w Levothyroxine PETERSON - Not on CPAP therapy History of Non-Hodgkin's lymphoma (2010) - s/p M-CHOP DVT prophylaxis - c/w Full anticoagulation with Eliquis GME ATTESTATION My faculty preceptor for this patient encounter was physically present during the encounter and was fully available. All aspects of the patient interview, examination, medical decision making process, and medical care plan development were reviewed and approved by the faculty preceptor. The faculty preceptor is aware and concurs with the plan as stated in the body of this note and will attest to such by his/her cosignature. VS,Fishbone, I+O VS, Fishbone, I+O Laboratory Tests 06/29/20 10:34 06/29/20 14:57 06/29/20 18:50 06/29/20 22:56 06/30/20 05:13 Vital Signs Date Time Temp Pulse Resp B/P (MAP) Pulse Ox O2 Delivery O2 Flow Rate FiO2 06/30/20 08:00 97.1 100 20 97/67 (77) 99 Room Air I&O- Last 24 Hours up to 6 AM 06/30/20 06:00 Intake Total 1260 ml Output Total 2750 ml Balance -1490 ml GME ATTESTATION GME ATTESTATION My faculty preceptor for this patient encounter was physically present during the encounter and was fully available. All aspects of the patient interview, examination, medical decision making process, and medical care plan development were reviewed and approved by the faculty preceptor. The faculty preceptor is aware and concurs with the plan as stated in the body of this note and will attest to such by his/her cosignature. Mitra GARCIA OMS-3 Jun 30, 2020 10:03 Ramsey Obando DO Jun 30, 2020 11:20
[2020-06-30 11:36] LABS: BLOOD UREA NITROGEN 47 MG/DL (7-18); CALCIUM LEVEL 9.1 MG/DL (8.5-10.1); CARBON DIOXIDE LEVEL 29 MEQ/L (21-32); CHLORIDE LEVEL 88 MEQ/L (98-107); GLOMERULAR FILTRATION RATE > 60.0 (>56); GLUCOSE, FASTING 122 MG/DL (70-100); POTASSIUM SERUM 4.3 MEQ/L (3.5-5.1); SODIUM LEVEL 128 MEQ/L (136-145)
[2020-06-30] MEDS: MIDODRINE 5 MG TAB PO SCH ×2 (12:07→16:24)
--- NOTE | 2020-06-30 16:05 | REP ---
INDICATION: elevated bilirubin. COMPARISON: Comparison CT angio 29 June 2020.. TECHNIQUE: Right upper quadrant sonography. FINDINGS: Scanning through the right upper quadrant of the abdomen demonstrates a normal sized, thin-walled gallbladder without evidence of stone or polyp. Common bile duct is normal measuring 0.28 cm in greatest diameter. No focal liver lesion is seen. Liver size is normal. No pancreatic abnormality is observed. Pancreatic tail is obscured by abdominal gas. No right renal abnormality is seen. There is no evidence of ascites. The right kidney measures 9.5 x 5.8 x 3.6 cm. There is a trace of ascites at the lateral aspect of the liver. IMPRESSION: Trace of ascites seen at the lateral aspect of the liver. Otherwise negative right upper quadrant sonography. <Electronically signed by Devan Argueta > 06/30/20 [id number]
--- NOTE | 2020-06-30 16:32 | REP ---
INDICATION: concern for PAD, absent pulse on palp, CTA non diagnostic. COMPARISON: None. TECHNIQUE: Bilateral lower extremity arterial Doppler ultrasound. FINDINGS: Ankle brachial indices are normal measured at 1.0 bilaterally. Normal triphasic and biphasic waveforms are noted throughout both lower extremity arterial trees. No high-grade stenosis or occlusion is seen. Moderate atherosclerotic plaquing is observed. Right lower extremity arterial Doppler velocity chart: Right BODY PRESSER PSV 53 cm/S Profundal 47 Proximal SFA 57 Mid SFA 64 Distal SFA 52 Popliteal 34/55 Proximal MIRI 43 Tibial-peroneal trunk 31 Proximal BACK END WEB DEVELOPER 36 Distal BACK END WEB DEVELOPER 23 Distal MIRI 33 Left lower extremity arterial Doppler velocity chart: Left BODY PRESSER PSV 33 cm/S Profundal 44 Proximal SFA 43 Mid SFA 61 Distal SFA 48 Popliteal 29/54 Proximal MIRI 34 Tibial-peroneal trunk 35 Proximal BACK END WEB DEVELOPER 44 Distal BACK END WEB DEVELOPER 33 Distal to MIRI 25 IMPRESSION: Moderate atherosclerotic plaquing. No high-grade stenosis or occlusion seen in either lower extremity. <Electronically signed by Devan Argueta > 06/30/20 [id number]
[2020-06-30 18:27] LABS: BLOOD UREA NITROGEN 49 MG/DL (7-18); CALCIUM LEVEL 9.5 MG/DL (8.5-10.1); CARBON DIOXIDE LEVEL 27 MEQ/L (21-32); CHLORIDE LEVEL 89 MEQ/L (98-107); CREATININE FOR GFR 1.26 MG/DL (0.70-1.30); GLOMERULAR FILTRATION RATE > 60.0 (>56); GLUCOSE, FASTING 102 MG/DL (70-100); POTASSIUM SERUM 4.6 MEQ/L (3.5-5.1); SODIUM LEVEL 130 MEQ/L (136-145)
--- NOTE | 2020-06-30 19:59 | IPN ---
PROGRESS NOTE DATE: 06/30/2020 SUBJECTIVE: Mr. Ghotra is seen this morning on his bedside. He is standing on his bedside. Nursing staff reports that his blood pressure has been low this morning and Lasix dose was held. He denies any dyspnea or chest pain, however, reports no improvement in his lower extremity edema. His appetite has been poor and not eating much. He reports that he did not eat breakfast today at all. PHYSICAL EXAMINATION: GENERAL: Temperature 96.5 degrees Fahrenheit, heart rate about 94 per minute, respiratory rate 18 per minute, blood pressure earlier 97/67 mmHg and at the time of my visit checked was 86/58 mmHg with oxygen saturation 95% on room air. INTAKE AND OUTPUT: Records from yesterday show total intake 840 mL and output 2300, which I suspect is probably slightly inaccurate as his weight has not changed and in fact is 0.3 kg higher weight today than yesterday. HEENT: Head is atraumatic. Neck is supple and JVD is moderately elevated. His oral mucosa is somewhat dry. HEART: Sounds are irregular with systolic murmur grade 2/6. LUNGS: Bibasilar rales. ABDOMEN: Soft and nontender. Bowel sounds normal. EXTREMITIES: Without any cyanosis or clubbing. Lower extremity edema extending up the thighs; now 3+ bilaterally. NEUROLOGIC: He is awake, alert and at his baseline mentation. LABORATORY DATA: Today's labs show sodium level dropped to 125 at 5:00 a.m., however repeat one at 10:46 a.m. is up to 128, chloride 88, CO2 29, BUN 47 and creatinine 1.10. Glucose 122 and calcium 9.1. PROBLEMS: 1. Hyponatremia: Sodium level is gradually improving. It is very difficult to manage his fluid and sodium. He has severe cardiomyopathy with right and left heart failure. He is also hypotensive, so we are unable to diurese him aggressively. He did receive the dose of Tolvaptan 15 mg this morning and we anticipate that his sodium level will improve. Unfortunately, we cannot give him diuretic at this point due to low blood pressure and I am going to put a hold perimeter on the Lasix dose for blood pressure below 100 mmHg. Patient will continue with fluid restriction 2,000 mL per day. He also remains on oral sodium chloride tablets and once his blood pressure improves, then we will give him Lasix again. Electrolytes will be checked again in the afternoon. 2. Congestive heart failure: Patient has known history of severe systolic dysfunction and also diastolic dysfunction of left ventricle in addition to right ventricular dysfunction. His manager long term care prognosis remains guarded due to severe cardiomyopathy. We will continue our efforts to try to diurese him. It is possible that we may have to consider Dobutamine, however, I would like cardiology to be consulted and then consider any inotropes if needed. 3. Hypotension: Blood pressure is low at present without any signs of infection. I am going to start him on Midodrine 5 mg t.i.d. and see how he responds.
[2020-06-30] MEDS: POTASSIUM CHLORIDE 10 MEQ SR TABLET PO SCH (20:56)
[2020-07-01] VITALS: BP 100/69
[2020-07-01 04:00] VITALS: BP 98/58
[2020-07-01] MEDS: FUROSEMIDE 100MG/10ML VIAL (J1940) IV SCH ×2 (04:00→08:35)
[2020-07-01] MEDS: LEVOTHYROXINE 25MCG TABLET (0.025MG) PO SCH (04:59)
[2020-07-01 06:34] LABS: CALCIUM LEVEL 9.8 MG/DL (8.5-10.1); CREATININE FOR GFR 1.32 MG/DL (0.70-1.30); GLOMERULAR FILTRATION RATE 59.5 (>56); POTASSIUM SERUM 4.8 MEQ/L (3.5-5.1)
[2020-07-01 08:31] VITALS: BP 91/64
[2020-07-01] MEDS: SODIUM CHLORIDE 1 GM TAB PO SCH (08:45)
[2020-07-01] MEDS: MIDODRINE 5 MG TAB PO SCH ×3 (08:45→17:34)
[2020-07-01] MEDS: TOLVAPTAN 15 MG TAB (SAMSCA) PO SCH (08:45)
[2020-07-01] MEDS: APIXABAN 5 MG TAB (ELIQUIS) PO SCH ×2 (08:45→20:44)
[2020-07-01] MEDS: POTASSIUM CHLORIDE 10 MEQ SR TABLET PO SCH (08:46)
[2020-07-01] MEDS: DOCUSATE SODIUM 100MG CAPSULE PO SCH ×2 (08:46→20:44)
--- NOTE | 2020-07-01 10:39 | IPNPDOC ---
Text Note Date of Service The patient was seen on 07/01/20. NOTE Subjective: Patient is a 55-year-old male who presented to the ER at the direction of his physician because of abnormal blood work. Patient mistakenly increased the dose of his diuretics to 400mg Torsemide daily and was found to have severe hyponatremia / hypokalemia and was admitted to the hospitalist service for further evaluation and treatment. Nephrology was called on consultation. Hypokalemia has resolved at this time. Pt had 6 beats of ventricular tachycardia, without symptoms that spontaneously resolved. Patient was sitting in chair at bedside. Admits to some leg swelling and feels that there was no improvement from yesterday. Patient states that he has been able to walk without any difficulty. Patient continues to complain of dry mouth due to fluid restriction. Denies any chest pain, shortness breath, cough, abdominal pain, nausea, vomiting, diarrhea, or discomfort with urination. Objective: Vitals (See below) General: Lying in bed, no acute distress, comfortable, drowsy but oriented to person, place and time HEENT: NC, AT, oral mucosal membranes moist. CVS: +S1S2, gallop present Lungs: Fair air entry b/l, no appreciable wheezing, rhonchi or rales Abdomen: Soft, nondistended and nontender Extremities: Lower extremities still reveal 2+ pitting edema to b/l calves, - Calf tenderness, pedal pulses not palpable in left lower extremity, doppler ultrasound does not show flow in left foot Imaging: CXR 06/26: Cardiomegaly with pacemaker. Cephalization of the pulmonary vasculature. Otherwise no active disease. Assessment and plan: Severe Hypotonic Hyponatremia - likely 2/2 diuresis - Presented to the ER with confusion - Sodium noted to be 116 on 06/25 - Has been slowly improving, 129, 06/30/2020 - Will continue with BMP q4h - Hypertonic saline has been stopped and patient was given tolvaptan. PO sodium chloride has been ordered. Lasix was held this AM due to soft BPs (98/58). - managed by Nephrology - Signal Operator, Dr. Hudson consulted due to hypervolemic hyponatremia that needs to be managed, however, he has low BP, and diuretic use are held for SBP<100. Cardiology consult help is much appreciated at this time. - Nephrology is managing hyponatremia, primary team grateful for their help. Possible lower extremity venous occlusion - Doppler showed no pulse to L lower extremity - CTA shows slow flow phenomenon vs embolic/atherosclerotic occlusion - Pending possible transfer for interventional radiology Acute metabolic encephalopathy - likely 2/2 hyponatremia - No focal neurologic deficits - See above Hypotension - likely 2/2 hypovolemia - Improving - Pt had 6 beats of Ventricular tachycardia overnight, asx, spontaneously resolved. - Changed to out of bed ad catherine with assist / fall precautions. - Will involve PT s/p Hypokalemia: resolved at this time. Hypermagnesemia: lesser than yesterday. At 2.7 today, was 2.7 yesterday. s/p Lactic acidosis: resolved. Hypochloremic metabolic alkalosis: Continue hyponatremia management first. 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 Non-ischemic cardiomyopathy - possibly 2/2 amyloidosis, however possibly 2/2 hemochromatosis - s/p AICD (06/21/20). 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 - Workup pending; [place] / Lambda / Immunofixation Paroxysmal atrial fibrillation - Metoprolol on hold; will resume once BP improves. - c/w full anticoagulation with Eliquis. Hypothyroidism - c/w Levothyroxine PETERSON - Not on CPAP therapy History of Non-Hodgkin's lymphoma (2010) - s/p M-CHOP DVT prophylaxis - c/w Full anticoagulation with Eliquis GME ATTESTATION My faculty preceptor for this patient encounter was physically present during the encounter and was fully available. All aspects of the patient interview, examination, medical decision making process, and medical care plan development were reviewed and approved by the faculty preceptor. The faculty preceptor is aware and concurs with the plan as stated in the body of this note and will attest to such by his/her cosignature. VS,Fishbone, I+O VS, Fishbone, I+O Laboratory Tests 06/30/20 10:46 06/30/20 17:06 07/01/20 05:56 Vital Signs Date Time Temp Pulse Resp B/P (MAP) Pulse Ox O2 Delivery O2 Flow Rate FiO2 07/01/20 08:31 97.3 96 20 91/64 (73) 98 Room Air I&O- Last 24 Hours up to 6 AM 07/01/20 06:00 Intake Total 1350 ml Output Total 1070 ml Balance 280 ml Ramsey Obando DO Jul 01, 2020 10:39
[2020-07-01 12:06] LABS: CALCIUM LEVEL 9.8 MG/DL (8.5-10.1); CREATININE FOR GFR 1.35 MG/DL (0.70-1.30); POTASSIUM SERUM 5.1 MEQ/L (3.5-5.1)
--- NOTE | 2020-07-01 12:16 | IPN ---
NEPHROLOGY PROGRESS NOTE DATE: 07/01/20 SUBJECTIVE: Mr. Ghotra is seen this morning on is bedside. He is sitting in a chair at the time of my visit. He is feeling about the same, but leg edema has increased. Apparently he could not receive intravenous Lasix due to low blood pressure and with only slightly negative fluid balance which is probably even not correct. His weight is 72.4 kg today. PHYSICAL EXAMINATION: Temperature 97.3 degrees Fahrenheit, heart rate 96 per minute and respiratory rate 20 per minute. Blood pressure 91/64 mmHg and oxygen saturation 98% on room air. Intake and output records from yesterday show total intake 1400 and output 1720. Head: Atraumatic. Neck: Neck veins are more prominent today. Heart: Irregular. Lungs: With a few basilar rales. Abdomen: Soft and nontender and bowel sounds are normal. Extremities: Without any cyanosis or clubbing. Lower extremity edema is at least 3+ up to his thighs. Neurologically: He is awake and at his baseline mentation. LABORATORY DATA: Today's labs show sodium level up to 129, potassium 4.8, CO2 26, chloride 90, BUN 50 and creatinine 1.32. Glucose 83 and calcium 9.8. PROBLEMS/PLAN: 1. Hyponatremia: Sodium level has improved and stabilized. Unfortunately he is also hypovolemic and we cannot diurese him much due to low blood pressure. He remains on oral sodium chloride tablets for now and I am going to cut it down to just 1 gram three times a day. 2. Cardiomyopathy and decompensated congestive heart failure: Patient has severe cardiomyopathy and most likely his hypotension is related to cardiac issues. I have suggested to his primary care team to consult cardiology for possible dobutamine infusion. We cannot diurese him with low blood pressure. We will also start a Lasix drip at 10 mg per hour in view of his hypotension. 3. Hypokalemia: His hypokalemia has corrected and I am going to continue with potassium chloride 20 mEq twice a day for now in view of starting a Lasix drip.
[2020-07-01 12:21] VITALS: BP 111/77
[2020-07-01] MEDS: FUROSEMIDE injection 250 MG in D5W 225 ML IV SCH (12:51)
[2020-07-01] MEDS ORDERED: SODIUM CHLORIDE 1 GM TAB PO SCH (16:00)
[2020-07-01 16:06] VITALS: BP 104/75
--- NOTE | 2020-07-01 16:52 | DS.PDOC ---
Discharge Summary General Date of Admission Jun 26, 2020 at 15:27 Date of Discharge 07/01/2020 Attending Physician: ALLY REYNOLDS MD Specialist/Consultants Involve: Ric Mcgee MD Specialist/Consultants Involve Dr. Naveen Avitia, Temperer Discharge Summary PROCEDURES PERFORMED DURING STAY: [None]. ADMITTING DIAGNOSES: #Hyponatremia. #Hypokalemia. #Combined systolic and diastolic heart failure (EF: 20-25%) #Hypotension. #Paroxysmal atrial fibrillation: Rate controlled on metoprolol, receiving eliquis 5 mg twice a day #Hypothyroidism DISCHARGE DIAGNOSES: Severe hypotonic hyponatremia. Possible lower extremity venous occlusion. Hypotension. Chronic combined systolic and diastolic heart failure. 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 Paroxysmal atrial fibrillation. Hypothyroidism. PETERSON not on CPAP therapy. COMPLICATIONS/CHIEF COMPLAINT: Hypokalemia, Hyponatremia. HISTORY OF PRESENT ILLNESS: Patient is a 55-year-old gentleman with an extensive medical history consisting of nonischemic cardiomyopathy with combined systolic and diastolic heart failure, paroxysmal atrial fibrillation (on Eliquis), history of non-Hodgkin's lymphoma 2010 s/p M-[facility]. He presented to the emergency department on 06/26/20 after his found him altered and "saying things that did not make sense". Given patient's extensive congestive heart failure, he has been on quite a high dose of diuretic outpatient. Patient was discharged from [facility] and 05/02 on torsemide 40 mg BID. Patient reports that his access control specialist, Dr. Mcgee, increased his dose to 100 mg BID in 06/03. Patient continues to report that this dose increase to 400 mg daily on 06/15/20. Since this time, patient reports that he has lost approximately 15 pounds. Also of note, patient did have an AICD placed at [facility] on 06/21/20. Per patient's , patient's access control specialist ordered lab work yesterday, that was revealing of hyponatremia and hypokalemia. Unfortunately, patient refused to present to the emergency department last night for evaluation. Upon presentation this am, patient was found to be afebrile, pulse 91, respiratory rate of 18, 96% on room air and hypotensive with a blood pressure of 94/62. CBC demonstrated a mildly elevated white count of 12.3, neutrophil predominance. Chemistries were significant for hyponatremia, 116 and hypokalemia, 2.8. BUN/Cr of 50/1.17. Serum Osm of 255. Urine Osm of 398, Urine Cr of 72 and Urine Na of <10. Troponin of 0.95. Of note, patient does carry a history of chronic troponin leak averaging about 0.55 throughout recent hospitalizations. BMP found to be 16,894, baseline of roughly 10,000. Patient was given a single K run in the emergency department to address his hypokalemia. Chest x-ray was ordered and found to show cardiomegaly with cephalization of pulmonary vasculature. Hospitalist team was contacted for further evaluation and management of the patient's hyponatremia, hypokalemia in the setting of severe CHF. HOSPITAL COURSE: Nephrology was consulted immediately on admission 06/26/2020, due to patient's use of high dose of diuretic use and severe hyponatremia of 116. Hypertonic saline solution was administered per nephrology orders and repeat BMP was assessed every 4 hours. Patient's home diuretics were on hold during this time. K run was administered in the emergency room 1. Oral repletion was continued for potassium looking at BMP. Troponin levels were trended due to chronic troponin leak. Metoprolol was held during entire hospital course at [facility] due to soft blood pressures throughout stay. Eliquis was continued 5 mg twice a day. Home dose of levothyroxine was continued for hypothyroidism. Hypertonic saline solution administration was stopped on 06/28/2020 when patient's sodium level reached 123. He began receiving doses of Tolvaptan and salt tablets for the rest of his hospital course at [facility]. Patient's sodium chloride tablets were cut down to 1 g 3 times a day due to stabilization of sodium levels and ongoing hypotension. Cardiology was consultative on 07/01/2020 for assistance in hyponatremia treatment since Lasix was on hold due to patient's ongoing hypotension. Patient's hypokalemia, corrected. Therefore 20 mEq KCl twice a day was continued. 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 DISCHARGE MEDICATIONS: Please see below. ALLERGIES: Please see below. PHYSICAL EXAMINATION ON DISCHARGE: VITAL SIGNS: Please see below. GENERAL: Alert, cooperative, ambulatory to bedside chair. HEENT: Lids appear normal, oral mucosa moist, Three: quarter of a dime-sized lesions present on cranium, and one on back of neck, EOMI intact CARDIOVASCULAR EXAMINATION: Normal S1, S2 present. Gallop present, AICD paced rhythm, regular rate RESPIRATORY EXAMINATION: Clear to auscultation bilaterally ABDOMINAL EXAMINATION: Soft, nontender, no HSM appreciated, bowel sounds present EXTREMITIES: Bilateral lower extremity edema present of: Pedal up to knees, Dusky discoloration of feet SKIN: No open ulcers or wounds except for the ones noted on cranium and back of neck. PSYCHIATRIC EXAMINATION: Affect full and open, alert and oriented 3, cooperative. LABORATORY DATA: Please see below. IMAGING: Chest radiograph (06/26/2020): Cardiomegaly present with pacemaker visualization. Cephalization of the pulmonary vasculature, otherwise no active disease. CT angiogram (06/29/2020): Contrast enhancement fades and tapers in the distal superficial femoral artery regions bilaterally in the lower extremities. Mild atherosclerotic calcifications of the superficial femoral arteries bilaterally and in the common iliac arteries bilaterally. No large vessel occlusion or stenosis appreciated. There is evidence of right heart strain or right heart failure. Liver ultrasound (06/29/2020): Trace ascites seen at the lateral aspect of the liver, otherwise negative right upper quadrant sonography. Doppler ultrasound (06/30/2020): Bilateral lower extremity arterial Doppler ultrasoundmoderate atherosclerotic plaquing. No high-grade stenosis or occlusion seen in either lower extremity. Echocardiogram (06/01/2020): Systolic and diastolic dysfunction present with LVEF 20-25%; high CVP and borderline pulmonary hypertension present; global longitudinal strain. -4.3%; thickening of mitral leaflets without stenosis and mild insufficiency and thickening of tricuspid leaflets with moderate tricuspid insufficiency. PROGNOSIS: Poor. ACTIVITY: As tolerated. DIET: Renal restriction to grams, fluid restriction 2 L. DISPOSITION: Transfer to [facility]. DISCHARGE INSTRUCTIONS: Please present to PCP within one week. Please present to dermatology within one week for biopsy and out of malignancy due to new lesions and history of actinic keratosis. Please present to ED for any worsening symptoms. ITEMS TO FOLLOWUP ON ON OUTPATIENT: 1. Skin lesions need biopsy, dermatology follow-up. 2. Follow-up with cardiology within 1 week. DISCHARGE CONDITION: Stable. TIME SPENT ON DISCHARGE: Greater than 35 minutes. Vital Signs/I&Os Vital Signs Date Time Temp Pulse Resp B/P (MAP) Pulse Ox O2 Delivery O2 Flow Rate FiO2 07/01/20 12:21 97.0 61 22 111/77 (88) 96 Room Air I&O- Last 24 Hours up to 6 AM 07/01/20 06:00 Intake Total 1350 ml Output Total 1070 ml Balance 280 ml Laboratory Data Labs 24H Laboratory Tests 2 06/30/20 17:06: Anion Gap 14, Glomerular Filtration Rate > 60.0, Calcium Level 9.5 07/01/20 05:56: Anion Gap 13, Glomerular Filtration Rate 59.5, Calcium Level 9.8 07/01/20 11:10: Anion Gap 14, Glomerular Filtration Rate 58.0, Calcium Level 9.8 CBC/BMP Laboratory Tests 06/30/20 17:06 07/01/20 05:56 07/01/20 11:10 Discharge Medications Scheduled Apixaban (Eliquis) 5 Mg Tablet, 5 MG PO BID, (Reported) Dapagliflozin Propanediol (Farxiga) 10 Mg Tablet, 10 MG PO DAILY, (Reported) Levothyroxine Sodium (Levothyroxine Sodium) 25 Mcg Tablet, 25 MCG PO DAILY, (Reported) Metoprolol Succinate (Metoprolol Succinate) 50 Mg Tab.er.24h, 50 MG PO DAILY, (Reported) Potassium Chloride (Potassium Chloride) 20 Meq Tablet.er, 20 MEQ PO BID, (Reported) Spironolactone (Spironolactone) 25 Mg Tablet, 25 MG PO DAILY, (Reported) Torsemide (Torsemide) 100 Mg Tablet, 100 MG PO BID, (Reported) Scheduled PRN Albuterol Sulfate (Proventil Hfa) 6.7 Gm Hfa.aer.ad, 2 PUFF INH QID PRN for SHORTNESS OF BREATH, (Reported) Metolazone (Metolazone) 2.5 Mg Tablet, 2.5 MG PO DAILY PRN for EDEMA, (Reported) Allergies Coded Allergies: vancomycin (Verified Adverse Reaction, Severe, rigors, 04/05/20) GME ATTESTATION My faculty preceptor for this patient encounter was physically present during the encounter and was fully available. All aspects of the patient interview, examination, medical decision making process, and medical care plan development were reviewed and approved by the faculty preceptor. The faculty preceptor is aware and concurs with the plan as stated in the body of this note and will attest to such by his/her cosignature. Ramsey Obando DO Jul 01, 2020 16:51
[2020-07-01 18:32] LABS: CALCIUM LEVEL 9.6 MG/DL (8.5-10.1); CREATININE FOR GFR 1.38 MG/DL (0.70-1.30); GLOMERULAR FILTRATION RATE 56.5 (>56); POTASSIUM SERUM 4.6 MEQ/L (3.5-5.1)
[2020-07-01 21:00] VITALS: BP 100/72
[2020-07-02] VITALS: BP 99/79
[2020-07-02 04:00] VITALS: BP 102/70
[2020-07-02] MEDS: LEVOTHYROXINE 25MCG TABLET (0.025MG) PO SCH (05:30)
[2020-07-02 05:40] LABS: HEMATOCRIT 44.3 % (42.0-52.0); HEMOGLOBIN 14.9 g/dl (13.5-17.5); MEAN CORPUSCULAR HEMOGLOBIN 33.3 pg (27.0-33.0); MEAN CORPUSCULAR HGB CONC 33.6 g/dl (32.0-36.5); MEAN CORPUSCULAR VOLUME 98.9 fl (80.0-96.0); PLATELET COUNT, AUTOMATED 201 10^3/uL (150-450); RED BLOOD COUNT 4.48 10^6/uL (4.30-6.10); WHITE BLOOD COUNT 14.5 10^3/uL (4.0-10.0)
[2020-07-02 05:50] LABS: ALBUMIN 3.3 GM/DL (3.2-5.2); CALCIUM LEVEL 8.9 MG/DL (8.5-10.1); CREATININE FOR GFR 1.36 MG/DL (0.70-1.30); GLOMERULAR FILTRATION RATE 57.5 (>56); POTASSIUM SERUM 4.5 MEQ/L (3.5-5.1)
[2020-07-02 08:00] VITALS: BP 104/74
[2020-07-02] MEDS: APIXABAN 5 MG TAB (ELIQUIS) PO SCH (08:33)
[2020-07-02] MEDS: MIDODRINE 5 MG TAB PO SCH ×3 (08:33→16:30)
[2020-07-02] MEDS: DOCUSATE SODIUM 100MG CAPSULE PO SCH (08:33)
[2020-07-02] MEDS: TOLVAPTAN 15 MG TAB (SAMSCA) PO SCH (08:42)
--- NOTE | 2020-07-02 10:01 | IPNPDOC ---
Text Note Date of Service The patient was seen on 07/02/20. NOTE Subjective: Patient is a 55-year-old male who presented to the ER at the direction of his physician because of abnormal blood work. Patient mistakenly increased the dose of his diuretics to 400mg Torsemide daily and was found to have severe hyponatremia / hypokalemia and was admitted to the hospitalist service for further evaluation and treatment. Nephrology was called on consultation. Hypokalemia has resolved at this time. No acute events overnight. Patient was sitting in bed during examination. He reports that he is frustrated due to slow transfer to [facility]. Discussed with patient that transfer team will be contacted about his transfer. Otherwise, patient has no new complaints at this time. Patient counseled about following up with dermatology after discharge from [facility] due to history of actinic keratosis and presenting with skin lesions on cranium and back of neck on admission. He voices understanding and states that he had to reschedule multiple dermatology appointments due to hospitalization. Objective: Vitals (See below) General: Sitting in bed, no acute distress, comfortable. HEENT: NC, AT, oral mucosal membranes moist. CVS: +S1S2, gallop present Lungs: Fair air entry b/l, no appreciable wheezing, rhonchi or rales Abdomen: Soft, nondistended and nontender Extremities: Lower extremities still reveal 2+ pitting edema to b/l calves, - Calf tenderness, pedal pulses not palpable in left lower extremity, doppler ultrasound does not show flow in left lower foot Imaging: CXR 06/26: Cardiomegaly with pacemaker. Cephalization of the pulmonary vasculature. Otherwise no active disease. Assessment and plan: Severe Hypotonic Hyponatremia - likely 2/2 diuresis - Presented to the ER with confusion. - Sodium noted to be 116 on 06/25. - Has been slowly improving, 128, 07/02/2020. - Will continue with BMP q4h. - Hypertonic saline has been stopped and patient was given tolvaptan as well as IV lasix. PO sodium chloride has been ordered - managed by Nephrology. - Nephrology is managing hyponatremia, primary team grateful for their help. Possible lower extremity venous occlusion - CTA shows slow flow phenomenon vs embolic/atherosclerotic occlusion - Extremity arterial doppler (06/30/2020): moderate atherosclerotic plaquing, no high grade stenosis or occlusion seen in either lower extremity. Acute metabolic encephalopathy - likely 2/2 hyponatremia - No focal neurologic deficits - See above Hypotension - likely 2/2 hypovolemia - Resolved today. - Will continue with bed rest / fall precautions - Will get PT involved s/p Hypokalemia: resolved at this time. Hypermagnesemia: lesser than yesterday. At 2.7 today, was 2.7 yesterday. s/p Lactic acidosis: resolved. Hypochloremic metabolic alkalosis: Continue hyponatremia management first. Elevated troponin - possibly 2/2 demand ischemia (NSTEMI Type II); chronically elevated Chronically elevated bilirubin - possibly 2/2 hepatic congestion Chronic transaminitis - possibly 2/2 hepatic congestion Leukocytosis - possibly 2/2 reactive etiology - Remains afebrile - Review systems is negative for any source of infection - Will hold off on antibiotic therapy at this time Chronic combined systolic and diastolic heart failure (EF: 20-25%) - Clinically patient does not appear to be in any acute exacerbation Non-ischemic cardiomyopathy - possibly 2/2 amyloidosis, however possibly 2/2 hemochromatosis - s/p AICD (06/21/20). 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 - Workup pending; [place] / [facility] / Immunofixation - transfer accepted by [facility], pending bed availability. Paroxysmal atrial fibrillation - Metoprolol on hold; will resume once BP improves. - c/w full anticoagulation with Eliquis. Hypothyroidism - c/w Levothyroxine PETERSON - Not on CPAP therapy History of Non-Hodgkin's lymphoma (2010) - s/p M-CHOP DVT prophylaxis - c/w Full anticoagulation with Eliquis GME ATTESTATION My faculty preceptor for this patient encounter was physically present during the encounter and was fully available. All aspects of the patient interview, examination, medical decision making process, and medical care plan development were reviewed and approved by the faculty preceptor. The faculty preceptor is aware and concurs with the plan as stated in the body of this note and will attest to such by his/her cosignature. VS,Aminah, I+O VS, Fishbone, I+O Laboratory Tests 07/01/20 11:10 07/01/20 17:55 07/02/20 05:11 Vital Signs Date Time Temp Pulse Resp B/P (MAP) Pulse Ox O2 Delivery O2 Flow Rate FiO2 07/02/20 08:00 97.5 91 20 104/74 (84) 94 Room Air I&O- Last 24 Hours up to 6 AM 07/02/20 06:00 Intake Total 1200 ml Output Total 2225 ml Balance -1025 ml GME ATTESTATION GME ATTESTATION My faculty preceptor for this patient encounter was physically present during the encounter and was fully available. All aspects of the patient interview, examination, medical decision making process, and medical care plan development were reviewed and approved by the faculty preceptor. The faculty preceptor is aware and concurs with the plan as stated in the body of this note and will attest to such by his/her cosignature. Mitra GARCIA OMS-3 Jul 02, 2020 09:55 Ramsey Obando DO Jul 02, 2020 10:01
[2020-07-02] MEDS: FUROSEMIDE injection 250 MG in D5W 225 ML IV SCH (11:18)
[2020-07-02 11:22] VITALS: BP 101/75
--- NOTE | 2020-07-02 13:25 | IPN ---
PROGRESS NOTE DATE: 07/02/2020 SUBJECTIVE: Mr. Ghotra is seen this morning on his bedside. He is sitting in the chair as usual. He reports only slight improvement in his lower extremity edema, but denies any dyspnea or chest pain. He remains on I.V. Lasix drip since yesterday and seems to have increased urine output today. I had requested cardiology to consider Dobutamine drip, however, decision was made for transfer to congestive heart failure clinic in [place] and patient has been accepted, but waiting for a bed. In the meantime, he remains on Lasix drip with slightly increased urine output, but still low blood pressure. His hyponatremia has been stable and he is also receiving Tolvaptan 15 mg daily. PHYSICAL EXAMINATION: VITALS: Temperature 96.6 degrees Fahrenheit, heart rate 76 per minute, respiratory rate 18 per minute, blood pressure 101/75 mmHg and oxygen saturation between 92 and 97% on room air. INTAKE AND OUTPUT: Records from yesterday show a negative fluid balance of only 170 mL, however, today so far he has 870 mL negative fluid balance. HEENT: Head atraumatic. Neck supple. JVD seems to be mildly elevated at least sitting upright. HEART: Sounds are irregular in rhythm. LUNGS: With few basilar rales. ABDOMEN: Soft and nontender. Bowel sounds are normal. EXTREMITIES: Without any cyanosis or clubbing. Lower extremity edema is extending up the thighs and at 3+. NEUROLOGIC: Patient is at his baseline mentation without a focal deficit. LABORATORY DATA: Today's labs show WBC 14.5, hemoglobin 14.9, hematocrit 44.3, platelets 201,000. Sodium 128, potassium 4.5, chloride 88, CO2 26, BUN 48, creatinine 1.36, glucose 93 and calcium 8.9. Serum albumin 3.3. PROBLEMS: 1. Hyponatremia: Sodium level seems to be stable. His hyponatremia is related to congestive heart failure and diuretics used. His admission sodium was 116 and has gradually improved to this level. Now we are giving him intravenous Lasix drip along with Tolvaptan 15 mg daily. Will continue the same and monitor his electrolytes closely. 2. Acute on chronic biventricular congestive heart failure: Patient has severe cardiomyopathy with systolic ejection fraction of 20% and also right-sided heart failure in addition to diastolic dysfunction. He is quite difficult to diurese due to low blood pressure. I feel that he needs to have cardiology intervention for improving his cardiac output. At this point, we will continue with Lasix drip which seems to be working. 3. Hypotension: Patient has been started on Midodrine 5 mg t.i.d. I feel that he should be treated with Dobutamine or similar medications by cardiology. Patient is waiting for transfer to [place].
[2020-07-02] MEDS ORDERED: POTASSIUM CHLORIDE 10 MEQ SR TABLET PO SCH (21:00)
== END 2020-07-02 17:09 | disposition short-term general hospital (02) | DRG 812 ==
LOC: M ED 11:27 → M ED INP 15:27 → M PCU 17:05
PROVIDERS: ADMIT Internal Medicine; ATTEND Family Medicine
DX: T50.1X1A Poisoning by loop [high-ceiling] diuretics, accidental (unintentional), initial encounter (principal); I95.9 Hypotension, unspecified; E87.2 Acidosis; E87.3 Alkalosis; E85.4 Organ-limited amyloidosis; E87.1 Hypo-osmolality and hyponatremia; I50.42 Chronic combined systolic (congestive) and diastolic (congestive) heart failure; I43 Cardiomyopathy in diseases classified elsewhere; I48.0 Paroxysmal atrial fibrillation; E83.51 Hypocalcemia; K76.1 Chronic passive congestion of liver; L57.0 Actinic keratosis; I70.203 Unspecified atherosclerosis of native arteries of extremities, bilateral legs; E87.6 Hypokalemia; K21.9 Gastro-esophageal reflux disease without esophagitis; G47.33 Obstructive sleep apnea (adult) (pediatric); Z85.79 Personal history of other malignant neoplasms of lymphoid, hematopoietic and related tissues; Z95.810 Presence of automatic (implantable) cardiac defibrillator; Z79.01 Long term (current) use of anticoagulants; Z79.899 Other long term (current) drug therapy; Z88.1 Allergy status to other antibiotic agents